=== PATIENT | male | born 1965 | race Caucasian/White ===

== ENCOUNTER 2019-11-09 10:57 | Outpatient (CLI) | payer MEDICARE, SELFPAY ==
--- NOTE | 2019-11-09 11:00 | US_ITS ---
WS: [id number] TESTICULAR ULTRASOUND HISTORY: TESTICULAR SWELLING COMPARISON: 04/15/2017 TECHNIQUE: Real-time and color Doppler imaging or utilized to perform a testicular ultrasound. Right testicle: 3.4 cm x 1.8 cm x 2.0 cm. Normal size and echogenicity. No mass or torsion. Normal color Doppler is present throughout. Systolic and diastolic velocities are both present. Small simple hydrocele. Right epididymis: Normal epididymis with no increased vascularity. Left testicle: 3.6 cm x 2.2 cm x 2.6 cm. Normal size and echogenicity. No mass or torsion. Normal color Doppler is present throughout. Systolic and diastolic velocities are both present. Moderate to large hydrocele surrounding the testicle. Marked thickening of the scrotal wall around th e LEFT testicle. Left epididymis: Normal epididymis with no increased vascularity. US/US scrotum [id number] IMPRESSION: 1. No testicular mass or torsion. 2. Small RIGHT and moderate to large LEFT hydrocele. Hydroceles were also pres ent on the prior study from 04/15/2017. The LEFT hydrocele is increased in size. 3. LEFT scrotal wall thickening.
== END 2019-11-09 10:58 | disposition home or self-care (01) ==
LOC: US 11:04
PROVIDERS: Family Provider Nurse Practitioner Family; PCP Nurse Practitioner Family; Visit Provider Nurse Practitioner Family
DX: N50.89 Other specified disorders of the male genital organs (principal); N43.2 Other hydrocele
CPT/HCPCS: 76870

== ENCOUNTER 2020-05-08 12:53 | Emergency (ER) | payer MEDICARE, SELFPAY ==
[2020-05-08 13:04] VITALS: BP 126/87; PULSE 49; RESP 14; TEMP 36.6; O2SAT 98; BMI 41.8
--- NOTE | 2020-05-08 13:25 | XRR_ITS ---
PROCEDURE INFORMATION: Exam: XR Chest, 1 View Exam date and time: 05/08/2020 1:53 PM Age: 55 years old Clinical indication: Other: Bradycardia; Patient HX: SOB, pain in lspine, clammy this morning TECHNIQUE: Imaging protocol: XR of the chest Views: 1 view. COMPARISON: CR Chest 1 [place] [id number] 09/05/2019 5:46 PM FINDINGS: Lungs: Unremarkable. No consolidation. Pleural space: Unremarkable. No pleural effusion. No pneumothorax. Heart/Mediastinum: Unremarkable. No cardiomegaly. Bones/joints: Unremarkable. XR/XR chest 1V portable [id number] IMPRESSION: No acute findings.
--- NOTE | 2020-05-08 13:25 | ECG_ITS ---
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 Measurements Intervals [place] Rate: 47 P: FL: -1 QRS: 102 QRSD: 150 T: 18 QT: 459 QTc: 407 Interpretive Statements ATRIAL FIBRILLATION WITH SLOW VENTRICULAR RESPONSE MARKED RIGHT AXIS DEVIATION [QRS AXIS > 100] RIGHT BUNDLE BRANCH BLOCK [120+ ms QRS DURATION, UPRIGHT V1, 40+ ms S IN I/aVL/V4/V5/V6] Compared to ECG 09/05/2019 19:32:22 Right-axis deviation now present Right bundle-branch block now present Myocardial infarct finding no longer present T-wave abnormality no longer present Possible ischemia no longer present Electronically Signed On 05-08-2020 21:23:35 CDT by Annetta Candelaria M.D. [id number]
--- NOTE | 2020-05-08 13:27 | ED_ITS ---
HPI - Arrhythmia/Palpitations General: Chief Complaint: Arrhythmia/Palpitations Stated Complaint: CLAMMY/SOB/SENT BY FOR HEART CHECK Time Seen by Provider: 05/08/20 13:13 Source: patient and family Mode of arrival: ambulatory Limitations: no limitations History of Present Illness: HPI narrative: The patient is a 55-year-old obese gentleman with a history of atrial fibrillation and pulmonary embolism who is on apixaban, diltiazem, metoprolol among many others. About 2 weeks ago his doctor increase the dose of his diltiazem to 240 mg extended release tablets. The patient states his heart rate is usually high but when he went to his primary care provider's office today they noticed that his heart rate was 45 and his blood pressure was on the lower side, 110/50. The patient also had some shortness of breath so he was advised to come to the emergency department for evaluation. He denies any chest pain but says he feels cold in his chest which is how he feels when his heart is not in rhythm. Onset (ago): hour(s) Duration: intermittent Severity: mild Context: occurred during rest Arrhythmia history: atrial fibrillation and on anti-coagulants Associated symptoms: Reports short of breath; Deny anxiety, cough, diaphoresis, muscle cramps, nausea, paresthesias, pre- syncope, sense of impending doom, syncope or vomiting Review of Systems General: Reports: 10 or more systems reviewed and unremarkable except in HPI and below Const: Denies: diaphoresis Eyes: Denies: change in vision or blurry vision ENMT: Denies: throat pain, enlarged tonsils, odynophagia, hoarseness, mouth pain or swelling of lips/tongue Card: Denies: syncope or pre-syncope Resp: Denies: dyspnea, productive cough or non-productive cough GI: Denies: nausea or vomiting : Denies: flank pain, dysuria, urinary frequency, urinary urgency or urinary hesitancy Musc: Denies: muscle cramps Skin/Breast: Denies: rash, pruritus or erythema Neuro: Denies: headache(s), numbness in extremities or weakness in extremities Psych: Denies: anxiety Endo: Denies: polyuria, polydipsia or tired all the time [facility] PFSH: Medical History (Reviewed 05/08/20 @ 13:34 by Renée Cotto MD, [facility] Atrial fibrillation Pulmonary embolism Physical Exam Const: COMMON NORMALS: no acute distress, patient oriented x3, no limitations, healthy appearing, alert and well nourished NUTRITIONAL APPEARANCE: obese HENMT: COMMON NORMALS: normocephalic, atraumatic and moist oral mucous membranes HEAD & SCALP: normocephalic and atraumatic Neck/C-Spine: COMMON NORMALS: no meningeal signs and no JVD Resp: COMMON NORMALS: normal respiratory effort, No retractions, No use of accessory muscles, clear to auscultation bilaterally and percussion normal AUSCULTATION: clear to auscultation bilaterally PERCUSSION: percussion normal Cardio: COMMON NORMALS: no JVD, S1 normal heart sound present, S2 normal heart sound present, No gallops present (Cardio), No clicks present (Cardio), No murmurs present (Cardio), No rub (Cardio) and Peripheral pulses 2+ throughout RATE: bradycardic RHYTHM: abnormal rhythm regularly irregular HEART SOUNDS: S1 normal heart sound present and S2 normal heart sound present PERIPHERAL PULSES: Peripheral pulses 2+ throughout GI: COMMON NORMALS: Normal to inspection, nondistended, normoactive bowel sounds present, Soft to palpation, non-tender, No hepatosplenomegaly present, no masses and no bruits PALPATION: Yes Soft to palpation and Yes No hep atosplenomegaly present Extremity: COMMON NORMALS: normal to inspection, full ROM, capillary refill normal, no calf tenderness and no pedal edema Neuro: COMMON NORMALS: patient oriented x3 SENSORIUM/ORIENTATION: Yes alert MENINGEAL SIGNS: Yes no meningeal signs Course Reevaluation(s): Reevaluation #1: Discussed his lab and imaging findings with him. Baseline troponin mildly elevated but 2-hour troponin with a flat delta. Heart rate has increased to the 60s currently on his blood pressure has also improved. I advised that he reduce the dose of his metoprolol by half to 25 mg twice daily. He is also advised to continue to check his blood pressure at least once a day at home and to follow-up with his primary care provider within 3 days for reevaluation. He voiced understanding and is in agreement with the plan. Time: 16:15 Vital Signs: Vital signs: Vital Signs Temperature 97.9 F 05/08/20 13:04 Pulse Rate 56 L 05/08/20 15:53 Respiratory Rate 17 05/08/20 15:53 Blood Pressure 138/94 05/08/20 15:53 Pulse Oximetry 96 05/08/20 15:53 MDM - Arrhythmia/Palpitations MDM Narrative: Medical decision making narrative: 55-year-old gentleman who presents to the emergency department from his primary care provider's office with complaints of bradycardia and hypotension. On arrival his heart rate was in the 40s but his blood pressure was decent in the 1 teens systolic. The patient has a history of atrial fibrillation and is on diltiazem and metoprolol. The dose of the diltiazem was increased about 2 weeks ago and I believe this may be responsible for his symptoms. Evaluation in the emergency department was unremarkable with mildly elevated baseline high-sensitivity troponin but with a flat 2-hour delta. The patient was asymptomatic other than mild shortness of breath. Other labs and imaging were unremarkable. He is therefore discharged home and he is advised to reduce the dose of metoprolol by 50% and to see if his blood pressure and pulse rate improved with that. Prior to discharge his heart rate w ent to into the 60s without intervention and his blood pressure also remained okay. Medical Records: Attestation: I reviewed the patient's medical records. Lab Data: Attestation: I reviewed the patient's lab results. Labs: Lab Results 05/08/20 05/08/20 05/08/20 Range/Units 13:39 13:39 13:39 WBC 5.9 (4.0-10.0) 10^3/ uL RBC 5.12 (4.1-5.3) 10^6/u L Hgb 14.6 (11.7-16.6) g/dL Hct 46.8 (42.0-52.0) % MCV 91.4 (80-94) fL MCH 28.5 (28.0-34.0) pg MCHC 31.2 (30.0-36.0) g/dL RDW 12.8 (12.1-15.1) % Plt Count 249 (130-400) 10^3/c mm MPV 10.5 H (7.4-10.4) fL Neut % (Auto) 58.0 % Lymph % (Auto) 32.6 % [place] % (Auto) 7.4 % Eos % (Auto) 1.5 % Baso % (Auto) 0.3 % Neut # (Auto) 3.39 (1.8-7.7) 10^3/u L Lymph # (Auto) 1.9 (0.8-4.8) 10^3/u L [place] # (Auto) 0.4 (0.2-0.9) 10^3/u L Eos # (Auto) 0.1 (0.0-0.8) 10^3/u L Baso # (Auto) 0.0 (0.0-0.1) 10^3/u L Nucleated RBC % (a uto) 0 % Nucleated RBCs # 0.0 /100WBC Sodium Cancelled Potassium Cancelled Chloride Cancelled Carbon Dioxide Cancelled Anion Gap Cancelled BUN Cancelled Creatinine Cancelled GFR Calculation Cancelled Glucose Cancelled Calculated Osmolal ity Cancelled Calcium Cancelled Total Bilirubin Cancelled AST Cancelled ALT Cancelled Alkaline Phosphata se Cancelled Troponin T Baselin e 19 H (0-15) ng/L Troponin T 120 Min glo (0-15) ng/L Delta Troponin T (0-10) ABS# NT-Pro-B Natriuret Pep Cancelled Total Protein Cancelled Albumin Cancelled Globulin Cancelled 05/08/20 05/08/20 Range/Units 15:16 15:16 WBC (4.0-10.0) 10^3/ uL RBC (4.1-5.3) 10^6/u L Hgb (11.7-16.6) g/dL Hct (42.0-52.0) % MCV (80-94) fL MCH (28.0-34.0) pg MCHC (30.0-36.0) g/dL RDW (12.1-15.1) % Plt Count (130-400) 10^3/c mm MPV (7.4-10.4) fL Neut % (Auto) % Lymph % (Auto) % [place] % (Auto) % Eos % (Auto) % Baso % (Auto) % Neut # (Auto) (1.8-7.7) 10^3/u L Lymph # (Auto) (0.8-4.8) 10^3/u L [place] # (Auto) (0.2-0.9) 10^3/u L Eos # (Auto) (0.0-0.8) 10^3/u L Baso # (Auto) (0.0-0.1) 10^3/u L Nucleated RBC % (a uto) % Nucleated RBCs # /100WBC Sodium 137 Potassium 4.7 Chloride 101 Carbon Dioxide 28 Anion Gap 12.7 BUN 12 Creatinine 0.8 GFR Calculation 99.6 Glucose 107 Calculated Osmolal ity 281 L Calcium Total Bilirubin 0.3 AST 15 ALT 17 Alkaline Phosphata se 55 Troponin T Baselin e (0-15) ng/L Troponin T 120 Min glo 17.84 H (0-15) ng/L Delta Troponin T -1.16 L (0-10) ABS# NT-Pro-B Natriuret Pep 768 H Total Protein 6.9 Albumin 4.0 Globulin 2.9 Imaging Data^: CXR: Radiologist's impression: [address] [address] XRay Report Signed Patient: Mitesh Laboy #: [id number] : 1965Acct#:[id number] Age/Sex: 55 / MADM Date: 05/08/20 Loc: ERRoom/Bed: Attending Dr: Ordering Provider/Ordering MD: Renée Cotto MD, [facility] Date of Service: 05/08/20 Procedure(s): XR chest 1V portable [id number] Accession Number(s): [id number] Report Number: [id number] PROCEDURE INFORMATION: Exam: XR Chest, 1 View Exam date and time: 05/08/2020 1:53 PM Age: 55 years old Clinical indication: Other: Bradycardia; Patient HX: SOB, pain in lspine, clammy this morning TECHNIQUE: Imaging protocol: XR of the chest Views: 1 view. COMPARISON: CR Chest 1 [place] [id number] 09/05/2019 5:46 PM FINDINGS: Lungs: Unremarkable. No consolidation. Pleural space: Unremarkable. No pleural effusion. No pneumothorax. Heart/Mediastinum: Unremarkable. No cardiomegaly. Bones/joints: Unremarkable. XR/XR chest 1V portable [id number] IMPRESSION: No acute findings. Dictated By:Shaun Bass MD Signed By:Shaun Bassigned Date/Time:05/08/20 1442 EKG Data^: EKG 1: Attestation: I personally reviewed and interpreted this EKG as follows: EKG interpretation date: 05/08/20 EKG interpretation time: 13:02 Prior EKG tracings: not available for review Interpretation: Atrial fibrillation with slow ventricular response. Heart rate 47 bpm. Right axis deviation. Right bundle branch block. No ST changes. Other EKG comments: Chest X-Ray 05/08/20 13:25 IMPRESSION: No acute findings. Discharge Plan Discharge Patient Disposition: Home Clinical Impression: Bradycardia, drug induced Condition: Stable Prescriptions: Continued aspirin [Adult Low Dose Aspirin] 81 mg tablet,delayed release (DR/EC) 81 mg PO DAILY RF: 0 cyclobenzaprine 10 mg tablet 10 mg PO TID RF: 0 Eliquis 5 mg tablet 5 mg PO BID RF: 0 fentanyl 100 mcg/hr patch 72 hour 1 patch TRANSDERMA Q72H RF: 0 gabapentin 800 mg tablet 800 mg PO TID RF: 0 ibuprofen 800 mg tablet 800 mg PO TID RF: 0 Invokana 300 mg tablet 300 mg PO DAILY RF: 0 lovastatin 20 mg tablet 20 mg PO DAILY RF: 0 metformin 1,000 mg tablet 1,000 mg PO DAILY RF: 0 nitroglycerin [Nitrostat] 0.4 mg tablet, sublingual 0.4 mg SUBLINGUAL Q5M PRN (Reason: chest pains) RF: 0 oxycodone 10 mg tablet 10 mg PO Q4H PRN (Reason: Pain) RF: 0 diltiazem HCl 240 mg capsule,extended release 24 hr 240 mg PO DAILY Qty: 30 RF: 3 Changed metoprolol tartrate 50 mg tablet 25 mg PO BID Qty: 180 RF: 3 Discharge Orders: Discharge Order (Routine); Ordered 05/08/20 Ordered By: Renée Cotto Referrals: Rachael Law FNP [Primary Care Provider] - 1-3 days Discharge Diet: Usual diet Discharge Activity: Resume usual activity Patient Instructions: Bradycardia (ED) Activity Restrictions/Additional Instructions: Return for any new or worsening symptoms. Follow-up with your primary care provider within 3 days. Reduce the dose of your metoprolol by half, to 25 mg twice a day. Check your heart rate at least once a day as well as your blood pressure and inform your primary care provider to see if changes need to be made. 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
[2020-05-08 13:50] VITALS: BP 128/73; PULSE 45; RESP 17; O2SAT 94; O2SAT 95
[2020-05-08 13:53] VITALS: BP 124/89; PULSE 50; RESP 18; O2SAT 98
[2020-05-08 13:53] LABS: Basophils % 0.3 %; Eosinophils # 0.1 10^3/uL (0.0-0.8); Eosinophils % 1.5 %; Hematocrit 46.8 % (42.0-52.0); Hemoglobin 14.6 g/dL (11.7-16.6); Lymphocytes # 1.9 10^3/uL (0.8-4.8); Lymphocytes % 32.6 %; Mean Corpuscular HGB Conc 31.2 g/dL (30.0-36.0); Mean Corpuscular Hemoglobin 28.5 pg (28.0-34.0); Mean Corpuscular Volume 91.4 fL (80-94); Mean Platelet Volume 10.5 fL (7.4-10.4); Monocytes # 0.4 10^3/uL (0.2-0.9); Monocytes % 7.4 %; Neutrophils # 3.39 10^3/uL (1.8-7.7); Nucleated Red Blood Cells % 0 %; Platelet Count 249 10^3/cmm (130-400); Red Blood Count 5.12 10^6/uL (4.1-5.3); Red Cell Distribution Width 12.8 % (12.1-15.1); White Blood Count 5.9 10^3/uL (4.0-10.0)
[2020-05-08 14:53] VITALS: BP 148/82; PULSE 62; RESP 18; O2SAT 93
[2020-05-08 15:37] LABS: Troponin(5th) Baseline 19 ng/L (0-15)
[2020-05-08 15:53] VITALS: BP 138/94; PULSE 56; RESP 17; O2SAT 96
[2020-05-08 16:01] LABS: Troponin 5 2HR 17.84 ng/L (0-15); Troponin 5 2HR Delta -1.16 ABS# (0-10)
[2020-05-08 16:10] LABS: Alanine Aminotransferase 17 U/L (0-41); Alkaline Phosphatase 55 IU/L (40-130); Anion Gap 12.7 (5-19); Aspartate Amino Transferase 15 U/L (0-40); Blood Urea Nitrogen 12 mg/dL (6-20); Carbon Dioxide 28 mmol/L (22-29); Chloride 101 mmol/L (98-107); Globulin 2.9 g/dL (1.3-4.6); Glomerular Filtration Rate 99.6 mL/min (90-130); Glucose 107 mg/dL (65-115); NT Pro B Type Natriuretic Pept 768 pg/mL (0-125); Osmolality Calculated 281 mOsm/kg (285-295); Potassium 4.7 mmol/L (3.5-5.1); Sodium 137 mmol/L (136-145); Total Bilirubin 0.3 mg/dL (0.15-1.2); Total Protein 6.9 g/dL (6.6-8.7)
[2020-05-08 16:23] VITALS: BP 114/50; PULSE 70; RESP 15; O2SAT 96
== END 2020-05-08 16:38 | disposition home or self-care (01) ==
PROVIDERS: Emergency Provider Family Medicine; PCP Nurse Practitioner Family
DX: R00.1 Bradycardia, unspecified (principal); Z79.82 Long term (current) use of aspirin; Z79.01 Long term (current) use of anticoagulants; I48.91 Unspecified atrial fibrillation
CPT/HCPCS: 12345; 36415; 71045; 80053; 83880; 84484; 85025; 93005; 99283; 99284

== ENCOUNTER 2020-08-28 12:33 | Outpatient (CLI) | payer MEDICARE, SELFPAY ==
--- NOTE | 2020-08-28 12:39 | XR_ITS ---
WS: [id number] Right ankle, 2 views, 08/28/2020 Clinical Data: CELLULITIS OF R FOOT/R FOOT ULCER Comparison: Right foot, 12/26/2018. Findings: There is osteoarthritic change and deformity of the right ankle with sclerosis of the talus and adjac ent tibia. There is sclerosis of the tarsal bones. There is soft tissue swelling over the lateral mal leolus. No acute fractures are seen. There is a large Achilles spur and a plantar spur. XR/XR ankle RT 2V [id number] Impression: 1. Sclerotic changes and deformity of the right ankle which are chronic. 2. Sclerotic changes of the tarsal bones and mid foot unchanged. 3. Soft tissue swelling over lateral aspect of right ankle. Which could indicat e cellulitis.
== END 2020-08-28 12:34 | disposition home or self-care (01) ==
PROVIDERS: PCP Nurse Practitioner Family; Visit Provider Nurse Practitioner Family
DX: L03.115 Cellulitis of right lower limb (principal); L97.519 Non-pressure chronic ulcer of other part of right foot with unspecified severity; M79.89 Other specified soft tissue disorders
CPT/HCPCS: 73600

== ENCOUNTER 2020-08-28 13:56 | Outpatient (CLI) | payer MEDICARE, SELFPAY | END 2020-08-28 13:57 | disposition home or self-care (01) | LOC: WOUND 13:57 | PROVIDERS: PCP Nurse Practitioner Family; Visit Provider Thoracic Surgery (Cardiothoracic Vascular Surgery) | DX: E11.622 Type 2 diabetes mellitus with other skin ulcer (principal); L97.312 Non-pressure chronic ulcer of right ankle with fat layer exposed; L03.115 Cellulitis of right lower limb; L97.519 Non-pressure chronic ulcer of other part of right foot with unspecified severity; M79.89 Other specified soft tissue disorders | CPT/HCPCS: 11042; 11045; 87070; 87075; 87077; 87186; 87205; G0463 ==

== ENCOUNTER 2020-08-28 16:36 | Inpatient (IN) | payer MEDICARE, SELFPAY ==
[2020-08-28 17:22] VITALS: BP 146/88; PULSE 97; RESP 16; TEMP 36.8; O2SAT 97
--- NOTE | 2020-08-28 18:06 | PC.NURSE ---
wound culture sent to lab for processing
[2020-08-28 18:08] LABS: Basophils % 0.4 %; Eosinophils # 0.1 10^3/uL (0.0-0.8); Eosinophils % 1.6 %; Hematocrit 41.5 % (42.0-52.0); Hemoglobin 13.4 g/dL (11.7-16.6); Lymphocytes # 1.6 10^3/uL (0.8-4.8); Lymphocytes % 22.1 %; Mean Corpuscular HGB Conc 32.3 g/dL (30.0-36.0); Mean Corpuscular Hemoglobin 28.7 pg (28.0-34.0); Mean Corpuscular Volume 88.9 fL (80-94); Monocytes # 0.8 10^3/uL (0.2-0.9); Monocytes % 11.1 %; Neutrophils % 64.2 %; Nucleated Red Blood Cells % 0 %; Platelet Count 280 10^3/cmm (130-400); Red Blood Count 4.67 10^6/uL (4.1-5.3); Red Cell Distribution Width 13.2 % (12.1-15.1)
[2020-08-28 18:13] LABS: Glucose Point of Care 130 mg/dL (70-110)
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
[2020-08-28 18:30] LABS: Alanine Aminotransferase 16 U/L (0-41); Alkaline Phosphatase 76 IU/L (40-130); Anion Gap 15.9 (5-19); Aspartate Amino Transferase 14 U/L (0-40); Blood Urea Nitrogen 17 mg/dL (6-20); Calcium 9.2 mg/dL (8.5-10.5); Carbon Dioxide 27 mmol/L (22-29); Chloride 98 mmol/L (98-107); Globulin 3.4 g/dL (1.3-4.6); Glucose 146 mg/dL (65-115); Osmolality Calculated 288 mOsm/kg (285-295); Potassium 3.9 mmol/L (3.5-5.1); Sodium 137 mmol/L (136-145); Total Bilirubin 0.4 mg/dL (0.15-1.2); Total Protein 7.4 g/dL (6.6-8.7)
[2020-08-28 19:36] LABS: SARS Covid-2 Antigen Negative (Negative)
[2020-08-28] MEDS: linezolid premix 600 MG/300 ML PREMIX 300 MG IV (20:22)
[2020-08-28 20:25] VITALS: BP 149/82; PULSE 110; RESP 20; TEMP 37; O2SAT 98
[2020-08-28 20:52] LABS: Glucose Point of Care 118 mg/dL (70-110)
[2020-08-28] MEDS: piperacillin-tazobactam 3.375 GM in sodium chloride 0.9% (plus) 50 ML IV (22:28)
[2020-08-28 23:58] VITALS: BP 123/69; PULSE 97; RESP 18; TEMP 37.3; O2SAT 95
[2020-08-29] VITALS (8 sets, daily range): BP systolic 110–122; BP diastolic 64–79; PULSE 75–129; RESP 16–20; TEMP 36.6–37.3; O2SAT 95–97; BMI 41.7
[2020-08-29 05:29] LABS: Basophils % 0.5 %; Eosinophils # 0.2 10^3/uL (0.0-0.8); Eosinophils % 2.4 %; Hematocrit 40.1 % (42.0-52.0); Hemoglobin 12.8 g/dL (11.7-16.6); Lymphocytes # 1.5 10^3/uL (0.8-4.8); Lymphocytes % 24.8 %; Mean Corpuscular HGB Conc 31.9 g/dL (30.0-36.0); Mean Corpuscular Hemoglobin 28.5 pg (28.0-34.0); Mean Corpuscular Volume 89.3 fL (80-94); Mean Platelet Volume 9.5 fL (7.4-10.4); Monocytes # 0.8 10^3/uL (0.2-0.9); Monocytes % 13.2 %; Neutrophils # 3.58 10^3/uL (1.8-7.7); Neutrophils % 58.4 %; Nucleated Red Blood Cells % 0 %; Platelet Count 246 10^3/cmm (130-400); Red Blood Count 4.49 10^6/uL (4.1-5.3); Red Cell Distribution Width 13.2 % (12.1-15.1); White Blood Count 6.1 10^3/uL (4.0-10.0)
[2020-08-29] MEDS: piperacillin-tazobactam 3.375 GM in sodium chloride 0.9% (plus) 50 ML IV ×3 (05:42→21:56)
--- NOTE | 2020-08-29 05:57 | PC.NURSE ---
Pt concerned about night time med at beginning of shift, med reconciled in NOV and Phys notified of update and asked to review and make night meds active. Explained to patient certain medications requested (Eliquis, Metoprolol ect) might be held temporarily due to possible procedure to ankle next day. Will address further with day shift nurse/phys.
[2020-08-29 06:14] LABS: Glucose Point of Care 115 mg/dL (70-110)
[2020-08-29 06:31] LABS: Blood Urea Nitrogen 15 mg/dL (6-20); Calcium 9.1 mg/dL (8.5-10.5); Carbon Dioxide 26 mmol/L (22-29); Chloride 102 mmol/L (98-107); Glomerular Filtration Rate 116.2 mL/min (90-130); Glucose 138 mg/dL (65-115); Osmolality Calculated 291 mOsm/kg (285-295); Sodium 139 mmol/L (136-145)
--- NOTE | 2020-08-29 08:53 | PM.PN ---
Subjective Subjective: Interval history: No events overnight. Denies any new symptoms. Is not bothered by pain in his leg. No chest pain or pressure. No trouble breathing. Vitals/I&O/Wt Last Vital Signs Temp 97.9 F 08/29/20 07:45 Pulse 93 08/29/20 07:45 Resp 18 08/29/20 07:45 BP 110/64 08/29/20 07:45 Pulse Ox 95 08/29/20 07:45 08/28/20 08/29/20 08/29/20 22:59 06:59 14:59 Intake Total 240 / 240 770 / 1010 Output Total 250 / 250 950 / 1200 350 / 350 Balance -10 / -10 -180 / -190 -350 / -350 Physical Exam Const: COMMON NORMALS: no acute distress, patient oriented x3 and alert GENERAL APPEARANCE: cooperative NUTRITIONAL APPEARANCE: obese ORIENTATION/CONSCIOUSNESS: Yes awake HENMT: COMMON NORMALS: oropharynx normal Neck/C-Spine: COMMON NORMALS: no JVD Resp: COMMON NORMALS: normal respiratory effort and clear to auscultation bilaterally AUSCULTATION: clear to auscultation bilaterally Cardio: COMMON NORMALS: no JVD, regular rhythm, S1 normal heart sound present, S2 normal heart sound present and No murmurs present (Cardio) RHYTHM: regular rhythm HEART SOUNDS: S1 normal heart sound present and S2 normal heart sound present GI: COMMON NORMALS: Normal to inspection, nondistended, normoactive bowel sounds present, Soft to palpation and non-tender PALPATION: Yes Soft to palpation Extremity: COMMON NORMALS: no joint enlargement GENERAL: Yes edema (Right lower extremity below the knee. 3+ pitting edema. Weeping. ) OTHER: No mass or lymphadenopathy in the right groin. Neuro: COMMON NORMALS: patient oriented x3 and moves all extremities SENSORIUM/ORIENTATION: Yes alert Skin: LESIONS: lesion noted (Right ankle anterior to the right ankle about 2 cm, maration) RASHES: rashes noted (Erythema, warmth slightly better) Data : 08/29/20 05:07 08/29/20 05:07 Micro: Microbiology 08/28/20 17:52 Blood Culture - Preliminary Blood SPECIMEN COLLECTED 08/28/20 17:45 Blood Culture - Preliminary Blood SPECIMEN COLLECTED A&P Assessment and plan (1) Wound infection: There is some slight improvement in the intensity of erythema over the dorsal right foot. There is some decrease in swelling. Due to fairly severe edema of lower extremity, weeping, this morning he will receive a dose of Lasix. MRSA infection of nonhealing wounds of the right ankle. Continue linezolid. Empirically Zosyn due to underlying diabetes. Wound cultures, blood cultures. Due to significant swelling of right lower extremity will obtain duplex ultrasound to exclude DVT, although this should be much less likely given his on anticoagulation chronically. Possibility is of post phlebitis findings, back in two thousand 19 with PE, which could have originated in the right lower extremity. No masses or lymph nodes palpable in the right groin. Discussed with him also in case of difficulties with healing MRI may be beneficial to exclude underlying osteomyelitis. Sclerotic changes seen on ankle x-ray which appeared to be chronic, although this may not detect early underlying osteomyelitis. Elevate lower extremity. Wound care. Reassessment tomorrow for possible additional debridement as discussed with wound care physician. Continue Eliquis. Status: Acute (2) Cellulitis: As above. Status: Acute (3) Diabetes with ulcer of ankle: As above. Status: Acute (4) MRSA (methicillin resistant staph aureus) culture positive: Status: Acute (5) DM type 2 (diabetes mellitus, type 2): Sliding scale insulin while on diabetic diet. Status: Acute (6) Chronic anticoagulation: Continue Eliquis. Status: Acute (7) Pulmonary embolism: PE back in 2019. Status: Acute Qualifiers: Pulmonary embolism type: unspecified Chronicity: chronic Acute cor pulmonale presence: without acute cor pulmonale Qualified Code(s): I27.82 - Chronic pulmonary embolism (8) Atrial fibrillation: Reports started after PE in 2019. Status: Acute Qualifiers: Atrial fibrillation type: longstanding persistent Qualified Code(s): I48.11 - Longstanding persistent atrial fibrillation Additional A&P Information Chronic back pain. Attestations Medical Necessity Statement*: Continue admission for treatment of nonhealing diabetic lower extremity wound with surrounding cellulitis after lack of improvement with outpatient therapy. Coding Level of Care Code Acute Airplane Fueler for [facility] Diagnoses Wound infection T14.8XXA; L08.9 Cellulitis L03.90 Diabetes with ulcer of ankle E11.622; L97.309 MRSA (methicillin resistant staph aureus) culture positive Z22.322 DM type 2 (diabetes mellitus, type 2) E11.9 Chronic anticoagulation Z79.01 Pulmonary embolism I27.82 Pulmonary embolism type: unspecified Chronicity: chronic Acute cor pulmonale presence: without acute cor pulmonale Atrial fibrillation I48.11 Atrial fibrillation type: longstanding persistent
[2020-08-29] MEDS: oxyCODONE 5 mg IR Tab/Cap 10 MG PO ×2 (09:28→17:53)
[2020-08-29] MEDS: apixaban 5 mg Tablet PO ×2 (09:29→17:54)
[2020-08-29] MEDS: metoprolol tartrate 25 mg Tablet PO ×2 (09:29→20:31)
[2020-08-29] MEDS: aspirin 81 mg EC Tablet PO (09:29)
[2020-08-29] MEDS: gabapentin 400 mg Capsule 800 MG PO ×3 (09:29→20:30)
[2020-08-29] MEDS: atorvastatin 40 mg Tablet 20 MG PO (09:29)
[2020-08-29] MEDS: dilTIAZem ER (24HR) 240 mg Capsule PO (09:29)
[2020-08-29] MEDS: linezolid premix 600 MG/300 ML PREMIX 300 MG IV ×2 (09:30→20:29)
--- NOTE | 2020-08-29 10:48 | PC.CHAP ---
Pastoral Care Encounter/Spiritual Assessment Type of Contact [] Declined boom stick worker visit [] Patient/Family/Request visit [] Outpatient visit [] Follow-up visit [] Physician referral [] Code/Alert [] Routine visit [] Staff referral [] Actively dying [] Patient sleeping [] Family support [] [] Out of room [] Palliative care [] [] Receiving care in room [] Pre-surgical visit [] Trauma [] Long length of stay [] ICU visit [x] Other: Isolation Relational/Emotional Strength [] Patient feels connected with others/family/visitors/staff [] Distress [] Loneliness/isolation [] Abandonment Spirituality of Patient [] Person of Cierra [] Attends Jain of their Cierra [] Believes in Prayer [] Reads Bible or Yazidi materials [] There are Spiritual issues to be addressed Marketing Traffic Coordinator Interventions [] Prayer [] Active listening [] Non-anxious presence [] Spiritual/emotional support [] Crisis/trauma care [] Spiritual counseling [] Bereavement support [] Provided bereavement packet [] Provided Bible/devotional materials [] Provided toy/stuffed animal, coloring book to patient or family member [] Provided Communion [] Anointing/Butler [] Salvation [] Completed spiritual assessment [] Other: Impact on Illness or Injury [] Angry [] Fearful [] Anxious [] Often cries [] Exhaustion [] Unable to work [] Unable to attend hindu [] Unable to walk/stand [] Unable to read [] Unable to drive [] Unable to eat/drink [] Unable to sleep [] Unable to be with family [] Patient intubated [] Other: Summary Isolation Time spent with patient 5 mins
--- NOTE | 2020-08-29 10:49 | PC.NURSE ---
THIS NURSE WAS IN WITH THIS PT GIVING HIS 09:00 MEDS. UPON REVIEWING MEDS FOR THIS PT, A ONE TIME DOSE OF IVP LASIX WAS ORDERED. THE PT REFUSED THE LASIX, I ASKED HIM ABOUT IT AGAIN AND HE WAS ADAMANT THAT HE DID NOT WANT IT. THE DOCTOR WAS THEN NOTIFIED ABOUT THE PT'S REFUSAL OF THE IV LASIX.
[2020-08-29 11:18] LABS: Glucose Point of Care 171 mg/dL (70-110)
[2020-08-29] MEDS: collagenase oint 30 gm 1 APPLIC TOPICAL (12:02)
[2020-08-29] MEDS: fentaNYL 100 mcg Patch 1 PATCH TRANSDERMA (12:25)
--- NOTE | 2020-08-29 16:28 | PM.CONSULT ---
Providers/Reason For Consult Consulting Physican/Specialty*: Dr. Eaton/cardiothoracic surgery Reason for Consult*: Diabetic foot ulcer with cellulitis Attending Physician: Hermes Colin Primary Care Provider: KAYLA Pan History of Present Illness History of Present Illness Mitesh Laboy is a 55 year old male saw in wound care services 2 days ago for a right lower extremity diabetic ulcer with intense cellulitis. There was early bullous formation and ulceration over the lateral malleolus. He has a history of prior orthopedic surgery with hardware placement and subsequent infection which required hardware removal. On his visit in wound care services yesterday, he underwent curette debridement and wound care services and I recommended direct admission for IV antibiotics as he had been on Cleocin as established by his primary care provider. Culture from that visit returned while he was in wound care services as MRSA, consistent with prior ulcer infection of that foot several years ago. Dr. Colin from the hospital service was gracious enough to admit Mr. Laboy and has initiated Zyvox and Zosyn. The patient remains afebrile with a normal white count. The erythema of his foot is not quite as intense today and there is slightly decreased edema. My examination at bedside included debridement of the ulceration of the he has lateral malleolus with Metzenbaum scissors as well as opening a couple of small bullae more posteriorly. Review of Systems Const: Denies: fever(s), chills, change in appetite, change in weight, fatigue or night sweats Eyes: Denies: change in vision or blurry vision Card: Denies: chest pain, palpitations or irregular heart rhythm Resp: Denies: dyspnea or productive cough GI: Denies: abdominal pain, nausea, vomiting, dysphagia, heartburn or change in bowel habits : Denies: difficulty urinating, dysuria, urinary frequency, urinary urgency or urinary hesitancy Musc: Denies: extremity pain or extremity swelling Skin/Breast: Reports: erythema (Right foot and lower portion of right leg and dorsum of right foot) Neuro: Denies: headache(s), numbness in extremities, weakness in extremities or sensory changes Psych: Denies: anxiety, depression or change in appetite Endo: Denies: polyuria, polydipsia or cold intolerance Kishan/Lymph: Denies: easy bruising, easy bleeding, petechiae or enlarged lymph nodes Meds/Allergies Home Medications and Allergies Home Medications Medication Instructions Recorded Confirmed Last Taken Type apixaban 5 mg tablet 5 mg PO BID 04/11/20 08/29/20 08/27/20 History aspirin 81 mg tablet,delayed 81 mg PO DAILY 04/11/20 08/28/20 08/28/20 History release 81 mg canagliflozin 300 mg tablet 300 mg PO DAILY 04/11/20 08/29/20 08/27/20 History ibuprofen 800 mg tablet 800 mg PO TID 04/11/20 08/29/20 08/27/20 History lovastatin 20 mg tablet 20 mg PO DAILY 04/11/20 08/29/20 08/27/20 History metformin 1,000 mg tablet 1,000 mg PO DAILY 04/11/20 08/29/20 08/27/20 History nitroglycerin 0.4 mg sublingual 0.4 mg SUBLINGUAL Q5M PRN 04/11/20 08/29/20 Unknown History tablet alprazolam [Xanax] 0.25 mg PO BID PRN 08/28/20 08/29/20 08/27/20 History cyclobenzaprine 10 mg PO TID 08/28/20 08/29/20 08/27/20 History diltiazem HCl 240 mg PO DAILY 08/28/20 08/29/20 08/27/20 History fentanyl 100 mcg TRANSDERMAL DIRECTED 08/28/20 08/28/20 08/26/20 History 100 mcg gabapentin 800 mg PO TID 08/28/20 08/29/20 08/27/20 History lovastatin 20 mg PO DAILY 08/28/20 08/28/20 Unknown History metoprolol tartrate 50 mg PO BID 08/28/20 08/29/20 08/27/20 History oxycodone 10 mg PO Q6H PRN 08/28/20 08/28/20 Unknown History trazodone 100 mg PO BEDTIME 08/28/20 08/29/20 08/27/20 History Allergies Allergy/AdvReac Type Severity Reaction Status Date / Time No Known Allergies Allergy Verified 05/08/20 13:50 Current Medications Current Medications Generic Name Dose Route Start Last Admin Trade Name Freq PRN Reason Stop Dose Admin Apixaban 5 mg 08/29/20 09:00 08/29/20 09:29 Apixaban 5 Mg Tablet PO 5 mg BID JANES Administration Aspirin 81 mg 08/29/20 09:00 08/29/20 09:29 Aspirin 81 Mg Ec Tablet PO 81 mg DAILY JANES Administration Atorvastatin Calcium 20 mg 08/29/20 09:00 08/29/20 09:29 Atorvastatin 40 Mg Tablet PO 20 mg DAILY JANES Administration Collagenase 1 applic 08/29/20 11:45 08/29/20 12:02 Collagenase Oint 30 Gm TOPICAL 1 applic DAILY JANES Administration Diltiazem HCl 240 mg 08/29/20 09:00 08/29/20 09:29 Diltiazem Er (24hr) 240 Mg Capsule PO 240 mg DAILY JANES Administration Fentanyl 1 patch 08/29/20 10:00 08/29/20 12:25 Fentanyl 100 Mcg Patch TRANSDERMA 1 patch Q72H JANES Administration Gabapentin 800 mg 08/29/20 09:00 08/29/20 16:13 Gabapentin 400 Mg Capsule PO 800 mg TID JANES Administration Linezolid 600 mg in 300 mls @ 300 mls/hr 08/28/20 20:00 08/29/20 09:30 Zyvox Premix IV 300 mls/hr Q12H JANES Administration Protocol Piperacillin Sod/Tazobactam 50 mls @ 12.5 mls/hr 08/28/20 21:00 08/29/20 10:09 Sod 3.375 gm/ Sodium Chloride IV Infused Q8H JANES Infusion Protocol Insulin Aspart 0 unit 08/28/20 18:00 08/29/20 12:02 Insulin Aspart 100 Unit/1 Ml SUBCUT 2 unit WM&BEDTIME JANES Administration Protocol Metoprolol Tartrate 25 mg 08/29/20 09:00 08/29/20 09:29 Metoprolol Tartrate 25 Mg Tablet PO 25 mg BID@0900,2100 JANES Administration Oxycodone HCl 10 mg 08/29/20 08:02 08/29/20 09:28 Oxycodone 5 Mg Ir Tab/Cap PO 10 mg Q6H PRN Administration PAIN PFSH Acute PFSH: Medical History Atrial fibrillation Chronic anticoagulation Chronic low back pain DM type 2 (diabetes mellitus, type 2) Pulmonary embolism Surgical History History of orthopedic surgery Bilateral lower extremity fractures 2004, hardware of right lower extremity and removal in 2016 Family History Father Leukemia Social History Smoking and tobacco status: former smoker Alcohol intake: never Substance/Drug Use: never Lives independently: Yes Vitals/I&O/Wt Last Vital Signs Temp 98.5 F 08/29/20 15:59 Pulse 75 08/29/20 15:59 Resp 18 08/29/20 15:59 BP 122/79 08/29/20 15:59 Pulse Ox 97 08/29/20 15:59 08/29/20 08/29/20 08/29/20 06:59 14:59 22:59 Intake Total 770 / 1310 410 / 410 Output Total 950 / 1200 350 / 350 Balance -180 / 110 60 / 60 Weight last 48 hrs Weight 343 lb Physical Exam Const: COMMON NORMALS: patient oriented x3 Neck/C-Spine: COMMON NORMALS: full ROM, no lymphadenopathy and supple Resp: COMMON NORMALS: normal respiratory effort, No retractions and clear to auscultation bilaterally EFFORT & INSPECTION: Yes able to speak in complete sentences and Yes symmetric chest movement AUSCULTATION: clear to auscultation bilaterally Cardio: COMMON NORMALS: regular rate, regular rhythm, S1 normal heart sound present and No murmurs present (Cardio) RATE: regular rate RHYTHM: regular rhythm HEART SOUNDS: S1 normal heart sound present Extremity: NARRATIVE EXTREMITY EXAM: There is marked erythema of the right foot, particular of the dorsum extending to the distal portion of the right leg and laterally. There is ulceration over the right lateral malleolus and bullous formation posteriorly from that area. I again performed further debridement with Metzenbaum scissors. I initially debrided during his clinic visit at wound care services with a curette. Neuro: COMMON NORMALS: patient oriented x3; negative for no sensory deficits noted (Hypoesthesia of the feet bilaterally secondary to diabetes) and negative for gait normal Data Micro: Micro: Microbiology 08/28/20 17:52 Blood Culture - Pr eliminary Blood SPECIMEN [facility] 08/28/20 17:45 Blood Culture - Pr eliminary Blood SPECIMEN [facility] A&P Assessment and plan (1) Diabetes with ulcer of ankle: Commend we discontinue Santyl and will initiate Hydrofera Blue on all wounds has an easily acquired available primary product here on the sadler. At this time, I do not think he needs further operative debridement though this may be necessary in the future or could be potentially performed in outpatient setting. His cellulitis is modestly improved though still fairly intense and I do feel continued elevation and IV antibiotic therapy would be beneficial as has been directed by Dr. Colin. I greatly appreciate Dr. Colin and his service for their direction in the care of Mr. Laboy Status: Acute Consult Attestations Medical Necessity Statement: Diabetic foot ulcer with cellulitis Time Spent in Patient Care: 16 - 35 minutes Coding Level of Care Code Acute American Sign Language Interpreter for [facility] Diagnoses Diabetes with ulcer of ankle E11.622; L97.309
[2020-08-29 17:18] LABS: Glucose Point of Care 98 mg/dL (70-110)
[2020-08-29] MEDS: ALPRAZolam 0.25 mg Tablet 0.125 MG PO (17:52)
--- NOTE | 2020-08-29 18:16 | USCV_ITS ---
Mitesh Laboy Age: 55 Gender: M : 1965 Exam Date: 08/29/2020 08:08 Ordering Phys: Hermes Colin MD Technologist: Azar Davila Exam Location: [facility] [place] Indication: RT LEG PAIN AND SWELLING HISTORY: Lower extremity swelling. PROCEDURES: Venous duplex imaging was performed in only the right lower extremity. The following venous structures were evaluated: common femoral vein, profunda vein, proximal portion of the greater saphenous vein, superficial femoral vein, and the popliteal vein. In addition, the posterior tibial and peroneal trunk were evaluated. On the right side, the common femoral, superficial femoral, profunda femoral, popliteal, posterior tibial, greater saphenous veins and the peroneal trunk were identified and interrogated in the standard fashion. These veins were found to be easily compressible with spontaneous blood flow. No evidence of insufficiency or thrombus noted. FINDINGS: Normal 2-D Doppler and augmentation and compressibility throughout the lower extremity venous structures. Additional imaging through the proximal calf veins also reveals no thrombus. Limited evaluation of the greater saphenous vein is patent with no thrombus.. CONCLUSIONS No evidence of right lower extremity DVT. Sid White MD (Electronically Signed) Final Date: 29 August 2020 12:39 S
[2020-08-29] MEDS: trazodone 100 mg Tablet PO (20:32)
[2020-08-29] MEDS: acetaminophen 325 mg Tablet 650 MG PO (20:32)
[2020-08-29 20:38] LABS: Glucose Point of Care 121 mg/dL (70-110)
[2020-08-30] VITALS (8 sets, daily range): BP systolic 101–120; BP diastolic 63–82; PULSE 54–101; RESP 16–20; TEMP 36.6–37.1; O2SAT 94–96
[2020-08-30] MEDS: acetaminophen 325 mg Tablet 650 MG PO ×2 (04:45→08:06)
[2020-08-30] MEDS: oxyCODONE 5 mg IR Tab/Cap 10 MG PO ×2 (04:46→17:41)
[2020-08-30] MEDS: piperacillin-tazobactam 3.375 GM in sodium chloride 0.9% (plus) 50 ML IV ×2 (05:33→17:39)
[2020-08-30 05:36] LABS: Basophils % 0.4 %; Eosinophils # 0.1 10^3/uL (0.0-0.8); Hematocrit 40.4 % (42.0-52.0); Lymphocytes # 1.6 10^3/uL (0.8-4.8); Lymphocytes % 22.7 %; Mean Corpuscular HGB Conc 32.2 g/dL (30.0-36.0); Mean Corpuscular Hemoglobin 28.7 pg (28.0-34.0); Mean Corpuscular Volume 89.2 fL (80-94); Mean Platelet Volume 9.5 fL (7.4-10.4); Monocytes # 0.8 10^3/uL (0.2-0.9); Monocytes % 11.2 %; Neutrophils # 4.44 10^3/uL (1.8-7.7); Neutrophils % 63.1 %; Nucleated Red Blood Cells % 0 %; Platelet Count 285 10^3/cmm (130-400); Red Blood Count 4.53 10^6/uL (4.1-5.3); Red Cell Distribution Width 13.3 % (12.1-15.1)
[2020-08-30 05:56] LABS: Blood Urea Nitrogen 14 mg/dL (6-20); Calcium 8.6 mg/dL (8.5-10.5); Carbon Dioxide 28 mmol/L (22-29); Chloride 101 mmol/L (98-107); Creatinine Clr Calc Pharmacy 188.2532; Glomerular Filtration Rate 116.2 mL/min (90-130); Glucose 121 mg/dL (65-115); Osmolality Calculated 288 mOsm/kg (285-295); Sodium 138 mmol/L (136-145)
[2020-08-30 07:24] LABS: Glucose Point of Care 114 mg/dL (70-110)
[2020-08-30] MEDS: apixaban 5 mg Tablet PO ×2 (08:05→17:39)
[2020-08-30] MEDS: aspirin 81 mg EC Tablet PO (08:05)
[2020-08-30] MEDS: dilTIAZem ER (24HR) 240 mg Capsule PO (08:06)
[2020-08-30] MEDS: atorvastatin 40 mg Tablet 20 MG PO (08:06)
[2020-08-30] MEDS: gabapentin 400 mg Capsule 800 MG PO ×3 (08:06→20:52)
[2020-08-30 10:51] LABS: Glucose Point of Care 207 mg/dL (70-110)
[2020-08-30] MEDS: linezolid premix 600 MG/300 ML PREMIX 300 MG IV ×2 (11:53→21:30)
[2020-08-30 17:19] LABS: Glucose Point of Care 93 mg/dL (70-110)
--- NOTE | 2020-08-30 19:03 | PC.NURSE ---
SHIFT SUMMARY PT HAS DONE WELL TODAY. EDEMA AND REDNESS HAS GONE DONE TREMENDOUSLY TODAY. PT HAS MINIMAL COMPLAINTS OF PAIN. WBC COUNT REMAINS WNL DOSE TEMPERATURE. THIS MORNING PTS BLOOD PRESSURE WAS 101/63, AN ORDER FOR METOPROLOL WAS IN, AFTER RECHECKING THE BLOOD PRESSURE WITH NO CHANGES THE DOCTOR WAS NOTIFIED AND AN ORDER TO HOLD THE METOPROLOL WAS GIVEN AND TO RECHECK B/P AT 11:00; PT WAS ASYMPTOMATIC THE WHOLE TIME. THE B/P WAS REASSESSED AT 11:00 AND IT HAD ONLY GONE UP TO 104/70, THE DOCTOR WAS NOTIFIED AGAIN AN ORDER TO NOT GIVE THE METOPROLOL WAS GIVEN, METOPROLOL WAS NOT GIVEN. PT HAS NOT HAD ANY COMPLAINTS OF DIZZINESS. THE LAST BLOOD PRESSURE THAT WAS TAKEN WAS 120/74. PT HAS BEEN UP TO THE SHOWER TODAY AND TOLERATED WELL. WILL CONTINUE TO MONITOR.
[2020-08-30] MEDS: metoprolol tartrate 25 mg Tablet PO (20:52)
[2020-08-30] MEDS: ALPRAZolam 0.25 mg Tablet 0.125 MG PO (20:53)
[2020-08-30] MEDS: trazodone 100 mg Tablet PO (20:53)
--- NOTE | 2020-08-30 20:58 | P.PN_ITS ---
Subjective Subjective: Interval history: He is not bothered by pain in his leg. Denies any chest pain or pressure. No trouble breathing. Vitals/I&O/Wt Last Vital Signs Temp 98.7 F 08/30/20 20:00 Pulse 101 H 08/30/20 20:00 Resp 20 H 08/30/20 20:00 BP 111/82 08/30/20 20:00 Pulse Ox 94 08/30/20 20:00 08/30/20 08/30/20 08/30/20 06:59 14:59 22:59 Intake Total 50 / 2310 290 / 290 240 / 530 Output Total 725 / 2225 Balance -675 / 85 290 / 290 240 / 530 Weight last 48 hrs Weight 155.582 kg Physical Exam Const: COMMON NORMALS: no acute distress, patient oriented x3 and alert GENERAL APPEARANCE: cooperative NUTRITIONAL APPEARANCE: obese ORIENTATION/CONSCIOUSNESS: Yes awake HENMT: COMMON NORMALS: oropharynx normal Neck/C-Spine: COMMON NORMALS: no JVD Resp: COMMON NORMALS: normal respiratory effort and clear to auscultation bilaterally AUSCULTATION: clear to auscultation bilaterally Cardio: COMMON NORMALS: no JVD, regular rhythm, S1 normal heart sound present, S2 normal heart sound present and No murmurs present (Cardio) RHYTHM: regular rhythm HEART SOUNDS: S1 normal heart sound present and S2 normal heart sound present GI: COMMON NORMALS: Normal to inspection, nondistended, normoactive bowel sounds present, Soft to palpation and non-tender PALPATION: Yes Soft to palpation Extremity: COMMON NORMALS: no joint enlargement GENERAL: Yes edema (Right foot. 3+ pitting edema. Improved elsewhere. ) OTHER: No mass or lymphadenopathy in the right groin. Neuro: COMMON NORMALS: patient oriented x3 and moves all extremities SENSORIUM/ORIENTATION: Yes alert Skin: LESIONS: lesion noted (Ulceration anterior to right lateral malleolus appears without purulent dis) RASHES: rashes noted (Erythema, warmth slightly better) OTHER: Weeping resolved. Data : 08/30/20 04:38 08/30/20 04:38 Micro: Microbiology 08/28/20 17:52 Blood Culture - Preliminary Blood NEGATIVE TO DATE 08/28/20 17:45 Blood Culture - Preliminary Blood NEGATIVE TO DATE A&P Assessment and plan (1) Wound infection: There is improvement in wounds of lower extremity. The erythema is definitely better today, some residual at the dorsal foot. There is still persistent swelling. Given degree of swelling, diabetes, recurrent infections in that leg/foot will continue IV antibiotics at this time. Reassess continued improvement. If edema significantly decreasing, cellulitis resolving, consideration may be given to transition to oral therapy. Discussed with him, however, if edema is persistent, or any signs of persistent purulence, due to recurrent infections and immune compromise he may benefit from IV infusions of antibiotics for several weeks. He is agreeable with this consideration. At this time continue linezolid. We are growing Staph aureus. Will discontinue Zosyn. He refused Lasix, but weeping appears better. He is elevating right lower extremity he says on a pillow. Status: Acute (2) Cellulitis: Improving. Continue antibiotics as above. No DVT on duplex. Status: Acute (3) Diabetes with ulcer of ankle: As above. Status: Acute (4) MRSA (methicillin resistant staph aureus) culture positive: Status: Acute (5) DM type 2 (diabetes mellitus, type 2): Sliding scale insulin while on diabetic diet. Status: Acute (6) Chronic anticoagulation: Continue Eliquis. Status: Acute (7) Pulmonary embolism: PE back in 2019. Status: Acute Qualifiers: Pulmonary embolism type: unspecified Chronicity: chronic Acute cor pulmonale presence: without acute cor pulmonale Qualified Code(s): I27.82 - Chronic pulmonary embolism (8) Atrial fibrillation: Reports started after PE in 2019. Status: Acute Qualifiers: Atrial fibrillation type: longstanding persistent Qualified Code(s): I48.11 - Longstanding persistent atrial fibrillation Additional A&P Information Chronic back pain. Requires continued treatment with IV antibiotics due to failure of outpatient therapy, persistent edema, immune compromise. Pending additional reassessments with regards to continuation of IV or oral therapy after discharge. Attestations Medical Necessity Statement*: Requires continued treatment with IV antibiotics due to failure of outpatient therapy, persistent edema, immune compromise. Pending additional reassessments with regards to continuation of IV or oral therapy after discharge. Coding Level of Care Code Acute Welder Production Line Combination for [facility] Diagnoses Wound infection T14.8XXA; L08.9 Cellulitis L03.90 Diabetes with ulcer of ankle E11.622; L97.309 MRSA (methicillin resistant staph aureus) culture positive Z22.322 DM type 2 (diabetes mellitus, type 2) E11.9 Chronic anticoagulation Z79.01 Pulmonary embolism I27.82 Pulmonary embolism type: unspecified Chronicity: chronic Acute cor pulmonale presence: without acute cor pulmonale Atrial fibrillation I48.11 Atrial fibrillation type: longstanding persistent
[2020-08-30 21:15] LABS: Glucose Point of Care 143 mg/dL (70-110)
[2020-08-30] MEDS: calcium carbonate 500 mg Chew Tablet PO (21:42)
[2020-08-31] VITALS (9 sets, daily range): BP systolic 94–145; BP diastolic 59–85; PULSE 84–97; RESP 17–24; TEMP 36.6–37.7; O2SAT 92–98
[2020-08-31] MEDS: oxyCODONE 5 mg IR Tab/Cap 10 MG PO ×3 (04:05→22:26)
[2020-08-31 05:04] LABS: Basophils % 0.4 %; Eosinophils # 0.1 10^3/uL (0.0-0.8); Eosinophils % 1.9 %; Hematocrit 40.6 % (42.0-52.0); Hemoglobin 12.9 g/dL (11.7-16.6); Lymphocytes # 1.7 10^3/uL (0.8-4.8); Mean Corpuscular HGB Conc 31.8 g/dL (30.0-36.0); Mean Corpuscular Hemoglobin 28.4 pg (28.0-34.0); Mean Corpuscular Volume 89.4 fL (80-94); Mean Platelet Volume 9.2 fL (7.4-10.4); Monocytes # 0.8 10^3/uL (0.2-0.9); Monocytes % 10.8 %; Neutrophils # 4.75 10^3/uL (1.8-7.7); Neutrophils % 63.2 %; Nucleated Red Blood Cells % 0 %; Platelet Count 305 10^3/cmm (130-400); Red Blood Count 4.54 10^6/uL (4.1-5.3); Red Cell Distribution Width 13.2 % (12.1-15.1); White Blood Count 7.5 10^3/uL (4.0-10.0)
[2020-08-31 05:33] LABS: Anion Gap 14.2 (5-19); Blood Urea Nitrogen 10 mg/dL (6-20); Calcium 8.9 mg/dL (8.5-10.5); Carbon Dioxide 29 mmol/L (22-29); Chloride 101 mmol/L (98-107); Glomerular Filtration Rate 99.6 mL/min (90-130); Glucose 164 mg/dL (65-115); Osmolality Calculated 293 mOsm/kg (285-295); Potassium 4.2 mmol/L (3.5-5.1); Sodium 140 mmol/L (136-145)
[2020-08-31 06:57] LABS: Glucose Point of Care 160 mg/dL (70-110)
--- NOTE | 2020-08-31 07:13 | PC.NURSE ---
fentanyl patch in place on upper right arm , checked with nurse Ayse Quinonez
[2020-08-31] MEDS: aspirin 81 mg EC Tablet PO (08:50)
[2020-08-31] MEDS: gabapentin 400 mg Capsule 800 MG PO ×3 (08:50→22:25)
[2020-08-31] MEDS: apixaban 5 mg Tablet PO ×2 (08:50→17:18)
[2020-08-31] MEDS: atorvastatin 40 mg Tablet 20 MG PO (08:50)
[2020-08-31] MEDS: dilTIAZem ER (24HR) 240 mg Capsule PO (08:50)
[2020-08-31] MEDS: metoprolol tartrate 25 mg Tablet PO ×2 (08:50→22:26)
--- NOTE | 2020-08-31 10:21 | PC.SOCIAL ---
IMM Update Pg. 2 of IMM updated. Copy provided to patient.
[2020-08-31] MEDS: linezolid premix 600 MG/300 ML PREMIX 300 MG IV ×2 (10:40→22:32)
[2020-08-31 11:01] LABS: Glucose Point of Care 178 mg/dL (70-110)
[2020-08-31 17:06] LABS: Glucose Point of Care 187 mg/dL (70-110)
--- NOTE | 2020-08-31 20:59 | P.PN_ITS ---
Subjective Subjective: Interval history: He denies any changes. Denies pain in his leg. No trouble breathing. Vitals/I&O/Wt Last Vital Signs Temp 97.8 F 08/31/20 20:00 Pulse 97 08/31/20 20:00 Resp 24 H 08/31/20 20:00 BP 145/85 08/31/20 20:00 Pulse Ox 98 08/31/20 20:00 08/31/20 08/31/20 08/31/20 06:59 14:59 22:59 Intake Total 960 / 2380 660 / 660 600 / 1260 Output Total 1300 / 1600 750 / 750 240 / 990 Balance -340 / 780 -90 / -90 360 / 270 Physical Exam Const: COMMON NORMALS: no acute distress, patient oriented x3 and alert GENERAL APPEARANCE: cooperative NUTRITIONAL APPEARANCE: obese ORIENTATION/CONSCIOUSNESS: Yes awake HENMT: COMMON NORMALS: oropharynx normal Neck/C-Spine: COMMON NORMALS: no JVD Resp: COMMON NORMALS: normal respiratory effort and clear to auscultation bilaterally AUSCULTATION: clear to auscultation bilaterally Cardio: COMMON NORMALS: no JVD, regular rhythm, S1 normal heart sound present, S2 normal heart sound present and No murmurs present (Cardio) RHYTHM: regular rhythm HEART SOUNDS: S1 normal heart sound present and S2 normal heart sound present GI: COMMON NORMALS: Normal to inspection, nondistended, normoactive bowel sounds present, Soft to palpation and non-tender PALPATION: Yes Soft to palpation Extremity: COMMON NORMALS: no joint enlargement GENERAL: Yes edema (improving compared to admission) Neuro: COMMON NORMALS: patient oriented x3 and moves all extremities SENSORIUM/ORIENTATION: Yes alert Skin: LESIONS: lesion noted (Ulceration anterior to right lateral malleolus appears without purulent dis) RASHES: rashes noted (Erythema, warmth slightly better) OTHER: Weeping resolved. Data : 08/31/20 04:49 08/31/20 04:49 A&P Assessment and plan (1) Wound infection: Cellulitis/erythema is with further improvement today. Swelling is improving compared to admission. Now isolated to foot mostly below the ankle. Skin is very fragile. As there is still good amount of swelling, continue IV antibiotics at this time. If continues to show further improvement, perhaps can transition to oral antibiotic on discharge. Discharge does appear to be decreasing. I do not see or feel bone exposure at this time, although he reports that in the past 1 had infection not foot his mother pulled out a splinter of bone that disassociated from his ankle. In case there are any difficulties healing, low threshold for additional evaluation with MRI to exclude osteomyelitis. Continue dressing changes. Zosyn has been stopped. Monitor. Continue linezolid. Elevate lower extremity. Status: Acute (2) Cellulitis: Improving. Continue as above. No DVT on duplex. Status: Acute (3) Diabetes with ulcer of ankle: As above. Status: Acute (4) MRSA (methicillin resistant staph aureus) culture positive: Status: Acute (5) DM type 2 (diabetes mellitus, type 2): Sliding scale insulin while on diabetic diet. Status: Acute (6) Chronic anticoagulation: Continue Eliquis. Status: Acute (7) Pulmonary embolism: PE back in 2019. Status: Acute Qualifiers: Pulmonary embolism type: unspecified Chronicity: chronic Acute cor pulmonale presence: without acute cor pulmonale Qualified Code(s): I27.82 - Ch ronic pulmonary embolism (8) Atrial fibrillation: Reports started after PE in 2019. Status: Acute Qualifiers: Atrial fibrillation type: longstanding persistent Qualified Code(s): I48.11 - Longstanding persistent atrial fibrillation Additional A&P Information Chronic back pain. Requires continued treatment with IV antibiotics due to failure of outpatient therapy, persistent edema, immune compromise. Pending additional reassessments with regards to continuation of IV or oral therapy after discharge. Attestations Medical Necessity Statement*: Continue admission for IV antibiotics, dressing changes and monitoring of progress of nonhealing wound of right lower extremity with lack of response to outpatient therapy and immune compromise in the setting of diabetes. Coding Level of Care Code Acute Master Glazier for [facility] Diagnoses Wound infection T14.8XXA; L08.9 Cellulitis L03.90 Diabetes with ulcer of ankle E11.622; L97.309 MRSA (methicillin resistant staph aureus) culture positive Z22.322 DM type 2 (diabetes mellitus, type 2) E11.9 Chronic anticoagulation Z79.01 Pulmonary embolism I27.82 Pulmonary embolism type: unspecified Chronicity: chronic Acute cor pulmonale presence: without acute cor pulmonale Atrial fibrillation I48.11 Atrial fibrillation type: longstanding persistent
[2020-08-31 21:14] LABS: Glucose Point of Care 142 mg/dL (70-110)
[2020-08-31] MEDS: trazodone 100 mg Tablet PO (22:26)
[2020-08-31] MEDS: ALPRAZolam 0.25 mg Tablet 0.125 MG PO (22:27)
[2020-09-01] VITALS (11 sets, daily range): BP systolic 101–137; BP diastolic 63–84; PULSE 81–108; RESP 16–20; TEMP 36.4–36.9; O2SAT 94–97
[2020-09-01 06:46] LABS: Anion Gap 11.7 (5-19); Blood Urea Nitrogen 9 mg/dL (6-20); Calcium 8.8 mg/dL (8.5-10.5); Carbon Dioxide 27 mmol/L (22-29); Chloride 104 mmol/L (98-107); Creatinine Clr Calc Pharmacy 188.2532; Glomerular Filtration Rate 116.2 mL/min (90-130); Glucose 206 mg/dL (65-115); Osmolality Calculated 293 mOsm/kg (285-295); Potassium 3.7 mmol/L (3.5-5.1); Sodium 139 mmol/L (136-145)
[2020-09-01 06:52] LABS: Glucose Point of Care 138 mg/dL (70-110)
[2020-09-01] MEDS: metoprolol tartrate 25 mg Tablet PO ×2 (08:18→21:35)
[2020-09-01] MEDS: aspirin 81 mg EC Tablet PO (08:18)
[2020-09-01] MEDS: dilTIAZem ER (24HR) 240 mg Capsule PO (08:18)
[2020-09-01] MEDS: apixaban 5 mg Tablet PO ×2 (08:18→17:54)
[2020-09-01] MEDS: gabapentin 400 mg Capsule 800 MG PO ×3 (08:18→21:32)
[2020-09-01] MEDS: atorvastatin 40 mg Tablet 20 MG PO (08:19)
[2020-09-01] MEDS: oxyCODONE 5 mg IR Tab/Cap 10 MG PO ×3 (08:22→21:33)
--- NOTE | 2020-09-01 09:13 | P.PN_ITS ---
Subjective Subjective: Interval history: His hips and lower back are aching, possibly from staying in bed. Some aching in the RLE below the knee. Vitals/I&O/Wt Last Vital Signs Temp 97.5 F L 09/01/20 07:02 Pulse 81 09/01/20 07:02 Resp 17 09/01/20 08:22 BP 102/68 09/01/20 07:02 Pulse Ox 94 09/01/20 08:22 08/31/20 09/01/20 09/01/20 22:59 06:59 14:59 Intake Total 800 / 1460 240 / 1700 Output Total 440 / 1190 625 / 1815 Balance 360 / 270 -385 / -115 Physical Exam Const: COMMON NORMALS: no acute distress, patient oriented x3 and alert GENERAL APPEARANCE: cooperative NUTRITIONAL APPEARANCE: obese ORIENTATION/CONSCIOUSNESS: Yes awake HENMT: COMMON NORMALS: oropharynx normal Neck/C-Spine: COMMON NORMALS: no JVD Resp: COMMON NORMALS: normal respiratory effort and clear to auscultation bilaterally AUSCULTATION: clear to auscultation bilaterally Cardio: COMMON NORMALS: no JVD, regular rhythm, S1 normal heart sound present, S2 normal heart sound present and No murmurs present (Cardio) RHYTHM: regular rhythm HEART SOUNDS: S1 normal heart sound present and S2 normal heart sound present GI: COMMON NORMALS: Normal to inspection, nondistended, normoactive bowel sounds present, Soft to palpation and non-tender PALPATION: Yes Soft to palpation Extremity: COMMON NORMALS: no joint enlargement GENERAL: Yes edema (improving compared to admission) OTHER: No mass or lymphadenopathy in the [facility] groin. Neuro: COMMON NORMALS: patient oriented x3 and moves all extremities SENSORIUM/ORIENTATION: Yes alert Skin: LESIONS: lesion noted (Ulceration anterior to right lateral malleolus appears without purulent dis) RASHES: rashes noted (Erythema, warmth slightly better) OTHER: Weeping resolved. Data : 08/31/20 04:49 09/01/20 05:23 A&P Assessment and plan (1) Wound infection: Progress appears stalled on improvement. Some persistent erythema of RLE from mid-[place] down compared to L. Difficult to tell if some component of chronic venous stasis dermatitis with hyperpigmentation, however, erythema stil present. No DVT on duplex. As progress stalled, will add Zosyn back on for now empirically due to immune compromise with DM. Hydrofera blue adhering to edges of ulcerations. No further weeping. Apply tripple anibiotic, telfa, gauze. Continue to elevate. Linezolid for MRSA Continue to monitor in the hospital due to stalled progress. Skin is thin and very fragile below the knee. Moisturizer BID. Glucose is 206, will increase insulin sliding scale to moderate. Discharge does appear to be decreasing. I do not see or feel bone exposure at this time, although he reports that in the past 1 had infection not foot his mother pulled out a splinter of bone that disassociated from his ankle. In case there are any difficulties healing, low threshold for additional evaluation with MRI to exclude osteomyelitis. Status: Acute (2) Cellulitis: Improving. Continue as above. No DVT on duplex. Status: Acute (3) Diabetes with ulcer of ankle: Glucose is staying mostly below 200 but does get into 180s. Today 206. Change to moderate sliding scale. Status: Acute (4) MRSA (methicillin resistant staph aureus) culture positive: Status: Acute (5) DM type 2 (diabetes mellitus, type 2): Sliding scale insulin while on diabetic diet. Status: Acute (6) Chronic anticoagulation: Continue Eliquis. Status: Acute (7) Pulmonary embolism: PE back in 2019. Status: Acute Qualifiers: Pulmonary embolism type: unspecified Chronicity: chronic Acute cor pulmonale presence: without acute cor pulmonale Qualified Code(s): I27.82 - Chronic pulmonary embolism (8) Atrial fibrillation: Reports started after PE in 2019. Status: Acute Qualifiers: Atrial fibrillation type: longstanding persistent Qualified Code(s): I48.11 - Longstanding persistent atrial fibrillation Additional A&P Information Chronic back pain. Requires continued IV antibiotics due to lack of improvement in wounds of right lower extremity, underlying diabetes, continued dressing changes and inpatient monitoring. Attestations Medical Necessity Statement*: Continue admission for assessment management of nonhealing diabetic wounds of right lower extremity, IV antibiotics, following lack of response to outpatient treatment. Coding Level of Care Code Acute Disk Operator for [facility] Diagnoses Wound infection T14.8XXA; L08.9 Cellulitis L03.90 Diabetes with ulcer of ankle E11.622; L97.309 MRSA (methicillin resistant staph aureus) culture positive Z22.322 DM type 2 (diabetes mellitus, type 2) E11.9 Chronic anticoagulation Z79.01 Pulmonary embolism I27.82 Pulmonary embolism type: unspecified Chronicity: chronic Acute cor pulmonale presence: without acute cor pulmonale Atrial fibrillation I48.11 Atrial fibrillation type: longstanding persistent
[2020-09-01] MEDS: linezolid premix 600 MG/300 ML PREMIX 300 MG IV ×2 (10:44→21:30)
[2020-09-01] MEDS: fentaNYL 100 mcg Patch 1 PATCH TRANSDERMA (10:49)
[2020-09-01 10:57] LABS: Glucose Point of Care 157 mg/dL (70-110)
[2020-09-01] MEDS: piperacillin-tazobactam 3.375 GM in sodium chloride 0.9% (plus) 50 ML IV ×2 (12:04→17:54)
[2020-09-01 16:11] LABS: Glucose Point of Care 184 mg/dL (70-110)
[2020-09-01] MEDS: neomycin-poly-bacitracin oint 28 gm 1 APPLIC TOPICAL (17:54)
[2020-09-01 20:41] LABS: Glucose Point of Care 112 mg/dL (70-110)
[2020-09-01] MEDS: ALPRAZolam 0.25 mg Tablet 0.125 MG PO (21:31)
[2020-09-01] MEDS: trazodone 100 mg Tablet PO (21:35)
[2020-09-02] VITALS (7 sets, daily range): BP systolic 93–119; BP diastolic 55–83; PULSE 74–85; RESP 17–20; TEMP 36.4–36.9; O2SAT 93–98
[2020-09-02] MEDS: ondansetron 2 mg/ML SDV 2 mL 4 MG IVP (00:02)
[2020-09-02] MEDS: piperacillin-tazobactam 3.375 GM in sodium chloride 0.9% (plus) 50 ML IV ×2 (01:18→11:14)
[2020-09-02] MEDS: acetaminophen 325 mg Tablet 650 MG PO ×2 (01:32→08:07)
[2020-09-02] MEDS: oxyCODONE 5 mg IR Tab/Cap 10 MG PO (04:25)
[2020-09-02 06:22] LABS: Anion Gap 11.1 (5-19); Blood Urea Nitrogen 12 mg/dL (6-20); Calcium 8.9 mg/dL (8.5-10.5); Carbon Dioxide 30 mmol/L (22-29); Chloride 103 mmol/L (98-107); Creatinine Clr Calc Pharmacy 188.2532; Glomerular Filtration Rate 116.2 mL/min (90-130); Glucose 174 mg/dL (65-115); Osmolality Calculated 294 mOsm/kg (285-295); Potassium 4.1 mmol/L (3.5-5.1); Sodium 140 mmol/L (136-145)
[2020-09-02 06:41] LABS: Glucose Point of Care 144 mg/dL (70-110)
[2020-09-02] MEDS: atorvastatin 40 mg Tablet 20 MG PO (08:06)
[2020-09-02] MEDS: dilTIAZem ER (24HR) 240 mg Capsule PO (08:07)
[2020-09-02] MEDS: gabapentin 400 mg Capsule 800 MG PO ×2 (08:07→15:45)
[2020-09-02] MEDS: aspirin 81 mg EC Tablet PO (08:07)
[2020-09-02] MEDS: apixaban 5 mg Tablet PO (08:07)
[2020-09-02] MEDS: metoprolol tartrate 25 mg Tablet PO (08:19)
--- NOTE | 2020-09-02 10:50 | CT_ITS ---
WS: [id number] CT RIGHT TIBIA-FIBULA WITH CONTRAST. HISTORY: infected wounds, cellulitis, swelling, pain, DM Technique: All CT scans at [facility] use at least one of these dose optimization techniq ues: automated exposure control; mA and/or kV adjustment per patient size (includes targeted exams wh ere dose is matched to clinical indication); or iterative reconstruction. DLP: 1046.38 mGy.cm COMPARISON: 06/02/2019 Advanced degenerative changes at the knee joint. There does appear to a prior ACL repair. There is a screw at the fibular head. No fracture within the tibia or fibula. Cortex is intact. There is diffuse moderate soft tissue edema greatest around the mid tibia. No focal collection or abscess. CT/CT lower leg RT w con [id number] IMPRESSION: 1. No evidence for osteomyelitis. 2. Diffuse soft tissue edema with no abscess. 3. Advanced degenerative changes at the knee joint.
[2020-09-02 11:08] LABS: Glucose Point of Care 160 mg/dL (70-110)
[2020-09-02] MEDS: neomycin-poly-bacitracin oint 28 gm 1 APPLIC TOPICAL (11:15)
--- NOTE | 2020-09-02 11:31 | PC.SOCIAL ---
IMM Update Pg. 2 of IMM updated and reviewed with patient and copy provided.
[2020-09-02] MEDS: linezolid premix 600 MG/300 ML PREMIX 300 MG IV (12:26)
[2020-09-02] MEDS: iohexol 300 mg/mL 100 mL Btl IV (12:44)
--- NOTE | 2020-09-02 15:22 | P.DS_ITS ---
Discharge Providers Date of Admission: 08/28/20 16:36 Date of Discharge: September 02, 2020 Attending Provider at Admission: Hermes Colin Attending Provider at Discharge: Hermes Colin Primary Care Provider: KAYLA Pan Diagnoses at Discharge Discharge Diagnosis (1) Wound infection: Status: Acute (2) Cellulitis: Status: Acute (3) Diabetes with ulcer of ankle: Status: Acute (4) MRSA (methicillin resistant staph aureus) culture positive: Status: Acute (5) DM type 2 (diabetes mellitus, type 2): Status: Acute (6) Chronic anticoagulation: Status: Acute (7) Pulmonary embolism: Status: Acute Qualifiers: Pulmonary embolism type: unspecified Chronicity: chronic Acute cor pulmonale presence: without acute cor pulmonale Qualified Code(s): I27.82 - Chronic pulmonary embolism (8) Atrial fibrillation: Status: Acute Qualifiers: Atrial fibrillation type: longstanding persistent Qualified Code(s): I48.11 - Longstanding persistent atrial fibrillation Reason for Visit Reason for Visit: DIABETIC ULCER, CELLULITIS, MRSA Hospital Course Hospital Course Pleasant 55-year-old gentleman with diabetes, history of recurrent infections of right lower extremity was sent over for admission from wound care clinic after debridement of ulcerations of the right ankle, with significant surrounding cellulitis, lower extremity edema, with wound infection with MRSA growing from the wound on culture collected at primary care office on Wednesday for which she was treated with clindamycin without significant response. He was admitted for additional treatment with IV antibiotics, possible debridement, wound care and additional assessment due to failure of outpatient treatment. Significant swelling of right lower extremity was assessed by venous duplex, without finding of DVT. He was treated with linezolid, Zosyn which he tolerated well. Cultures in the hospital growing Staph aureus. Zosyn was discontinued, however, after initial improvement in swelling, weeping, as well as erythema, progress had stalled, persistent swelling noted. Zosyn was restarted. He subsequently jose carlos wed some additional gradual improvement. Was assessed again by his wound care physician, and did not found to require debridement. Dressings were changed initially with wet-to-dry, however, with very fragile skin, easy to tear, dressings were changed to triple antibiotic ointment, Hydrofera Blue, covered by Telfa and gauze. Today he has shown further improvement, although still with persistent swelling. Given history of recurrent infections, as well as tenderness over right lower leg above the ankle he was assessed by CT scan with contrast which did not show any fluid collections or drainable abscess, no visible osteomyelitis. Since he is showing gradual improvement, continuation of additional care on outpatient side was discussed with wound care physician who will arrange for him to be seen in wound care clinic perhaps as early as tomorrow or day after. He is instructed to continue dressing changes. Cam boot is requested for him. Consideration was given to IV antibiotic infusions and discussed with him. This was a real possibility given initially lack of significant provement, however, today he does appear to show further progress, and so for now elects to continue oral antibiotics. Ciprofloxacin is given as additional coverage given diabetes, immune compromised, with a shorter course. Linezolid for 2 more weeks of therapy is prescribed. Please revisit with him regarding antibiotics, reassess progress of the wound healing, and please monitor weekly CBC while on linezolid. Invokana for now is discontinued due to rare but sometimes reported serious side effects of lower extremity limb loss. For now Januvia is added. Please revisit with him further and assist him in optimizing diabetes control. Please review notes and lab studies for full details. Do not hesitate to call with any questions. Physical Exam Const: COMMON NORMALS: no acute distress, patient oriented x3 and alert GENERAL APPEARANCE: cooperative NUTRITIONAL APPEARANCE: obese ORIENTATION/CONSCIOUSNESS: Yes awake HENMT: COMMON NORMALS: oropharynx normal Neck/C-Spine: COMMON NORMALS: no JVD Resp: COMMON NORMALS: normal respiratory effort and clear to auscultation bilaterally AUSCULTATION: clear to auscultation bilaterally Cardio: COMMON NORMALS: no JVD, regular rhythm, S1 normal heart sound present, S2 normal heart sound present and No murmurs present (Cardio) RHYTHM: regular rhythm HEART SOUNDS: S1 normal heart sound present and S2 normal heart sound present GI: COMMON NORMALS: Normal to inspection, nondistended, normoactive bowel sounds present, Soft to palpation and non-tender PALPATION: Yes Soft to palpation Extremity: COMMON NORMALS: no joint enlargement GENERAL: Yes edema (improving compared to admission) OTHER: No mass or lymphadenopathy in the right groin. Neuro: COMMON NORMALS: patient oriented x3 and moves all extremities SENSORIUM/ORIENTATION: Yes alert Skin: LESIONS: lesion noted (Ulcerations around right ankle continue to improve, no purulence) RASHES: rashes noted (Erythema, warmth much better) OTHER: Weeping resolved. Minimal erythema is still present. Swelling still present but to significantly lesser degree compared to admission. Component also of hyperpigmentation with hemosiderosis mid [place] and below. Discharge Data Data Completed and Pending: Completed Studies During Hospitalization Category Date Time Status CT lower leg RT w con [id number] Routine Cat Scan 09/02/20 10:50 [place] [id number] Routin e Ultrasound 08/29/20 18:16 Completed Pending at discharge Category Date Time Status Basic Metabolic P margarita AM LABS Lab 09/03/20 04:00 Ordered Blood Culture [facility] Lab 08/28/20 17:52 Results Complete Blood Co unt w/Auto AM LABS Lab 09/02/20 04:00 Ordered Labs from last 24 hours 09/02/20 09/02/20 09/02/20 11:02 06:21 05:31 Sodium 140 Potassium 4.1 Chloride 103 Carbon Dioxide 30 H Anion Gap 11.1 BUN 12 Creatinine 0.7 GFR Calculation 116.2 Glucose 174 H POC Glucose 160 144 Calculated Osmolal ity 294 Calcium 8.9 09/01/20 09/01/20 20:38 15:55 Sodium Potassium Chloride Carbon Dioxide Anion Gap BUN Creatinine GFR Calculation Glucose POC Glucose 112 184 Calculated Osmolal ity Calcium Vitals: Last Vital Signs Temp 98.5 F 09/02/20 11:09 Pulse 85 09/02/20 11:09 Resp 18 09/02/20 11:09 BP 104/70 09/02/20 11:09 Pulse Ox 94 09/02/20 11:09 Discharge Plan Discharge Patient Disposition: Home Condition: Stable Prescriptions: New Januvia 100 mg tablet 100 mg PO DAILY Qty: 30 RF: 0 linezolid 600 mg tablet 600 mg PO BID 14 Days Qty: 28 RF: 0 ciprofloxacin HCl 500 mg tablet 500 mg PO BID Qty: 14 RF: 0 Continued aspirin [Adult Low Dose Aspirin] 81 mg tablet,delayed release (DR/EC) 81 mg PO DAILY RF: 0 Eliquis 5 mg tablet 5 mg PO BID RF: 0 lovastatin 20 mg tablet 20 mg PO DAILY RF: 0 metformin 1,000 mg tablet 1,000 mg PO DAILY RF: 0 nitroglycerin [Nitrostat] 0.4 mg tablet, sublingual 0.4 mg SUBLINGUAL Q5M PRN (Reason: chest pains) RF: 0 alprazolam [Xanax] 0.25 mg tablet 0.25 mg PO BID PRN (Reason: Anxiety) RF: 0 trazodone 100 mg tablet 100 mg PO BEDTIME RF: 0 diltiazem HCl 240 mg capsule,extended release 24hr 240 mg PO DAILY RF: 0 cyclobenzaprine 10 mg tablet 10 mg PO TID RF: 0 lovastatin 20 mg tablet 20 mg PO DAILY RF: 0 fentanyl 100 mcg/hr patch 72 hour 100 mcg transdermal DIRECTED RF: 0 gabapentin 800 mg tablet 800 mg PO TID RF: 0 oxycodone 10 mg tablet 10 mg PO Q6H PRN (Reason: PAIN) RF: 0 metoprolol tartrate 50 mg tablet 25 mg PO BID Qty: 0 RF: 0 Held ibuprofen 800 mg tablet 800 mg PO TID RF: 0 Hold Instructions: Resume on 09/09/20. Discontinued Invokana 300 mg tablet 300 mg PO DAILY RF: 0 Discharge Orders: Discharge Order (Routine); Ordered 09/02/20 Ordered By: Hermes Colin Other Ambulatory Orders: [place] [id number] (Routine) Timeframe: 1 Week Facility: [facility] - Location: Radiology Ordered By: Hermes Colin DME: Miscellaneous (Order) Location: None Selected Ordered By: Hermes Colin DME: Miscellaneous (Order) Location: None Selected Ordered By: Hermes Colin Referrals: Ramesh Eaton MD [Physician] - 09/04/20 3:00 pm (Wound clinic) Law,KAYLA Cano [Primary Care Provider] - 09/10/20 9:00 am (RLE improving wounds and cellulitis, swelling. DM, stopped invokana) Discharge Diet: Diabetic Discharge Activity: Increase activity as tolerated Patient Instructions: Ciprofloxacin (By mouth), Linezolid (By mouth), Sitagliptin (By mouth), Methicillin Resistant Staphylococcus Aureus (GEN), Diabetic Foot Care (GEN), Diabetic Foot Ulcers (GEN) Activity Restrictions/Additional Instructions: Weightbearing with Cam boot. Continue dressing changes twice daily, triple antibiotic ointment to ulcers, Hydrofera Blue, cover with Telfa (if available) and wrap with gauze. Do not soak. Moisturize skin around wounds, on the foot, and up to the knee. Follow-up with wound care. In case of any worsening of symptoms, return of redness, any severe pain, any worsening drainage, high fevers, or other concerning symptoms seek medical attention without delay. Complete antibiotic course. As discussed linezolid is prescribed for MRSA infection, and ciprofloxacin for additional coverage in the setting of diabetes. Please note linezolid may sometimes suppress production of cells from your bone marrow. Please have your primary care doctor follow-up your blood counts on a weekly basis. Your diabetic medication Invokana for now is discontinued. Invokana in some in some rare cases increased risk of limb loss. For now you are started on Januvia, please discuss with your primary care doctor further in office. Discharge Attestations Time Spent in Discharge Care*: greater than 30 min Quality Metrics Clinical Quality Measures During this hospital stay, did patient experience: None Coding Level of Care Code Acute Jewel Sawyer for [facility] Fwd Diagnoses Wound infection T14.8XXA; L08.9 Cellulitis L03.90 Diabetes with ulcer of ankle E11.622; L97.309 MRSA (methicillin resistant staph aureus) culture positive Z22.322 DM type 2 (diabetes mellitus, type 2) E11.9 Chronic anticoagulation Z79.01 Pulmonary embolism I27.82 Pulmonary embolism type: unspecified Chronicity: chronic Acute cor pulmonale presence: without acute cor pulmonale Atrial fibrillation I48.11 Atrial fibrillation type: longstanding persistent
--- NOTE | 2020-09-02 15:39 | PC.NURSE ---
Removed IV catheter tip intact. Dressing applied 2x2 and coban. Discharge instructions given to patient all questions answered and patient states verbal understanding.
--- NOTE | 2020-09-02 16:08 | PC.NURSE ---
Patient discharged, in stable condition. Patient's home meds were left here. Placed call to patient he stated he has a follow up appointment on Wednesday so he will pick his meds up then. He stated he had a med senior media planner set up at home with all his meds in it.
== END 2020-09-02 16:12 | disposition home or self-care (01) | DRG 638 ==
PROVIDERS: Admitting Provider Internal Medicine; PCP Nurse Practitioner Family; Visit Provider Internal Medicine
DX: E11.621 Type 2 diabetes mellitus with foot ulcer (principal); I48.11 Longstanding persistent atrial fibrillation; I27.82 Chronic pulmonary embolism; L03.115 Cellulitis of right lower limb; M00.071 Staphylococcal arthritis, right ankle and foot; L97.519 Non-pressure chronic ulcer of other part of right foot with unspecified severity; Z79.01 Long term (current) use of anticoagulants; B95.62 Methicillin resistant Staphylococcus aureus infection as the cause of diseases classified elsewhere; Z79.82 Long term (current) use of aspirin; Z79.84 Long term (current) use of oral hypoglycemic drugs; G89.29 Other chronic pain; M54.9 Dorsalgia, unspecified; Z87.891 Personal history of nicotine dependence
CPT/HCPCS: 12345; 36415; 36416; 73600; 73701; 80048; 80053; 82962; 85025; 87040; 87426; 90471; 90686; 93971; 96372; 96375; 97760; J1815; J1940; J2020; J2405; J2543; L4361; Q9967

== ENCOUNTER 2020-09-04 10:26 | Outpatient (CLI) | payer MEDICARE, SELFPAY | END 2020-09-04 10:27 | disposition home or self-care (01) | LOC: WOUND 10:27 | PROVIDERS: PCP Nurse Practitioner Family; Visit Provider Thoracic Surgery (Cardiothoracic Vascular Surgery) | DX: E11.622 Type 2 diabetes mellitus with other skin ulcer (principal); L97.312 Non-pressure chronic ulcer of right ankle with fat layer exposed | CPT/HCPCS: 11042 ==

== ENCOUNTER 2020-09-11 10:22 | Outpatient (CLI) | payer MEDICARE, SELFPAY | END 2020-09-11 10:23 | disposition home or self-care (01) | LOC: WOUND 10:22 | PROVIDERS: PCP Nurse Practitioner Family; Visit Provider Thoracic Surgery (Cardiothoracic Vascular Surgery) | DX: E11.622 Type 2 diabetes mellitus with other skin ulcer (principal); L97.312 Non-pressure chronic ulcer of right ankle with fat layer exposed | CPT/HCPCS: 11042 ==

== ENCOUNTER 2020-09-18 09:32 | Outpatient (CLI) | payer MEDICARE, SELFPAY | END 2020-09-18 09:33 | disposition home or self-care (01) | LOC: WOUND 09:33 | PROVIDERS: PCP Nurse Practitioner Family; Visit Provider Nurse Practitioner Family | DX: E11.622 Type 2 diabetes mellitus with other skin ulcer (principal); L97.312 Non-pressure chronic ulcer of right ankle with fat layer exposed | CPT/HCPCS: 11042 ==

== ENCOUNTER 2020-09-24 08:55 | Outpatient (CLI) | payer MEDICARE, SELFPAY | END 2020-09-24 08:56 | disposition home or self-care (01) | LOC: WOUND 08:56 | PROVIDERS: PCP Nurse Practitioner Family; Visit Provider Nurse Practitioner Family | DX: E11.622 Type 2 diabetes mellitus with other skin ulcer (principal); L97.312 Non-pressure chronic ulcer of right ankle with fat layer exposed | CPT/HCPCS: 11042 ==

== ENCOUNTER 2020-10-01 08:50 | Outpatient (CLI) | payer MEDICARE, SELFPAY | END 2020-10-01 08:51 | disposition home or self-care (01) | LOC: WOUND 08:52 | PROVIDERS: PCP Nurse Practitioner Family; Visit Provider Thoracic Surgery (Cardiothoracic Vascular Surgery) | DX: E11.622 Type 2 diabetes mellitus with other skin ulcer (principal); L97.312 Non-pressure chronic ulcer of right ankle with fat layer exposed | CPT/HCPCS: 11043 ==

== ENCOUNTER 2020-10-09 08:50 | Outpatient (CLI) | payer MEDICARE, SELFPAY ==
[2020-10-09 08:55] VITALS: BP 101/74; BP 126/83; PULSE 71; PULSE 82; RESP 16; RESP 18; TEMP 36.5; TEMP 37.2; O2SAT 97; O2SAT 98
--- NOTE | 2020-10-09 09:08 | AMB.MCA ---
Patient Information Referred by: Chetan Symptom onset date: 10/04/20 COVID 19 common symptoms: positive chills, cough, non-productive cough, throat pain and nasal congestion COVID 19 other sytmptoms: positive pleuritic pain Severity: moderate Treatment prior to arrival: none [facility] COVID test results: SARS-CoV-2 Antigen (Rapid) Negative (Negative) 08/28/20 18:30 08/28/20 outside results available, scanned Criteria/Plan Inclusion/Exclusion Criteria weight >/= 40kg, + direct test </= 10 days ago and symptom onset </= 10 days ago has diabetes, age >/= 55 and has hypertension and age >/= 55 and has diabetes not requiring hospitalization, not requiring oxygen (if not chronically on oxygen) and no increase oxygen requirement (if chronically on oxygen) Patient education patient/caregiver received/reviewed fact sheet, Emergency Use Authorization/unapproved drug status discussed with patient/caregiver, alternatives to this treatment discussed with patient/caregiver, risks and benefits of medication reviewed with patient/caregiver, patient/caregiver given opportunity for questions, which were answered and patient/caregiver consents to receiving Monoclonal Antibody Treatment Plan for treatment Meets criteria for Monoclonal Antibody infusion Ordering Monoclonal Antibody infusion for today
[2020-10-09 10:18] VITALS: BP 101/67; PULSE 80; RESP 18; TEMP 36.6; O2SAT 95
[2020-10-09 10:33] VITALS: BP 114/77; PULSE 77; RESP 18; TEMP 37; O2SAT 98
--- NOTE | 2020-10-09 11:16 | PC.NURSE ---
Prn note Patient infusion completed at 1100. No side effects noted at this time. Will continue to montior post infusion.
[2020-10-09 11:43] VITALS: BP 101/74; PULSE 71; RESP 16; TEMP 36.5; O2SAT 98
--- NOTE | 2020-10-09 12:03 | PC.NURSE ---
Discharge note Patient IV removed with catheter intact. Pressure dressing applied. Patient tolerated well. No side effects noted. Patient left with tech to private vehicle.
--- NOTE | 2020-10-16 12:07 | DCPLANNER ---
Addendum entered by Maya Guzman 10/22/20 13:50: quality systems manager called to check on patient after getting the BAM infusion. Patient stated that he is doing really good. Patient stated that he has not been admitted to hospital. Original Note: quality systems manager had message that patient received the BAM infusion. quality systems manager called to check on patient after getting the BAM infusion. Patient stated that he is feeling fine. Patient stated that before the infusion, that he had a bad cough and was coughing stuff up. He stated that he did have a fever. After the infusion, he stated that he is feeling fine, no cough and no fever.
== END 2020-10-09 12:03 | disposition home or self-care (01) ==
PROVIDERS: PCP Nurse Practitioner Family; Referring Provider Nurse Practitioner Family; Visit Provider Nurse Practitioner
DX: U07.1 COVID-19 (principal)
CPT/HCPCS: J7050

== ENCOUNTER 2020-10-22 10:25 | Outpatient (CLI) | payer MEDICARE, SELFPAY | END 2020-10-22 10:26 | disposition home or self-care (01) | LOC: WOUND 10:26 | PROVIDERS: PCP Nurse Practitioner Family; Visit Provider Thoracic Surgery (Cardiothoracic Vascular Surgery) | DX: E11.622 Type 2 diabetes mellitus with other skin ulcer (principal); L97.312 Non-pressure chronic ulcer of right ankle with fat layer exposed | CPT/HCPCS: 11042 ==

== ENCOUNTER 2020-10-29 10:00 | Outpatient (CLI) | payer MEDICARE, SELFPAY | END 2020-10-29 10:01 | disposition home or self-care (01) | LOC: WOUND 10:01 | PROVIDERS: PCP Nurse Practitioner Family; Visit Provider Thoracic Surgery (Cardiothoracic Vascular Surgery) | DX: E11.622 Type 2 diabetes mellitus with other skin ulcer (principal); L97.312 Non-pressure chronic ulcer of right ankle with fat layer exposed | CPT/HCPCS: 11042 ==

== ENCOUNTER 2020-11-05 08:58 | Outpatient (CLI) | payer MEDICARE, SELFPAY | END 2020-11-05 08:59 | disposition home or self-care (01) | LOC: WOUND 09:01 | PROVIDERS: PCP Nurse Practitioner Family; Visit Provider Thoracic Surgery (Cardiothoracic Vascular Surgery) | DX: E11.622 Type 2 diabetes mellitus with other skin ulcer (principal); L97.312 Non-pressure chronic ulcer of right ankle with fat layer exposed | CPT/HCPCS: 11042 ==

== ENCOUNTER 2020-11-12 09:04 | Outpatient (CLI) | payer MEDICARE, SELFPAY | END 2020-11-12 09:05 | disposition home or self-care (01) | LOC: WOUND 09:06 | PROVIDERS: PCP Nurse Practitioner Family; Visit Provider Thoracic Surgery (Cardiothoracic Vascular Surgery) | DX: E11.622 Type 2 diabetes mellitus with other skin ulcer (principal); L97.312 Non-pressure chronic ulcer of right ankle with fat layer exposed | CPT/HCPCS: 11042 ==

== ENCOUNTER 2020-11-14 10:43 | Inpatient (IN) | payer MEDICARE, SELFPAY ==
[2020-11-14] VITALS (18 sets, daily range): BP systolic 99–139; BP diastolic 51–70; PULSE 69–120; RESP 16–30; TEMP 36.5–37.4; O2SAT 92–97; BMI 41.6
--- NOTE | 2020-11-14 11:28 | CT_ITS ---
WS: [id number] CT HEAD NONCONTRAST HISTORY: AMS. HAMILTON TECHNIQUE: Contiguous axial imaging performed through the brain in 2.5 mm imaging. Bone and soft tiss ue windows. Sagittal and coronal reformats reviewed. All CT scans at [facility] use at ast one of these dose optimization techniques: automated exposure control; mA and/or kV adjustment pe r patient size (includes targeted exams where dose is matched to clinical indication); or iterative r econstruction. DLP: 666.27 mGy.cm COMPARISON: None available. No acute intracranial hemorrhage, midline shift or mass effect. Mild atrophy and mild chronic microvascular ischemic disease. Ventricles: Normal size with no hydrocephalus. Paranasal sinuses: As visualized are clear. Mastoid air cells: Well pneumatized. Calvarium and scalp: Skull is intact with no soft tissue edema or swelling. CT/CT head wo con* [id number] IMPRESSION: No acute intracranial hemorrhage or edema. No sinusitis.
--- NOTE | 2020-11-14 11:29 | XR_ITS ---
WS: [id number] PORTABLE CHEST HISTORY: SOB COMPARISON: 05/08/2020 Moderate pulmonary congestion. New since the prior study. No pleural effusion or pneumothorax. Cardiac size: Moderately enlarged cardiac silhouette. Mediastinum/Aorta: Normal mediastinum. No osseous abnormality seen. XR/XR chest 1V portable [id number] IMPRESSION: Interval development of moderate pulmonary edema.
--- NOTE | 2020-11-14 11:35 | W.ED.GENADLT ---
HPI - General Adult General: Chief complaint: Altered Mental Status Stated complaint: fever, sob, COVID +10/08 Time Seen by Provider: 11/14/20 11:18 History of Present Illness: HPI narrative: This patient is a 55 year old male presenting with fever , headache, confusion. He tells me that he is here because his BP was high and he repetitively says various numbers. Even when asked about other issues - he says his BP. He came in with his sister in law and she tells me that he was positive for COVID 10/08 and got the BAM infusion. He did fine with that and was doing well until this morning when he woke up with chills. He had a temp of 100.8 at home and complained of a bad headache. He has a history of diabetes and anxiety and is morbidly obese. He is not able to tell me who the woman is that he came in with - referring to his sister in law - and cannot tell me who his doctor is. He is on a blood thinner. He is not having any focal neuro findings other than his confusion. MD complaint: High Blood pressure Onset (ago): unknown (today) Review of Systems General: Reports: ROS unobtainable due to medical condition and ROS unobtainable due to mental status [facility] ED PFSH: Medical History Atrial fibrillation Chronic anticoagulation Chronic low back pain DM type 2 (diabetes mellitus, type 2) Pulmonary embolism Surgical History History of orthopedic surgery Bilateral lower extremity fractures 2004, hardware of right lower extremity and removal in 2016 Family History Father Leukemia Social History Smoking and tobacco status: former smoker Alcohol intake: never Substance/Drug Use: former Lives independently: Yes Household members: other Details: mother Physical Exam Const: COMMON NORMALS: alert EXAM LIMITATIONS: altered mental status GENERAL APPEARANCE: anxious and other (uncomfortable - can't sit still) NUTRITIONAL APPEARANCE: obese ORIENTATION/CONSCIOUSNESS: Yes awake, Yes oriented to person and Yes confused; not oriented to place and not oriented to time HENMT: HEAD & SCALP: normal to inspection FACE & SINUS: normal facial exam Eye: GENERAL EYE: appearance normal, both eyes and all related structures Neck/C-Spine: COMMON NORMALS: supple, no meningeal signs and no JVD Chest: COMMONS NORMALS: normal inspection of the chest Resp: COMMON NORMALS: normal respiratory effort, No use of accessory muscles and clear to auscultation bilaterally AUSCULTATION: clear to auscultation bilaterally Cardio: COMMON NORMALS: no JVD, regular rate, regular rhythm and No murmurs present (Cardio) RATE: regular rate RHYTHM: regular rhythm GI: COMMON NORMALS: Normal to inspection, nondistended, normoactive bowel sounds present, Soft to palpation and non-tender INSPECTION: Yes normal to inspection AUSCULTATION: Yes normoactive bowel sounds PALPATION: Yes Soft to palpation Back/Pelvis: COMMON NORMALS: thoracic and lumbar spine normal to inspection Extremity: COMMON NORMALS: normal to inspection Neuro: COMMON NORMALS: moves all extremities, no focal motor deficits and no sensory deficits noted SENSORIUM/ORIENTATION: Yes alert, Yes oriented to person, No oriented to place, No oriented to time and Yes Orientation impaired MENINGEAL SIGNS: Yes no meningeal signs CRANIAL NERVES: Yes other (tremors, left upper extremity) COORDINATION/BALANCE: other (unable - difficulty following commands) SPEECH: speech normal and Other neuro speech findings (repetetive) GAIT: Yes Unable to assess gait (has an ortho boot on the right foot) SENSORY EXAM: No sensory level loss detected MOTOR EXAM: 5/5 motor strength present throughout and Tremors during motor activity present resting tremor left upper extremity Psych: COMMON NORMALS: mental status grossly normal, cooperative and normal affect Skin: COMMON NORMALS: no rashes or lesions noted and turgor normal GENERAL SKIN EXAM: no rashes or lesions noted and turgor normal Course ED course: Patient presents with altered mental status. He is not able to give me any meaningful history at all. His [id number] tells me that he was fine until this morning when he developed fevers, chills, headache and confusion. He did have Covid a month ago but had not been very symptomatic with that and had completely recovered. With his presentation of definitely concerned about meningitis. I started antibiotics to cover that possibility but did not do a lumbar puncture because he is on Eliquis and took a dose just this morning. He was also given Tylenol for his fever. He clinically appeared very uncomfortable and could not sit still in the bed so I gave him some pain medication as well. He kept getting up and wanting to leave and responded well to a small dose of Ativan. He is on Xanax and narcotic medications at home. His labs hemolyzed and it took quite some time to get results. His white count is elevated at 15.9 but the rest of his labs are fairly unremarkable. He will be admitted to the hospitalist for further management. An LP may potentially be done after his Eliquis has been held. He has already been treated with antibiotics at this point. His presentation is definitely concerning however the exact cause of his symptoms is still not clear. Vital Signs: Vital signs: Vital Signs Temperature 98.6 F 11/14/20 14:11 Pulse Rate 101 H 11/14/20 17:04 Respiratory Rate 16 11/14/20 17:04 Blood Pressure 116/59 11/14/20 17:04 Pulse Oximetry 95 11/14/20 17:04 MDM - General Adult MDM Narrative: Medical decision making narrative: Stroke, TIA, meningitis, hypoglycemia, metabolic encephalopathy, toxic encephalopathy, delirium, medication reaction, drug withdrawal or alcohol withdrawal. CT was done immediately and blood sugar was checked immediately. Neither of those offered an explanation for his altered mental status. Fever was treated. He was given IV fluids. Antibiotics were given empirically for presumed meningitis. LP could not be done due to the Eliquis. He does have a history of a MRSA infection on his foot related to a diabetic foot ulcer. After discussion with the hospitalist I did order a CT of his chest abdomen and pelvis to look for possible sources of infection there as well. That was unremarkable. Lab Data: Labs: Lab Results 11/14/20 11/14/20 11/14/20 Range/Units 10:48 11:46 12:00 WBC 15.9 H (4.0-10.0) 10^3/ uL RBC 4.81 (4.1-5.3) 10^6/u L Hgb 13.7 (11.7-16.6) g/dL Hct 43.1 (42.0-52.0) % MCV 89.6 (80-94) fL MCH 28.5 (28.0-34.0) pg MCHC 31.8 (30.0-36.0) g/dL RDW 14.3 (12.1-15.1) % Plt Count 223 (130-400) 10^3/c mm MPV 10.8 H (7.4-10.4) fL Neut % (Auto) 87.8 % Lymph % (Auto) 5.0 % Grimes % (Auto) 5.8 % Eos % (Auto) 0.2 % Baso % (Auto) 0.3 % Neut # (Auto) 13.96 H (1.8-7.7) 10^3/u L Lymph # (Auto) 0.8 (0.8-4.8) 10^3/u L Grimes # (Auto) 0.9 (0.2-0.9) 10^3/u L Eos # (Auto) 0.0 (0.0-0.8) 10^3/u L Baso # (Auto) 0.1 (0.0-0.1) 10^3/u L Nucleated RBC % (a uto) 0 % Nucleated RBCs # 0.0 /100WBC D-Dimer (0-0.59) ug/mIFE U Specimen Type Arterial Sample Site Left radial ABG pH 7.46 H (7.35-7.45) ABG pCO2 33.7 L (35-45) mmHg ABG pO2 66.7 L (80.0-100.0) mmH g ABG HCO3 24.2 (22-26) mmol/L ABG Base Excess 0.9 (-2.0-2.0) mmol/ L Santy Test Pos Hematocrit 42.9 (42-52) % O2 Delivery Device Aircraft Maintenance Instructor ID Anonymous Sodium (136-145) mmol/L Potassium (3.5-5.1) mmol/L Chloride (98-107) mmol/L Carbon Dioxide (22-29) mmol/L Anion Gap (5-19) BUN (6-20) mg/dL Creatinine (0.7-1.2) mg/dL GFR Calculation (90-130) mL/min Glucose (65-115) mg/dL Calculated Osmolal ity (285-295) mOsm/k g Lactic Acid (0.5-2.2) mmol/L Calcium (8.5-10.5) mg/dL Magnesium (1.7-2.3) mg/dL Total Bilirubin (0.15-1.2) mg/dL AST (0-40) U/L ALT (0-41) U/L Alkaline Phosphata se (40-130) IU/L Ammonia (16-60) umol/L Troponin T Baselin e (0-15) ng/L Troponin T 120 Min [place] (0-15) ng/L Delta Troponin T (0-10) ABS# NT-Pro-B Natriuret Pep (0-125) pg/mL Total Protein (6.6-8.7) g/dL Albumin (3.5-5.2) g/dL Globulin (1.3-4.6) g/dL Lipase (13-60) U/L Procalcitonin (0-0.5) ng/mL Urine Color Yellow (Yellow) Urine Appearance Clear (CLEAR) Urine pH 8 H (5-7) Ur Specific Gravit y 1.010 (1.005-1.030) Urine Protein Neg (Negative) Urine Glucose (UA) Norm (Normal) Urine Ketones 1+ H (Negative) Urine Blood Neg (Negative) Urine Nitrate Negative (Negative) Urine Bilirubin Neg (Negative) Prot Sulfosalicyli c Acd Negative (Negative) Urine Urobilinogen Norm (Negative) mg/dL Ur Leukocyte Roselyn ase Negative (Negative) 11/14/20 11/14/20 11/14/20 Range/Units 12:00 12:00 12:00 WBC (4.0-10.0) 10^3/ uL RBC (4.1-5.3) 10^6/u L Hgb (11.7-16.6) g/dL Hct (42.0-52.0) % MCV (80-94) fL MCH (28.0-34.0) pg MCHC (30.0-36.0) g/dL RDW (12.1-15.1) % Plt Count (130-400) 10^3/c mm MPV (7.4-10.4) fL Neut % (Auto) % Lymph % (Auto) % Grimes % (Auto) % Eos % (Auto) % Baso % (Auto) % Neut # (Auto) (1.8-7.7) 10^3/u L Lymph # (Auto) (0.8-4.8) 10^3/u L Grimes # (Auto) (0.2-0.9) 10^3/u L Eos # (Auto) (0.0-0.8) 10^3/u L Baso # (Auto) (0.0-0.1) 10^3/u L Nucleated RBC % (a uto) % Nucleated RBCs # /100WBC D-Dimer 0.51 (0-0.59) ug/mIFE U Specimen Type Sample Site ABG pH (7.35-7.45) ABG pCO2 (35-45) mmHg ABG pO2 (80.0-100.0) mmH g ABG HCO3 (22-26) mmol/L ABG Base Excess (-2.0-2.0) mmol/ L Santy Test Hematocrit (42-52) % O2 Delivery Device Aircraft Maintenance Instructor ID Sodium 137 (136-145) mmol/L Potassium 5.1 (3.5-5.1) mmol/L Chloride 98 (98-107) mmol/L Carbon Dioxide 25 (22-29) mmol/L Anion Gap 19.1 H (5-19) BUN 14 (6-20) mg/dL Creatinine 0.8 (0.7-1.2) mg/dL GFR Calculation 99.6 (90-130) mL/min Glucose 134 H (65-115) mg/dL Calculated Osmolal ity 286 (285-295) mOsm/k g Lactic Acid 2.0 (0.5-2.2) mmol/L Calcium 9.8 (8.5-10.5) mg/dL Magnesium 1.4 L (1.7-2.3) mg/dL Total Bilirubin 0.5 (0.15-1.2) mg/dL AST 25 (0-40) U/L ALT 21 (0-41) U/L Alkaline Phosphata se 56 (40-130) IU/L Ammonia (16-60) umol/L Troponin T Baselin e (0-15) ng/L Troponin T 120 Min [place] (0-15) ng/L Delta Troponin T (0-10) ABS# NT-Pro-B Natriuret Pep (0-125) pg/mL Total Protein 7.8 (6.6-8.7) g/dL Albumin 4.3 (3.5-5.2) g/dL Globulin 3.5 (1.3-4.6) g/dL Lipase 12 L (13-60) U/L Procalcitonin 0.52 H (0-0.5) ng/mL Urine Color (Yellow) Urine Appearance (CLEAR) Urine pH (5-7) Ur Specific Gravit y (1.005-1.030) Urine Protein (Negative) Urine Glucose (UA) (Normal) Urine Ketones (Negative) Urine Blood (Negative) Urine Nitrate (Negative) Urine Bilirubin (Negative) Prot Sulfosalicyli c Acd (Negative) Urine Urobilinogen (Negative) mg/dL Ur Leukocyte Roselyn ase (Negative) 11/14/20 11/14/20 11/14/20 Range/Units 12:00 12:00 12:00 WBC (4.0-10.0) 10^3/ uL RBC (4.1-5.3) 10^6/u L Hgb (11.7-16.6) g/dL Hct (42.0-52.0) % MCV (80-94) fL MCH (28.0-34.0) pg MCHC (30.0-36.0) g/dL RDW (12.1-15.1) % Plt Count (130-400) 10^3/c mm MPV (7.4-10.4) fL Neut % (Auto) % Lymph % (Auto) % Grimes % (Auto) % Eos % (Auto) % Baso % (Auto) % Neut # (Auto) (1.8-7.7) 10^3/u L Lymph # (Auto) (0.8-4.8) 10^3/u L Grimes # (Auto) (0.2-0.9) 10^3/u L Eos # (Auto) (0.0-0.8) 10^3/u L Baso # (Auto) (0.0-0.1) 10^3/u L Nucleated RBC % (a uto) % Nucleated RBCs # /100WBC D-Dimer (0-0.59) ug/mIFE U Specimen Type Sample Site ABG pH (7.35-7.45) ABG pCO2 (35-45) mmHg ABG pO2 (80.0-100.0) mmH g ABG HCO3 (22-26) mmol/L ABG Base Excess (-2.0-2.0) mmol/ L Santy Test Hematocrit (42-52) % O2 Delivery Device Aircraft Maintenance Instructor ID Sodium (136-145) mmol/L Potassium (3.5-5.1) mmol/L Chloride (98-107) mmol/L Carbon Dioxide (22-29) mmol/L Anion Gap (5-19) BUN (6-20) mg/dL Creatinine (0.7-1.2) mg/dL GFR Calculation (90-130) mL/min Glucose (65-115) mg/dL Calculated Osmolal ity (285-295) mOsm/k g Lactic Acid (0.5-2.2) mmol/L Calcium (8.5-10.5) mg/dL Magnesium (1.7-2.3) mg/dL Total Bilirubin (0.15-1.2) mg/dL AST (0-40) U/L ALT (0-41) U/L Alkaline Phosphata se (40-130) IU/L Ammonia 30 (16-60) umol/L Troponin T Baselin e 21 H (0-15) ng/L Troponin T 120 Min [place] (0-15) ng/L Delta Troponin T (0-10) ABS# NT-Pro-B Natriuret Pep 610 H (0-125) pg/mL Total Protein (6.6-8.7) g/dL Albumin (3.5-5.2) g/dL Globulin (1.3-4.6) g/dL Lipase (13-60) U/L Procalcitonin (0-0.5) ng/mL Urine Color (Yellow) Urine Appearance (CLEAR) Urine pH (5-7) Ur Specific Gravit y (1.005-1.030) Urine Protein (Negative) Urine Glucose (UA) (Normal) Urine Ketones (Negative) Urine Blood (Negative) Urine Nitrate (Negative) Urine Bilirubin (Negative) Prot Sulfosalicyli c Acd (Negative) Urine Urobilinogen (Negative) mg/dL Ur Leukocyte Roselyn ase (Negative) 11/14/20 Range/Units 14:24 WBC (4.0-10.0) 10^3/ uL RBC (4.1-5.3) 10^6/u L Hgb (11.7-16.6) g/dL Hct (42.0-52.0) % MCV (80-94) fL MCH (28.0-34.0) pg MCHC (30.0-36.0) g/dL RDW (12.1-15.1) % Plt Count (130-400) 10^3/c mm MPV (7.4-10.4) fL Neut % (Auto) % Lymph % (Auto) % Grimes % (Auto) % Eos % (Auto) % Baso % (Auto) % Neut # (Auto) (1.8-7.7) 10^3/u L Lymph # (Auto) (0.8-4.8) 10^3/u L Grimes # (Auto) (0.2-0.9) 10^3/u L Eos # (Auto) (0.0-0.8) 10^3/u L Baso # (Auto) (0.0-0.1) 10^3/u L Nucleated RBC % (a uto) % Nucleated RBCs # /100WBC D-Dimer (0-0.59) ug/mIFE U Specimen Type Sample Site ABG pH (7.35-7.45) ABG pCO2 (35-45) mmHg ABG pO2 (80.0-100.0) mmH g ABG HCO3 (22-26) mmol/L ABG Base Excess (-2.0-2.0) mmol/ L Santy Test Hematocrit (42-52) % O2 Delivery Device Aircraft Maintenance Instructor ID Sodium (136-145) mmol/L Potassium (3.5-5.1) mmol/L Chloride (98-107) mmol/L Carbon Dioxide (22-29) mmol/L Anion Gap (5-19) BUN (6-20) mg/dL Creatinine (0.7-1.2) mg/dL GFR Calculation (90-130) mL/min Glucose (65-115) mg/dL Calculated Osmolal ity (285-295) mOsm/k g Lactic Acid (0.5-2.2) mmol/L Calcium (8.5-10.5) mg/dL Magnesium (1.7-2.3) mg/dL Total Bilirubin (0.15-1.2) mg/dL AST (0-40) U/L ALT (0-41) U/L Alkaline Phosphata se (40-130) IU/L Ammonia (16-60) umol/L Troponin T Baselin e (0-15) ng/L Troponin T 120 Min [place] 18.66 H (0-15) ng/L Delta Troponin T -2.34 L (0-10) ABS# NT-Pro-B Natriuret Pep (0-125) pg/mL Total Protein (6.6-8.7) g/dL Albumin (3.5-5.2) g/dL Globulin (1.3-4.6) g/dL Lipase (13-60) U/L Procalcitonin (0-0.5) ng/mL Urine Color (Yellow) Urine Appearance (CLEAR) Urine pH (5-7) Ur Specific Gravit y (1.005-1.030) Urine Protein (Negative) Urine Glucose (UA) (Normal) Urine Ketones (Negative) Urine Blood (Negative) Urine Nitrate (Negative) Urine Bilirubin (Negative) Prot Sulfosalicyli c Acd (Negative) Urine Urobilinogen (Negative) mg/dL Ur Leukocyte Roselyn ase (Negative) Critical Care Time Critical Care Time: Critical Care Time: Yes Total Critical Care Time: 35 Attestation: Spent 35 minutes of critical care time on this patient exclusively. This involved getting history from family members, reviewing prior records, multiple reevaluations of his neuro status. Medical management and review of test results. Documentation. Consultation with hospitalist. Discharge Plan Discharge Patient Disposition: Admitted As Inpatient Admit Provider: Hermes Colin Coding Level of Care Code ED Reefer Engineer for Toñog Fwd Exam Comprehensive
[2020-11-14 11:59] LABS: ABG PH Result 7.46 (7.35-7.45)
[2020-11-14 12:00] LABS: ABG PCO2 33.7 mmHg (35-45); Arterial Blood Gas Hematocrit 42.9 % (42-52); Base Excess ABG 0.9 mmol/L (-2.0-2.0); Blood Gas Sample Site LEFT RADIAL; HCO3 ABG 24.2 mmol/L (22-26); PO2 ABG 66.7 mmHg (80.0-100.0)
[2020-11-14] MEDS: acetaminophen 500 mg Tablet 1000 MG PO (12:36)
[2020-11-14] MEDS: LORazepam 2 mg/mL INJ 1 mL 0.5 MG IVP ×2 (12:37→14:37)
[2020-11-14] MEDS: cefepime 2,000 MG in sodium chloride 0.9% (plus) 50 ML 100 MG IV (12:38)
[2020-11-14] MEDS: sodium chloride 0.9% 1,000 ML 999 ML IV (12:38)
[2020-11-14 12:40] LABS: Basophils # 0.1 10^3/uL (0.0-0.1); Basophils % 0.3 %; Eosinophils % 0.2 %; Hematocrit 43.1 % (42.0-52.0); Hemoglobin 13.7 g/dL (11.7-16.6); Lymphocytes # 0.8 10^3/uL (0.8-4.8); Mean Corpuscular HGB Conc 31.8 g/dL (30.0-36.0); Mean Corpuscular Hemoglobin 28.5 pg (28.0-34.0); Mean Corpuscular Volume 89.6 fL (80-94); Mean Platelet Volume 10.8 fL (7.4-10.4); Monocytes # 0.9 10^3/uL (0.2-0.9); Monocytes % 5.8 %; Neutrophils # 13.96 10^3/uL (1.8-7.7); Neutrophils % 87.8 %; Nucleated Red Blood Cells % 0 %; Platelet Count 223 10^3/cmm (130-400); Red Blood Count 4.81 10^6/uL (4.1-5.3); Red Cell Distribution Width 14.3 % (12.1-15.1); White Blood Count 15.9 10^3/uL (4.0-10.0)
[2020-11-14 12:51] LABS: D Dimer 0.51 ug/mIFEU (0-0.59)
--- NOTE | 2020-11-14 13:03 | PC.NURSE ---
AMS Patient still confused, continues to attempt to climb out of bed, confused, almost falling. Patient requiring one to one sitter for patients safety. garment manufacturing supervisor called for sitter, none available at this time. Nurse sitting with patient until sitter/other staff available
[2020-11-14 13:04] LABS: Ammonia 30 umol/L (16-60)
[2020-11-14 13:05] LABS: Troponin(5th) Baseline 21 ng/L (0-15)
--- NOTE | 2020-11-14 13:30 | ECG_ITS ---
[facility] Test Date: 2020-11-14 Pat Name: Mitesh Laboy Department: Room: Gender: Male Youth Development Specialist: : 1965 Requested By: Justine Sanderson Order Number: [id number] Reading MD: DON CAREY Measurements Intervals Two Dot Rate: 98 P: TX: QRS: 110 QRSD: 144 T: 6 QT: 360 QTc: 460 Interpretive Statements ATRIAL FIBRILLATION RIGHT AXIS DEVIATION [QRS AXIS > 100] RIGHT BUNDLE BRANCH BLOCK [120+ ms QRS DURATION, UPRIGHT V1, 40+ ms S IN I/aVL/V4/V5/V6] POSSIBLE ANTERIOR MYOCARDIAL INFARCTION , OF INDETERMINATE AGE [30 ms Q WAVE IN V3/V4, OR R < 0.2 mV IN V4] Compared to ECG 05/08/2020 13:02:47 Myocardial infarct finding now present Electronically Signed On 11-14-2020 18:19:20 CAUSTIC OPERATOR by DON CAREY [id number]
[2020-11-14] MEDS: ampicillin 2,000 MG in sodium chloride 0.9% (plus) 50 ML 100 MG IV (13:47)
[2020-11-14 13:54] LABS: Albumin Level 4.3 g/dL (3.5-5.2); Alkaline Phosphatase 56 IU/L (40-130); Blood Urea Nitrogen 14 mg/dL (6-20); Calcium 9.8 mg/dL (8.5-10.5); Carbon Dioxide 25 mmol/L (22-29); Chloride 98 mmol/L (98-107); Globulin 3.5 g/dL (1.3-4.6); Glomerular Filtration Rate 99.6 mL/min (90-130); Total Bilirubin 0.5 mg/dL (0.15-1.2); Total Protein 7.8 g/dL (6.6-8.7)
[2020-11-14 13:54] LABS: Add Urine Microscopic? NO
[2020-11-14 13:59] LABS: Bilirubin Urine Neg (Negative); Blood Urine Neg (Negative); Glucose Urine UA Norm (Normal); Ketones Urine 1+ (Negative); Leukocyte Esterase Urine Negative (Negative); Nitrate Urine Negative (Negative); Protein Urine Neg (Negative); Sulfosalicylic Acid Urine Negative (Negative); Urine Appearance Clear (CLEAR); Urine Color Yellow (Yellow); Urobilinogen Urine Norm (Negative); pH Urine 8 (5-7)
[2020-11-14 14:17] LABS: Blood Gas Allen Test Pos; Blood Gas Operator Identificat Anonymous; Blood Gas Sample Type Arterial
[2020-11-14] MEDS: morphine 4 mg/mL SDV 1 mL IVP (14:37)
[2020-11-14 14:54] LABS: Glucose 134 mg/dL (65-115); Magnesium 1.4 mg/dL (1.7-2.3); Osmolality Calculated 286 mOsm/kg (285-295); Sodium 137 mmol/L (136-145)
[2020-11-14 14:55] LABS: Alanine Aminotransferase 21 U/L (0-41); Aspartate Amino Transferase 25 U/L (0-40); Lipase 12 U/L (13-60); Procalcitonin 0.52 ng/mL (0-0.5)
[2020-11-14 14:56] LABS: Anion Gap 19.1 (5-19); Potassium 5.1 mmol/L (3.5-5.1)
[2020-11-14 15:14] LABS: Troponin 5 2HR 18.66 ng/L (0-15)
[2020-11-14 15:16] LABS: Troponin 5 2HR Delta -2.34 ABS# (0-10)
--- NOTE | 2020-11-14 15:18 | CT_ITS ---
WS: [id number] CT CHEST, ABDOMEN AND PELVIS WITH CONTRAST HISTORY: fever, AMS TECHNIQUE: Contiguous 5 mm axial imaging performed through the chest, abdomen and pelvis with IV cont rast, oral contrast has not been provided. Coronal and sagittal reformats chest. Coronal and sagittal reformats through the abdomen and pelvis. All CT scans at [facility] use at least one of these dose optimization techniques: automated exposure control; mA and/or kV adjustment per patient size (includes targeted exams where dose is matched to clinical indication); or iterative reconstruct ion. CONTRAST: Omnipaque 350; 95 mL IV. DLP: 4013.73 mGy.cm COMPARISON: 06/25/[address]: Lungs are clear. No pneumonia. No pericardial or pleural effusions. No mediastinal or hilar adenopathy. Normal heart. Abdomen CT: Diffuse hepatic steatosis. Mildly hydropic gallbladder with no adjacent inflammation or w all thickening. No bile duct dilatation. Normal spleen. Normal pancreas. Normal adrenal glands. Perin ephric stranding bilaterally. No renal obstruction. Low-attenuation mass in the stomach antrum is probably a lipoma. This has been present on prior studi es and not causing obstruction. Diffuse mild fecal retention. The appendix is normal. No significant diverticular disease. Pelvic CT: No free fluid or adenopathy. Artifact through the pelvis from hardware in the symphysis pu bis. Degenerative changes throughout the thoracic and lumbar spines. 6 mm anterolisthesis of L5. CT/CT chest abd pel w con* IMPRESSION: 1. No pneumonia. 2. Bilateral perinephric stranding. Progressed since the prior study. Correlat e for possible polynephritis. No renal obstruction or calcifications. 3. Mildly hydropic gallbladder with no adjacent inflammation. 4. Lipoma in the stomach antrum. 5. Mild constipation. 6. Normal appendix.
[2020-11-14] MEDS: magnesium sulfate premix 2 GM/50 ML PIGGYBACK IV (15:22)
[2020-11-14] MEDS: iohexol 300 mg/mL 100 mL Btl IV (15:44)
[2020-11-14 15:49] LABS: NT Pro B Type Natriuretic Pept 610 pg/mL (0-125)
--- NOTE | 2020-11-14 17:30 | ECG_ITS ---
[facility] Test Date: 2020-11-14 Pat Name: Mitesh Laboy Department: Room: Gender: Male National Park Ranger: : 1965 Requested By: Justine Sanderson Order Number: [id number] Reading MD: DON CAREY Measurements Intervals Temperance Rate: 100 P: NC: QRS: -50 QRSD: 161 T: 86 QT: 379 QTc: 490 Interpretive Statements ATRIAL FIBRILLATION WITH RAPID VENTRICULAR RESPONSE MARKED LEFT AXIS DEVIATION [QRS AXIS < -30] RIGHT BUNDLE BRANCH BLOCK [120+ ms QRS DURATION, UPRIGHT V1, 40+ ms S IN I/aVL/V4/V5/V6] POSSIBLE ANTERIOR MYOCARDIAL INFARCTION [30 ms Q WAVE IN V3/V4, OR R < 0.2 mV IN V4], OF INDETERMINATE AGE MODERATE T-WAVE ABNORMALITY, CONSIDER LATERAL ISCHEMIA [-0.1+ mV T WAVE IN I/aVL/V5/V6] Compared to ECG 11/14/2020 13:52:10 Left-axis deviation now present T-wave abnormality now present Possible ischemia now present Right-axis deviation no longer present Myocardial infarct finding still present Electronically Signed On 11-14-2020 18:18:51 AUDIO PRODUCTION INSTRUCTOR by DON CAREY [id number]
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
[2020-11-14 18:31] LABS: C Reactive Protein 18.6 mg/L (0.0-4.9)
[2020-11-14] MEDS: metoprolol tartrate 50 mg Tablet 12.5 MG PO (18:32)
[2020-11-14 19:16] LABS: Erythrocyte Sedimentation Rate 9 mm/hr (0-10)
[2020-11-14 19:27] LABS: Troponin 5 6HR 19.95 ng/L (0-15)
[2020-11-14 19:44] LABS: Troponin 5 6HR Delta -1.05 ng/L (0-12)
[2020-11-14] MEDS: trazodone 100 mg Tablet 50 MG PO (20:31)
[2020-11-14] MEDS: oxyCODONE 5 mg IR Tab/Cap 10 MG PO (20:33)
[2020-11-14 21:04] LABS: Partial Thromboplastin Time 35.9 SECONDS (23.9-36.7)
--- NOTE | 2020-11-14 22:26 | PC.NURSE ---
pt's glucose noted to be 166. accucheck not transferring to [facility].
[2020-11-15] VITALS (11 sets, daily range): BP systolic 108–146; BP diastolic 22–77; PULSE 78–120; RESP 17–20; TEMP 36.5–37.1; O2SAT 94–98
[2020-11-15] MEDS: heparin 5,000 unit/mL INJ 1 mL IV (00:36)
[2020-11-15] MEDS: heparin drip 25,000 UNIT/500 ML PREMIX 36 UNIT IV (00:39)
[2020-11-15] MEDS: cefepime 2,000 MG in sodium chloride 0.9% (plus) 50 ML 100 MG IV ×2 (00:43→12:07)
[2020-11-15] MEDS: acetaminophen 325 mg Tablet 650 MG PO ×2 (02:24→18:19)
[2020-11-15 06:58] LABS: Basophils % 0.2 %; Eosinophils % 0.3 %; Hematocrit 37.3 % (42.0-52.0); Hemoglobin 11.7 g/dL (11.7-16.6); Lymphocytes # 1.3 10^3/uL (0.8-4.8); Lymphocytes % 14.8 %; Mean Corpuscular HGB Conc 31.4 g/dL (30.0-36.0); Mean Corpuscular Hemoglobin 28.7 pg (28.0-34.0); Mean Corpuscular Volume 91.6 fL (80-94); Mean Platelet Volume 10.5 fL (7.4-10.4); Monocytes # 0.6 10^3/uL (0.2-0.9); Monocytes % 6.4 %; Neutrophils # 6.91 10^3/uL (1.8-7.7); Nucleated Red Blood Cells % 0 %; Platelet Count 141 10^3/cmm (130-400); Red Blood Count 4.07 10^6/uL (4.1-5.3); Red Cell Distribution Width 14.6 % (12.1-15.1); White Blood Count 8.9 10^3/uL (4.0-10.0)
[2020-11-15 07:20] LABS: Alanine Aminotransferase 15 U/L (0-41); Albumin Level 3.5 g/dL (3.5-5.2); Alkaline Phosphatase 60 IU/L (40-130); Anion Gap 13.6 (5-19); Aspartate Amino Transferase 16 U/L (0-40); Blood Urea Nitrogen 13 mg/dL (6-20); Calcium 8.3 mg/dL (8.5-10.5); Carbon Dioxide 24 mmol/L (22-29); Chloride 101 mmol/L (98-107); Globulin 2.7 g/dL (1.3-4.6); Glomerular Filtration Rate 138.9 mL/min (90-130); Glucose 160 mg/dL (65-115); Magnesium 1.8 mg/dL (1.7-2.3); Osmolality Calculated 284 mOsm/kg (285-295); Potassium 3.6 mmol/L (3.5-5.1); Sodium 135 mmol/L (136-145); Total Bilirubin 0.4 mg/dL (0.15-1.2); Total Protein 6.2 g/dL (6.6-8.7)
[2020-11-15 07:23] LABS: Partial Thromboplastin Time 86.9 SECONDS (23.9-36.7)
[2020-11-15] MEDS: dilTIAZem ER (24HR) 120 mg Capsule PO (08:36)
[2020-11-15] MEDS: atorvastatin 40 mg Tablet 20 MG PO (08:36)
[2020-11-15] MEDS: metoprolol tartrate 50 mg Tablet 12.5 MG PO ×2 (08:37→17:46)
--- NOTE | 2020-11-15 09:34 | PC.NURSE ---
Patient complaint of accelerated heart rate. vitals taken stable as documented, patient sitting up on side of bed, alert and oriented, denies pain, Dr. Colin notified, no new orders at this time. Telemetry reading afib 107
[2020-11-15 12:54] LABS: Vancomycin Trough 18.9 ug/mL (10-15)
[2020-11-15] MEDS: heparin drip 25,000 UNIT/500 ML PREMIX 31 UNIT IV (13:53)
--- NOTE | 2020-11-15 13:57 | PC.CHAP ---
Pastoral Care Encounter/Spiritual Assessment Type of Contact [] Declined plug cutter visit [] Patient/Family/Request visit [] Outpatient visit [] Follow-up visit [] Physician referral [] Code/Alert [] Routine visit [] Staff referral [] Actively dying [] Patient sleeping [] Family support [] [] Out of room [] Palliative care [] [] Receiving care in room [] Pre-surgical visit [] Trauma [] Long length of stay [] ICU visit [] Other: Relational/Emotional Strength [] Patient feels connected with others/family/visitors/staff [] Distress [] Loneliness/isolation [] Abandonment Spirituality of Patient [] Person of Cierra [] Attends Zoroastrian of their Cierra [] Believes in Prayer [] Reads Bible or Pentecostalism materials [] There are Spiritual issues to be addressed 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 Interventions [] Prayer [] Active listening [] Non-anxious presence [] Spiritual/emotional support [] Crisis/trauma care [] Spiritual counseling [] Bereavement support [] Provided bereavement packet [] Provided Bible/devotional materials [] Provided toy/stuffed animal, coloring book to patient or family member [] Provided Communion [] Anointing/[place] [] Salvation [] Completed spiritual assessment [] Other: Impact on Illness or Injury [] Angry [] Fearful [] Anxious [] Often cries [] Exhaustion [] Unable to work [] Unable to attend yarsanism [] Unable to walk/stand [] Unable to read [] Unable to drive [] Unable to eat/drink [] Unable to sleep [] Unable to be with family [] Patient intubated [] Other: Summary Possible covid-19. No visit made. Time spent with patient
[2020-11-15] MEDS: oxyCODONE 5 mg IR Tab/Cap 10 MG PO (15:56)
[2020-11-15 17:07] LABS: Partial Thromboplastin Time 56.1 SECONDS (23.9-36.7)
--- NOTE | 2020-11-15 17:56 | USCV_ITS ---
Narda Mitesh Age: 55 Gender: M : 1965 Exam Date: 11/15/2020 06:00 Ordering Phys: Hermes Colin MD Technologist: Jo Ann Allison [place] [facility] [place]: [place] HISTORY: Lower extremity swelling. PROCEDURES: Venous duplex imaging was performed in only the right lower extremity. The following venous structures were evaluated: common femoral vein, profunda vein, proximal portion of the greater saphenous vein, superficial femoral vein, and the popliteal vein. In addition, the posterior tibial and peroneal trunk were evaluated. Serial compression, augmentation maneuvers, and spectral Doppler flow evaluation were performed. FINDINGS: Normal 2-D Doppler and augmentation and compressibility throughout the lower extremity venous structures. Additional imaging through the proximal calf veins also reveals no thrombus. Limited evaluation of the greater saphenous vein is patent with no thrombus. CONCLUSIONS No DVT right lower extremity. Dr. Miriam Loco DO (Electronically Signed) Final Date: 15 November 2020 09:44 S
--- NOTE | 2020-11-15 18:03 | CTR_ITS ---
PROCEDURE INFORMATION: Exam: CT Right Lower Extremity Without Contrast; Lower Leg Exam date and time: 11/15/2020 6:23 PM Age: 55 years old Clinical indication: Difficulty in walking and swelling, leg or foot; Prior surgery; Surgery date: 6+ months; Surgery type: Multiple; Patient HX: Swelling, pain and redness R lower leg; Additional info: Sepsis, swelling, redness anteromed R thurston, chronic ankle TECHNIQUE: Imaging protocol: CT of the Right lower extremity without contrast was performed. Exam focused on the lower leg. Radiation optimization: All CT scans at this facility use at least one of these dose optimization techniques: automated exposure control; mA and/or kV adjustment per patient size (includes targeted exams where dose is matched to clinical indication); or iterative reconstruction. COMPARISON: CT lower leg RT w con [id number] 09/02/2020 11:54 AM RADIATION DOSE METRICS: Total DLP (mGy-cm): 1375.31 FINDINGS: Bones/joints: Small right knee joint effusion, incompletely assessed. Severe osteoarthritis changes of the right knee joint. Metallic staple in the lateral femoral condyle. Postsurgical tunnel in the proximal tibia may represent prior ACL repair. Partial surgical screw in the proximal fibula. No acute right lower extremity fractures. Scattered arthritis throughout the right hindfoot. Osteophytic spurring at the margins of the distal fibula and the distal tibia. Partial visualization of an intramedullary nail within the left tibia. Scattered osteophytic spurring between the tarsal bones in the midfoot. Mature periosteal reaction changes of the 5th metatarsal bone are nonspecific. Soft tissues: Circumferential subcutaneous soft tissue edema of the distal right lower extremity. Small Brandt cyst in the right popliteal fossa. CT/CT lower leg RT w con [id number] IMPRESSION: 1. No drainable soft tissue abscess in the leg. 2. Generalized distal lower extremity subcutaneous soft tissue edema. 3. No acute osseous abnormality of the imaged right lower extremity. 4. No definitive evidence of osteomyelitis in the right leg. Characterization of foot and ankle bones suboptimal. Recommend correlation with plain film radiography. 5. Features of advanced osteoarthritis in both the right knee joint, right foot and ankle. Radiation Dose CTDIVOL = (mGy): DLP = 1375.31 (mGy-cm)
[2020-11-15] MEDS: iohexol 300 mg/mL 100 mL Btl IV (19:01)
[2020-11-15] MEDS: fentaNYL 100 mcg Patch 1 PATCH TRANSDERMA (19:52)
--- NOTE | 2020-11-15 21:24 | PM.PN ---
Subjective Subjective: Interval history: Today he is feeling a little better, but bothered by swelling right lower extremity, medial portion, down to the ankle, posterior lateral foot. Vitals/I&O/Wt Last Vital Signs Temp 97.9 F 11/15/20 20:00 Pulse 104 H 11/15/20 20:00 Resp 19 H 11/15/20 20:00 BP 117/73 11/15/20 20:00 Pulse Ox 96 11/15/20 20:00 11/15/20 11/15/20 11/15/20 06:59 14:59 22:59 Intake Total 550 / 2200 1241.4 / 1241.4 850.567 / 2091.967 Output Total 350 / 550 550 / 550 1200 / 1750 Balance 200 / 1650 691.4 / 691.4 -349.433 / 341.967 Weight last 48 hrs Weight 163.429 kg Weight 158.531 kg Weight 155.129 kg Physical Exam Const: COMMON NORMALS: no acute distress, patient oriented x3 and alert GENERAL APPEARANCE: cooperative and comfortable NUTRITIONAL APPEARANCE: obese ORIENTATION/CONSCIOUSNESS: Yes awake HENMT: COMMON NORMALS: oropharynx normal Neck/C-Spine: COMMON NORMALS: no JVD Resp: COMMON NORMALS: normal respiratory effort and clear to auscultation bilaterally AUSCULTATION: clear to auscultation bilaterally Cardio: COMMON NORMALS: no JVD, regular rhythm, S1 normal heart sound present, S2 normal heart sound present and No murmurs present (Cardio) RHYTHM: regular rhythm HEART SOUNDS: S1 normal heart sound present and S2 normal heart sound present GI: COMMON NORMALS: Normal to inspection, nondistended, normoactive bowel sounds present, Soft to palpation and non-tender PALPATION: Yes Soft to palpation Extremity: COMMON NORMALS: no joint enlargement and no pedal edema NARRATIVE EXTREMITY EXAM: R hip without swelling, redness. Chronic pain. Pain w passive ROM. Neuro: COMMON NORMALS: patient oriented x3 and moves all extremities SENSORIUM/ORIENTATION: Yes alert Skin: RASHES: rashes noted (Somewhat progressed since yesterday indurated, erythematous irregular patch) Anterolateral mid right thurston extending down towards the right ankle, and today with somewhat worse swelling of the posterior lateral right foot with some erythema. He reports pain. Data : 11/15/20 06:40 11/15/20 06:40 Micro: Microbiology 11/15/20 08:10 Gram Stain - Final Ankle - Right 11/14/20 12:25 Blood Culture - Preliminary Blood NEGATIVE TO DATE 11/14/20 12:00 Blood Culture - Preliminary Blood NEGATIVE TO DATE 11/15/20 06:40 Blood Culture - Preliminary Blood SPECIMEN COLLECTED 11/15/20 06:50 Blood Culture - Preliminary Blood SPECIMEN COLLECTED A&P Assessment and plan (1) Sepsis: Improving sepsis, with improvement leukocytosis, tachypnea, some persistent A. fib with mild RVR. Blood cultures so far without growth. Erythema progressed swelling on the anteromedial thurston progressing towards the right ankle. Appears to have cellulitis. There is some more swelling on the anterolateral aspect of the right foot. We discussed with him risks and benefits of pursuing additional imaging studies. A lot of different studies discussed he is agreeable to for now start with imaging of the right lower leg with CT with contrast to exclude any drainable collections given swelling, chronic wound. The study appears to be just back this evening. Will additionally follow-up with x-ray images of the foot. After discharge would still consider additional imaging by MRI given chronicity of his wound, diabetes to exclude osteomyelitis. He is agreeable with the plan. For now continue IV antibiotics. Blood culture repeated due to history of MRSA, sepsis on presentation. Would like to exclude bacteremia. He does report occasional stasis-like changes in the right leg, especially when standing in the shower. Will assess by duplex of right lower extremity to exclude VTE. Although, this should be less likely given he has been compliant with his Eliquis. No DVT on lower extremity duplex. Pain in the right hip, although this appears to be chronic with chronic arthritis. No superficial findings to suggest infection. Low threshold for additional imaging. Old hardware in the left leg, but asymptomatic. Noted old hardware in pubic symphysis, although no symptoms there either. Check ESR, CRP. Status: Acute (2) Acute encephalopathy: Resolved. CT of the head unremarkable. Appears acute encephalopathy due to sepsis/infection. Improved with initial treatments in ER. Continue to biotics as above. Supportive care. Lumbar puncture was not performed as he has been on anticoagulation. Hold off on lumbar puncture for now given lack of meningeal signs, and mental status appears to very rapidly improved. Status: Acute (3) Pyelonephritis: As above. Nonobstructive. Status: Acute (4) Diabetes with ulcer of ankle: Overall right foot/ankle wound has been healing preadmission. There is only minimal erythema at this time, there is a small ulceration and appears to have small amount of purulent drainage. Collected for culture. Given the wound has not closed up would consider additional assessment by MRI once he is little bit more stable to exclude osteomyelitis. ESR 9, CRP elevated at 18.6. Status: Acute (5) Hypomagnesemia: IV mg. Recheck. Status: Acute Additional A&P Information A. fib: Replace magnesium History of PE: With history of PE for now we will transition to heparin drip anticoagulation in case needs to be rapidly discontinued. Recent COVID-19 infection. Had bad infusion 10/09 DM2: Systolic at home his control has been pretty good. He has been on Metformin, Januvia. Invokana was discontinued during last admission. Consistent carbohydrate diet. Low-dose sliding scale. Attestations Medical Necessity Statement*: Continue admission for assessment management of improving sepsis, with chronic right lower extremity wound, with immunocompromised with diabetes, with recent MRSA wound infection, with cellulitis, possible pyelonephritis. 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
--- NOTE | 2020-11-15 21:25 | XRR_ITS ---
PROCEDURE INFORMATION: Exam: XR Right Foot Exam date and time: 11/15/2020 9:39 PM Age: 55 years old Clinical indication: Swelling, leg or foot; Prior surgery; Surgery date: 6+ months; Additional info: Swelling, chronic soft tissue infection, dm TECHNIQUE: Imaging protocol: XR Right foot. Views: 3 or more views. COMPARISON: CR Foot 3 views, RIGHT* [id number] 12/26/2018 2:47 PM FINDINGS: Bones/joints: Bones are diffusely demineralized. No acute fractures. No joint space dislocation. Bulky hypertrophic osseous spurring between tarsal bones similar to prior. Large insertional enthesophytes on the posterior and plantar surfaces of the calcaneus unchanged from prior. Lucent zone on the lateral side of the proximal 5th metatarsal bone with surrounding sclerotic mineralization changes shows healing from prior imaging. Soft tissues: Soft tissues are swollen over the dorsum of the foot. No soft tissue gas. XR/XR foot RT min 3V* [id number] IMPRESSION: 1. Diffuse soft tissue swelling of the foot. 2. No acute fractures. 3. Lucent bone cavity in the 5th metatarsal bone is noted and nonspecific, less fragmented than prior.
[2020-11-15] MEDS: trazodone 100 mg Tablet 50 MG PO (22:16)
[2020-11-15] MEDS: gabapentin 400 mg Capsule 800 MG PO (22:16)
[2020-11-16] VITALS (11 sets, daily range): BP systolic 112–144; BP diastolic 70–83; PULSE 78–105; RESP 17–18; TEMP 36.6–37.7; O2SAT 96–99
[2020-11-16] MEDS: cefepime 2,000 MG in sodium chloride 0.9% (plus) 50 ML 100 MG IV ×2 (01:00→12:27)
--- NOTE | 2020-11-16 01:00 | PC.NURSE ---
Cefepime saline bad would not scan for this nurse.
[2020-11-16 01:20] LABS: Partial Thromboplastin Time 40.1 SECONDS (23.9-36.7)
[2020-11-16] MEDS: magnesium sulfate premix 2 GM/50 ML PIGGYBACK IV (01:57)
[2020-11-16] MEDS: heparin drip 25,000 UNIT/500 ML PREMIX 111.7 UNIT IV (05:24)
[2020-11-16 06:20] LABS: Basophils % 0.6 %; Eosinophils # 0.1 10^3/uL (0.0-0.8); Eosinophils % 2.6 %; Hemoglobin 11.5 g/dL (11.7-16.6); Lymphocytes # 1.4 10^3/uL (0.8-4.8); Lymphocytes % 26.1 %; Mean Corpuscular HGB Conc 31.1 g/dL (30.0-36.0); Mean Corpuscular Hemoglobin 28.4 pg (28.0-34.0); Mean Corpuscular Volume 91.4 fL (80-94); Mean Platelet Volume 10.9 fL (7.4-10.4); Monocytes # 0.7 10^3/uL (0.2-0.9); Monocytes % 13.2 %; Neutrophils # 3.12 10^3/uL (1.8-7.7); Neutrophils % 57.3 %; Nucleated Red Blood Cells % 0 %; Platelet Count 157 10^3/cmm (130-400); Red Blood Count 4.05 10^6/uL (4.1-5.3); Red Cell Distribution Width 14.7 % (12.1-15.1); White Blood Count 5.4 10^3/uL (4.0-10.0)
--- NOTE | 2020-11-16 07:01 | PC.NURSE ---
Report to Soraya MINA
[2020-11-16 07:11] LABS: Alanine Aminotransferase 13 U/L (0-41); Albumin Level 3.5 g/dL (3.5-5.2); Alkaline Phosphatase 53 IU/L (40-130); Anion Gap 10.7 (5-19); Aspartate Amino Transferase 14 U/L (0-40); Blood Urea Nitrogen 8 mg/dL (6-20); Calcium 8.3 mg/dL (8.5-10.5); Carbon Dioxide 27 mmol/L (22-29); Chloride 103 mmol/L (98-107); Globulin 2.9 g/dL (1.3-4.6); Glomerular Filtration Rate 138.9 mL/min (90-130); Glucose 143 mg/dL (65-115); Osmolality Calculated 285 mOsm/kg (285-295); Potassium 3.7 mmol/L (3.5-5.1); Sodium 137 mmol/L (136-145); Total Bilirubin 0.3 mg/dL (0.15-1.2); Total Protein 6.4 g/dL (6.6-8.7)
[2020-11-16] MEDS: gabapentin 400 mg Capsule 800 MG PO ×3 (10:05→21:22)
[2020-11-16] MEDS: dilTIAZem ER (24HR) 120 mg Capsule PO ×2 (10:05→12:53)
[2020-11-16] MEDS: atorvastatin 40 mg Tablet 20 MG PO (10:06)
[2020-11-16] MEDS: metoprolol tartrate 50 mg Tablet 12.5 MG PO (10:07)
[2020-11-16 10:16] LABS: Partial Thromboplastin Time 47.4 SECONDS (23.9-36.7)
--- NOTE | 2020-11-16 11:54 | PC.CHAP ---
Pastoral Care Encounter/Spiritual Assessment Type of Contact [] Declined corn lab technician visit [] Patient/Family/Request visit [] Outpatient visit [] Follow-up visit [] Physician referral [] Code/Alert [XX] Routine visit [] Staff referral [] Actively dying [] Patient sleeping [] Family support [] [] Out of room [] Palliative care [] [] Receiving care in room [] Pre-surgical visit [] Trauma [] Long length of stay [] ICU visit [XX] Other:Pt was dressed and on the telephone; Bible on his tray. Relational/Emotional Strength [] Patient feels connected with others/family/visitors/staff [] Distress [] Loneliness/isolation [] Abandonment Spirituality of Patient [] Person of Cierra [] Attends Catholic of their Cierra [] Believes in Prayer [] Reads Bible or Baptism materials [] There are Spiritual issues to be addressed Message And Delivery Service Pricer Interventions [] Prayer [] Active listening [] Non-anxious presence [] Spiritual/emotional support [] Crisis/trauma care [] Spiritual counseling [] Bereavement support [] Provided bereavement packet [] Provided Bible/devotional materials [] Provided toy/stuffed animal, coloring book to patient or family member [] Provided Communion [] Anointing/[place] [] Salvation [] Completed spiritual assessment [] Other: Impact on Illness or Injury [] Angry [] Fearful [] Anxious [] Often cries [] Exhaustion [] Unable to work [] Unable to attend faith [] Unable to walk/stand [] Unable to read [] Unable to drive [] Unable to eat/drink [] Unable to sleep [] Unable to be with family [] Patient intubated [] Other: Summary Time spent with patient
[2020-11-16] MEDS: heparin 5,000 unit/mL INJ 1 mL IV ×2 (12:51→20:21)
[2020-11-16] MEDS: metoprolol tartrate 25 mg Tablet 12.5 MG PO (12:53)
[2020-11-16] MEDS: oxyCODONE 5 mg IR Tab/Cap 10 MG PO ×2 (13:14→21:26)
[2020-11-16] MEDS: ALPRAZolam 0.25 mg Tablet PO (13:14)
[2020-11-16] MEDS: metoprolol tartrate 25 mg Tablet PO (18:24)
[2020-11-16] MEDS: heparin drip 25,000 UNIT/500 ML PREMIX 121 UNIT IV (19:26)
[2020-11-16 19:44] LABS: Partial Thromboplastin Time 53.6 SECONDS (23.9-36.7)
--- NOTE | 2020-11-16 20:13 | PM.PN ---
Subjective Subjective: Interval history: Today doing perhaps a little bit better, although persistent swelling, some increasing erythema size and anteromedial right leg. No open ulceration, drainage. He states that about a week previously bumped anterior mid thurston with opening of a tiny wound which has since scabbed over. Vitals/I&O/Wt Last Vital Signs Temp 100 F H 11/16/20 19:32 Pulse 78 11/16/20 19:32 Resp 18 11/16/20 19:32 BP 125/77 11/16/20 19:32 Pulse Ox 97 11/16/20 19:32 11/16/20 11/16/20 11/16/20 06:59 14:59 22:59 Intake Total 989.433 / 3081.400 1410 / 1410 759.633 / 2169.633 Output Total 1000 / 2750 300 / 300 400 / 700 Balance -10.567 / 909.796 4553 / 1110 359.633 / 1469.633 Weight last 48 hrs Weight 165.652 kg Weight 163.429 kg Weight 158.531 kg Physical Exam Const: COMMON NORMALS: no acute distress, patient oriented x3 and alert GENERAL APPEARANCE: cooperative and comfortable NUTRITIONAL APPEARANCE: obese ORIENTATION/CONSCIOUSNESS: Yes awake OTHER: Thirsty HENMT: COMMON NORMALS: oropharynx normal Neck/C-Spine: COMMON NORMALS: no JVD Resp: COMMON NORMALS: normal respiratory effort and clear to auscultation bilaterally AUSCULTATION: clear to auscultation bilaterally Cardio: COMMON NORMALS: no JVD, regular rhythm, S1 normal heart sound present, S2 normal heart sound present and No murmurs present (Cardio) RHYTHM: regular rhythm HEART SOUNDS: S1 normal heart sound present and S2 normal heart sound present GI: COMMON NORMALS: Normal to inspection, nondistended, normoactive bowel sounds present, Soft to palpation and non-tender PALPATION: Yes Soft to palpation Extremity: COMMON NORMALS: no joint enlargement and no pedal edema NARRATIVE EXTREMITY EXAM: R hip without swelling, redness. Chronic pain. Pain w passive ROM. Neuro: COMMON NORMALS: patient oriented x3 and moves all extremities SENSORIUM/ORIENTATION: Yes alert Skin: COMMON NORMALS: no rashes or lesions noted GENERAL SKIN EXAM: no rashes or lesions noted RASHES: rashes noted expansion of erythema on anterior medial right thurston, although less intensely red. Noted eschar at the anterior mid thurston at the site of previously mentioned small injury preceding the cellulitis. Data : 11/16/20 05:08 11/16/20 05:08 Micro: Microbiology 11/14/20 10:48 Urine Culture - Preliminary Urine,Voided 11/15/20 08:10 Gram Stain - Final Ankle - Right Wound Culture - Preliminary Gram Negative Rods Strep agalactiae - (group b) 11/15/20 06:40 Blood Culture - Preliminary Blood NEGATIVE TO DATE 11/15/20 06:50 Blood Culture - Preliminary Blood NEGATIVE TO DATE A&P Assessment and plan (1) Cellulitis: Expansion of area of cellulitis on anterior medial right lower thurston. No ulceration. No drainage. Appears to have a small entry point at anterior mid thurston which had healed up. Due to expansion of cellulitis, immunocompromise, continue IV antibiotics at this time. Follow-up culture from right ankle wound. Follow-up blood cultures. Discussed with him currently we do not have evidence of bacteremia. We discussed additional options. Rather than pursue additional imaging he agrees for now to continue treating cellulitis, follow-up cultures, make sure blood cultures are negative. In case there is concern for bacteremia, resume work-up further Status: Acute (2) Sepsis: Improving sepsis, with improvement leukocytosis, tachypnea, some persistent A. fib with mild RVR. Secondary to cellulitis. As above. Blood cultures so far without growth. After discharge would still consider additional imaging by MRI given chronicity of his wound, diabetes to exclude osteomyelitis. He is agreeable with the plan. For now continue IV antibiotics. Blood culture repeated due to history of MRSA, sepsis on presentation. Would like to exclude bacteremia. He does report occasional stasis-like changes in the right leg, especially when standing in the shower. Duplex negative for VTE. Pain in the right hip, although this appears to be chronic with chronic arthritis. No superficial findings to suggest infection. Low threshold for additional imaging. Old hardware in the left leg, but asymptomatic. Noted old hardware in pubic symphysis, although no symptoms there either. Status: Acute (3) Acute encephalopathy: Resolved. CT of the head unremarkable. Appears acute encephalopathy due to sepsis/infection. Improved with initial treatments in ER. Continue to biotics as above. Supportive care. Lumbar puncture was not performed as he has been on anticoagulation. Hold off on lumbar puncture for now given lack of meningeal signs, and mental status appears to very rapidly improved. Status: Acute (4) Pyelonephritis: As above. Nonobstructive. Status: Acute (5) Diabetes with ulcer of ankle: Overall right foot/ankle wound has been healing preadmission. There is only minimal erythema at this time, there is a small ulceration and appears to have small amount of purulent drainage. Collected for culture. Given the wound has not closed up would consider additional assessment by MRI once he is little bit more stable to exclude osteomyelitis. ESR 9, CRP elevated at 18.6. Status: Acute (6) Hypomagnesemia: Replaced. Status: Acute Additional A&P Information Onychomycosis R hallux: Consider treatment to reduce chance of recurrence of cellulitis. A. fib: Replace magnesium. Resume usual dose of Cardizem metoprolol. History of PE: Heparin bridge. Since mental status remains stable, without signs of meningitis, so far without need for surgical intervention, will transition back to [facility]. Recent COVID-19 infection. Had BAM infusion 10/09 DM2: Systolic at home his control has been pretty good. He has been on Metformin, Januvia. Invokana was discontinued during last admission. Consistent carbohydrate diet. Low-dose sliding scale. Attestations Medical Necessity Statement*: Continue admission for assessment management of progressive cellulitis, improving sepsis in setting of immunocompromise, history of recent MRSA infection, possible pyelonephritis, optimization of chronic anticoagulation. Coding Level of Care Code Acute Traffic Inspector for [facility] Diagnoses Cellulitis L03.90 Sepsis A41.9 Acute encephalopathy G93.40 Pyelonephritis N12 Diabetes with ulcer of ankle E11.622; L97.309 Hypomagnesemia E83.42
[2020-11-16] MEDS: apixaban 5 mg Tablet PO (21:19)
[2020-11-16] MEDS: trazodone 100 mg Tablet 50 MG PO (21:22)
[2020-11-17] VITALS (12 sets, daily range): BP systolic 110–151; BP diastolic 66–85; PULSE 65–94; RESP 14–18; TEMP 36.3–37.1; O2SAT 94–98
[2020-11-17] MEDS: cefepime 2,000 MG in sodium chloride 0.9% (plus) 50 ML 100 MG IV ×2 (02:17→12:18)
[2020-11-17 02:58] LABS: Partial Thromboplastin Time 30.3 SECONDS (23.9-36.7)
[2020-11-17 04:13] LABS: Basophils % 0.8 %; Eosinophils # 0.2 10^3/uL (0.0-0.8); Eosinophils % 4.7 %; Hematocrit 36.7 % (42.0-52.0); Hemoglobin 11.4 g/dL (11.7-16.6); Lymphocytes # 1.5 10^3/uL (0.8-4.8); Mean Corpuscular HGB Conc 31.1 g/dL (30.0-36.0); Mean Corpuscular Hemoglobin 28.1 pg (28.0-34.0); Mean Corpuscular Volume 90.6 fL (80-94); Mean Platelet Volume 10.4 fL (7.4-10.4); Monocytes # 0.6 10^3/uL (0.2-0.9); Monocytes % 11.8 %; Neutrophils # 2.54 10^3/uL (1.8-7.7); Neutrophils % 51.5 %; Nucleated Red Blood Cells % 0 %; Platelet Count 170 10^3/cmm (130-400); Red Blood Count 4.05 10^6/uL (4.1-5.3); Red Cell Distribution Width 14.6 % (12.1-15.1); White Blood Count 4.9 10^3/uL (4.0-10.0)
[2020-11-17 04:30] LABS: Alanine Aminotransferase 14 U/L (0-41); Albumin Level 3.4 g/dL (3.5-5.2); Alkaline Phosphatase 44 IU/L (40-130); Anion Gap 11.5 (5-19); Aspartate Amino Transferase 12 U/L (0-40); Blood Urea Nitrogen 6 mg/dL (6-20); Calcium 8.2 mg/dL (8.5-10.5); Carbon Dioxide 27 mmol/L (22-29); Chloride 103 mmol/L (98-107); Globulin 2.9 g/dL (1.3-4.6); Glomerular Filtration Rate 116.2 mL/min (90-130); Glucose 142 mg/dL (65-115); Magnesium 1.9 mg/dL (1.7-2.3); Osmolality Calculated 286 mOsm/kg (285-295); Potassium 3.5 mmol/L (3.5-5.1); Sodium 138 mmol/L (136-145); Total Bilirubin 0.2 mg/dL (0.15-1.2); Total Protein 6.3 g/dL (6.6-8.7)
[2020-11-17 04:56] LABS: Vancomycin Trough 22.9 ug/mL (10-15)
--- NOTE | 2020-11-17 05:16 | PC.PHAR ---
Vancomycin trough at dosage of 2000mg IVPB every 8 hours is 22.9. Vancomycin is held for next two doses and resumed at 2000mg IVPB every 12 hours with another trough to be obtained before the fourth dose at this rate.
[2020-11-17 06:40] LABS: Glucose Point of Care 130 mg/dL (70-110)
[2020-11-17] MEDS: acetaminophen 325 mg Tablet 650 MG PO (06:40)
[2020-11-17] MEDS: gabapentin 400 mg Capsule 800 MG PO ×3 (09:37→20:43)
[2020-11-17] MEDS: dilTIAZem ER (24HR) 120 mg Capsule 240 MG PO (09:38)
[2020-11-17] MEDS: metoprolol tartrate 25 mg Tablet PO ×2 (09:39→17:01)
[2020-11-17] MEDS: apixaban 5 mg Tablet PO ×2 (09:39→20:43)
[2020-11-17] MEDS: atorvastatin 40 mg Tablet 20 MG PO (09:40)
[2020-11-17] MEDS: vancomycin 1,500 MG/300 ML PIGGYBACK 200 MG IV ×2 (09:42→17:02)
--- NOTE | 2020-11-17 10:12 | DCPLANNER ---
Pg 2 of IM updated and reviewed with pt. No questions, copy provided.
[2020-11-17 11:03] LABS: Glucose Point of Care 226 mg/dL (70-110)
[2020-11-17] MEDS: oxyCODONE 5 mg IR Tab/Cap 10 MG PO (12:37)
[2020-11-17] MEDS: nystatin 100,000 unit/mL UDC 5 mL 400000 UNIT PO ×2 (16:51→20:45)
[2020-11-17] MEDS: magnesium sulfate premix 2 GM/50 ML PIGGYBACK IV (16:53)
[2020-11-17 17:01] LABS: Glucose Point of Care 131 mg/dL (70-110)
--- NOTE | 2020-11-17 19:33 | PM.PN ---
Subjective Subjective: Interval history: Erythema with only minimal additional expansion today, has been demarcated. Pain is about the same. No new ulcerations or drainage. Denies chest pain or pressure. No trouble breathing. Reports today has been having some soreness of his gums while chewing (is edentulous). Also reporting mild tenderness of his scalp. Vitals/I&O/Wt Last Vital Signs Temp 98.4 F 11/17/20 15:28 Pulse 65 11/17/20 15:28 Resp 18 11/17/20 15:28 BP 126/79 11/17/20 15:28 Pulse Ox 98 11/17/20 15:28 11/17/20 11/17/20 11/17/20 06:59 14:59 22:59 Intake Total 550 / 2759.533 830 / 830 590 / 1420 Output Total 1200 / 2550 1365 / 1365 500 / 1865 Balance -650 / 209.533 -535 / -535 90 / -445 Weight last 48 hrs Weight 161.842 kg Weight 165.652 kg Physical Exam Const: COMMON NORMALS: no acute distress, patient oriented x3 and alert GENERAL APPEARANCE: cooperative and comfortable NUTRITIONAL APPEARANCE: obese ORIENTATION/CONSCIOUSNESS: Yes awake OTHER: Thirsty HENMT: OTHER: Whitish exudates on occlusal surfaces of bilateral upper and lower gums. Neck/C-Spine: COMMON NORMALS: no JVD Resp: COMMON NORMALS: normal respiratory effort and clear to auscultation bilaterally AUSCULTATION: clear to auscultation bilaterally Cardio: COMMON NORMALS: no JVD, regular rhythm, S1 normal heart sound present, S2 normal heart sound present and No murmurs present (Cardio) RHYTHM: regular rhythm HEART SOUNDS: S1 normal heart sound present and S2 normal heart sound present GI: COMMON NORMALS: Normal to inspection, nondistended, normoactive bowel sounds present, Soft to palpation and non-tender PALPATION: Yes Soft to palpation Extremity: COMMON NORMALS: no joint enlargement and no pedal edema NARRATIVE EXTREMITY EXAM: R hip without swelling, redness. Chronic pain. Pain w passive ROM. Neuro: COMMON NORMALS: patient oriented x3 and moves all extremities SENSORIUM/ORIENTATION: Yes alert Skin: COMMON NORMALS: no rashes or lesions noted GENERAL SKIN EXAM: no rashes or lesions noted RASHES: rashes noted Data : 11/17/20 04:06 11/17/20 04:06 Micro: Microbiology 11/14/20 10:48 Urine Culture - Final Urine,Voided 11/15/20 08:10 Gram Stain - Final Ankle - Right Wound Culture - Preliminary Klebsiella oxytoca Strep agalactiae - (group b) A&P Assessment and plan (1) Cellulitis: Klebsiella,Today minimal additional expansion of erythema on anterior medial lower right thurston. This has been demarcated. No new ulceration or drainage. Erythema overall appears to be stabilizing, however, not yet to the point of safely transition to oral antibiotic. Continue antibiotics for now with vancomycin, cefepime. Follow-up cultures. Right ankle wound culture growing Klebsiella oxytoca, GBS. Follow-up blood cultures. So far no growth. Expansion of area of cellulitis on anterior medial right lower thurston. No ulceration. No drainage. Appears to have a small entry point at anterior mid thurston which had healed up. Discussed again with him. For now holding off on additional imaging, unless convincing evidence of bacteremia, continue treating cellulitis, follow-up cultures, make sure blood cultures are negative. In case there is concern for bacteremia, resume work-up further. Status: Acute (2) Sepsis: Resolved sepsis, with resolution of leukocytosis, tachypnea, tachycardia. Secondary to cellulitis. As above. Exclude bacteremia with recent MRSA infection. Blood cultures so far without growth. After discharge would still consider additional imaging by MRI given chronicity of his wound, diabetes to exclude osteomyelitis. He is agreeable with the plan. For now continue IV antibiotics. He does report occasional stasis-like changes in the right leg, especially when standing in the shower. Duplex negative for VTE. Pain in the right hip, although this appears to be chronic with chronic arthritis. No superficial findings to suggest infection. Low threshold for additional imaging. Old hardware in the left leg, but asymptomatic. Noted old hardware in pubic symphysis, although no symptoms there either. Status: Acute (3) Acute encephalopathy: Resolved. CT of the head unremarkable. Appears acute encephalopathy due to sepsis/infection. Improved with initial treatments in ER. Continue to biotics as above. Supportive care. Lumbar puncture was not performed as he has been on anticoagulation. Hold off on lumbar puncture for now given lack of meningeal signs, and mental status appears to very rapidly improved. Status: Acute (4) Pyelonephritis: Possible nonobstructive pyelonephritis noted on CT. No growth on urine culture. Unclear significance of findings. Sepsis resolved. Continue on cefepime for now. Status: Acute (5) Diabetes with ulcer of ankle: Overall right foot/ankle wound has been healing preadmission. There is only minimal erythema at this time, there is a small ulceration and appears to have small amount of purulent drainage. Collected for culture. Given the wound has not closed up would consider additional assessment by MRI once he is little bit more stable to exclude osteomyelitis. ESR 9, CRP elevated at 18.6. With nonhealing ulceration, now with new cellulitis of the same extremity, possible pyelonephritis, consider referral to infectious disease. Status: Acute (6) Hypomagnesemia: Replaced. Status: Acute Additional A&P Information Onychomycosis R hallux: Consider treatment to reduce chance of recurrence of cellulitis. Oropharyngeal candidiasis: Nystatin swish and swallow A. fib: Replaced magnesium. Resumed usual dose of Cardizem metoprolol. Heart rates well controlled. History of PE: Since mental status remains stable, without signs of meningitis, so far without need for surgical intervention, heparin bridging transitioned back to Eliquis. Recent COVID-19 infection. Had BAM infusion 10/09 DM2: Systolic at home his control has been pretty good. He has been on Metformin, Januvia. Invokana was discontinued during last admission. Consistent carbohydrate diet. Low-dose sliding scale. Attestations Medical Necessity Statement*: Continue admission for assessment management of expanding area of cellulitis on right lower extremity, with chronic nonhealing ulceration of right foot/ankle, recent MRSA infection, immunocompromise state with diabetes. Coding Level of Care Code Acute Call Worker Person for [facility] Fwd Diagnoses Cellulitis L03.90 Sepsis A41.9 Acute encephalopathy G93.40 Pyelonephritis N12 Diabetes with ulcer of ankle E11.622; L97.309 Hypomagnesemia E83.42
[2020-11-17] MEDS: trazodone 100 mg Tablet 50 MG PO (20:44)
[2020-11-17 20:52] LABS: Glucose Point of Care 179 mg/dL (70-110)
[2020-11-18] VITALS (10 sets, daily range): BP systolic 104–135; BP diastolic 62–82; PULSE 66–102; RESP 16–19; TEMP 36.3–37.5; O2SAT 95–99
[2020-11-18] MEDS: vancomycin 1,500 MG/300 ML PIGGYBACK 200 MG IV ×3 (01:13→17:10)
[2020-11-18] MEDS: oxyCODONE 5 mg IR Tab/Cap 10 MG PO ×3 (02:55→17:07)
[2020-11-18] MEDS: cefepime 2,000 MG in sodium chloride 0.9% (plus) 50 ML 100 MG IV ×2 (02:57→12:14)
[2020-11-18 06:27] LABS: Glucose Point of Care 155 mg/dL (70-110)
[2020-11-18 06:30] LABS: Basophils % 0.4 %; Eosinophils # 0.3 10^3/uL (0.0-0.8); Eosinophils % 5.6 %; Hematocrit 37.4 % (42.0-52.0); Hemoglobin 11.7 g/dL (11.7-16.6); Lymphocytes # 1.7 10^3/uL (0.8-4.8); Lymphocytes % 29.8 %; Mean Corpuscular HGB Conc 31.3 g/dL (30.0-36.0); Mean Corpuscular Hemoglobin 28.3 pg (28.0-34.0); Mean Corpuscular Volume 90.6 fL (80-94); Mean Platelet Volume 10.8 fL (7.4-10.4); Monocytes # 0.6 10^3/uL (0.2-0.9); Monocytes % 11.1 %; Neutrophils # 3.01 10^3/uL (1.8-7.7); Neutrophils % 52.7 %; Nucleated Red Blood Cells % 0 %; Platelet Count 210 10^3/cmm (130-400); Red Blood Count 4.13 10^6/uL (4.1-5.3); Red Cell Distribution Width 14.4 % (12.1-15.1); White Blood Count 5.7 10^3/uL (4.0-10.0)
[2020-11-18 06:59] LABS: Alanine Aminotransferase 22 U/L (0-41); Albumin Level 3.3 g/dL (3.5-5.2); Alkaline Phosphatase 43 IU/L (40-130); Anion Gap 13.7 (5-19); Aspartate Amino Transferase 21 U/L (0-40); Blood Urea Nitrogen 6 mg/dL (6-20); Calcium 8.1 mg/dL (8.5-10.5); Carbon Dioxide 25 mmol/L (22-29); Chloride 105 mmol/L (98-107); Globulin 3.2 g/dL (1.3-4.6); Glomerular Filtration Rate 138.9 mL/min (90-130); Glucose 120 mg/dL (65-115); Osmolality Calculated 289 mOsm/kg (285-295); Potassium 3.7 mmol/L (3.5-5.1); Sodium 140 mmol/L (136-145); Total Bilirubin 0.3 mg/dL (0.15-1.2); Total Protein 6.5 g/dL (6.6-8.7)
[2020-11-18] MEDS: metoprolol tartrate 25 mg Tablet PO ×2 (08:16→17:07)
[2020-11-18] MEDS: gabapentin 400 mg Capsule 800 MG PO ×3 (08:16→20:56)
[2020-11-18] MEDS: atorvastatin 40 mg Tablet 20 MG PO (08:16)
[2020-11-18] MEDS: dilTIAZem ER (24HR) 120 mg Capsule 240 MG PO (08:16)
[2020-11-18] MEDS: nystatin 100,000 unit/mL UDC 5 mL 400000 UNIT PO ×4 (08:17→20:57)
[2020-11-18] MEDS: apixaban 5 mg Tablet PO ×2 (08:19→20:57)
[2020-11-18 11:36] LABS: Glucose Point of Care 185 mg/dL (70-110)
[2020-11-18] MEDS: ALPRAZolam 0.25 mg Tablet PO ×2 (12:14→20:56)
--- NOTE | 2020-11-18 15:27 | PM.PN ---
Subjective Subjective: Interval history: Patient reports that he has had right ankle problems for quite some time. At one time he had hardware, but this has been removed. He has been treating an ulcer on the lateral fibula for a couple months now it has been improving. He has recently been on antibiotic. He states he presented because of fever confusion and elevated heart rate. He is concerned that he gets these infections every couple of years and feels like he has not been fully treated for the infection before He states he is up walking on that right ankle. And he is getting a new boot for that leg Medications: Reviewed: Yes Vitals/I&O/Wt Last Vital Signs Temp 97.3 F L 11/18/20 11:59 Pulse 92 11/18/20 11:59 Resp 18 11/18/20 11:59 BP 131/77 11/18/20 11:59 Pulse Ox 95 11/18/20 11:59 11/18/20 11/18/20 11/18/20 06:59 14:59 22:59 Intake Total 450 / 1950 590 / 590 Output Total 690 / 2555 925 / 925 Balance -240 / -605 -335 / -335 Weight last 48 hrs Weight 160.753 kg Weight 161.842 kg Physical Exam Const: COMMON NORMALS: no acute distress, patient oriented x3 and alert NUTRITIONAL APPEARANCE: obese morbidly obese ORIENTATION/CONSCIOUSNESS: Yes awake, Yes oriented to person, Yes oriented to place and Yes oriented to time Neck/C-Spine: COMMON NORMALS: no JVD Resp: COMMON NORMALS: normal respiratory effort AUSCULTATION: wheezes expiratory wheezes (In the bilateral lower lobes posteriorly that resolved after coughing.) Cardio: COMMON NORMALS: no JVD and regular rate RATE: regular rate RHYTHM: abnormal rhythm irregularly irregular GI: COMMON NORMALS: Normal to inspection, nondistended, normoactive bowel sounds present, Soft to palpation and non-tender PALPATION: Yes Soft to palpation Neuro: COMMON NORMALS: patient oriented x3 SENSORIUM/ORIENTATION: Yes alert, Yes oriented to person, Yes oriented to place and Yes oriented to time Skin: SKIN IMAGES (MALE): 1. Erythema at the worst point. 2. It spreads to the ankle medially GENERAL SKIN EXAM: erythema (As above in image. He has erythema up to mid thurston and then linearly down t) WOUNDS: Yes wounds noted (He has a 1 cm open wound at the lateral malleolus of the right lower extrem) without odor and open Data : 11/18/20 05:30 11/18/20 05:30 Micro: Microbiology 11/15/20 08:10 Gram Stain - Final Ankle - Right Wound Culture - Final Klebsiella oxytoca Strep agalactiae - (group b) A&P Assessment and plan (1) Atrial fibrillation: Patient has chronic atrial fibrillation on apixaban 5 mg twice daily and rate is controlled. Status: Chronic Qualifiers: Atrial fibrillation type: longstanding persistent Qualified Code(s): I48.11 - Longstanding persistent atrial fibrillation (2) Chronic anticoagulation: Patient has history of PE and also the a forementioned atrial fibrillation and takes chronic anticoagulation. Status: Inactive (3) Hypomagnesemia: Patient had a magnesium of 1.9. Patient received magnesium sulfate 2 g on 11/17/2020. No need to recheck at this time Status: Resolved (4) Cellulitis: Continue on IV cefepime. Since patient's been on a recent dose of Cipro I would use Bactrim at time of discharge hopefully in a day or 2. Status: Acute (5) Wound infection: As above under cellulitis. Continue outpatient treatment with wound clinic. Status: Acute (6) Diabetes with ulcer of ankle: Continue current medications Status: Acute Attestations Medical Necessity Statement*: Patient failed outpatient treatment of wound infection and cellulitis. Patient requires further IV therapy. Coding Level of Care Code Acute Wind Field Manager for [facility] Fwd Exam Detailed Diagnoses Atrial fibrillation I48.11 Atrial fibrillation type: longstanding persistent Chronic anticoagulation Z79.01 Hypomagnesemia E83.42 Cellulitis L03.90 Wound infection T14.8XXA; L08.9 Diabetes with ulcer of ankle E11.622; L97.309
[2020-11-18] MEDS: acetaminophen 325 mg Tablet 650 MG PO (15:32)
[2020-11-18 16:50] LABS: Glucose Point of Care 144 mg/dL (70-110)
[2020-11-18 16:56] LABS: Vancomycin Trough 15.6 ug/mL (10-15)
[2020-11-18] MEDS: fentaNYL 100 mcg Patch 1 PATCH TRANSDERMA (19:44)
[2020-11-18] MEDS: trazodone 100 mg Tablet 50 MG PO (20:56)
[2020-11-18] MEDS: cyclobenzaprine 10 mg Tablet PO (20:56)
--- NOTE | 2020-11-18 21:05 | PC.NURSE ---
Patient was concerned about missing wallet. After patient searching personal items with nurse assistance, patient found wallet in his suitcase with $212. Patient counted money with this nurse and agreed to locking wallet up in [employer] for safe keeping until discharge.
[2020-11-18 21:29] LABS: Glucose Point of Care 152 mg/dL (70-110)
[2020-11-19] VITALS (11 sets, daily range): BP systolic 110–144; BP diastolic 63–91; PULSE 74–104; RESP 16–20; TEMP 36.1–37.2; O2SAT 93–98
[2020-11-19] MEDS: cefepime 2,000 MG in sodium chloride 0.9% (plus) 50 ML 100 MG IV ×3 (01:09→23:55)
[2020-11-19] MEDS: vancomycin 1,500 MG/300 ML PIGGYBACK 200 MG IV ×3 (01:17→18:25)
[2020-11-19] MEDS: acetaminophen 325 mg Tablet 650 MG PO ×2 (03:38→12:54)
[2020-11-19 06:10] LABS: Basophils % 0.4 %; Eosinophils # 0.3 10^3/uL (0.0-0.8); Eosinophils % 6.1 %; Hematocrit 37.9 % (42.0-52.0); Hemoglobin 11.9 g/dL (11.7-16.6); Lymphocytes # 1.8 10^3/uL (0.8-4.8); Lymphocytes % 33.6 %; Mean Corpuscular HGB Conc 31.4 g/dL (30.0-36.0); Mean Corpuscular Hemoglobin 28.4 pg (28.0-34.0); Mean Corpuscular Volume 90.5 fL (80-94); Mean Platelet Volume 10.1 fL (7.4-10.4); Monocytes # 0.6 10^3/uL (0.2-0.9); Monocytes % 10.2 %; Neutrophils # 2.64 10^3/uL (1.8-7.7); Nucleated Red Blood Cells % 0 %; Platelet Count 212 10^3/cmm (130-400); Red Blood Count 4.19 10^6/uL (4.1-5.3); Red Cell Distribution Width 14.4 % (12.1-15.1); White Blood Count 5.4 10^3/uL (4.0-10.0)
[2020-11-19 06:33] LABS: Alanine Aminotransferase 37 U/L (0-41); Albumin Level 3.4 g/dL (3.5-5.2); Alkaline Phosphatase 46 IU/L (40-130); Anion Gap 12.6 (5-19); Aspartate Amino Transferase 29 U/L (0-40); Blood Urea Nitrogen 9 mg/dL (6-20); Calcium 8.3 mg/dL (8.5-10.5); Carbon Dioxide 26 mmol/L (22-29); Chloride 103 mmol/L (98-107); Globulin 2.7 g/dL (1.3-4.6); Glomerular Filtration Rate 116.2 mL/min (90-130); Glucose 133 mg/dL (65-115); Osmolality Calculated 287 mOsm/kg (285-295); Potassium 3.6 mmol/L (3.5-5.1); Sodium 138 mmol/L (136-145); Total Bilirubin 0.2 mg/dL (0.15-1.2); Total Protein 6.1 g/dL (6.6-8.7)
[2020-11-19 06:52] LABS: Glucose Point of Care 126 mg/dL (70-110)
--- NOTE | 2020-11-19 08:34 | DCPLANNER ---
Pg 2 of IM updated and reviewed with pt. No questions, copy provided.
[2020-11-19] MEDS: metoprolol tartrate 25 mg Tablet PO ×2 (08:56→18:25)
[2020-11-19] MEDS: gabapentin 400 mg Capsule 800 MG PO ×3 (08:56→21:38)
[2020-11-19] MEDS: apixaban 5 mg Tablet PO ×2 (08:56→21:37)
[2020-11-19] MEDS: atorvastatin 40 mg Tablet 20 MG PO (08:57)
[2020-11-19] MEDS: dilTIAZem ER (24HR) 120 mg Capsule 240 MG PO (08:57)
[2020-11-19] MEDS: nystatin 100,000 unit/mL UDC 5 mL 400000 UNIT PO ×3 (10:04→21:38)
[2020-11-19] MEDS: oxyCODONE 5 mg IR Tab/Cap 10 MG PO ×2 (10:09→21:40)
[2020-11-19 11:51] LABS: Glucose Point of Care 182 mg/dL (70-110)
[2020-11-19 16:40] LABS: Glucose Point of Care 104 mg/dL (70-110)
--- NOTE | 2020-11-19 19:55 | PM.PN ---
Subjective Subjective: Interval history: Patient is grumpy today. He states he is not doing well. He does not think his leg is much better. He denies any changes in pain. He states that his leg got very red when he was taking a shower of note he says he was sitting in the shower Medications: Reviewed: Yes Vitals/I&O/Wt Last Vital Signs Temp 97.3 F L 11/19/20 15:35 Pulse 97 11/19/20 15:35 Resp 20 H 11/19/20 15:35 BP 126/91 11/19/20 15:35 Pulse Ox 96 11/19/20 15:35 11/19/20 11/19/20 11/19/20 06:59 14:59 22:59 Intake Total 710 / 1720 500 / 500 Output Total 300 / 300 600 / 900 Balance 710 / -105 200 / 200 -600 / -400 Weight last 48 hrs Weight 160.798 kg Weight 160.753 kg Physical Exam Const: COMMON NORMALS: no acute distress, patient oriented x3 and alert NUTRITIONAL APPEARANCE: obese morbidly obese ORIENTATION/CONSCIOUSNESS: Yes awake, Yes oriented to person, Yes oriented to place and Yes oriented to time Neck/C-Spine: COMMON NORMALS: no JVD Resp: COMMON NORMALS: normal respiratory effort AUSCULTATION: wheezes expiratory wheezes (In the bilateral lower lobes posteriorly that resolved after coughing.) Cardio: COMMON NORMALS: no JVD and regular rate RATE: regular rate RHYTHM: abnormal rhythm irregularly irregular GI: COMMON NORMALS: Normal to inspection, nondistended, normoactive bowel sounds present, Soft to palpation and non-tender PALPATION: Yes Soft to palpation Neuro: COMMON NORMALS: patient oriented x3 SENSORIUM/ORIENTATION: Yes alert, Yes oriented to person, Yes oriented to place and Yes oriented to time Skin: NARRATIVE SKIN EXAM: Patient cellulitis is markedly improved. The erythematous area is now more pink in color than red. He remains swollen but this is also improved. The right lateral malleolus is covered and there is no report that this has changed from my exam yesterday we will not remove bandage. GENERAL SKIN EXAM: erythema (As above in image. He has erythema up to mid [place] and then linearly down t) WOUNDS: Yes wounds noted (He has a 1 cm open wound at the lateral malleolus of the right lower extrem) without odor and open Data : 11/19/20 05:24 11/19/20 05:24 Micro: Microbiology 11/14/20 12:25 Blood Culture - Final Blood NO GROWTH AFTER 5 DAYS 11/14/20 12:00 Blood Culture - Final Blood NO GROWTH AFTER 5 DAYS A&P Assessment and plan (1) Atrial fibrillation: Patient has chronic atrial fibrillation on apixaban 5 mg twice daily and rate is controlled. Status: Chronic Qualifiers: Atrial fibrillation type: longstanding persistent Qualified Code(s): I48.11 - Longstanding persistent atrial fibrillation (2) Chronic anticoagulation: Patient has history of PE and also the a forementioned atrial fibrillation and takes chronic anticoagulation. Status: Inactive (3) Hypomagnesemia: Patient had a magnesium of 1.9. Patient received magnesium sulfate 2 g on 11/17/2020. No need to recheck at this time Status: Resolved (4) Cellulitis: Continue on IV antibiotics. Yesterday patient complained of early discharge. And he requested to stay longer. I concurred that it appeared he needed further IV antibiotics. Today I see marked improvement and I recommend discharge for tomorrow. I attempted to explain to the patient that I felt his cellulitis was unrelated to his chronic wound. But he insists that they are related and so we left it at that. He has a new boot that he will be using and I suspect with continued wound care this will heal. he is doubtful but I tried to reassure him. He was unwilling to accept reassurance. Since patient's been on a recent course of Cipro I would use Bactrim at time of discharge hopefully in a day or 2. Status: Acute (5) Wound infection: As above under cellulitis. Continue outpatient treatment with wound clinic. Status: Acute (6) Diabetes with ulcer of ankle: Continue current medications Status: Acute Additional A&P Information Onychomycosis R hallux: Consider treatment to reduce chance of recurrence of cellulitis. Will defer to wound care or podiatry? Attestations Medical Necessity Statement*: IV antibiotics Coding Level of Care Code Acute Senior Network Systems Engineer for [facility] Fw Diagnoses Atrial fibrillation I48.11 Atrial fibrillation type: longstanding persistent Chronic anticoagulation Z79.01 Hypomagnesemia E83.42 Cellulitis L03.90 Wound infection T14.8XXA; L08.9 Diabetes with ulcer of ankle E11.622; L97.213
[2020-11-19 20:27] LABS: Glucose Point of Care 165 mg/dL (70-110)
[2020-11-19] MEDS: trazodone 100 mg Tablet 50 MG PO (21:39)
[2020-11-19] MEDS: cyclobenzaprine 10 mg Tablet PO (21:40)
[2020-11-20] VITALS (7 sets, daily range): BP systolic 105–136; BP diastolic 68–78; PULSE 83–96; RESP 12–20; TEMP 36.8–37.2; O2SAT 90–92
[2020-11-20] MEDS: vancomycin 1,500 MG/300 ML PIGGYBACK 200 MG IV (00:28)
[2020-11-20 05:41] LABS: Basophils # 0.1 10^3/uL (0.0-0.1); Basophils % 0.8 %; Eosinophils # 0.3 10^3/uL (0.0-0.8); Eosinophils % 4.1 %; Hematocrit 39.7 % (42.0-52.0); Hemoglobin 12.5 g/dL (11.7-16.6); Lymphocytes # 2.1 10^3/uL (0.8-4.8); Lymphocytes % 32.3 %; Mean Corpuscular HGB Conc 31.5 g/dL (30.0-36.0); Mean Corpuscular Hemoglobin 28.2 pg (28.0-34.0); Mean Corpuscular Volume 89.4 fL (80-94); Mean Platelet Volume 9.7 fL (7.4-10.4); Monocytes # 0.7 10^3/uL (0.2-0.9); Monocytes % 9.9 %; Neutrophils # 3.41 10^3/uL (1.8-7.7); Nucleated Red Blood Cells % 0 %; Platelet Count 248 10^3/cmm (130-400); Red Blood Count 4.44 10^6/uL (4.1-5.3); Red Cell Distribution Width 14.3 % (12.1-15.1); White Blood Count 6.6 10^3/uL (4.0-10.0)
[2020-11-20 06:04] LABS: Alanine Aminotransferase 39 U/L (0-41); Albumin Level 3.6 g/dL (3.5-5.2); Alkaline Phosphatase 51 IU/L (40-130); Aspartate Amino Transferase 26 U/L (0-40); Blood Urea Nitrogen 9 mg/dL (6-20); Calcium 8.8 mg/dL (8.5-10.5); Carbon Dioxide 24 mmol/L (22-29); Chloride 103 mmol/L (98-107); Globulin 3.2 g/dL (1.3-4.6); Glomerular Filtration Rate 138.9 mL/min (90-130); Glucose 145 mg/dL (65-115); Osmolality Calculated 285 mOsm/kg (285-295); Sodium 137 mmol/L (136-145); Total Bilirubin 0.4 mg/dL (0.15-1.2); Total Protein 6.8 g/dL (6.6-8.7)
[2020-11-20 06:46] LABS: Glucose Point of Care 164 mg/dL (70-110)
[2020-11-20] MEDS: oxyCODONE 5 mg IR Tab/Cap 10 MG PO (08:06)
[2020-11-20] MEDS: dilTIAZem ER (24HR) 120 mg Capsule 240 MG PO (08:06)
[2020-11-20] MEDS: gabapentin 400 mg Capsule 800 MG PO (08:06)
[2020-11-20] MEDS: metoprolol tartrate 25 mg Tablet PO (08:07)
[2020-11-20] MEDS: atorvastatin 40 mg Tablet 20 MG PO (08:07)
[2020-11-20] MEDS: apixaban 5 mg Tablet PO (08:12)
[2020-11-20 11:01] LABS: Glucose Point of Care 154 mg/dL (70-110)
--- NOTE | 2020-11-21 18:52 | PM.DCS ---
Discharge Providers Date of Admission: 11/14/20 15:20 Date of Discharge: November 21, 2020 Attending Provider at Admission: Hermes Colin Attending Provider at Discharge: Jamir Munoz DO Primary Care Provider: KAYLA Pan Diagnoses at Discharge Discharge Diagnosis (1) Atrial fibrillation: Qualifiers: Atrial fibrillation type: longstanding persistent Qualified Code(s): I48.11 - Longstanding persistent atrial fibrillation (2) Chronic anticoagulation: Status: Inactive (3) Hypomagnesemia: (4) Cellulitis: Status: Acute (5) Wound infection: Status: Acute (6) Diabetes with ulcer of ankle: Status: Acute Reason for Visit Reason for Visit: COIVD SYMPTOMS, FEVER, SOB Hospital Course Hospital Course Please see H&P for reason for admission. Patient was placed on IV antibiotics for cellulitis and wound care to the right lateral malleolus. Cellulitis markedly improved from me over 2 days. The patient was disgruntled with what he considers lack of healing of wound and repeated cellulitis. The patient is morbidly obese with diabetes and severe neuropathy. He has been having boot/shoe problems for an extensive period of time. I attempted to explain that he will be prone to cellulitis and further infections in the future. He would not hear of this remarking that he should be healed. I discussed with ID and arranged follow-up. He is also to continue follow-up with wound management. I discharged him home on Augmentin and Bactrim. He states he has new boots that fit appropriately. Physical Exam Narrative: EXAM NARRATIVE: In general, no acute distress. Mood is somewhat agitated frustrated. Heart regular normal S1-S2 no loud murmur lungs diminished throughout but clear. Abdomen obese with pannus. Normal bowel sounds nontender nondistended. Patient was already dressed in a boot and he did not want me to remove it to examine his right lower extremity cellulitis. Discharge Data Data Completed and Pending: Completed Studies During Hospitalization Category Date Time Status CT chest abd pel w con* Urgent Cat Scan 11/14/20 15:[address] head wo con* 7 0450 Urgent Cat Scan 11/14/20 11:[address] lower leg RT w con 14640 Routine Cat Scan 11/15/20 18:03 Completed XR chest 1V meagan ble [id number] Stat Exams 02/18/21 11:29 Completed XR foot RT min 3V * [id number] Routine Exams 11/15/20 21:25 [place] [id number] Routin e Ultrasound 11/15/20 17:56 Completed Vitals: Last Vital Signs Temp 98.3 F 11/20/20 14:06 Pulse 84 11/20/20 14:06 Resp 18 11/20/20 14:06 BP 114/71 11/20/20 14:06 Pulse Ox 92 11/20/20 14:06 Discharge Plan Discharge Patient Disposition: Home Condition: Stable Prescriptions: New Bactrim DS 800-160 mg tablet 1 tab PO BID 14 Days Qty: 28 RF: 0 Augmentin 500-125 mg tablet 1 tab PO BID Qty: 14 RF: 0 Continued aspirin [Adult Low Dose Aspirin] 81 mg tablet,delayed release (DR/EC) 81 mg PO DAILY RF: 0 Eliquis 5 mg tablet 5 mg PO BID RF: 0 ibuprofen 800 mg tablet 800 mg PO TID RF: 0 Hold Instructions: Resume on 09/09/20. metformin 1,000 mg tablet 1,000 mg PO DAILY RF: 0 nitroglycerin [Nitrostat] 0.4 mg tablet, sublingual 0.4 mg SUBLINGUAL Q5M PRN (Reason: chest pains) RF: 0 alprazolam [Xanax] 0.25 mg tablet 0.25 mg PO BID PRN (Reason: Anxiety) RF: 0 trazodone 100 mg tablet 100 mg PO BEDTIME RF: 0 diltiazem HCl 240 mg capsule,extended release 24hr 240 mg PO DAILY RF: 0 cyclobenzaprine 10 mg tablet 10 mg PO TID RF: 0 lovastatin 20 mg tablet 20 mg PO DAILY RF: 0 fentanyl 100 mcg/hr patch 72 hour 100 mcg transdermal DIRECTED RF: 0 gabapentin 800 mg tablet 800 mg PO TID RF: 0 oxycodone 10 mg tablet 10 mg PO Q6H PRN (Reason: PAIN) RF: 0 metoprolol tartrate 50 mg tablet 25 mg PO BID Qty: 0 RF: 0 Januvia 100 mg tablet 100 mg PO DAILY Qty: 30 RF: 0 Invokana 300 mg tablet 300 mg PO DAILY RF: 0 Discontinued lovastatin 20 mg tablet 20 mg PO DAILY RF: 0 ciprofloxacin HCl 500 mg tablet 500 mg PO BID Qty: 14 RF: 0 Discharge Orders: Discharge Order (Routine); Ordered 11/20/20 Ordered By: Jamir Munoz Referrals: Gela Ribeiro MD [Hospitalist] - 12/24/20 9:40 am (chronic lateral malleolus wound and recent cellulitis in obese DM) Discharge Diet: Usual diet Discharge Activity: Limit activity as instructed Patient Instructions: Atrial Fibrillation, Cellulitis, Sulfamethoxazole/Trimethoprim (By mouth), Amoxicillin/Clavulanate Potassium (By mouth), Pyelonephritis Activity Restrictions/Additional Instructions: Wear new boot when walking. Try to keep boot off and leg/foot exposed to air. follow up with wound care clinic. Referral made to infectious disease. Discharge Attestations Time Spent in Discharge Care*: less than 30 min Quality Metrics Clinical Quality Measures During this hospital stay, did patient experience: None Coding Level of Care Code Acute Kerrick Kleaner Operator for g Fwd Diagnoses Atrial fibrillation I48.11 Atrial fibrillation type: longstanding persistent Chronic anticoagulation Z79.01 Hypomagnesemia E83.42 Cellulitis L03.90 Wound infection T14.8XXA; L08.9 Diabetes with ulcer of ankle E11.622; L97.309
== END 2020-11-20 13:45 | disposition home or self-care (01) | DRG 602 ==
LOC: ER 11:21 → MEDSURG 16:11
PROVIDERS: Admitting Provider Internal Medicine; Emergency Provider Emergency Medicine; PCP Nurse Practitioner Family; Visit Provider Internal Medicine
DX: L03.115 Cellulitis of right lower limb (principal); G93.41 Metabolic encephalopathy; I48.11 Longstanding persistent atrial fibrillation; N12 Tubulo-interstitial nephritis, not specified as acute or chronic; L97.319 Non-pressure chronic ulcer of right ankle with unspecified severity; D84.9 Immunodeficiency, unspecified; Z68.41 Body mass index [BMI] 40.0-44.9, adult; B37.0 Candidal stomatitis; E11.42 Type 2 diabetes mellitus with diabetic polyneuropathy; Z86.14 Personal history of Methicillin resistant Staphylococcus aureus infection; G89.29 Other chronic pain; M54.5 Low back pain; Z86.16 Personal history of COVID-19; M16.11 Unilateral primary osteoarthritis, right hip; Z87.891 Personal history of nicotine dependence; E11.622 Type 2 diabetes mellitus with other skin ulcer; E83.42 Hypomagnesemia; B96.1 Klebsiella pneumoniae [K. pneumoniae] as the cause of diseases classified elsewhere; B35.1 Tinea unguium; Z79.891 Long term (current) use of opiate analgesic; Z79.84 Long term (current) use of oral hypoglycemic drugs; Z79.01 Long term (current) use of anticoagulants; Z79.82 Long term (current) use of aspirin; E66.01 Morbid (severe) obesity due to excess calories
CPT/HCPCS: 11042; 36415; 36416; 36600; 70450; 71045; 71260; 73630; 73701; 74177; 80053; 80202; 81003; 82140; 82803; 82962; 83605; 83690; 83735; 83880; 84145; 84484; 85025; 85378; 85651; 85730; 86140; 87040; 87070; 87075; 87077; 87086; 87186; 87205; 90471; 90686; 93005; 93971; 96365; 96366; 96367; 96372; 96375; 96376; 99291; J0290; J0692; J1644; J1815; J2060; J2270; J3370; J3475; J7030; J7040; Q9967

== ENCOUNTER 2020-11-26 09:35 | Outpatient (CLI) | payer MEDICARE, SELFPAY | END 2020-11-26 09:36 | disposition home or self-care (01) | LOC: WOUND 09:36 | PROVIDERS: PCP Nurse Practitioner Family; Visit Provider Thoracic Surgery (Cardiothoracic Vascular Surgery) | DX: E11.622 Type 2 diabetes mellitus with other skin ulcer (principal); L97.312 Non-pressure chronic ulcer of right ankle with fat layer exposed | CPT/HCPCS: 11042 ==

== ENCOUNTER 2020-12-03 09:33 | Outpatient (CLI) | payer MEDICARE, SELFPAY | END 2020-12-03 09:34 | disposition home or self-care (01) | LOC: WOUND 09:34 | PROVIDERS: PCP Nurse Practitioner Family; Visit Provider Thoracic Surgery (Cardiothoracic Vascular Surgery) | DX: E11.622 Type 2 diabetes mellitus with other skin ulcer (principal); L97.312 Non-pressure chronic ulcer of right ankle with fat layer exposed | CPT/HCPCS: 11042 ==

== ENCOUNTER 2020-12-10 09:24 | Outpatient (CLI) | payer MEDICARE, SELFPAY | END 2020-12-10 09:25 | disposition home or self-care (01) | LOC: WOUND 09:29 | PROVIDERS: PCP Nurse Practitioner Family; Visit Provider Thoracic Surgery (Cardiothoracic Vascular Surgery) | DX: E11.622 Type 2 diabetes mellitus with other skin ulcer (principal); L97.312 Non-pressure chronic ulcer of right ankle with fat layer exposed | CPT/HCPCS: 99212 ==

== ENCOUNTER 2020-12-12 13:17 | Outpatient (CLI) | payer MEDICARE, SELFPAY ==
--- NOTE | 2020-12-12 13:21 | CT_ITS ---
WS: [id number] CT ABDOMEN PELVIS TECHNIQUE: Noncontrast CT of the abdomen and pelvis with coronal and sagittal reformatted images. CLINICAL INFORMATION: ABD PAIN COMPARISON: CT November 14, 2020 DLP: 2285.[address] scans at [facility] use at least one of these dose optimization techniques: automat ed exposure control; mA and/or kV adjustment per patient size (includes targeted exams where dose is matched to clinical indication); or iterative reconstruction. FINDINGS: Diffuse fatty infiltration of the liver. Hydropic gallbladder similar in appearance to prev ious. Lung bases are well aerated. Normal GE junction. Normal noncontrast spleen. Fatty atrophy of th e pancreas. Adrenal glands are normal. Bilateral renal cortical atrophy. No hydronephrosis in either kidney. Right ureter is decompressed. No obstructing renal or ureteral calculi. Normal caliber abdominal aorta. No abdominal lymphadenopathy. Normal sigmoid colon. No evidence of sm all or large bowel obstruction. Normal appendix in the right lower quadrant. Tiny fat-containing umbi lical hernia. Prior postoperative changes pubic rami and pubic symphysis. Screw fixation left hip. Grade 1 anterolisthesis L5 on S1 is unchanged. Stable gastric antral lipoma previously described. No obstruction. CT/CT kidney stone [id number] IMPRESSION: 1. No obstructing renal or ureteral calculi. No hydronephrosis. 2. Hydropic gallbladder unchanged from previous. No bladder wall thickening or pericholecystic fluid. 3. Stable gastric antral lipoma. No obstruction. 4. Bilateral renal cortical atrophy. 5. No other significant changes from previous.
--- NOTE | 2020-12-12 13:22 | USCV_ITS ---
Mitesh Laboy Age: 55 Gender: M : 1965 Exam Date: 12/12/2020 13:35 Ordering Phys: Hermes Colin MD Technologist: Azar Davila Exam Location: [facility] [place] Indication: ULCER RT FOOT Risk Factors: Previous Vascular Surgery: RIGHT LEFT BP: 140.0 / 80.00 BP: 140.0/ 80.00 0 0 Waveform Velocity (cm/s) Velocity (cm/s) Waveform Triphasic 85.2 Iliac Prox Triphasic 103.7 Iliac Mid Triphasic 82.7 Iliac Distal Triphasic 86.4 QUALITY ASSURANCE TEST PROGRAM MANAGER Triphasic 88.9 SFA Prox Triphasic 67.9 SFA Mid Triphasic 102.5 SFA Dist Triphasic 55.2 POP Triphasic 53.7 WOODWINDS TEACHER Triphasic 54.0 DPA 1.0 GISELA FINDINGS Polyphasic arterial Doppler waveforms. Normal arterial Doppler flow velocities. Normal resting GISELA on the right side. CONCLUSIONS No significant arterial obstruction in the right lower extremity, based on the above findings Dr Joy Serrato MD FACC (Electronically Signed) Final Date: 12 December 2020 20:04 S
== END 2020-12-12 13:18 | disposition home or self-care (01) ==
PROVIDERS: PCP Nurse Practitioner Family; Visit Provider Internal Medicine
DX: R10.9 Unspecified abdominal pain (principal); L97.519 Non-pressure chronic ulcer of other part of right foot with unspecified severity; N26.1 Atrophy of kidney (terminal)
CPT/HCPCS: 74176; 93926

== ENCOUNTER 2020-12-17 09:20 | Outpatient (CLI) | payer MEDICARE, SELFPAY | END 2020-12-17 09:21 | disposition home or self-care (01) | LOC: WOUND 09:21 | PROVIDERS: PCP Nurse Practitioner Family; Visit Provider Thoracic Surgery (Cardiothoracic Vascular Surgery) | DX: E11.9 Type 2 diabetes mellitus without complications (principal); Z09 Encounter for follow-up examination after completed treatment for conditions other than malignant neoplasm; Z87.891 Personal history of nicotine dependence | CPT/HCPCS: 99212 ==

== ENCOUNTER 2020-12-27 02:27 | Emergency (ER) | payer MEDICARE, SELFPAY ==
[2020-12-27] VITALS (7 sets, daily range): BP systolic 109–131; BP diastolic 62–91; PULSE 76–110; RESP 16–24; TEMP 36.9; O2SAT 92–96; BMI 31.0
--- NOTE | 2020-12-27 02:32 | XR_ITS ---
WS: [id number] Portable AP upright chest, 12/27/2020 Clinical Data: cp Comparison: Orbital chest, 11/14/2020. Findings: No nodules, masses or effusions are seen. The heart is normal. The pulmonary vascularity is not increased. No pneumonia or pneumothorax is seen. XR/XR chest 1V portable [id number] Impression: Negative chest.
--- NOTE | 2020-12-27 02:33 | W.ED.CHESTPA ---
HPI - Chest Pain General: Chief Complaint: Chest Pain Stated Complaint: CP Time Seen by Provider: 12/27/20 02:32 Source: patient and EMS Mode of arrival: EMS Limitations: no limitations History of Present Illness: HPI narrative: 55-year-old male has a history of A. fib states he woke up this morning with palpitations and his heart rate was in the 130s 140s. He states he is feeling very anxious about was having some chest pain. Patient called EMS given nitro and is currently pain-free. Denies any shortness of breath currently. He states he has had these episodes in the past with his A. fib. Denies any worsening or improving factors at this time. Associated symptoms: Reports palpitations; Deny abdominal pain, dyspnea, fever(s), nausea or vomiting Review of Systems Const: Denies: fever(s), chills, body aches or change in appetite Eyes: Denies: blurry vision or eye discomfort ENMT: Denies: throat pain or dental pain Card: Reports: chest pain and palpitations Resp: Denies: dyspnea GI: Denies: abdominal pain, nausea, vomiting or diarrhea : Denies: dysuria Musc: Denies: neck pain or back pain Skin/Breast: Denies: rash Neuro: Denies: headache(s) Psych: Denies: depression Kishan/Lymph: Denies: easy bruising All/Imm: Denies: urticaria PFSH ED PFSH: Medical History (Updated 12/27/20 @ 05:09 by Chetan Diaz MD) Acute encephalopathy Atrial fibrillation Chronic anticoagulation Chronic low back pain DM type 2 (diabetes mellitus, type 2) Hypomagnesemia MRSA (methicillin resistant Staphylococcus aureus) infection Pulmonary embolism Wound infection Surgical History History of orthopedic surgery Bilateral lower extremity fractures 2004, hardware of right lower extremity and removal in 2016 Family History Father Leukemia Social History Smoking and tobacco status: former smoker Alcohol intake: never Lives independently: Yes Household members: other Details: mother Physical Exam Const: COMMON NORMALS: no acute distress, patient oriented x3 and healthy appearing HENMT: COMMON NORMALS: normocephalic and atraumatic HEAD & SCALP: normocephalic and atraumatic Eye: COMMON NORMALS: Equal, round and reactive pupils present and EOMs intact bilaterally PUPIL: Yes Equal, round and reactive pupils present Neck/C-Spine: COMMON NORMALS: full ROM and supple Chest: COMMONS NORMALS: normal inspection of the chest and normal palpation of entire chest wall Resp: COMMON NORMALS: normal respiratory effort, No retractions, No use of accessory muscles and clear to auscultation bilaterally AUSCULTATION: clear to auscultation bilaterally Cardio: COMMON NORMALS: regular rate and No murmurs present (Cardio) RATE: regular rate RHYTHM: abnormal rhythm irregularly irregular GI: COMMON NORMALS: Normal to inspection, nondistended, normoactive bowel sounds present, Soft to palpation, non-tender and no masses PALPATION: Yes Soft to palpation Extremity: COMMON NORMALS: normal to inspection and full ROM Neuro: COMMON NORMALS: patient oriented x3, moves all extremities and no focal motor deficits Psych: COMMON NORMALS: mental status grossly normal, Normal thought process present and cooperative THOUGHT PROCESS: Normal thought process present Skin: COMMON NORMALS: no rashes or lesions noted and no wounds GENERAL SKIN EXAM: no rashes or lesions noted Course Vital Signs: Vital signs: Vital Signs Temperature 98.5 F 12/27/20 02:27 Pulse Rate 76 12/27/20 05:25 Respiratory Rate 18 12/27/20 05:25 Blood Pressure 131/91 12/27/20 05:25 Pulse Oximetry 94 12/27/20 05:25 MDM - Chest Pain MDM Narrative: Medical decision making narrative: Patient presents here with chest pain likely from his A. fib with RVR. He has had no pain here in his chest. Patient's heart rate is improved and is controlled. Repeat troponin is normal. Is no signs of acute coronary syndrome. He has no signs of aortic dissection. Patient is stable for discharge and return if worsening. Lab Data: Labs: Lab Results 12/27/20 12/27/20 12/27/20 Range/Units 02:40 02:40 02:40 WBC 5.9 (4.0-10.0) 10^3/ uL RBC 4.62 (4.1-5.3) 10^6/u L Hgb 13.5 (11.7-16.6) g/dL Hct 42.5 (42.0-52.0) % MCV 92.0 (80-94) fL MCH 29.2 (28.0-34.0) pg MCHC 31.8 (30.0-36.0) g/dL RDW 13.5 (12.1-15.1) % Plt Count 225 (130-400) 10^3/c mm MPV 10.4 (7.4-10.4) fL Neut % (Auto) 51.2 % Lymph % (Auto) 37.8 % Schuyler % (Auto) 7.8 % Eos % (Auto) 2.5 % Baso % (Auto) 0.5 % Neut # (Auto) 3.02 (1.8-7.7) 10^3/u L Lymph # (Auto) 2.2 (0.8-4.8) 10^3/u L Schuyler # (Auto) 0.5 (0.2-0.9) 10^3/u L Eos # (Auto) 0.2 (0.0-0.8) 10^3/u L Baso # (Auto) 0.0 (0.0-0.1) 10^3/u L Nucleated RBC % (a uto) 0 % Nucleated RBCs # 0.0 /100WBC PT 13.50 (12.1-14.9) SECO NDS INR 1.00 (0.8-1.2) Sodium 141 (136-145) mmol/L Potassium 4.5 (3.5-5.1) mmol/L Chloride 101 (98-107) mmol/L Carbon Dioxide 29 (22-29) mmol/L Anion Gap 15.5 (5-19) BUN 13 (6-20) mg/dL Creatinine 0.9 (0.7-1.2) mg/dL GFR Calculation 87.0 L (90-130) mL/min Glucose 147 H (65-115) mg/dL Calculated Osmolal ity 295 (285-295) mOsm/k g Calcium 9.2 (8.5-10.5) mg/dL Total Bilirubin 0.2 (0.15-1.2) mg/dL AST 15 (0-40) U/L ALT 18 (0-41) U/L Alkaline Phosphata se 71 (40-130) IU/L Troponin T Baselin e (0-15) ng/L Troponin T 120 Min tazlina (0-15) ng/L Delta Troponin T (0-10) ABS# Total Protein 6.8 (6.6-8.7) g/dL Albumin 4.0 (3.5-5.2) g/dL Globulin 2.8 (1.3-4.6) g/dL 12/27/20 12/27/20 Range/Units 02:40 04:30 WBC (4.0-10.0) 10^3/ uL RBC (4.1-5.3) 10^6/u L Hgb (11.7-16.6) g/dL Hct (42.0-52.0) % MCV (80-94) fL MCH (28.0-34.0) pg MCHC (30.0-36.0) g/dL RDW (12.1-15.1) % Plt Count (130-400) 10^3/c mm MPV (7.4-10.4) fL Neut % (Auto) % Lymph % (Auto) % Schuyler % (Auto) % Eos % (Auto) % Baso % (Auto) % Neut # (Auto) (1.8-7.7) 10^3/u L Lymph # (Auto) (0.8-4.8) 10^3/u L Schuyler # (Auto) (0.2-0.9) 10^3/u L Eos # (Auto) (0.0-0.8) 10^3/u L Baso # (Auto) (0.0-0.1) 10^3/u L Nucleated RBC % (a uto) % Nucleated RBCs # /100WBC PT (12.1-14.9) SECO NDS INR (0.8-1.2) Sodium (136-145) mmol/L Potassium (3.5-5.1) mmol/L Chloride (98-107) mmol/L Carbon Dioxide (22-29) mmol/L Anion Gap (5-19) BUN (6-20) mg/dL Creatinine (0.7-1.2) mg/dL GFR Calculation (90-130) mL/min Glucose (65-115) mg/dL Calculated Osmolal ity (285-295) mOsm/k g Calcium (8.5-10.5) mg/dL Total Bilirubin (0.15-1.2) mg/dL AST (0-40) U/L ALT (0-41) U/L Alkaline Phosphata se (40-130) IU/L Troponin T Baselin e 18 H (0-15) ng/L Troponin T 120 Min tazlina 16.76 H (0-15) ng/L Delta Troponin T -1.24 L (0-10) ABS# Total Protein (6.6-8.7) g/dL Albumin (3.5-5.2) g/dL Globulin (1.3-4.6) g/dL Imaging Data^: CXR: Attestation: I personally reviewed and interpreted this imaging study as follows: My impression: no acute abnormalities EKG Data^: EKG 1: Attestation: I personally reviewed and interpreted this EKG as follows: EKG interpretation date: 12/27/20 EKG interpretation time: 02:36 Interpretation: A. fib heart rate [address] or T wave normalities QRS 152 QTC 436 EKG 2: Attestation: I personally reviewed and interpreted this EKG as follows: EKG interpretation date: 12/27/20 EKG interpretation time: 04:32 Interpretation: afib hr [address] or t wave abnormalities qrs 158 qtc 472 Discharge Plan Discharge Patient Disposition: Home Clinical Impression: Atrial fibrillation Qualifiers: Atrial fibrillation type: unspecified Qualified Code(s): I48.91 - Unspecified atrial fibrillation Condition: Stable Prescriptions: No Action aspirin [Adult Low Dose Aspirin] 81 mg tablet,delayed release (DR/EC) 81 mg PO DAILY RF: 0 Eliquis 5 mg tablet 5 mg PO BID RF: 0 ibuprofen 800 mg tablet 800 mg PO TID RF: 0 Hold Instructions: Resume on 09/09/20. metformin 1,000 mg tablet 1,000 mg PO DAILY RF: 0 nitroglycerin [Nitrostat] 0.4 mg tablet, sublingual 0.4 mg SUBLINGUAL Q5M PRN (Reason: chest pains) RF: 0 alprazolam [Xanax] 0.25 mg tablet 0.25 mg PO BID PRN (Reason: Anxiety) RF: 0 trazodone 100 mg tablet 100 mg PO BEDTIME RF: 0 diltiazem HCl 240 mg capsule,extended release 24hr 240 mg PO DAILY RF: 0 cyclobenzaprine 10 mg tablet 10 mg PO TID RF: 0 lovastatin 20 mg tablet 20 mg PO DAILY RF: 0 fentanyl 100 mcg/hr patch 72 hour 100 mcg transdermal DIRECTED RF: 0 gabapentin 800 mg tablet 800 mg PO TID RF: 0 oxycodone 10 mg tablet 10 mg PO Q6H PRN (Reason: PAIN) RF: 0 metoprolol tartrate 50 mg tablet 25 mg PO BID Qty: 0 RF: 0 Januvia 100 mg tablet 100 mg PO DAILY Qty: 30 RF: 0 Invokana 300 mg tablet 300 mg PO DAILY RF: 0 Augmentin 500-125 mg tablet 1 tab PO BID Qty: 14 RF: 0 Discharge Orders: Discharge ED (Routine); Ordered 12/27/20 Ordered By: Chetan Diaz Referrals: Rachael Law FNP [Primary Care Provider] - 1-3 days Discharge Diet: Advance as tolerated Discharge Activity: Resume usual activity Patient Instructions: Atrial Fibrillation (ED) Coding Level of Care Code ED Laboratory Asst for Toñog Fwd Exam Comprehensive
[2020-12-27 02:44] LABS: Basophils % 0.5 %; Eosinophils # 0.2 10^3/uL (0.0-0.8); Eosinophils % 2.5 %; Hematocrit 42.5 % (42.0-52.0); Hemoglobin 13.5 g/dL (11.7-16.6); Lymphocytes # 2.2 10^3/uL (0.8-4.8); Lymphocytes % 37.8 %; Mean Corpuscular HGB Conc 31.8 g/dL (30.0-36.0); Mean Corpuscular Hemoglobin 29.2 pg (28.0-34.0); Mean Platelet Volume 10.4 fL (7.4-10.4); Monocytes # 0.5 10^3/uL (0.2-0.9); Monocytes % 7.8 %; Neutrophils # 3.02 10^3/uL (1.8-7.7); Neutrophils % 51.2 %; Nucleated Red Blood Cells % 0 %; Platelet Count 225 10^3/cmm (130-400); Red Blood Count 4.62 10^6/uL (4.1-5.3); Red Cell Distribution Width 13.5 % (12.1-15.1); White Blood Count 5.9 10^3/uL (4.0-10.0)
[2020-12-27 03:00] LABS: Alkaline Phosphatase 71 IU/L (40-130); Blood Urea Nitrogen 13 mg/dL (6-20); Calcium 9.2 mg/dL (8.5-10.5); Carbon Dioxide 29 mmol/L (22-29); Chloride 101 mmol/L (98-107); Globulin 2.8 g/dL (1.3-4.6); Glucose 147 mg/dL (65-115); Osmolality Calculated 295 mOsm/kg (285-295); Sodium 141 mmol/L (136-145); Total Bilirubin 0.2 mg/dL (0.15-1.2); Total Protein 6.8 g/dL (6.6-8.7)
[2020-12-27 03:01] LABS: Anion Gap 15.5 (5-19); Potassium 4.5 mmol/L (3.5-5.1)
[2020-12-27 03:02] LABS: Alanine Aminotransferase 18 U/L (0-41); Aspartate Amino Transferase 15 U/L (0-40); Troponin(5th) Baseline 18 ng/L (0-15)
[2020-12-27] MEDS: diphenoxylate/atropine Tablet 1 TAB PO (03:20)
--- NOTE | 2020-12-27 04:32 | ECG_ITS ---
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 Measurements Intervals Ronda Rate: 78 P: OR: QRS: 79 QRSD: 158 T: 23 QT: 439 QTc: 502 Interpretive Statements ATRIAL FIBRILLATION RIGHT BUNDLE BRANCH BLOCK [120+ ms QRS DURATION, UPRIGHT V1, 40+ ms S IN I/aVL/V4/V5/V6] Compared to ECG 11/14/2020 18:16:56 Left-axis deviation no longer present Myocardial infarct finding no longer present T-wave abnormality no longer present Possible ischemia no longer present Electronically Signed On 12-27-2020 18:43:28 CDT by Rob Herman M.D. [id number] f
[2020-12-27 05:00] LABS: Troponin 5 2HR 16.76 ng/L (0-15)
[2020-12-27 05:04] LABS: Troponin 5 2HR Delta -1.24 ABS# (0-10)
== END 2020-12-27 05:27 | disposition home or self-care (01) ==
PROVIDERS: Emergency Provider Emergency Medicine; PCP Nurse Practitioner Family
DX: I48.91 Unspecified atrial fibrillation (principal); Z79.82 Long term (current) use of aspirin; Z79.01 Long term (current) use of anticoagulants; E11.9 Type 2 diabetes mellitus without complications; Z87.891 Personal history of nicotine dependence
CPT/HCPCS: 36415; 71045; 80053; 84484; 85025; 85610; 93005; 96374; 99284; J3490

== ENCOUNTER 2021-04-16 08:32 | Outpatient (CLI) | payer MEDICARE, SELFPAY | END 2021-04-16 08:33 | disposition home or self-care (01) | LOC: WOUND 08:34 | PROVIDERS: PCP Nurse Practitioner Family; Visit Provider Thoracic Surgery (Cardiothoracic Vascular Surgery) | DX: E11.622 Type 2 diabetes mellitus with other skin ulcer (principal); L97.319 Non-pressure chronic ulcer of right ankle with unspecified severity | CPT/HCPCS: G0463 ==

== ENCOUNTER 2021-04-28 07:12 | Outpatient (CLI) | payer MEDICARE, SELFPAY ==
[2021-04-28 07:26] VITALS: BMI 41.3
--- NOTE | 2021-04-28 07:38 | ECG_ITS ---
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 NOTE: Please note that this is the electrocardiogram portion of the Lexiscan/Sestamibi stress test. The perfusion scan will be documented separately. DATA: Baseline heart rate was 63 beats per minute. Baseline blood pressure was 112/72 millimeters of mercury. Target heart rate was 162. Maximum heart rate achieved was 119. which was 73 % of the predicted target heart rate. Maximum blood pressure was 112/85 millimeters of mercury. The reason for ending the test was completion of the protocol. The patient did not experience any symptoms. ELECTROCARDIOGRAM: BASELINE: Atrial fibrillation. Normal axis. Otherwise, no ST-T changes suggestive of ischemia noted. No arrhythmia noted. EXERCISE: After Lexiscan injection, no ST-T changes suggestive of ischemic noted. No arrhythmia noted. CONCLUSION: Please note due to baseline abnormality of the EKG specificity and sensitivity of the EKG portion of LexiScan MIBI stress test will be low 1. EKG not suggestive of ischemia 2. Lexiscan injection unremarkable. 3. Perfusion scan will be documented separately. Electronically Signed On 05-01-2021 21:18:14 CDT by DON CANDELARIA [id number]
--- NOTE | 2021-04-28 07:39 | NMCV_ITS ---
NM logan perf SPECT r/s* [id number] Mitesh Laboy Age: 56 Gender: M : 1965 Exam Date: 04/28/2021 08:27 Ordering Phys: Celeste Ferro MD Technologist: ALDEN Hernandez Exam Location: [facility] Indications: CHEST PAIN STRESS TEST Please see separate stress test report in [facility] for full findings IMAGE PROTOCOL Rest/Stress 1 Lexiscan Day Radiopharmaceutical Dose (mCi) Administration Site Administered by Rest: Tc-99m 10.7 IV ALDEN Coon Sestamibi Stress:Tc-99m 33.0 IV ALDEN Coon Sestamibi Rest: 28-Apr-2021 60 Discovery 630 Stress: 28-Apr-2021 30 Discovery 630 0.4mg Lexiscan. Supine position only as patient was unable to lay prone. SPECT RESULTS Technical Quality: Good Raw Data Analysis: Image Corrections: Summed Stress Score: 2 Summed Rest Score: 1 Summed Difference Score: 1 PERFUSION FINDINGS Small area of reduced tracer uptake noted in basal anterior wall which improved on stress images suggestive of artifact. Medium-sized fixed perfusion defect noted in basal to distal inferior wall suggestive of old myocardial infarction versus scarring. FUNCTIONAL RESULTS (calculated via Gated SPECT) Stress Image LV EF (%): 68 Stress EDV (mL):158 TID: 0.99 Stress ESV (mL):51 Rest Image LV EF (%): 68 FUNCTIONAL FINDINGS: There is normal left ventricular systolic function. IMPRESSIONS Medium-sized area of old myocardial infarction versus scarring noted in basal to mid inferior wall without leslie-infarct ischemia. This study is negative for ischemia. EKG will be documented separately Annetta Candelaria MD (Electronically Signed) Final Date: 28 April 2021 13:57 S
[2021-04-28] MEDS: regadenoson 0.4 Mg/5 ml Syringe IVP (09:15)
[2021-04-28 09:25] VITALS: BP 103/85; PULSE 65
== END 2021-04-28 07:13 | disposition home or self-care (01) ==
PROVIDERS: PCP Nurse Practitioner Family; Visit Provider Family Medicine
DX: R07.9 Chest pain, unspecified (principal); I25.2 Old myocardial infarction
CPT/HCPCS: 78452; 93017; A9500; J2785

== ENCOUNTER 2021-08-28 22:22 | Emergency (ER) | payer MEDICARE, SELFPAY ==
--- NOTE | 2021-08-28 22:27 | ECG_ITS ---
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 Measurements Intervals [place] Rate: 94 P: DC: QRS: 131 QRSD: 162 T: -4 QT: 390 QTc: 488 Interpretive Statements ATRIAL FIBRILLATION RIGHT AXIS DEVIATION [QRS AXIS > 100] RIGHT BUNDLE BRANCH BLOCK [120+ ms QRS DURATION, UPRIGHT V1, 40+ ms S IN I/aVL/V4/V5/V6] Compared to ECG 12/27/2020 04:32:33 Right-axis deviation now present Electronically Signed On 08-31-2021 13:23:23 PRIVACY ATTORNEY by Rob Herman M.D. [id number]
--- NOTE | 2021-08-28 22:27 | XRR_ITS ---
PROCEDURE INFORMATION: Exam: XR Chest Exam date and time: 08/28/2021 10:27 PM Age: 56 years old Clinical indication: Pain; Angina pectoris; Additional info: Cp TECHNIQUE: Imaging protocol: XR of the chest. Views: 1 view. COMPARISON: CR XR chest 1V portable [id number] 12/27/2020 2:42 AM FINDINGS: Lungs: Unremarkable. No consolidation. Pleural spaces: Unremarkable. No pleural effusion. No pneumothorax. Heart/Mediastinum: Unremarkable. No cardiomegaly. Bones/joints: Unremarkable. XR/XR chest 1V portable [id number] IMPRESSION: No acute findings. Radiation Dose CTDIVOL = (mGy): DLP = (mGy-cm)
--- NOTE | 2021-08-28 22:29 | W.ED.ARRPALP ---
HPI - Arrhythmia/Palpitations General: Chief Complaint: Chest Pain Stated Complaint: CHEST PRESSURE Time Seen by Provider: 08/28/21 22:24 Source: patient and EMS Mode of arrival: EMS Limitations: no limitations History of Present Illness: HPI narrative: 53-year-old male who has a history of A. fib and hypertension states that tonight of an hour ago started feel a racing in his heart and his blood pressure shot up he started feeling very anxious. He called EMS he states that since down his symptoms resolved spontaneously heart rate now is 99 blood pressure 132/82 patient has known A. fib he is on Cardizem he denies any chest pain denies any shortness of breath denies any worsening improving factors. He has no pain currently and had no pain earlier just felt the palpitations. Associated symptoms: Deny nausea or vomiting Review of Systems Const: Denies: fever(s), chills, body aches or change in appetite Eyes: Denies: blurry vision or eye discomfort ENMT: Denies: throat pain or dental pain Card: Reports: palpitations Resp: Denies: dyspnea GI: Denies: abdominal pain, nausea, vomiting or diarrhea : Denies: dysuria Musc: Denies: neck pain or back pain Skin/Breast: Denies: rash Neuro: Denies: headache(s) Psych: Denies: depression Kishan/Lymph: Denies: easy bruising All/Imm: Denies: urticaria PFSH ED PFSH: Medical History Acute encephalopathy Atrial fibrillation Chronic anticoagulation Chronic low back pain DM type 2 (diabetes mellitus, type 2) Hypomagnesemia MRSA (methicillin resistant Staphylococcus aureus) infection Pulmonary embolism Wound infection Surgical History History of orthopedic surgery Bilateral lower extremity fractures 2005, hardware of right lower extremity and removal in 2016 Family History Father Leukemia Social History Smoking and tobacco status: former smoker Alcohol intake: never Lives independently: Yes Household members: other Details: mother Physical Exam Const: COMMON NORMALS: no acute distress, patient oriented x3 and healthy appearing HENMT: COMMON NORMALS: normocephalic and atraumatic HEAD & SCALP: normocephalic and atraumatic Eye: COMMON NORMALS: Equal, round and reactive pupils present and EOMs intact bilaterally PUPIL: Yes Equal, round and reactive pupils present Neck/C-Spine: COMMON NORMALS: full ROM and supple Chest: COMMONS NORMALS: normal inspection of the chest and normal palpation of entire chest wall Resp: COMMON NORMALS: normal respiratory effort, No retractions, No use of accessory muscles and clear to auscultation bilaterally AUSCULTATION: clear to auscultation bilaterally Cardio: COMMON NORMALS: regular rate and No murmurs present (Cardio) RATE: regular rate RHYTHM: abnormal rhythm irregularly irregular GI: COMMON NORMALS: Normal to inspection, nondistended, normoactive bowel sounds present, Soft to palpation, non-tender and no masses PALPATION: Yes Soft to palpation Extremity: COMMON NORMALS: normal to inspection and full ROM Neuro: COMMON NORMALS: patient oriented x3, moves all extremities and no focal motor deficits Psych: COMMON NORMALS: mental status grossly normal, Normal thought process present and cooperative THOUGHT PROCESS: Normal thought process present Skin: COMMON NORMALS: no rashes or lesions noted and no wounds GENERAL SKIN EXAM: no rashes or lesions noted Course Vital Signs: Vital signs: Vital Signs Temperature 98.6 F 08/28/21 22:30 Pulse Rate 96 08/28/21 22:30 Respiratory Rate 18 08/28/21 22:30 Blood Pressure 132/82 08/28/21 22:30 Pulse Oximetry 100 08/28/21 22:30 MDM - Arrhythmia/Palpitations MDM Narrative: Medical decision making narrative: Patient presents with a history of A. fib where he is having palpitations at home here his heart rates been normal and he said no symptoms here initial repeat troponins are negative he has no signs of pulmonary embolism chest x-ray is clear as well he has had no symptoms here he stable for discharge he is to follow-up his PCP and return if worsening. Lab Data: Labs: Lab Results 08/28/21 08/28/21 08/28/21 23:19 23:19 23:19 WBC 6.9 10^3/uL 10^3/ uL (4.0-10.0) RBC 5.30 10^6/uL 10^6 /uL (4.1-5.3) Hgb 15.6 g/dL g/dL (11.7-16.6) Hct 48.3 % % (42.0-52.0) MCV 91.1 fl fl (80-94) MCH 29.4 pg pg (28.0-34.0) MCHC 32.3 g/dL g/dL (30.0-36.0) RDW 13.2 % % (12.1-15.1) Plt Count 201 10^3/cmm 10^3 /cmm (130-400) MPV 10.2 fL fL (7.4-10.4) Neut % (Auto) 63.5 % % Lymph % (Auto) 24.1 % % [place] % (Auto) 10.1 % % Eos % (Auto) 1.4 % % Baso % (Auto) 0.6 % % Neut # (Auto) 4.41 10^3/uL 10^3 /uL (1.8-7.7) Lymph # (Auto) 1.7 10^3/uL 10^3/ uL (0.8-4.8) [place] # (Auto) 0.7 10^3/uL 10^3/ uL (0.2-0.9) Eos # (Auto) 0.1 10^3/uL 10^3/ uL (0.0-0.8) Baso # (Auto) 0.0 10^3/uL 10^3/ uL (0.0-0.1) Nucleated RBC % (a uto) 0 % % Nucleated RBCs # 0.0 /100WBC /100W BC PT 14.80 SECONDS SEC ONDS (12.1-14.9) INR 1.12 (0.8-1.2) Sodium 135 mmol/L L mmol /L (136-145) Potassium 4.1 mmol/L mmol/L (3.5-5.1) Chloride 101 mmol/L mmol/L (98-107) Carbon Dioxide 20 mmol/L L mmol/ L (22-29) Anion Gap 18.1 (5-19) BUN 19 mg/dL mg/dL (6-20) Creatinine 0.9 mg/dL mg/dL (0.7-1.2) GFR Calculation 86.7 mL/min L mL/ min (90-130) Glucose 126 mg/dL H mg/dL (65-115) Calculated Osmolal ity 284 mOsm/kg L mOs m/kg (285-295) Calcium 8.5 mg/dL mg/dL (8.5-10.5) Total Bilirubin 0.3 mg/dL mg/dL (0.15-1.2) AST 17 U/L U/L (0-40) ALT 21 U/L U/L (0-41) Alkaline Phosphata se 66 IU/L IU/L (40-130) Troponin T Baselin e Troponin T 120 Min alutiiq Delta Troponin T Total Protein 6.4 g/dL L g/dL (6.6-8.7) Albumin 4.2 g/dL g/dL (3.5-5.2) Globulin 2.2 g/dL g/dL (1.3-4.6) 08/28/21 08/29/21 23:19 00:29 WBC RBC Hgb Hct MCV MCH MCHC RDW Plt Count MPV Neut % (Auto) Lymph % (Auto) [place] % (Auto) Eos % (Auto) Baso % (Auto) Neut # (Auto) Lymph # (Auto) [place] # (Auto) Eos # (Auto) Baso # (Auto) Nucleated RBC % (a uto) Nucleated RBCs # PT INR Sodium Potassium Chloride Carbon Dioxide Anion Gap BUN Creatinine GFR Calculation Glucose Calculated Osmolal ity Calcium Total Bilirubin AST ALT Alkaline Phosphata se Troponin T Baselin e 12 ng/L ng/L (0-15) Troponin T 120 Min alutiiq 11.25 ng/L ng/L (0-15) Delta Troponin T -0.75 ABS# L ABS# (0-10) Total Protein Albumin Globulin Imaging Data^: CXR: Attestation: I personally reviewed and interpreted this imaging study as follows: Radiologist's impression: No acute abnormality EKG Data^: EKG 1: Attestation: I personally reviewed and interpreted this EKG as follows: EKG interpretation date: 08/28/21 EKG interpretation time: 22:52 Interpretation: afib hr [address] or t wave abnormalities qrs 162 [id number] Other EKG comments: Chest X-Ray 08/28/21 22:27 IMPRESSION: No acute findings. Radiation Dose CTDIVOL = (mGy): DLP = (mGy-cm) Discharge Plan Discharge Patient Disposition: Home Clinical Impression: Atrial fibrillation Qualifiers: Atrial fibrillation type: unspecified Qualified Code(s): I48.91 - Unspecified atrial fibrillation Condition: Stable Prescriptions: No Action aspirin [Adult Low Dose Aspirin] 81 mg tablet,delayed release (DR/EC) 81 mg PO DAILY RF: 0 Eliquis 5 mg tablet 5 mg PO BID RF: 0 ibuprofen 800 mg tablet 800 mg PO TID RF: 0 Hold Instructions: Resume on 09/09/20. metformin 1,000 mg tablet 1,000 mg PO DAILY RF: 0 nitroglycerin [Nitrostat] 0.4 mg tablet, sublingual 0.4 mg SUBLINGUAL Q5M PRN (Reason: chest pains) RF: 0 metoprolol tartrate 25 mg tablet 25 mg PO BID Qty: 180 RF: 1 diltiazem HCl 240 mg capsule,extended release 24hr 240 mg PO DAILY Qty: 90 RF: 1 alprazolam [Xanax] 0.25 mg tablet 0.25 mg PO BID PRN (Reason: Anxiety) RF: 0 cyclobenzaprine 10 mg tablet 10 mg PO TID RF: 0 lovastatin 20 mg tablet 20 mg PO DAILY RF: 0 fentanyl 100 mcg/hr patch 72 hour 100 mcg transdermal DIRECTED RF: 0 gabapentin 800 mg tablet 800 mg PO TID RF: 0 oxycodone 10 mg tablet 10 mg PO Q6H PRN (Reason: PAIN) RF: 0 Invokana 300 mg tablet 300 mg PO DAILY RF: 0 Discharge Orders: Discharge ED (Routine); Ordered 08/29/21 Ordered By: Chetan Diaz Referrals: Law,JUAN ALBERTO CanoP [Primary Care Provider] - 1-3 days Discharge Diet: Advance as tolerated Discharge Activity: Resume usual activity Patient Instructions: A-fib (Atrial Fibrillation) (ED) Coding Level of Care Code ED Hat Presser for Biju Fwd Exam Comprehensive
[2021-08-28 22:30] VITALS: BP 132/82; PULSE 96; RESP 18; TEMP 37; O2SAT 100; BMI 43.0
[2021-08-28 23:33] LABS: Basophils % 0.6 %; Eosinophils # 0.1 10^3/uL (0.0-0.8); Eosinophils % 1.4 %; Hematocrit 48.3 % (42.0-52.0); Hemoglobin 15.6 g/dL (11.7-16.6); Lymphocytes # 1.7 10^3/uL (0.8-4.8); Lymphocytes % 24.1 %; Mean Corpuscular HGB Conc 32.3 g/dL (30.0-36.0); Mean Corpuscular Hemoglobin 29.4 pg (28.0-34.0); Mean Corpuscular Volume 91.1 fl (80-94); Mean Platelet Volume 10.2 fL (7.4-10.4); Monocytes # 0.7 10^3/uL (0.2-0.9); Monocytes % 10.1 %; Neutrophils # 4.41 10^3/uL (1.8-7.7); Neutrophils % 63.5 %; Nucleated Red Blood Cells % 0 %; Platelet Count 201 10^3/cmm (130-400); Red Cell Distribution Width 13.2 % (12.1-15.1); White Blood Count 6.9 10^3/uL (4.0-10.0)
[2021-08-28 23:46] LABS: INR 1.12 (0.8-1.2)
[2021-08-28 23:55] LABS: Troponin(5th) Baseline 12 ng/L (0-15)
[2021-08-28 23:59] LABS: Alanine Aminotransferase 21 U/L (0-41); Albumin Level 4.2 g/dL (3.5-5.2); Alkaline Phosphatase 66 IU/L (40-130); Anion Gap 18.1 (5-19); Aspartate Amino Transferase 17 U/L (0-40); Blood Urea Nitrogen 19 mg/dL (6-20); Calcium 8.5 mg/dL (8.5-10.5); Carbon Dioxide 20 mmol/L (22-29); Chloride 101 mmol/L (98-107); Globulin 2.2 g/dL (1.3-4.6); Glomerular Filtration Rate 86.7 mL/min (90-130); Glucose 126 mg/dL (65-115); Osmolality Calculated 284 mOsm/kg (285-295); Potassium 4.1 mmol/L (3.5-5.1); Sodium 135 mmol/L (136-145); Total Bilirubin 0.3 mg/dL (0.15-1.2); Total Protein 6.4 g/dL (6.6-8.7)
[2021-08-29 00:52] LABS: Troponin 5 2HR 11.25 ng/L (0-15)
[2021-08-29 00:56] LABS: Troponin 5 2HR Delta -0.75 ABS# (0-10)
--- NOTE | 2021-08-29 01:37 | PC.NURSE ---
vital signs printed from monitor and placed in chart
== END 2021-08-29 01:38 | disposition home or self-care (01) ==
PROVIDERS: Emergency Provider Emergency Medicine; PCP Nurse Practitioner Family
DX: I48.91 Unspecified atrial fibrillation (principal); Z79.82 Long term (current) use of aspirin; Z79.01 Long term (current) use of anticoagulants; E11.9 Type 2 diabetes mellitus without complications; Z86.711 Personal history of pulmonary embolism; Z87.891 Personal history of nicotine dependence
CPT/HCPCS: 36415; 71045; 80053; 84484; 85025; 85610; 93005; 99283

== ENCOUNTER 2021-10-29 11:47 | Outpatient (CLI) | payer MEDICARE, SELFPAY ==
--- NOTE | 2021-10-29 11:58 | XR_ITS ---
WS: [id number] XR lumbar spine min 4V [id number] REASON FOR EXAM: M48.062 - Spinal stenosis, lumbar region with neurogenic ... FINDINGS: No significant compression deformity or other focal lesion of the lumbar vertebrae. Mild to moderate narrowing of the disc spaces at L3-L4 and L4-L5 with moderate osteophyte formation. Severe narrowing of the L5-S1 disc space with large osteophyte formation. There is a 5 mm of anterolisthesis of L3 on L4. There is a 14 mm of anterolisthesis of L5 on S1. This appears to progressed compared to lumbar spine imaging of 05/04/2019. This listhesis does not appear to change significantly flexion and extension. No other abnormal vertebral body movement on flexion and extension. XR/XR lumbar spine min 4V [id number] IMPRESSION: Multilevel degenerative spondylosis with significant anterolisthesis of L5 on S 1 which has progressed since the previous examination.
--- NOTE | 2021-10-29 12:05 | MR_ITS ---
WS: [id number] MRI LUMBAR SPINE NONCONTRAST HISTORY: LOW BACK PAIN COMPARISON: 04/29/2019 TECHNIQUE: Sagittal and axial multisequence imaging is submitted. Mild increase in the lumbar lordosis. L5 anterolisthesis by 11 mm, similar to the prior examination. Unroofing of the L5-S1 disc space with moderate narrowing. Small endplate osteophytes throughout the lumbar spine. Hemangioma within T12. Disc spaces are mildly narrowed and desiccated throughout. Conus terminates normally at L1. L1-L2: Diffuse moderate annular disc bulging with marked ligamentum flavum hypertrophy and facet arth ritis. Encroachment into the ventral thecal sac. Moderate central stenosis. More significant encroach ment into the RIGHT lateral recess. There is significant contact on the RIGHT traversing L2 nerve trinity t. Lesser contact on the traversing LEFT L3 nerve root. Moderate foraminal stenosis. L2-L3: Moderate diffuse annular disc bulging with ligamentum flavum and facet arthritis. Mild encroac hment into the central canal and subarticular recesses. L3-L4: Marked annular disc bulging and osteophytic ridging and facet joint arthritis. Central and zi ateral paracentral disc protrusions. Slightly greater disc protrusion and osteophyte encroaching into the LEFT foramen and extraforaminal. Contact on the LEFT L3 and L4 nerve roots. Moderate central hortencia nosis. Moderate bilateral subarticular recess stenosis and foraminal stenosis. L4-L5: Moderate annular disc bulging and osteophytic ridging. There is a central disc protrusion. Dis c and osteophyte contact on the ventral thecal sac. There is contact by disc and osteophyte disease o n the traversing L5 nerve roots. Greater contact on the RIGHT. Moderate central and bilateral subarti cular recess stenosis and mild foraminal stenosis. L5-S1: Diffuse annular disc bulging with unroofing of the disc. Osteophytic ridging. No central steno sis. Moderate bilateral foraminal stenosis with disc and osteophyte encroaching upon the nerve roots bilaterally. Paravertebral soft tissues are negative. There is mild increased T2 signal within the nerve roots posterior to the T12 vertebral body. Increas ed signal is within the conus region and the nerve roots. This is a new signal abnormalities the prio r study. MR/MR lumbar spine wo con* [id number] IMPRESSION: 1. Grade 1 anterolisthesis of L5 by 11 mm. Similar to the prior examination fr om 04/29/2019. 2. Overall there has been a progression in the facet joint arthritis with cent ral and foraminal stenoses as compared to the study from 2019. 3. Moderate bilateral foraminal stenosis at L5-S1. 4. Moderate central with bilateral subarticular recess and mild foraminal sten osis at L4-5. Disc and osteophyte contact on the traversing L5 nerve roots, gre atest on the RIGHT. 5. Moderate central stenosis with moderate bilateral subarticular recess and f oraminal stenosis at L3-4. Disc osteophyte protrusion on the LEFT contacts the LEFT L3 and L4 nerve roots. 6. Moderate central stenosis at L1-2. Additional encroachment into the RIGHT l ateral recess where there is contact on the RIGHT traversing L2 nerve root. Mod erate bilateral foraminal stenosis at L1-2. 7. Mild central and subarticular recess stenosis at L2-3. 8. Increased T2 signal with thickening of the nerve roots involving the conus at the T12 level. New finding since the prior study. Consider inflammatory proc ess and myelopathy as possible etiologies. The increased signal may be secondar y to the stenosis at the L1-2 level. A follow-up MRI with and without contrast may be necessary to exclude an underlying mass.
== END 2021-10-29 11:48 | disposition home or self-care (01) ==
LOC: RADSHAW 11:54
PROVIDERS: PCP Nurse Practitioner Family; Visit Provider Orthopaedic Surgery
DX: M48.062 Spinal stenosis, lumbar region with neurogenic claudication (principal); M48.07 Spinal stenosis, lumbosacral region; M25.78 Osteophyte, vertebrae; M47.817 Spondylosis without myelopathy or radiculopathy, lumbosacral region
CPT/HCPCS: 72110; 72148

== ENCOUNTER → 2021-12-08 08:54 | Day surgery (SDC) | payer MEDICARE, SELFPAY | LOC: OPS 12-17 08:54 | PROVIDERS: PCP Nurse Practitioner Family; Visit Provider Orthopaedic Surgery | DX: Z01.818 Encounter for other preprocedural examination (principal) | CPT/HCPCS: 93005 ==

== ENCOUNTER → 2021-12-10 00:01 | Outpatient (BNVA) | payer MEDICARE, SELFPAY | PROVIDERS: PCP Nurse Practitioner Family; Visit Provider Orthopaedic Surgery | DX: Z01.812 Encounter for preprocedural laboratory examination (principal); Z20.822 Contact with and (suspected) exposure to COVID-19 | CPT/HCPCS: 87635 ==

== ENCOUNTER 2021-12-15 18:04 | Inpatient (IN) | payer MEDICARE, SELFPAY ==
[2021-12-08 13:18] VITALS: BMI 41.3
--- NOTE | 2021-12-08 13:22 | ECG_ITS ---
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 Measurements Intervals [place] Rate: 69 P: MS: QRS: 116 QRSD: 149 T: 29 QT: 440 QTc: 473 Interpretive Statements ATRIAL FIBRILLATION RIGHT AXIS DEVIATION [QRS AXIS > 100] RIGHT BUNDLE BRANCH BLOCK [120+ ms QRS DURATION, UPRIGHT V1, 40+ ms S IN I/aVL/V4/V5/V6] Compared to ECG 08/28/2021 22:52:46 No significant changes Electronically Signed On 12-08-2021 21:12:44 CDT by Rob Herman M.D. [id number]
--- NOTE | 2021-12-08 13:27 | P.ANESASSM_ITS ---
Pre-Anesthetic Assessment Height/Weight: Height 1.93 m Weight 154.221 kg Preop Diagnosis: back pain Operation Date: 12/15/21 10:55 Proposed Procedures p PSF L1-Pelvis PLIF L5/S1 decomp L1-S1 29262/96527 x 5/78765/64822/26912/m48.062(Not Applicable) - Isma Mujica DO s Lumbar Spine Decompression(Not Applicable) - Isma Mujica DO s Spinal Fusion PSF(Not Applicable) - Isma Mujica, Familial anesthetic complications: none Social No alcohol and No tobacco Exam alert, oriented x 3, clear to auscultation bilaterally and regular rate & rhythm Airway Mallampati: Class IV Dentition: other (no teeth) Comments: Comments: large tongue, jackson Pulmonary None reported CV/HEM Atrial Fibrillation None reported Hepatic None reported GI None reported Metabolic Diabetes Mellitus and Morbid Obesity [facility] [place] Lower Back Pain Neuropsych Neuropathy (drop foot) Anesthetic Plan ASA status: 3 Anesthesia: General Risk of > 500 ml blood loss (7ml/kg in children): Yes, adequate IV access and fluids planned Medications/Allergies Home Medications Medication Instructions Recorded Confirmed Last Taken Type apixaban 5 mg tablet (Eliquis) 5 mg PO BID 04/11/20 12/08/21 08/27/20 History aspirin 81 mg tablet,delayed 81 mg PO DAILY 04/11/20 12/08/21 08/28/20 History release (Adult Low Dose Aspirin) 81 mg ibuprofen 800 mg tablet 800 mg PO TID 04/11/20 12/08/21 08/27/20 History metformin 1,000 mg tablet 1,000 mg PO DAILY 04/11/20 12/08/21 08/27/20 History nitroglycerin 0.4 mg sublingual 0.4 mg SUBLINGUAL Q5M PRN 04/11/20 12/08/21 Unknown History tablet (Nitrostat) alprazolam 0.25 mg tablet (Xanax) 0.25 mg PO BID PRN 08/28/20 12/08/21 08/27/20 History cyclobenzaprine 10 mg tablet 10 mg PO TID 08/28/20 12/08/21 08/27/20 History fentanyl 100 mcg/hr transdermal 100 mcg TRANSDERMAL DIRECTED 08/28/20 12/08/21 08/26/20 History patch 100 mcg gabapentin 800 mg tablet 800 mg PO TID 08/28/20 12/08/21 08/27/20 History lovastatin 20 mg tablet 20 mg PO DAILY 08/28/20 12/08/21 Unknown History oxycodone 10 mg tablet 10 mg PO Q6H PRN 08/28/20 12/08/21 Unknown History canagliflozin 300 mg tablet 300 mg PO DAILY 11/14/20 12/08/21 Unknown History (Invokana) metoprolol tartrate 25 mg tablet 25 mg PO BID #180 tab 06/17/21 12/08/21 Unknown Rx diltiazem HCl 240 mg 240 mg PO DAILY #90 cap 11/03/21 12/08/21 Unknown Rx capsule,extended release 24 hr Allergies Allergy/AdvReac Type Severity Reaction Status Date / Time No Known Allergies Allergy Verified 11/11/21 12:49 [facility] Anesthesia Medical History Acute encephalopathy Atrial fibrillation Chronic anticoagulation Chronic low back pain DM type 2 (diabetes mellitus, type 2) Hypomagnesemia MRSA (methicillin resistant Staphylococcus aureus) infection Pulmonary embolism Wound infection Surgical History History of orthopedic surgery Bilateral lower extremity fractures 2004, hardware of right lower extremity and removal in 2016 Family History Father Leukemia Social History Smoking and tobacco status: former smoker Alcohol intake: never Lives independently: Yes Household members: other Details: mother Data Anesthesia Cardiac Studies: Sestamibi Stress Test (Cardiology) 04/28/21 Holter Monitor 11/19/21
[2021-12-15] VITALS (34 sets, daily range): BP systolic 75–142; BP diastolic 36–115; PULSE 74–126; RESP 14–50; TEMP 36.2–37.1; O2SAT 90–99
--- NOTE | 2021-12-15 | SCC_ITS ---
Procedure done: 1. T12- Pelvis fusion 2. T12-S1 instrumentation 3. lumbopelvic fixation 4. L1 laminectomy with partial facetectomies 5. L2 laminectomy with partial facetectomies 6. L3 laminectomy with partial facetectomies 7. L4 laminectomy with partial facetectomies 8. L5 laminectomy with partial facetectomies 9. Use of computer navigation/ sterotactic for spine 10. Bone marrow aspiration Right iliac crest through separate incision in fascia 11. Autograph 12 Allograph 12 seconds of fluoroscopic guidance, for a cumulative dose of 154.5 mGy, was provided to Dr. Mujica by the radiology department. C-arm images of the lumbar spine were saved for the patient's permanent record. [facility]
[2021-12-15] MEDS: sodium chloride 0.9% 1,000 ML 30 ML IV (10:03)
[2021-12-15 10:07] LABS: Glucose Point of Care 119 mg/dL (70-110)
--- NOTE | 2021-12-15 10:30 | PM.OP ---
Operative Report Date of procedure: December 15, 2021 Pre-op diagnosis: Preop Diagnosis DDD Lumbar spine w Stenosis and Neurogenic claudication Post-op diagnosis: same
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
--- NOTE | 2021-12-15 10:50 | P.ANESUD_ITS ---
Pre-Anesthetic Update Pre-Anesthetic Assessment: Date of Surgery/Procedure: 12/15/21 Preop Radha gnosis: DDD Lumbar spine w Stenosis and Neurogenic claudication Proposed Procedure: Operation Date: 12/15/21 10:55 Proposed Procedures p PSF L1-Pelvis PLIF L5/S1 decomp L1-S1 49486/49966 x5/22885/29156/11298/m48.062(Not Applicable) - Isma Mujica, DO s Lumbar Spine Decompression(Not Applicable) - Ismaaba Mujica, DO s Spinal Fusion PSF(Not Applicable) - Ismaaba Mujica, DO Any changes to Pre-Anesthetic Assessment?: No Last Intake: Intake Last Liquid Date 12/14/21 Last Liquid Time 20:00 Last Solid Date 12/14/21 Last Solid Time 20:00 Labs Last 48hrs: Blood Bank 12/15/21 10:00 Blood Type O Positive Rho(D) Type Positive Vitals: Temperature 97.1 F L 12/15/21 09:53 Temperature Source Temporal Artery S can 12/15/21 09:53 Pulse Rate 74 12/15/21 09:53 Pulse Rhythm 12/15/21 09:53 Pulse Strength 3+ Normal 12/15/21 09:53 Respiratory Rate 18 12/15/21 09:53 Blood Pressure 129/81 12/15/21 09:53 Blood Pressure Gwen n 97 12/15/21 09:53 Pulse Oximetry 95 12/15/21 09:53 Oxygen Delivery Me thod 12/15/21 09:53 Exam: Pre-Anes Outpt Exam: alert, oriented x 3, clear to auscultation bilaterally and regular rate & rhythm Cardiac Studies: Sestamibi Stress Test (Cardiology) 04/28/21 Holter Monitor 11/19/21
[2021-12-15] MEDS: HYDROmorphone 1 mg/mL INJ 1 mL 0.5 MG IVP ×5 (11:14→20:20)
[2021-12-15] MEDS: heparin, porcine 1,000 unit/mL INJ 10 mL 10000 UNIT XX (15:00)
[2021-12-15] MEDS: vancomycin 1,000 MG SDV 1000 MG XX (17:21)
--- NOTE | 2021-12-15 17:44 | XR_ITS ---
WS: [id number] Lumbar spine, C-arm fluoroscopy, 12/15/2021 Clinical Data: SPINAL STENOSIS, LUMBAR REGION Comparison: None. Findings: Dr. Mujica performed a posterior lumbar fusion. XR/XR lumbar spine 2-3V* [id number] Impression: Posterior lumbar fusion.
--- NOTE | 2021-12-15 18:07 | P.OP_ITS ---
Operative Report Date of procedure: December 15, 2021 Pre-op diagnosis: Preop Diagnosis DDD Lumbar spine w Stenosis and Neurogenic claudication Post-op diagnosis: same Procedure done: 1. T12- Pelvis fusion 2. T12-S1 instrumentation 3. lumbopelvic fixation 4. L1 laminectomy with partial facetectomies 5. L2 laminectomy with partial facetectomies 6. L3 laminectomy with partial facetectomies 7. L4 laminectomy with partial facetectomies 8. L5 laminectomy with partial facetectomies 9. Use of computer navigation/ sterotactic for spine 10. Bone marrow aspiration Right iliac crest through separate incision in fascia 11. Autograph 12 Allograph Surgeon: Isma Mujica Maid Housekeeper: Delta Araiza Maid Housekeeper: The surgical instrument mechanic, Delta Araiza, PAC was needed for his expertise under the microscope. He was important and necessary throughout the procedure to complete in a safe and timely manner. He assisted with patient positioning prepping and draping tissue retraction suctioning of the operative field protection of the dural sac and tissue closure Estimated blood loss (mL): 700 Procedure: 1. T12- Pelvis fusion 2. T12-S1 instrumentation 3. lumbopelvic fixation 4. L1 laminectomy with partial facetectomies 5. L2 laminectomy with partial facetectomies 6. L3 laminectomy with partial facetectomies 7. L4 laminectomy with partial facetectomies 8. L5 laminectomy with partial facetectomies 9. Use of computer navigation/ sterotactic for spine 10. Bone marrow aspiration Right iliac crest through separate incision in fascia 11. Autograph 12 Allograph Patient is brought to the operative suite after undergoing anesthesia was placed in the prone position. Neuro monitoring was used throughout the entire case. Patient did not get good sensory's in the lower extremities. Was having some issues with the upper extremity sensory's but had return at the end. Patient was positioned in the prone position all areas impingement were well-padded. Patient was prepped and draped in normal sterile fashion. Skin incision is made from L1 to the sacrum. Subperiosteal dissection was made from L1-S1 out to the transverse processes of L1 down to L5. And out to the sacral ala of S1. And down slightly lowered in order to facilitate placing the iliac screws. Attention was then brought to obtaining the bone marrow aspirate. The [facility] bone marrow aspiration kit was used. The sharp needle was inserted aspirated then blunt was inserted and placed down into the iliac wing. And then the tube was turned clockwise. And then the bone marrow was aspirated turning counterclockwise in order to get 1 mm increments of bone marrow aspirate. This bone marrow aspirate was then mixed with the ostial amp allograft bone. Next attention was brought to placing the Schanz pins into the right iliac crest in order to facilitate placing the fiducial. The C-arm was then brought in and spun around the patient. The information was loaded from the fiducial the C-arm into the computer. He was brought to placing the pedicle screws and the iliac screws. Attention was brought first to placing the S1 screws. This was done by using the computer navigated awl. Followed by placing the screws. These were 7.5 x 70 mm screws. Next attention was brought to L5 bilaterally then L4 bilaterally then L3 bilaterally. The technique for doing this was the same for each 1 the awl followed by the pedicle feeler followed by the computer navigated screw. Next attention was brought to placing the iliac screw. This was done by using the computer navigated all this was a sacral ala iliac type screw. The awl was placed through the sacrum across the ala across the SI joint into the ilium. Then the pedicle feeler was used and then a 90 8.5 millimeters screw was used this was done bilaterally. The C-arm was brought back in for a second spin the L2, L1, and T12 pedicle screws were placed bilaterally. Using the same technique of using the computer navigated awl pedicle feeler and the navigated screws. She was brought to performing the laminectomy. Attention was first brought to the L1 lamina. High-speed bur was used to perform the laminectomy bilaterally. This was done down to the bone more is thin and then the Kerrison rongeur was used to take down the remaining lamina. The ligamentum flavum was taken down from L1-L2. And then the attention was brought to the medial aspect of facet joints bilaterally. The L1-2 facet was was taken down medially with a high- speed bur and Kerrison rongeurs. In order to facilitate the L1 nerve was decompressed as when out the L1-2 foramen and the L2 as it went around the L2 pedicle bilaterally. Attention was then brought to the L2 lamina. High-speed bur was used to perform the laminectomy bilaterally. This was done down to the bone more is thin and then the Kerrison rongeur was used to take down the remaining lamina. The ligamentum flavum was taken down from L2-L3. And then the attention was brought to the medial aspect of facet joints bilaterally. The L2-3 facet was was taken down medially with a high-speed bur and Kerrison rongeurs. In order to facilitate the L2 nerve was decompressed as when out the L2-3 foramen and the L3 as it went around the L3 pedicle bilaterally. Attention was then brought to the L3 lamina. High-speed bur was used to perform the laminectomy bilaterally. This was done down to the bone more is thin and then the Kerrison rongeur was used to take down the remaining lamina. The ligamentum flavum was taken down from L3-L4. And then the attention was brought to the medial aspect of facet joints bilaterally. The L3-4 facet was was taken down medially with a high-speed bur and Kerrison rongeurs. In order to facilitate the L3 nerve was decompressed as when out the L3-4 foramen and the L4 as it went around the L4 pedicle bilaterally. Attention was then brought to the L4 lamina. High-speed bur was used to perform the laminectomy bilaterally. This was done down to the bone more is thin and then the Kerrison rongeur was used to take down the remaining lamina. The ligamentum flavum was taken down from L4-L5. And then the attention was brought to the medial aspect of facet joints bilaterally. The L4-5 facet was was taken down medially with a high-speed bur and Kerrison rongeurs. In order to facilitate the L4 nerve was decompressed as when out the L4-5 foramen and the L5 as it went around the L5 pedicle bilaterally. Attention was then brought to the L5 lamina. High-speed bur was used to perform the laminectomy bilaterally. This was done down to the bone more is thin and then the Kerrison rongeur was used to take down the remaining lamina. The ligamentum flavum was taken down from L5-S1. And then the attention was brought to the medial aspect of facet joints bilaterally. The L5/S1 facet was was taken down medially with a high-speed bur and Kerrison rongeurs. In order to facilitate the L5 nerve was decompressed as when out the L5/S1 foramen and the S1 as it went around the S1 pedicle bilaterally. Next attention was brought to placing the rods. The rods were measured and cut. And rods were placed into the tulips of the pedicle screws from T12 down to the pelvis. The end caps were placed bilaterally. And torqued and locked into position. AP and lateral x-ray ensured that the hardware was in appropriate positions. Next tension was brought to the to the transverse processes of T12, L1, L2, L3, L4, L5, and the S1 sacral ala. The high-speed bur was used to decorticate the transverse processes and the sacral ala. The autograft and allograft were packed into the gutters bilaterally. Once this was completed wounds were irrigated. Of note there was a small dural leak which was too small through a stitch into a DuraGen patch and DuraSeal used. During this time a Valsalva maneuver was used and there was no evidence of any dural leak. The vancomycin powder and Hemovac drain was placed. And the wound was closed in layered fashion with 0 Vicryl 2-0 Vicryl Monocryl suture and Steri-Strips. A Silverlon dressing was placed and patient was transferred to the PACU in stable condition.
[2021-12-15 18:38] LABS: Glucose Point of Care 142 mg/dL (70-110)
[2021-12-15] MEDS: fentaNYL 50 mcg/mL INJ 2mL 100 MCG IVP (19:05)
--- NOTE | 2021-12-15 19:12 | SUR.PHASEI ---
182 PT TO PACU SLEEPY BUT AWAKES TO VOICE, GOOD RESPIRATORY EFFORT, MASK IN PLACE PT TO PACU 5 ID BRACELET TO LT WRIST, PT ID WITH 2 IDENTIFIERS, IV TO RT WRIST #[id number] PATENT DRESSING TO BACK D/I ON ARRIVAL FROM OR, ABD BINDER IN PLACE HEMAVAC DRAIN COMPRESSED WITH GOOD SUCTION WITH RED DRAINAGE TO TUBING AND DRAIN. FOLEYPATENT OF YELLOW URINE TO TUBING AND BAG, STATLOCK TO RT THIGH. BILAT SCDS ON AND WORKING. MONITOR AFIB NO ECTOPY NOTED 1834 PT AWAKES STRAINING TO GET UP CONFUSED TO ALL BUT NAME, PT RESTLESS BUT JUANIS BALLY DENIES PAIN. 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
--- NOTE | 2021-12-15 19:43 | SUR.PHASEI ---
1938 ATTEMPTED TO GIVE REPORT PT AWAKENS AND STARTS SCREAMING STATES (MY BACK MY BACK!) PT HYPER VENTILATIING, PT ENCOURAGED TO SLOW RESPIRATIONS AND RELAX , SEE PAIN MED GIVEN, REPORT STOPPED WILL MEDICATE PT FOR PAIN BEFORE TRANSFER.
--- NOTE | 2021-12-15 19:49 | SUR.PHASEI ---
DR CHOW NOTIFIED THAT WE EMPTIED A TOTAL OF 300ML FROM DRAIN, NO ORDERS RECIEVED . DR CHOW OK WITH PT GOING TO FLOOR.
--- NOTE | 2021-12-15 20:01 | SUR.PHASEI ---
1957 PT AWAKES AGAIN CRYING OUT, PAIN IS (TERRIBLE) PT SCREAMING, ( GOD HELP ME!) PT ORIENTED X 3 , NO COMFORT MEASURES HELP, SEE PAIN MED REPEATED.
--- NOTE | 2021-12-15 20:27 | SUR.PHASEI ---
PT HAS HAD A TOTAL OF 2 MG OF DILAUDID, PT SLEEPING NOW, VSS PT WHEN AWAKE IS CONTINUALLY PULLING AT SIDE RAILS TWISTING HIS BODY, TRYING TO GET UP, NO BLEEDING NOTED TO ABDOMINAL BINDER, PT MOVES LT FOOT BUT STATE HE HAS (FOOT DROP IN RIGHT FOOT) PT VERY ALERT AND ORIENTED X 3 . REPORT CALLED NOW THAT PT IS CALMER AND SLEEPING, WILL MONITOR PT X 15 MINUTES AFTER PAIN MED.
--- NOTE | 2021-12-15 20:52 | SUR.PHASEI ---
PT TO ROOM 273 PER BED PT AWAKE ALERT TALKATIVE WITH STAFF, ASKING TO GET UP, WANTS WATER TO DRINK, SATS 97% ON3LNC. DRESSING TO BACK D/I HANDOFF AT BEDSIDE.
[2021-12-15] MEDS: gabapentin 400 mg Capsule 800 MG PO (21:28)
[2021-12-15] MEDS: ALPRAZolam 0.5 mg Tablet 0.25 MG PO (21:28)
[2021-12-15] MEDS: ketorolac 30 mg/mL INJ IVP (21:28)
[2021-12-15] MEDS: cyclobenzaprine 10 mg Tablet PO (21:28)
[2021-12-15] MEDS: lactated ringers 1,000 ML 90 ML IV (21:42)
[2021-12-15] MEDS: metoprolol tartrate 25 mg Tablet PO (21:43)
[2021-12-15] MEDS: docusate sodium 100 mg Capsule PO (21:43)
[2021-12-15] MEDS: oxyCODONE 5 mg IR Tab/Cap 10 MG PO (22:35)
[2021-12-15] MEDS: morphine 4 mg/mL SDV 1 mL 2 MG IVP (22:35)
[2021-12-16] VITALS (14 sets, daily range): BP systolic 90–157; BP diastolic 58–82; PULSE 77–102; RESP 14–20; TEMP 36.4–37.9; O2SAT 91–95
[2021-12-16] MEDS: morphine 4 mg/mL SDV 1 mL 2 MG IVP ×5 (02:30→22:08)
[2021-12-16] MEDS: enoxaparin 40 mg/0.4 mL Syringe SUBCUT (04:54)
[2021-12-16] MEDS: oxyCODONE 5 mg IR Tab/Cap 10 MG PO (04:54)
[2021-12-16 06:07] LABS: Hematocrit 33.3 % (42.0-52.0); Hemoglobin 10.8 g/dL (11.7-16.6)
--- NOTE | 2021-12-16 06:49 | PC.NURSE ---
Pt c/o slight numbness to right hand. States I have numbness sometimes, but this is worse Pulses WNL; extremity warm to touch.
--- NOTE | 2021-12-16 08:06 | P.PN_ITS ---
Subjective Subjective: POD1 Patient resting comfortably. Has some mild back pain describes his legs feeling much better than prior to surgery. He reports numbness and weakness in his right upper extremity with some residual in his left upper extremity as well. Denies any headaches, shortness of breath, chest pain. Vitals/I&O/Wt Last Vital Signs Temp 97.6 F 12/16/21 07:19 Pulse 89 12/16/21 07:19 Resp 20 H 12/16/21 07:39 BP 109/75 12/16/21 07:19 Pulse Ox 91 12/16/21 07:19 12/15/21 12/16/21 12/16/21 22:59 06:59 14:59 Intake Total 2560 / 2620 60 / 2680 Output Total 1500 / 1500 1250 / 2750 Balance 1060 / 1120 -1190 / -70 Weight last 48 hrs Weight 340 lb Physical Exam Narrative: Patient presents alert and oriented x3 with a good general appearance normal normal affect. Normal coordination normal stability. Mild tenderness around the incisional site with the incision appear to be clean and dry. No signs of erythema or drainage. No signs of infection. Patient denies any fevers or chills. 5/5 motor strength both lower extremities with negative straight leg raise bilaterally. Calves are supple no medial thigh tenderness. Pulses are 2+ at the dorsalis pedis and posterior tibial region. Good capillary refill throughout normal sensation light touch both lower extremities. Weakness with right upper extremity diffusely. Reports numbness tingling and numbness arms and forearms. Hands warm good cap refill radial pulses are palpable. Urinary Catheter Management: Noel: Cath Placed During This Visit: yes Reason for Continuing Indwelling Catheter: Required Immobilization for Trauma or Surgery or Anesthesia Urinary Catheter Date of Insertion: 12/15/21 Urinary Catheter Time of Insertion: 11:55 Data : 12/16/21 05:58 A&P Assessment and plan (1) S/P spinal fusion: We will discontinue Noel catheter. We will continue the Hemovac drain until tomorrow. Discussed at length that seems to be more positioning of both upper extremities even though intraoperatively repeatedly reposition the arms based on SSEP monitoring. Continue to work with physical therapy on mobilization. Encourage incentive spirometry for pulmonary toilet. Status: Acute (2) Paresthesia and pain of both upper extremities: Status: Acute Attestations Medical Necessity Statement*: dc tomorrow Coding Level of Care Code Acute Pedigree Researcher for Chg Fwd Diagnoses S/P spinal fusion Z98.1 Paresthesia and pain of both upper extremities R20.2; M79.601; M79.602
[2021-12-16] MEDS: docusate sodium 100 mg Capsule PO ×2 (08:12→17:48)
[2021-12-16] MEDS: fentaNYL 100 mcg Patch 1 PATCH TRANSDERMA (08:12)
[2021-12-16] MEDS: metformin 500 mg Tablet 1000 MG PO (08:12)
[2021-12-16] MEDS: metoprolol tartrate 25 mg Tablet PO ×2 (08:13→20:39)
[2021-12-16] MEDS: atorvastatin 40 mg Tablet 20 MG PO (08:13)
[2021-12-16] MEDS: gabapentin 400 mg Capsule 800 MG PO ×3 (08:13→20:39)
[2021-12-16] MEDS: dilTIAZem ER (24HR) 240 mg Capsule PO (08:13)
--- NOTE | 2021-12-16 09:05 | ANE.PACU2 ---
Inpatient post-anesthesia follow up: Airway intact: Yes Vital signs: Temperature 97.6 F Pulse Rate 89 Respiratory Rate 20 Blood Pressure 109/75 Pulse Oximetry 91 Oxygen Delivery Me thod Room Air Oxygen Flow Rate 3 Fraction of Inspir ed Oxygen Hydration adequate: Yes Nausea and vomiting: No Pain level: 3 Mental status: Baseline
[2021-12-16] MEDS: acetaminophen 325 mg Tablet 650 MG PO ×2 (09:27→13:21)
[2021-12-16 10:01] LABS: Glucose Point of Care 164 mg/dL (70-110)
[2021-12-16] MEDS: lactated ringers 1,000 ML 90 ML IV (10:30)
--- NOTE | 2021-12-16 10:36 | PC.NURSE ---
0930 Pt has been writhing in bed, screaming and yelling, sweating and carrying on despite pain med administration. Pt is able to sit self up on side of bed without assist. C/O HAMILTON and back pain. Spoke with MD and got pain med increased. Pt c/o inability to use R hand d/t numbness. states that numbness should subside. Pt educated. Noel cath removed per orders. Tolerated well. 1035 Pt hemovac tubing became dislodged from vacuum chamber. Tubing replaced and taped into place. Pt lying in bed with eyes closed. IVF infusing per orders. Will monitor.
[2021-12-16] MEDS: oxyCODONE 5 mg IR Tab/Cap 20 MG PO ×2 (11:23→22:13)
--- NOTE | 2021-12-16 11:30 | PC.NURSE ---
PT on side of bed, states that he can't use urinal to urinate. This nurse witnessed his attempt and pt moved the urinal in place for a brief second and then threw it on the bed and said he can't do it . This nurse encouraged him to attempt more meaningfully. Pt is very angry and hateful towards staff. Pain meds given per orders for c/o back and headache pain. Will monitor.
[2021-12-16 11:42] LABS: Glucose Point of Care 167 mg/dL (70-110)
[2021-12-16] MEDS: ketorolac 30 mg/mL INJ IVP ×2 (12:57→19:42)
--- NOTE | 2021-12-16 13:52 | PC.NURSE ---
1200 Pt able to ambulate with standby assist to bathroom in order to urinate. Tolerated fair. Pt ambulated back to bed and seated himself on side of bed.
[2021-12-16] MEDS: cyclobenzaprine 10 mg Tablet PO (15:09)
--- NOTE | 2021-12-16 18:32 | PC.NURSE ---
Pt resting on side of bed. C/O pain to head, back and hip. Multiple doses of pain meds given throughout day. Up to bathroom with standby assist and use of walker and cane. Will monitor.
[2021-12-16] MEDS: ALPRAZolam 0.5 mg Tablet 0.25 MG PO (20:40)
[2021-12-17] VITALS (11 sets, daily range): BP systolic 99–133; BP diastolic 54–86; PULSE 79–100; RESP 15–18; TEMP 36.5–37.3; O2SAT 91–96
[2021-12-17] MEDS: lactated ringers 1,000 ML 90 ML IV ×2 (00:12→18:03)
[2021-12-17] MEDS: acetaminophen 325 mg Tablet 650 MG PO ×3 (00:17→18:04)
[2021-12-17 00:19] LABS: Glucose Point of Care 167 mg/dL (70-110)
[2021-12-17] MEDS: enoxaparin 40 mg/0.4 mL Syringe SUBCUT (05:52)
[2021-12-17] MEDS: oxyCODONE 5 mg IR Tab/Cap 20 MG PO ×3 (06:02→20:21)
--- NOTE | 2021-12-17 06:52 | PM.PN ---
Subjective Subjective: POD 2 Patient resting more comfortably today. States he threw up last night after having a [employer] meal. Patient states he continues to have back and leg pain. He mobilized to the bathroom several times through the night. He has been up with physical therapy yesterday. Reports intermittent headaches when he is up in a sitting position. Patient reports arm weakness improving on the right side continues to have numbness in the index long finger on the right some residual on the left as well. Vitals/I&O/Wt Last Vital Signs Temp 98.7 F 12/17/21 04:00 Pulse 90 12/17/21 04:00 Resp 18 12/17/21 06:02 BP 127/54 12/17/21 04:00 Pulse Ox 95 12/17/21 04:00 12/16/21 12/16/21 12/17/21 14:59 22:59 06:59 Intake Total 1900 / 1900 1360 / 3260 Output Total 125 / 125 350 / 475 300 / 775 Balance 1775 / 1775 1010 / 2785 -300 / 2485 Weight last 48 hrs Weight 340 lb Physical Exam Narrative: Patient presents alert and oriented x3 with a good general appearance normal mood and affect. Normal coordination normal stability. Mild tenderness around the incisional site with the incision appear to be clean and dry. No signs of erythema or drainage. No signs of infection. Patient denies any fevers or chills. 5/5 motor strength both lower extremities with negative straight leg raise bilaterally. Calves are supple no medial thigh tenderness. Pulses are 2+ at the dorsalis pedis and posterior tibial region. Good capillary refill throughout normal sensation light touch both lower extremities. Hemovac drain with excessive output. I took it to gravity. Urinary Catheter Management: Noel: Cath Placed During This Visit: yes, but has since been removed by the nurse Reason for Continuing Indwelling Catheter: Decision to DC Catheter Urinary Catheter Date of Insertion: 12/15/21 Urinary Catheter Time of Insertion: 11:55 Date Urinary Catheter Removed: 12/16/21 Time Urinary Catheter Discontinued: 09:30 Data : 12/16/21 05:58 A&P Assessment and plan (1) S/P spinal fusion: Hemovac drain was taken to gravity to try and slow the output. Encourage the patient to continue with physical therapy mobilizing. Patient does not feel that he can go home at this point due to uncontrolled pain in his back and legs. Laxative of choice to help with bowel movement. After physical therapy if the output from his Hemovac drain has slowed we will discontinue. Discussed hopeful discharge home tomorrow. 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
[2021-12-17] MEDS: dilTIAZem ER (24HR) 240 mg Capsule PO (10:04)
[2021-12-17] MEDS: docusate sodium 100 mg Capsule PO ×2 (10:04→18:03)
[2021-12-17] MEDS: gabapentin 400 mg Capsule 800 MG PO ×3 (10:05→20:22)
[2021-12-17] MEDS: atorvastatin 40 mg Tablet 20 MG PO (10:05)
[2021-12-17] MEDS: metformin 500 mg Tablet 1000 MG PO (10:05)
[2021-12-17] MEDS: morphine 4 mg/mL SDV 1 mL 2 MG IVP ×2 (11:35→18:18)
[2021-12-17] MEDS: ketorolac 30 mg/mL INJ IVP (13:01)
--- NOTE | 2021-12-17 18:07 | PC.NURSE ---
IV INFILTRATED WHILE ADMINISTERING DOSE OF IV MORPHINE, PT RATING PAIN AT 9/10. IV DISCONTINUED, NEW LINE ATTEMPTED BY THIS NURSE X2, UNSUCCESSFUL, CROAL-PT CARE NURSE NOTIFIED. DR. CHOW CALLED TO RECEIVE ORDER FOR ANOTHER DOSE OF MORPHINE TO BE ADMINISTERED. TELEPHONE ORDERS RECEIVED TO GIVE ANOTHER DOSE OF PRN MORPHINE PER ORDER IN CHART.
[2021-12-17] MEDS: metoprolol tartrate 25 mg Tablet PO (20:22)
[2021-12-17] MEDS: ondansetron 2 mg/ML SDV 2 mL 4 MG IVP (23:08)
[2021-12-18] VITALS (7 sets, daily range): BP systolic 110–148; BP diastolic 65–73; PULSE 68–80; RESP 16–18; TEMP 36.9–37.2; O2SAT 93–98
[2021-12-18] MEDS: cyclobenzaprine 10 mg Tablet PO ×2 (00:36→08:28)
[2021-12-18] MEDS: oxyCODONE 5 mg IR Tab/Cap 10 MG PO ×3 (00:36→08:27)
[2021-12-18] MEDS: enoxaparin 40 mg/0.4 mL Syringe SUBCUT (06:08)
[2021-12-18] MEDS: acetaminophen 325 mg Tablet 650 MG PO (06:12)
--- NOTE | 2021-12-18 08:03 | PM.PN ---
Subjective Subjective: POD 3 Patient resting comfortably. Reports continued back pain numbness in his legs. States he has been up walking with a walker and physical therapy. He has been ambulating to the bathroom. Reports right arm strength improving with some residual numbness in both upper extremities. Denies any shortness of breath, headaches, chest pain. Vitals/I&O/Wt Last Vital Signs Temp 98.5 F 12/18/21 07:36 Pulse 80 12/18/21 07:36 Resp 17 12/18/21 07:36 BP 110/70 12/18/21 07:36 Pulse Ox 98 12/18/21 07:36 12/17/21 12/18/21 12/18/21 22:59 06:59 14:59 Intake Total 1150 / 2510 1000 / 3510 Output Total 50 / 50 975 / 1025 Balance 1100 / 2460 25 / 2485 Physical Exam Narrative: Patient presents alert and oriented x3 with a good general appearance normal mood and affect. Normal coordination normal stability. Mild tenderness around the incisional site with the incision appear to be healing nicely. Hemovac drain present. No signs of erythema or drainage. No signs of infection. Patient denies any fevers or chills. 5/5 motor strength both lower extremities with negative straight leg raise bilaterally. Calves are supple no medial thigh tenderness. Pulses are 2+ at the dorsalis pedis and posterior tibial region. Good capillary refill throughout normal sensation light touch both lower extremities. Urinary Catheter Management: Noel: Cath Placed During This Visit: yes, but has since been removed by the nurse Reason for Continuing Indwelling Catheter: Decision to DC Catheter Urinary Catheter Date of Insertion: 12/15/21 Urinary Catheter Time of Insertion: 11:55 Date Urinary Catheter Removed: 12/16/21 Time Urinary Catheter Discontinued: 09:30 Data : 12/16/21 05:58 A&P Assessment and plan (1) S/P spinal fusion: Discontinue Hemovac drain. Continue mobilization with physical therapy. We will discharge home today. Encouraged incentive spirometry at home for pulmonary toilet. We will see him back on Wednesday in the office for wound check. Encouraged him to continue walking program no bending lifting or twisting activities. Continue abdominal binder for compression on the incisional area. Status: Acute (2) Paresthesia and pain of both upper extremities: Status: Acute Attestations Medical Necessity Statement*: home today Coding Level of Care Code Acute Button Buttonhole Marker for g Fwd Diagnoses S/P spinal fusion Z98.1 Paresthesia and pain of both upper extremities R20.2; M79.601; M79.602
[2021-12-18] MEDS: dilTIAZem ER (24HR) 240 mg Capsule PO (08:28)
[2021-12-18] MEDS: metformin 500 mg Tablet 1000 MG PO (08:28)
[2021-12-18] MEDS: metoprolol tartrate 25 mg Tablet PO (08:28)
[2021-12-18] MEDS: docusate sodium 100 mg Capsule PO (08:28)
[2021-12-18] MEDS: atorvastatin 40 mg Tablet 20 MG PO (08:29)
--- NOTE | 2021-12-18 08:47 | PC.SOCIAL ---
IMM Update pg 2 of IMM updated and reviewed w/ patient. Copy provided and Copy placed in chart.
--- NOTE | 2021-12-18 12:52 | PC.NURSE ---
PT PULLED OUT HEMAVAC WHILE GETTING UP. HEMAVAC TUBING WAS FROM DEVICE. CALLED DR. CHOW AND JAIDA MARX CAME AND EXAMINED PTS WOUND AND DEVICE AND CONFIRMED NO MISSING PIECES OR PIECES LEFT BEHIND.
--- NOTE | 2021-12-19 17:24 | PM.DCS ---
Discharge Providers Date of Admission: 12/15/21 18:04 Date of Discharge: December 19, 2021 Attending Provider at Admission: Isma Mujica DO Attending Provider at Discharge: Isma Mujica DO Primary Care Provider: KAYLA Pan Diagnoses at Discharge Discharge Diagnosis (1) S/P spinal fusion: Status: Acute (2) Paresthesia and pain of both upper extremities: Status: Resolved Reason for Visit Reason for Visit: spinal stenosis, lumbar region Hospital Course Hospital Course uneventful Physical Exam Urinary Catheter Management: Noel: Cath Placed During This Visit: yes, but has since been removed by the nurse Reason for Continuing Indwelling Catheter: Decision to DC Catheter Urinary Catheter Date of Insertion: 12/15/21 Urinary Catheter Time of Insertion: 11:55 Date Urinary Catheter Removed: 12/16/21 Time Urinary Catheter Discontinued: 09:30 Discharge Data Studies Completed and Pending Completed Studies During Hospitalization Category Date Time Status XR lumbar spine 2-3V* [id number] Routine Exams 12/15/21 17:44 Completed Radiology Impressions Lumbar Spine X-Ray 12/15/21 17:44 Impression: Posterior lumbar fusion. Laboratory Results Hgb 10.8 g/dL (11.7-16.6) L 12/16/21 05:58 Hct 33.3 % (42.0-52.0) L 12/16/21 05:58 POC Glucose 167 mg/dL (70-110) H 12/17/21 00:13 Blood Type O Positive 12/15/21 10:00 Rho(D) Type Positive 12/15/21 10:00 Antibody Screen Negative 12/15/21 10:00 Vitals Last Vital Signs Temp 98.6 F 12/18/21 14:01 Pulse 68 12/18/21 14:01 Resp 16 12/18/21 14:01 BP 148/73 12/18/21 14:01 Pulse Ox 98 12/18/21 14:01 Discharge Plan Discharge Patient Disposition: Home Condition: Stable Prescriptions: New hydrocodone-acetaminophen 5-325 mg tablet 1 tab PO Q4H Qty: 40 0RF Continued aspirin [Adult Low Dose Aspirin] 81 mg tablet,delayed release (DR/EC) 81 mg PO DAILY 0RF Eliquis 5 mg tablet 5 mg PO BID 0RF ibuprofen 800 mg tablet 800 mg PO TID 0RF Hold Instructions: Resume on 09/09/20. metformin 1,000 mg tablet 1,000 mg PO DAILY 0RF nitroglycerin [Nitrostat] 0.4 mg tablet, sublingual 0.4 mg SUBLINGUAL Q5M PRN (Reason: chest pains) 0RF Rx Instructions: do not exceed 3 doses per episode metoprolol tartrate 25 mg tablet 25 mg PO BID Qty: 180 1RF diltiazem HCl 240 mg capsule,extended release 24hr 240 mg PO DAILY Qty: 90 1RF alprazolam [Xanax] 0.25 mg tablet 0.25 mg PO BID PRN (Reason: Anxiety) 0RF cyclobenzaprine 10 mg tablet 10 mg PO TID 0RF lovastatin 20 mg tablet 20 mg PO DAILY 0RF fentanyl 100 mcg/hr patch 72 hour 100 mcg transdermal DIRECTED 0RF Rx Instructions: Every 72HRS gabapentin 800 mg tablet 800 mg PO TID 0RF oxycodone 10 mg tablet 10 mg PO Q6H PRN (Reason: PAIN) 0RF Invokana 300 mg tablet 300 mg PO DAILY 0RF No Action (DME) Bone Growth Stimulator [id number] See Rx Instructions .Route .MEDSUPPLY Qty: 1 0RF Rx Instructions: As directed Discharge Orders: Discharge Order (Routine); Ordered 12/18/21 Ordered By: Delta Araiza Referrals: Isma Mujica DO [Physician] - 12/22/21 1:00 pm Discharge Diet: Advance as tolerated Discharge Activity: Resume usual activity Patient Instructions: Hydrocodone/Acetaminophen (By mouth), Anterior Posterior Spinal Fusion (DC), Lumbar Spinal Stenosis (DC), Paresthesia (GEN), Lumbar Spinal Fusion (DC), Opioid Safety Activity Restrictions/Additional Instructions: Thank you for choosing [facility] for your care! The following is a list of instructions, from your provider, to follow upon your discharge to ensure you have the optimal recovery from your recent injury or surgery. Follow-up care is a rogers part of your treatment and safety. Be sure to make and go to all appointments and call your doctor if you are having problems. If you do not already have a follow-up appointment made, call Dr. Mujica's] office in the next 1-3 days to make follow up appointment for Wednesday12/23/21 at [phone]. It is also a good idea to know your test results and keep a list of the medicines you take. Medications will be prescribed for you at your provider's discretion. These medications are to be used as instructed; if they are taken more often that prescribed they will not be refilled early and in most cases will not be refilled at all. > When a refill is needed, you should contact [employer] 2-3 business days before your prescription runs out. Medications will NOT be refilled by manager flight operations providers after hours! > Many pain medications contain Tylenol (Acetaminophen). Do not consume more than 4,000 mg of Tylenol per day in total with any combination of medications. > Pain medications can cause constipation. Please use an over the counter stool softener as directed, while taking pain medications. Consult your local pharmacist with questions or recommendations on stool softeners. If constipation persists, contact our office or your primary care provider. > While under our care, you are not to receive pain medications or other controlled substances from any other provider unless our office is notified and approves. Any attempts to do so will result in refusal to prescribe any further pain medications and possible dismissal from our practice. ? Walking is essential for the healing process after surgery. We would like you to slowly advance your walking. This should be done on relatively flat clear ground (inside or out) or can be done on a treadmill. Remember this goal does not have to happen all at once, slowly increase your distance and duration. This can be broken into more more than one walk per day as tolerated. Patients who walk as directed after surgery rarely require Physical Therapy. In the unlikely event this issue arises your provider will direct hospital staff to make the appropriate arrangements. ? No lifting over 5 pounds {a gallon of milk) or bending/twisting until further notice. Each of these activities places an unnecessary amount of stress onto the body and can impede the delicate healing process. > Instead of bending at the waist, keep your back straight and bend at the knees. > Instead of twisting your torso, keep your back straight and turn your entire body with your feet. ? You may sleep in any position which makes you comfortable. Many patients find comfort sleeping in a reclining chair. It is not abnormal to have difficulty sleeping for the first several weeks following your surgery. We recommend trying Benadry! or Tylenol PM as directed to help with your sleeping difficulties. Both medications are over the counter and available without prescription. ? NO SMOKING!!! Smoking dramatically increases the probability of developing postoperative wound infections. ? Common complaints after lumbar and/or thoracic spine surgery include, but are not limited to: numbness and/or tingling in the legs, pain around the incision and surrounding tissues, muscle spasms, or stiffness of the middle to low back. Contact our office if these symptoms persist or if an acute change occurs. ? No driving for the first 3-5days, and not while taking narcotics until seen at your follow-up appointment and cleared. There are no restrictions for riding on short trips, however if you take a longer trip, arrangements should be made to make regular stops to get out of the vehicle and stretch . ? Swelling is an unfortunate event that will take place with any surgery and is the primary source of your postoperative discomfort. While walking and regular approved activities helps control inflammation, there are additional steps you can take to minimize swelling. > Place ice over the surgical site and surrounding tissue for twenty minutes, followed by applying a low/medium heat (heating pad) for an additional twenty minutes every 1-2 hours as needed for painrelief. > You may use of over the counter anti-inflammatory medications (Ibuprofen, Motrin, Aleve, Advil, etc) as directed on the package label. These types of medicines will significantly reduce the amount of discomfort you experience after surgery from swelling. It should be noted that if you have and allergy to any of these medications, or a history of ulcers or kidney disease you should consult you primary care provider prior to starting these medications. Discharge Attestations Time Spent in Discharge Care*: less than 30 min Quality Metrics Clinical Quality Measures [ No reported AMI, CVA or VTE this stay] Coding Level of Care Code Acute g FW DC note Diagnoses S/P spinal fusion Z98.1 Paresthesia and pain of both upper extremities R20.2; M79.601; M79.602
== END 2021-12-18 13:35 | disposition home or self-care (01) | DRG 460 ==
LOC: MEDSURG 18:06
PROVIDERS: Admitting Provider Orthopaedic Surgery; PCP Nurse Practitioner Family; Visit Provider Orthopaedic Surgery
PROC: 0SG0071 Fusion of Lumbar Vertebral Joint with Autologous Tissue Substitute, Posterior Approach, Posterior Column, Open Approach (ICD-10-PCS; CPT 22612; principal; 2021-12-15 10:45)
PROC: 0SG0071 Fusion of Lumbar Vertebral Joint with Autologous Tissue Substitute, Posterior Approach, Posterior Column, Open Approach (ICD-10-PCS; CPT 63005; 2021-12-15 10:45)
PROC: 0SG0071 Fusion of Lumbar Vertebral Joint with Autologous Tissue Substitute, Posterior Approach, Posterior Column, Open Approach (ICD-10-PCS; 2021-12-15 10:45)
DX: M48.062 Spinal stenosis, lumbar region with neurogenic claudication (principal); G89.29 Other chronic pain; I48.91 Unspecified atrial fibrillation; E11.9 Type 2 diabetes mellitus without complications; Z86.14 Personal history of Methicillin resistant Staphylococcus aureus infection; Z86.711 Personal history of pulmonary embolism; Z87.891 Personal history of nicotine dependence; R20.0 Anesthesia of skin; M79.602 Pain in left arm; M79.601 Pain in right arm; Z79.01 Long term (current) use of anticoagulants; Z79.82 Long term (current) use of aspirin; Z79.84 Long term (current) use of oral hypoglycemic drugs
CPT/HCPCS: 36415; 36416; 51702; 72100; 76000; 82962; 85014; 85018; 86850; 86900; 96372; 97116; 97161; 97530; C1713; J0330; J0690; J1100; J1170; J1644; J1650; J1885; J2270; J2405; J2704; J3010; J3370; J3490; J7030; P9041

== ENCOUNTER → 2022-01-20 13:20 | Outpatient (BNVA) | payer MEDICARE, SELFPAY | PROVIDERS: PCP Nurse Practitioner Family; Visit Provider Orthopaedic Surgery | DX: Z47.89 Encounter for other orthopedic aftercare (principal); Z98.890 Other specified postprocedural states; Z98.1 Arthrodesis status | CPT/HCPCS: 72100; 99024 ==

== ENCOUNTER 2022-02-16 20:23 | Emergency (ER) | payer MEDICARE, SELFPAY ==
[2022-02-16 20:25] VITALS: BMI 39.9
--- NOTE | 2022-02-16 20:27 | W.ED.CHESTPA ---
HPI - Chest Pain General: Chief Complaint: Chest Pain Stated Complaint: CP Time Seen by Provider: 02/16/22 20:26 History of Present Illness: Mr. Laboy is a 56-year-old gentleman with significant past medical history of known atrial fibrillation on anticoagulation who presents to the emergency department due to chest pain. He reports symptoms onset at rest while he was sitting out in his yard smoking cigar. He had sudden onset of left anterior chest pain which feels like a hot coolness in his chest without significant radiation. Mild associated shortness of breath. He denies frequent episodes of chest pain in the past. He reports compliance with his medication regimen. Intensity symptoms is moderate. He does also have musculoskeletal pain when he moves his arm on the left which causes pain in the left pectoral region. Course has persisted. No other specific changes in health, exacerbating, or alleviating factors identified. Onset (ago): minute(s) Timing of current episode: constant Prior episodes: Yes Onset: during rest Pain location: left chest Severity: moderate Quality: other Exacerbating factors: exertion Associated symptoms: Reports dyspnea Review of Systems General: Reports: 10 or more systems reviewed and unremarkable except in HPI and below Resp: Reports: dyspnea [facility] ED PFSH: Medical History Acute encephalopathy Atrial fibrillation Chronic anticoagulation Chronic low back pain DM type 2 (diabetes mellitus, type 2) Hypomagnesemia MRSA (methicillin resistant Staphylococcus aureus) infection Pulmonary embolism Wound infection Surgical History History of orthopedic surgery Bilateral lower extremity fractures 2004, hardware of right lower extremity and removal in 2016 Family History Father Leukemia Social History Smoking and tobacco status: former smoker Alcohol intake: never Lives independently: Yes Household members: other Details: mother Physical Exam Const: COMMON NORMALS: alert GENERAL APPEARANCE: cooperative and well developed HENMT: COMMON NORMALS: normocephalic and atraumatic HEAD & SCALP: normocephalic and atraumatic Eye: COMMON NORMALS: conjunctivae normal CONJUNCTIVA: Yes conjunctivae normal SCLERA: sclerae normal Neck/C-Spine: COMMON NORMALS: supple GENERAL: Yes trachea midline Resp: COMMON NORMALS: clear to auscultation bilaterally EFFORT & INSPECTION: Yes able to speak in complete sentences AUSCULTATION: clear to auscultation bilaterally Cardio: RATE: tachycardic RHYTHM: abnormal rhythm irregularly irregular GI: COMMON NORMALS: Soft to palpation PALPATION: Yes Soft to palpation and No Tenderness to palpation present (GI) PERCUSSION: normal to percussion Extremity: GENERAL: Yes normal exam except as noted and No edema Neuro: COMMON NORMALS: moves all extremities SENSORIUM/ORIENTATION: Yes alert and No Orientation impaired Psych: COMMON NORMALS: mental status grossly normal and Normal thought process present THOUGHT PROCESS: Normal thought process present Course ED course: - Patient was seen and evaluated by me at bedside - Patient placed on cardiac monitors, IV access obtained - Initial evaluation notable for exam as above. A. fib with RVR. - Labs and xrays personally interpreted by me. EKG notable for A. fib with RVR block similar to prior. - Rate control, fluids, analgesia given - Labs notable for no leukocytosis, normal hemoglobin. Metabolic panel without acute electrolyte derangement to explain symptoms. Delta troponin is negative. BNP only trace elevation without clinical evidence of significant volume overload. - Imaging notable for no lobar consolidation or pneumothorax. - Upon serial reexamination after treatment the patient was significantly improved. Additional oral rate control ordered. - Based on patient history, evaluation, and testing as interpreted the most likely cause of the patient's condition is A. fib with RVR resulting in symptoms. This was improved with treatment. Patient has had cardiac evaluation within the past year. Given sustained improvement in heart rate is satisfactory for continued outpatient management with cardiology follow-up. - The results of ED evaluation were discussed with the patient including prescriptions and/or symptomatic cares (if applicable) including appropriate and responsible use, followup plan, and return precautions. The patient verbalized understanding and felt safe for discharge. - Patient discharged in satisfactory condition. Note: Click bubbles or prepopulated guthrie in note writing are used for assistance with data collection and billing and are inherently more limited than narrative and other text portions of this note. Please use narrative for additional clinical history and defer to narrative/free test for any case of contradictory information. If information appears in only free text or click bubble it should be considered present or absent as reported. Please contact note public relations writer for clarifications of clinical information or contradictory information. MDM is a brief summary, contradictory or erroneous seeming information should be clarified and full note should be reviewed. Vital Signs: Vital signs: Vital Signs Temperature 98.6 F 02/17/22 01:07 Pulse Rate 84 02/17/22 01:07 Respiratory Rate 17 02/17/22 01:07 Blood Pressure 110/61 02/17/22 01:07 Pulse Oximetry 96 02/17/22 01:07 MDM - Chest Pain Medical Decision Making 56-year-old male with known history of A. fib on anticoagulation presenting due to chest discomfort associated with A. fib. Patient had significant improvement with push dose of diltiazem and an oral dose of metoprolol for sustained rate control and symptoms resolved. Patient had cardiac evaluation within 1 year. Patient is comfortable with continued outpatient management and follow-up. Medical Records I reviewed the patient's medical records. Lab Data I reviewed the patient's lab results. : 02/16/22 20:30 02/16/22 20:30 Radiology Impressions Chest X-Ray 02/16/22 20:32 IMPRESSION: No acute findings. Laboratory Results WBC 8.1 10^3/uL (4.0-10.0) 02/16/22 20:30 RBC 5.34 10^6/uL (4.1-5.3) H 02/16/22 20:30 Hgb 14.5 g/dL (11.7-16.6) 02/16/22 20:30 Hct 47.7 % (42.0-52.0) 02/16/22 20:30 MCV 89.3 fl (80-94) 02/16/22 20:30 MCH 27.2 pg (28.0-34.0) L 02/16/22 20:30 MCHC 30.4 g/dL (30.0-36.0) 02/16/22 20:30 RDW 13.4 % (12.1-15.1) 02/16/22 20:30 Plt Count 289 10^3/cmm (130-400) 02/16/22 20:30 MPV 10.2 fL (7.4-10.4) 02/16/22 20:30 Neut % (Auto) 55.0 % 02/16/22 20:30 Lymph % (Auto) 34.9 % 02/16/22 20:30 [place] % (Auto) 8.8 % 02/16/22 20:30 Eos % (Auto) 0.9 % 02/16/22 20:30 Baso % (Auto) 0.2 % 02/16/22 20:30 Neut # (Auto) 4.47 10^3/uL (1.8-7.7) 02/16/22 20:30 Lymph # (Auto) 2.8 10^3/uL (0.8-4.8) 02/16/22 20:30 [place] # (Auto) 0.7 10^3/uL (0.2-0.9) 02/16/22 20:30 Eos # (Auto) 0.1 10^3/uL (0.0-0.8) 02/16/22 20: Baso # (Auto) 0.0 10^3/uL (0.0-0.1) 02/16/22 20:30 Nucleated RBC % (auto) 0 % 02/16/22 20: Nucleated RBCs # 0.0 /100WBC 02/16/22 20:30 Sodium 137 mmol/L (136-145) 02/16/22 20:30 Potassium 4.5 mmol/L (3.5-5.1) 02/16/22 20:30 Chloride 97 mmol/L (98-107) L 02/16/22 20: Carbon Dioxide 26 mmol/L (22-29) 02/16/22 20:30 Anion Gap 18.5 (5-19) 02/16/22 20:30 BUN 16 mg/dL (6-20) 02/16/22 20: Creatinine 1.0 mg/dL (0.7-1.2) 02/16/22 20:30 GFR Calculation 76.7 mL/min (90-130) L 02/16/22 20: Glucose 156 mg/dL (65-115) H 02/16/22 20: Calculated Osmolality 288 mOsm/kg (285-295) 02/16/22 20: Calcium 9.9 mg/dL (8.5-10.5) 02/16/22 20: Magnesium 1.8 mg/dL (1.7-2.3) 02/16/22 20:30 Total Bilirubin 0.3 mg/dL (0.15-1.2) 02/16/22 20:30 AST 13 U/L (0-40) 02/16/22 20:30 ALT 12 U/L (0-41) 02/16/22 20:30 Alkaline Phosphatase 94 IU/L (40-130) 02/16/22 20:30 Troponin T Baseline 16 ng/L (0-15) H 02/16/22 20:30 Troponin T 120 Minute 14.67 ng/L (0-15) 02/16/22 23:05 Delta Troponin T -1.33 ABS# (0-10) L 02/16/22 23:05 NT-Pro-B Natriuret Pep 391 pg/mL (0-125) H 02/16/22 20:30 Total Protein 7.9 g/dL (6.6-8.7) 02/16/22 20:30 Albumin 4.5 g/dL (3.5-5.2) 02/16/22 20:30 Globulin 3.4 g/dL (1.3-4.6) 02/16/22 20:30 TSH 0.93 uIU/mL (0.27-4.20) 02/16/22 20:30 Discharge Plan Discharge Patient Disposition: Home Clinical Impression: Chest pain, Atrial fibrillation with RVR Condition: Stable Prescriptions: No Action aspirin [Adult Low Dose Aspirin] 81 mg tablet,delayed release (DR/EC) 81 mg PO DAILY 0RF Eliquis 5 mg tablet 5 mg PO BID 0RF ibuprofen 800 mg tablet 800 mg PO TID 0RF Hold Instructions: Resume on 09/09/20. metformin 1,000 mg tablet 1,000 mg PO DAILY 0RF nitroglycerin [Nitrostat] 0.4 mg tablet, sublingual 0.4 mg SUBLINGUAL Q5M PRN (Reason: chest pains) 0RF Rx Instructions: do not exceed 3 doses per episode diltiazem HCl 240 mg capsule,extended release 24hr 240 mg PO DAILY Qty: 90 1RF (DME) Bone Growth Stimulator E0748 See Rx Instructions .Route .MEDSUPPLY Qty: 1 0RF Rx Instructions: As directed metoprolol tartrate 25 mg tablet 25 mg PO DIRECTED Qty: 90 1RF Rx Instructions: Take 2 tabs (50mg) in AM 1 tab (25mg) in PM hydrocodone-acetaminophen 5-325 mg tablet 1 tab PO Q4H Qty: 40 0RF alprazolam [Xanax] 0.25 mg tablet 0.25 mg PO BID PRN (Reason: Anxiety) 0RF cyclobenzaprine 10 mg tablet 10 mg PO TID 0RF lovastatin 20 mg tablet 20 mg PO DAILY 0RF fentanyl 100 mcg/hr patch 72 hour 100 mcg transdermal DIRECTED 0RF Rx Instructions: Every 72HRS gabapentin 800 mg tablet 800 mg PO TID 0RF oxycodone 10 mg tablet 10 mg PO Q6H PRN (Reason: PAIN) 0RF Invokana 300 mg tablet 300 mg PO DAILY 0RF Linzess 145 mcg capsule 145 mcg PO DAILY PRN (Reason: Diarrhea) 0RF Discharge Orders: Discharge ED (Routine); Ordered 02/16/22 Ordered By: Clay Saldana Referrals: Rachael Law FNP [Primary Care Provider] - Discharge Diet: Usual diet Discharge Activity: Increase activity as tolerated Activity Restrictions/Additional Instructions: Thank you for visiting the emergency department. You were seen and evaluated for chest discomfort. The exact cause of your symptoms is unclear however most likely related to increased heart rate which improved with medications. Please follow-up with cardiology. Please continue your current medication regimen however please call cardiology in the morning to see if they want you to make adjustments. Please return to the emergency department for recurrent symptoms or anything else that you are concerned about a feel needs emergency department evaluation. Coding Level of Care Code ED Deputy General Counsel for Biju Fwsohan Exam Comprehensive
[2022-02-16 20:28] VITALS: BP 158/87; PULSE 107; RESP 19; TEMP 36.7; O2SAT 96
--- NOTE | 2022-02-16 20:32 | XRR_ITS ---
PROCEDURE INFORMATION: Exam: XR Chest Exam date and time: 02/16/2022 9:15 PM Age: 56 years old Clinical indication: Chest wall pain; Additional info: Chest pain TECHNIQUE: Imaging protocol: XR of the chest. Views: 1 view. COMPARISON: CR XR chest 1V portable [id number] 08/28/2021 10:32 PM FINDINGS: Lungs: Unremarkable. No consolidation. Pleural spaces: Unremarkable. No pleural effusion. No pneumothorax. Heart/Mediastinum: Unremarkable. No cardiomegaly. Bones/joints: Unremarkable. XR/XR chest 1V portable [id number] IMPRESSION: No acute findings.
--- NOTE | 2022-02-16 20:32 | ECG_ITS ---
[facility] Test Date: 2022-02-16 Pat Name: Mitesh Laboy Department: Room: Gender: Male Consultant Nurse: : 1965 Requested By: Clay Saldana Order Number: [id number] Jayjay MD: Joy Serrato M.D. Measurements Intervals [place] Rate: 127 P: [place]: QRS: 133 QRSD: 148 T: -30 QT: 340 QTc: 494 Interpretive Statements ATRIAL FIBRILLATION WITH RAPID VENTRICULAR RESPONSE RIGHT BUNDLE BRANCH BLOCK [120+ ms QRS DURATION, UPRIGHT V1, 40+ ms S IN I/aVL/V4/V5/V6] LEFT POSTERIOR FASCICULAR BLOCK [QRS AXIS > 109, INFERIOR Q] POSSIBLE ANTERIOR MYOCARDIAL INFARCTION , OF INDETERMINATE AGE [30 ms Q WAVE IN V3/V4, OR R < 0.2 mV IN V4]. MODERATE T-WAVE ABNORMALITY, CONSIDER INFERIOR ISCHEMIA [-0.1+ mV T-WAVE IN II/aVF] Compared to ECG 12/08/2021 13:39:07 Left posterior fascicular block now present Myocardial infarct finding now present T-wave abnormality now present Possible ischemia now present Right-axis deviation no longer present Electronically Signed On 02-17-2022 18:45:32 CDT by Joy Serrato M.D. [id number] f
[2022-02-16 20:43] LABS: Basophils % 0.2 %; Eosinophils # 0.1 10^3/uL (0.0-0.8); Eosinophils % 0.9 %; Hematocrit 47.7 % (42.0-52.0); Hemoglobin 14.5 g/dL (11.7-16.6); Lymphocytes # 2.8 10^3/uL (0.8-4.8); Lymphocytes % 34.9 %; Mean Corpuscular HGB Conc 30.4 g/dL (30.0-36.0); Mean Corpuscular Hemoglobin 27.2 pg (28.0-34.0); Mean Corpuscular Volume 89.3 fl (80-94); Mean Platelet Volume 10.2 fL (7.4-10.4); Monocytes # 0.7 10^3/uL (0.2-0.9); Monocytes % 8.8 %; Neutrophils # 4.47 10^3/uL (1.8-7.7); Nucleated Red Blood Cells % 0 %; Platelet Count 289 10^3/cmm (130-400); Red Blood Count 5.34 10^6/uL (4.1-5.3); Red Cell Distribution Width 13.4 % (12.1-15.1); White Blood Count 8.1 10^3/uL (4.0-10.0)
[2022-02-16 21:02] VITALS: BP 124/99; PULSE 118; RESP 18; O2SAT 97
[2022-02-16] MEDS: dilTIAZem 5 mg/mL SDV 5 mL 20 MG IVP (21:03)
[2022-02-16 21:12] LABS: Troponin(5th) Baseline 16 ng/L (0-15)
[2022-02-16 21:23] LABS: Alanine Aminotransferase 12 U/L (0-41); Albumin Level 4.5 g/dL (3.5-5.2); Alkaline Phosphatase 94 IU/L (40-130); Anion Gap 18.5 (5-19); Aspartate Amino Transferase 13 U/L (0-40); Blood Urea Nitrogen 16 mg/dL (6-20); Calcium 9.9 mg/dL (8.5-10.5); Carbon Dioxide 26 mmol/L (22-29); Chloride 97 mmol/L (98-107); Globulin 3.4 g/dL (1.3-4.6); Glomerular Filtration Rate 76.7 mL/min (90-130); Glucose 156 mg/dL (65-115); Magnesium 1.8 mg/dL (1.7-2.3); NT Pro B Type Natriuretic Pept 391 pg/mL (0-125); Osmolality Calculated 288 mOsm/kg (285-295); Potassium 4.5 mmol/L (3.5-5.1); Sodium 137 mmol/L (136-145); Thyroid Stimulating Hormone 0.93 uIU/mL (0.27-4.20); Total Bilirubin 0.3 mg/dL (0.15-1.2); Total Protein 7.9 g/dL (6.6-8.7)
[2022-02-16 21:39] VITALS: BP 128/81; PULSE 84; RESP 18; O2SAT 96
[2022-02-16] MEDS: ketorolac 30 mg/mL INJ 15 MG IVP (23:07)
[2022-02-16] MEDS: sodium chloride 0.9% 500 ML 999 ML IV (23:07)
[2022-02-16] MEDS: acetaminophen 500 mg Tablet 1000 MG PO (23:07)
[2022-02-16 23:28] LABS: Troponin 5 2HR 14.67 ng/L (0-15)
[2022-02-16 23:33] LABS: Troponin 5 2HR Delta -1.33 ABS# (0-10)
[2022-02-17] MEDS: metoprolol tartrate 25 mg Tablet 12.5 MG PO (00:19)
[2022-02-17 00:20] VITALS: BP 123/80; PULSE 75; RESP 18; O2SAT 97
[2022-02-17 01:07] VITALS: BP 110/61; PULSE 84; RESP 17; TEMP 37; O2SAT 96
== END 2022-02-17 01:09 | disposition home or self-care (01) ==
PROVIDERS: Emergency Provider Emergency Medicine; PCP Nurse Practitioner Family
DX: I48.20 Chronic atrial fibrillation, unspecified (principal); R07.9 Chest pain, unspecified; E11.9 Type 2 diabetes mellitus without complications; E83.42 Hypomagnesemia; Z79.82 Long term (current) use of aspirin; Z79.01 Long term (current) use of anticoagulants
CPT/HCPCS: 71045; 80053; 83735; 83880; 84443; 84484; 85025; 93005; 96374; 96375; 99285; J1885; J3490; J7040

== ENCOUNTER → 2022-03-03 14:10 | Outpatient (BNVA) | payer MEDICARE, SELFPAY | PROVIDERS: PCP Nurse Practitioner Family; Visit Provider Orthopaedic Surgery | DX: Z98.1 Arthrodesis status (principal); Z47.89 Encounter for other orthopedic aftercare | CPT/HCPCS: 72100; 99024 ==

== ENCOUNTER → 2022-03-04 11:01 | Outpatient (BNVA) | payer MEDICARE, SELFPAY | PROVIDERS: PCP Nurse Practitioner Family; Visit Provider Internal Medicine Cardiovascular Disease | DX: I48.11 Longstanding persistent atrial fibrillation (principal); I27.82 Chronic pulmonary embolism; E11.9 Type 2 diabetes mellitus without complications; Z98.1 Arthrodesis status; Z87.891 Personal history of nicotine dependence; Z79.84 Long term (current) use of oral hypoglycemic drugs | CPT/HCPCS: 99214 ==

== ENCOUNTER 2022-04-07 22:59 | Emergency (ER) | payer MEDICARE, SELFPAY ==
[2022-04-07 23:01] VITALS: BMI 38.9
[2022-04-07 23:05] VITALS: BP 110/85; PULSE 101; RESP 16; O2SAT 95
--- NOTE | 2022-04-07 23:05 | ECG_ITS ---
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 Measurements Intervals [place] Rate: 97 P: [place]: QRS: 121 QRSD: 157 T: -11 QT: 378 QTc: 482 Interpretive Statements ATRIAL FIBRILLATION INDETERMINATE AXIS RIGHT BUNDLE BRANCH BLOCK [120+ ms QRS DURATION, UPRIGHT V1, 40+ ms S IN I/aVL/V4/V5/V6] LEFT POSTERIOR FASCICULAR BLOCK [QRS AXIS > 109, INFERIOR Q] POSSIBLE ANTERIOR MYOCARDIAL INFARCTION , OF INDETERMINATE AGE [30 ms Q WAVE IN V3/V4, OR R < 0.2 mV IN V4] Compared to ECG 02/16/2022 20:31:14 Indeterminate axis now present T-wave abnormality no longer present Possible ischemia no longer present Myocardial infarct finding still present Electronically Signed On 04-08-2022 23:39:30 CDT by Joy Serrato M.D. [id number] medina
--- NOTE | 2022-04-07 23:05 | XRR_ITS ---
PROCEDURE INFORMATION: Exam: XR Chest Exam date and time: 04/07/2022 11:13 PM Age: 56 years old Clinical indication: Pain; Angina pectoris; Additional info: Cp TECHNIQUE: Imaging protocol: Radiologic exam of the chest. Views: 1 view. COMPARISON: 1. CR XR chest 1V portable [id number] 2022-02-16 21:15 2. CR XR chest 1V portable [id number] 2021-08-28 22:32 3. CR XR chest 1V portable [id number] 2020-12-27 02:[address] chest abd pel w con* 2020-11-14 15:53 FINDINGS: Lungs: Unremarkable. No consolidation. Pleural spaces: Unremarkable. No pleural effusion. No pneumothorax. Heart/Mediastinum: Unremarkable. No cardiomegaly. Bones/joints: Lumbar spinal fusion. XR/XR chest 1V portable [id number] IMPRESSION: No acute findings.
--- NOTE | 2022-04-07 23:11 | W.ED.ARRPALP ---
HPI - Arrhythmia/Palpitations General: Chief Complaint: Arrhythmia/Palpitations Stated Complaint: CP, AFIB W/ RVR Time Seen by Provider: 04/07/22 22:59 Source: patient Mode of arrival: ambulatory Limitations: no limitations History of Present Illness: 56-year-old male who has a history of atrial fibs states today has been having some palpitations with increased heart rate has been causing to have some chest pains. States his pains of been mild has been a tingling across his chest that he rates a 1-2 out of 10. Denies any fevers denies any cough denies any worsening improving factors. Denies any vomiting or diaphoresis. Associated symptoms: Deny nausea or vomiting Review of Systems Const: Denies: fever(s), chills, body aches or change in appetite Eyes: Denies: blurry vision or eye discomfort ENMT: Denies: throat pain or dental pain Card: Reports: chest pain and palpitations Resp: Denies: dyspnea GI: Denies: abdominal pain, nausea, vomiting or diarrhea : Denies: dysuria Musc: Denies: neck pain or back pain Skin/Breast: Denies: rash Neuro: Denies: headache(s) Psych: Denies: depression Kishan/Lymph: Denies: easy bruising All/Imm: Denies: urticaria PFSH ED PFSH: Medical History Acute encephalopathy Atrial fibrillation Chronic anticoagulation Chronic low back pain DM type 2 (diabetes mellitus, type 2) Hypomagnesemia MRSA (methicillin resistant Staphylococcus aureus) infection Pulmonary embolism Wound infection Surgical History History of orthopedic surgery Bilateral lower extremity fractures 2004, hardware of right lower extremity and removal in 2016 Family History Father Leukemia Social History Smoking and tobacco status: former smoker Alcohol intake: never Lives independently: Yes Household members: other Details: mother Physical Exam Const: COMMON NORMALS: no acute distress, patient oriented x3 and healthy appearing HENMT: COMMON NORMALS: normocephalic and atraumatic HEAD & SCALP: normocephalic and atraumatic Eye: COMMON NORMALS: Equal, round and reactive pupils present and EOMs intact bilaterally PUPIL: Yes Equal, round and reactive pupils present Neck/C-Spine: COMMON NORMALS: full ROM and supple Chest: COMMONS NORMALS: normal inspection of the chest and normal palpation of entire chest wall Resp: COMMON NORMALS: normal respiratory effort, No retractions, No use of accessory muscles and clear to auscultation bilaterally AUSCULTATION: clear to auscultation bilaterally Cardio: COMMON NORMALS: regular rate and No murmurs present (Cardio) RATE: regular rate RHYTHM: abnormal rhythm irregularly irregular GI: COMMON NORMALS: Normal to inspection, nondistended, normoactive bowel sounds present, Soft to palpation, non-tender and no masses PALPATION: Yes Soft to palpation Extremity: COMMON NORMALS: normal to inspection and full ROM Neuro: COMMON NORMALS: patient oriented x3, moves all extremities and no focal motor deficits Psych: COMMON NORMALS: mental status grossly normal, Normal thought process present and cooperative THOUGHT PROCESS: Normal thought process present Skin: COMMON NORMALS: no rashes or lesions noted and no wounds GENERAL SKIN EXAM: no rashes or lesions noted Course Vital Signs: Vital signs: Vital Signs Pulse Rate 97 04/08/22 00:29 Respiratory Rate 22 H 04/08/22 00:29 Blood Pressure 104/66 04/08/22 00:29 Pulse Oximetry 96 04/08/22 00:29 MDM - Arrhythmia/Palpitations Medical Decision Making Patient presents here with atrial fibs with palpitations and some vague chest pain his troponins here are normal he feels improved after Cardizem and his heart rate improved as well. He has no signs of acute coronary syndrome no signs of pulm embolism he is stable for discharge he is to follow-up with PCP and return if worsening. Lab Data : 04/07/22 23:20 04/07/22 23:20 Radiology Impressions Chest X-Ray 04/07/22 23:05 IMPRESSION: No acute findings. Laboratory Results WBC 6.2 10^3/uL (4.0-10.0) 04/07/22 23:20 RBC 5.71 10^6/uL (4.1-5.3) H 04/07/22 23:20 Hgb 15.0 g/dL (11.7-16.6) 04/07/22 23:20 Hct 47.1 % (42.0-52.0) 04/07/22 23:20 MCV 82.5 fl (80-94) 04/07/22 23:20 MCH 26.3 pg (28.0-34.0) L 04/07/22 23:20 MCHC 31.8 g/dL (30.0-36.0) 04/07/22 23:20 RDW 14.5 % (12.1-15.1) 04/07/22 23:20 Plt Count 253 10^3/cmm (130-400) 04/07/22 23:20 MPV 10.4 fL (7.4-10.4) 04/07/22 23:20 Neut % (Auto) 48.4 % 04/07/22 23:20 Lymph % (Auto) 39.7 % 04/07/22 23:20 [place] % (Auto) 9.2 % 04/07/22 23:20 Eos % (Auto) 1.6 % 04/07/22 23:20 Baso % (Auto) 0.8 % 04/07/22 23:20 Neut # (Auto) 2.99 10^3/uL (1.8-7.7) 04/07/22 23:20 Lymph # (Auto) 2.5 10^3/uL (0.8-4.8) 04/07/22 23:20 [place] # (Auto) 0.6 10^3/uL (0.2-0.9) 04/07/22 23:20 Eos # (Auto) 0.1 10^3/uL (0.0-0.8) 04/07/22 23:20 Baso # (Auto) 0.1 10^3/uL (0.0-0.1) 04/07/22 23:20 Nucleated RBC % (auto) 0 % 04/07/22 23: Nucleated RBCs # 0.0 /100WBC 04/07/22 23:20 PT 15.20 SECONDS (12.1-14.9) H 04/07/22 23:20 INR 1.17 (0.8-1.2) 04/07/22 23:20 Sodium 140 mmol/L (136-145) 04/07/22 23:20 Potassium 4.7 mmol/L (3.5-5.1) 04/07/22 23:20 Chloride 101 mmol/L (98-107) 04/07/22 23:20 Carbon Dioxide 26 mmol/L (22-29) 04/07/22 23:20 Anion Gap 17.7 (5-19) 04/07/22 23:20 BUN 16 mg/dL (6-20) 04/07/22 23:20 Creatinine 0.9 mg/dL (0.7-1.2) 04/07/22 23:20 GFR Calculation 86.7 mL/min (90-130) L 04/07/22 23:20 Glucose 128 mg/dL (65-115) H 04/07/22 23:20 Calculated Osmolality 293 mOsm/kg (285-295) 04/07/22 23:20 Calcium 9.3 mg/dL (8.5-10.5) 04/07/22 23:20 Total Bilirubin 0.2 mg/dL (0.15-1.2) 04/07/22 23:20 AST 17 U/L (0-40) 04/07/22 23:20 ALT 17 U/L (0-41) 04/07/22 23:20 Alkaline Phosphatase 110 IU/L (40-130) 04/07/22 23:20 Troponin T Baseline 12 ng/L (0-15) 04/07/22 23:20 Troponin T 120 Minute 13.01 ng/L (0-15) 04/08/22 00:57 NT-Pro-B Natriuret Pep 374 pg/mL (0-125) H 04/07/22 23:20 Total Protein 7.2 g/dL (6.6-8.7) 04/07/22 23:20 Albumin 4.4 g/dL (3.5-5.2) 04/07/22 23:20 Globulin 2.8 g/dL (1.3-4.6) 04/07/22 23:20 EKG Data EKG 1: I personally reviewed and interpreted this EKG as follows: EKG interpretation date: 04/07/22 EKG interpretation time: 23:09 Interpretation: afib hr [address] ort wave abnormalities rbb qrs 157 qtc 433 Other EKG comments: Chest X-Ray 04/07/22 23:05 IMPRESSION: No acute findings. Discharge Plan Discharge Patient Disposition: Home Clinical Impression: Atrial fibrillation, Chest pain Condition: Stable Prescriptions: No Action aspirin [Adult Low Dose Aspirin] 81 mg tablet,delayed release (DR/EC) 81 mg PO DAILY 0RF Eliquis 5 mg tablet 5 mg PO BID 0RF metformin 1,000 mg tablet 1,000 mg PO DAILY 0RF nitroglycerin [Nitrostat] 0.4 mg tablet, sublingual 0.4 mg SUBLINGUAL Q5M PRN (Reason: chest pains) 0RF Rx Instructions: do not exceed 3 doses per episode ibuprofen 800 mg tablet 800 mg PO TID PRN0RF Hold Instructions: Resume on 09/09/20. hydrocodone-acetaminophen 5-325 mg tablet 1 tab PO Q4H PRN (Reason: pain) 0RF diltiazem HCl 240 mg capsule,extended release 24hr 240 mg PO DAILY Qty: 90 1RF (DME) Bone Growth Stimulator E0748 See Rx Instructions .Route .MEDSUPPLY Qty: 1 0RF Rx Instructions: As directed metoprolol tartrate 25 mg tablet 25 mg PO DIRECTED Qty: 90 1RF Rx Instructions: Take 2 tabs (50mg) in AM 1 tab (25mg) in PM alprazolam [Xanax] 0.25 mg tablet 0.25 mg PO BID PRN (Reason: Anxiety) 0RF lovastatin 20 mg tablet 20 mg PO DAILY 0RF fentanyl 100 mcg/hr patch 72 hour 100 mcg transdermal DIRECTED 0RF Rx Instructions: Every 72HRS oxycodone 10 mg tablet 10 mg PO Q6H PRN (Reason: PAIN) 0RF cyclobenzaprine 10 mg tablet 10 mg PO TID PRN0RF gabapentin 800 mg tablet 800 mg PO TID PRN0RF Invokana 300 mg tablet 300 mg PO DAILY 0RF Linzess 145 mcg capsule 145 mcg PO DAILY PRN (Reason: Diarrhea) 0RF Discharge Orders: Discharge ED (Routine); Ordered 04/08/22 Ordered By: Chetan Diaz Referrals: Rachael Law FNP [Primary Care Provider] - Discharge Diet: Advance as tolerated Discharge Activity: Resume usual activity Patient Instructions: Chest Pain (ED) Coding Level of Care Code ED Head Men'S Golf Coach for Chg Fwd Exam Comprehensive
[2022-04-07] MEDS: dilTIAZem 5 mg/mL SDV 5 mL IVP (23:27)
[2022-04-07 23:29] LABS: Basophils # 0.1 10^3/uL (0.0-0.1); Basophils % 0.8 %; Eosinophils # 0.1 10^3/uL (0.0-0.8); Eosinophils % 1.6 %; Hematocrit 47.1 % (42.0-52.0); Lymphocytes # 2.5 10^3/uL (0.8-4.8); Lymphocytes % 39.7 %; Mean Corpuscular HGB Conc 31.8 g/dL (30.0-36.0); Mean Corpuscular Hemoglobin 26.3 pg (28.0-34.0); Mean Corpuscular Volume 82.5 fl (80-94); Mean Platelet Volume 10.4 fL (7.4-10.4); Monocytes # 0.6 10^3/uL (0.2-0.9); Monocytes % 9.2 %; Neutrophils # 2.99 10^3/uL (1.8-7.7); Neutrophils % 48.4 %; Nucleated Red Blood Cells % 0 %; Platelet Count 253 10^3/cmm (130-400); Red Blood Count 5.71 10^6/uL (4.1-5.3); Red Cell Distribution Width 14.5 % (12.1-15.1); White Blood Count 6.2 10^3/uL (4.0-10.0)
[2022-04-07 23:40] VITALS: BP 110/85; PULSE 90; RESP 16; O2SAT 96
[2022-04-07 23:43] LABS: INR 1.17 (0.8-1.2)
[2022-04-07 23:49] LABS: Troponin(5th) Baseline 12 ng/L (0-15)
[2022-04-07 23:56] LABS: Alanine Aminotransferase 17 U/L (0-41); Albumin Level 4.4 g/dL (3.5-5.2); Alkaline Phosphatase 110 IU/L (40-130); Blood Urea Nitrogen 16 mg/dL (6-20); Calcium 9.3 mg/dL (8.5-10.5); Carbon Dioxide 26 mmol/L (22-29); Chloride 101 mmol/L (98-107); Globulin 2.8 g/dL (1.3-4.6); Glomerular Filtration Rate 86.7 mL/min (90-130); Glucose 128 mg/dL (65-115); NT Pro B Type Natriuretic Pept 374 pg/mL (0-125); Osmolality Calculated 293 mOsm/kg (285-295); Sodium 140 mmol/L (136-145); Total Bilirubin 0.2 mg/dL (0.15-1.2); Total Protein 7.2 g/dL (6.6-8.7)
[2022-04-08 00:06] LABS: Anion Gap 17.7 (5-19); Aspartate Amino Transferase 17 U/L (0-40); Potassium 4.7 mmol/L (3.5-5.1)
[2022-04-08 00:20] VITALS: BP 104/66; PULSE 80; RESP 20; O2SAT 95
[2022-04-08 00:29] VITALS: BP 104/66; PULSE 97; RESP 22; O2SAT 96
--- NOTE | 2022-04-08 01:05 | ECG_ITS ---
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 Measurements Intervals [place] Rate: 78 P: [place]: QRS: 63 QRSD: 161 T: 40 QT: 417 QTc: 477 Interpretive Statements ATRIAL FIBRILLATION RIGHT BUNDLE BRANCH BLOCK [120+ ms QRS DURATION, UPRIGHT V1, 40+ ms S IN I/aVL/V4/V5/V6] Compared to ECG 04/07/2022 23:09:01 Indeterminate axis no longer present Left posterior fascicular block no longer present Myocardial infarct finding no longer present Electronically Signed On 04-08-2022 23:45:49 CDT by Joy Serrato M.D. [id number]
[2022-04-08 01:20] LABS: Troponin 5 2HR 13.01 ng/L (0-15)
--- NOTE | 2022-04-08 01:31 | PC.NURSE ---
EKG done at 0130 and shown to ER doctor
[2022-04-08 01:51] VITALS: BP 106/64; PULSE 90; RESP 20; O2SAT 95
[2022-04-08 02:34] LABS: Troponin 5 2HR Delta 1.01 ABS# (0-10)
== END 2022-04-08 01:51 | disposition home or self-care (01) ==
PROVIDERS: Emergency Provider Emergency Medicine; PCP Nurse Practitioner Family
DX: I48.91 Unspecified atrial fibrillation (principal); R07.9 Chest pain, unspecified; Z79.82 Long term (current) use of aspirin; Z79.01 Long term (current) use of anticoagulants; Z79.84 Long term (current) use of oral hypoglycemic drugs; E11.9 Type 2 diabetes mellitus without complications; Z87.891 Personal history of nicotine dependence
CPT/HCPCS: 71045; 80053; 83880; 84484; 85025; 85610; 93005; 96374; 99285; J3490

== ENCOUNTER → 2022-04-14 10:01 | Outpatient (BNVA) | payer MEDICARE, SELFPAY | PROVIDERS: PCP Nurse Practitioner Family; Visit Provider Nurse Practitioner Family | DX: I48.91 Unspecified atrial fibrillation (principal) | CPT/HCPCS: 99213 ==

== ENCOUNTER 2022-04-22 14:13 | Emergency (ER) | payer MEDICARE, SELFPAY ==
--- NOTE | 2022-04-22 14:20 | W.ED.CHESTPA ---
HPI - Chest Pain General: Chief Complaint: Chest Pain Stated Complaint: CHEST PAIN Time Seen by Provider: 04/22/22 14:19 Source: patient Mode of arrival: EMS History of Present Illness: 57-year-old male presents emergency room complaining of chest discomfort and elevated blood pressure. Patient states his normal blood pressures around 100 systolic he feels markedly elevated at 140/100 earlier today. He also had some episodes of bradycardia with his heart rate he reports going down into the 30s and 40s at times. He has a known history of atrial fibrillation and is on metoprolol and diltiazem. They did recently increase his metoprolol from 25-50 twice daily. He is on 240 of diltiazem he is also on apixaban 5 mg twice daily he is not currently having any chest pain or palpitations at this time. On arrival here his heart rate is 87-88 and his blood pressure 141/64 sats 97%. He was concerned about the change in conditions that he had monitored and called ambulance. MD complaint: chest pain Onset (ago): hour(s) Timing of current episode: episodic Prior episodes: Yes Onset: during rest Pain location: left chest Pain radiation: none Severity: mild Quality: tightness, aching and heaviness Relieving factors: nothing Exacerbating factors: nothing Associated symptoms: Deny abdominal pain, diaphoresis, dyspnea, fever(s), leg edema, nausea, palpitations, sense of impending doom or vomiting Treatment prior to arrival: none Review of Systems Const: Denies: fever(s), chills, fatigue, malaise or diaphoresis ENMT: Denies: throat pain, ear or mastoid pain, nasal discharge or nasal congestion Card: Reports: chest pain (Resolved by the time patient arrived here); Denies: palpitations Resp: Denies: dyspnea, productive cough or non-productive cough GI: Denies: abdominal pain, nausea or vomiting : Denies: flank pain, difficulty urinating, dysuria, urinary frequency or urinary urgency Skin/Breast: Denies: rash or pruritus PFSH ED PFSH: Medical History Acute encephalopathy Atrial fibrillation Chronic anticoagulation Chronic low back pain DM type 2 (diabetes mellitus, type 2) Hypomagnesemia MRSA (methicillin resistant Staphylococcus aureus) infection Pulmonary embolism Wound infection Surgical History History of orthopedic surgery Bilateral lower extremity fractures 2005, hardware of right lower extremity and removal in 2016 Family History Father Leukemia Social History Smoking and tobacco status: former smoker Alcohol intake: never Lives independently: Yes Household members: other Details: mother Physical Exam Const: COMMON NORMALS: no acute distress GENERAL APPEARANCE: cooperative and comfortable ORIENTATION/CONSCIOUSNESS: Yes awake, Yes oriented to person, Yes oriented to place and Yes oriented to time HENMT: COMMON NORMALS: normocephalic, atraumatic and hearing grossly normal bilaterally HEAD & SCALP: normocephalic and atraumatic Lymph: LYMPHATIC: no lymphadenopathy noted and no lymphedema noted Resp: COMMON NORMALS: normal respiratory effort, No retractions, No use of accessory muscles and clear to auscultation bilaterally AUSCULTATION: clear to auscultation bilaterally Cardio: COMMON NORMALS: regular rate, regular rhythm and No murmurs present (Cardio) RATE: regular rate RHYTHM: regular rhythm GI: COMMON NORMALS: Soft to palpation and No hepatosplenomegaly present AUSCULTATION: Yes normoactive bowel sounds PALPATION: Yes Soft to palpation, No Tenderness to palpation present (GI), No Guarding due to palpation present (GI) and Yes No hepatosplenomegaly present Extremity: COMMON NORMALS: normal to inspection, capillary refill normal, no clubbing, cyanosis or edema, no calf tenderness and no pedal edema Neuro: SENSORIUM/ORIENTATION: Yes oriented to person, Yes oriented to place and Yes oriented to time Skin: COMMON NORMALS: no rashes or lesions noted GENERAL SKIN EXAM: no rashes or lesions noted Course Vital Signs: Vital signs: Vital Signs Pulse Rate 88 04/22/22 18:36 Blood Pressure 131/84 04/22/22 18:36 Pulse Oximetry 95 04/22/22 18:36 Oxygen Delivery Me thod 04/22/22 18:00 MDM - Chest Pain Medical Decision Making Labs EKG reviewed along with imaging. Patient has had no further symptoms. EKG did not show any acute changes. Patient is feeling well and like to go home. He is already on anticoagulation and rate control and bump his rate control up a little to 37-1/2 twice a day of metoprolol his blood pressure does appear to have room for this. Additionally I will ask him to follow-up with cardiology early next week return to the emergency room if he has further episodes of discomfort. Medical Records I reviewed the patient's medical records. Lab Data I reviewed the patient's lab results. : 04/22/22 14:35 04/22/22 14:35 Radiology Impressions Chest X-Ray 04/22/22 14:21 IMPRESSION: Unremarkable chest radiograph. Laboratory Results WBC 5.0 10^3/uL (4.0-10.0) 04/22/22 14:35 RBC 5.76 10^6/uL (4.1-5.3) H 04/22/22 14:35 Hgb 15.1 g/dL (11.7-16.6) 04/22/22 14:35 Hct 49.8 % (42.0-52.0) 04/22/22 14:35 MCV 86.5 fl (80-94) 04/22/22 14:35 MCH 26.2 pg (28.0-34.0) L 04/22/22 14:35 MCHC 30.3 g/dL (30.0-36.0) 04/22/22 14:35 RDW 15.3 % (12.1-15.1) H 04/22/22 14:35 Plt Count 231 10^3/cmm (130-400) 04/22/22 14:35 MPV 10.3 fL (7.4-10.4) 04/22/22 14:35 Neut % (Auto) 50.1 % 04/22/22 14:35 Lymph % (Auto) 38.3 % 04/22/22 14:35 Crenshaw % (Auto) 9.0 % 04/22/22 14:35 Eos % (Auto) 1.8 % 04/22/22 14:35 Baso % (Auto) 0.4 % 04/22/22 14:35 Neut # (Auto) 2.50 10^3/uL (1.8-7.7) 04/22/22 14:35 Lymph # (Auto) 1.9 10^3/uL (0.8-4.8) 04/22/22 14:35 Crenshaw # (Auto) 0.5 10^3/uL (0.2-0.9) 04/22/22 14:35 Eos # (Auto) 0.1 10^3/uL (0.0-0.8) 04/22/22 14:35 Baso # (Auto) 0.0 10^3/uL (0.0-0.1) 04/22/22 14:35 Nucleated RBC % (auto) 0 % 04/22/22 14:35 Nucleated RBCs # 0.0 /100WBC 04/22/22 14:35 Sodium 137 mmol/L (136-145) 04/22/22 14:35 Potassium 5.3 mmol/L (3.5-5.1) H 04/22/22 14:35 Chloride 103 mmol/L (98-107) 04/22/22 14:35 Carbon Dioxide 24 mmol/L (22-29) 04/22/22 14:35 Anion Gap 15.3 (5-19) 04/22/22 14:35 BUN 14 mg/dL (6-20) 04/22/22 14:35 Creatinine 0.8 mg/dL (0.7-1.2) 04/22/22 14:35 GFR Calculation 98.9 mL/min (90-130) 04/22/22 14:35 Glucose 103 mg/dL (65-115) 04/22/22 14:35 Calculated Osmolality 285 mOsm/kg (285-295) 04/22/22 14:35 Calcium 9.1 mg/dL (8.5-10.5) 04/22/22 14:35 Total Bilirubin 0.2 mg/dL (0.15-1.2) 04/22/22 14:35 AST 15 U/L (0-40) 04/22/22 14:35 ALT 16 U/L (0-41) 04/22/22 14:35 Alkaline Phosphatase 84 IU/L (40-130) 04/22/22 14:35 Troponin T Baseline 12 ng/L (0-15) 04/22/22 14:35 Troponin T 120 Minute 12.72 ng/L (0-15) 04/22/22 16:26 Delta Troponin T 0.72 ABS# (0-10) 04/22/22 16:26 Total Protein 6.8 g/dL (6.6-8.7) 04/22/22 14:35 Albumin 3.9 g/dL (3.5-5.2) 04/22/22 14:35 Globulin 2.9 g/dL (1.3-4.6) 04/22/22 14:35 Discharge Plan Discharge Patient Disposition: Home Clinical Impression: Atrial fibrillation, Transient hypertension, Atypical chest pain Condition: Stable Prescriptions: Changed metoprolol tartrate 25 mg tablet 37.5 mg PO BID PRN (Reason: rapid heart rate) Qty: 180 3RF No Action aspirin [Adult Low Dose Aspirin] 81 mg tablet,delayed release (DR/EC) 81 mg PO DAILY Eliquis 5 mg tablet 5 mg PO BID nitroglycerin [Nitrostat] 0.4 mg tablet, sublingual 0.4 mg SUBLINGUAL Q5M PRN (Reason: chest pains) Rx Instructions: do not exceed 3 doses per episode ibuprofen 800 mg tablet 800 mg PO TID PRN (Reason: Pain) Hold Instructions: Resume on 09/09/20. diltiazem HCl 240 mg capsule,extended release 24hr 240 mg PO DAILY Qty: 90 1RF (DME) Bone Growth Stimulator E0748 See Rx Instructions .Route .MEDSUPPLY Qty: 1 0RF Rx Instructions: As directed alprazolam [Xanax] 0.25 mg tablet 0.25 mg PO BID PRN (Reason: Anxiety) lovastatin 20 mg tablet 20 mg PO DAILY oxycodone 10 mg tablet 10 mg PO Q6H PRN (Reason: PAIN) cyclobenzaprine 10 mg tablet 10 mg PO TID PRN (Reason: Muscle Pain) gabapentin 800 mg tablet 800 mg PO TID PRN (Reason: Pain) Invokana 300 mg tablet 300 mg PO DAILY cephalexin 500 mg Capsule 500 mg PO TID fentanyl 75 mcg/hr patch 72 hour 1 patch transdermal Q72H Linzess 145 mcg capsule 145 mcg PO DAILY PRN (Reason: Diarrhea) Discharge Orders: Discharge ED (Routine); Ordered 04/22/22 Ordered By: Alan Castillo Referrals: Law,JUAN ALBERTO CanoP [Primary Care Provider] - Patient Instructions: Opioid Safety Coding Level of Care Code ED 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
--- NOTE | 2022-04-22 14:21 | XR_ITS ---
WS: [id number] Exam: XR chest 1V portable [id number] Date/Time of Exam: 04/22/2022 2:23 PM Reason For Exam: chest pain Comparison 04/07/2022. Findings: The lungs are clear and fully expanded. Costophrenic angles are sharp. No infiltrates. Bronchovascula r relief appears normal. Cardiac silhouette is unremarkable. Bony elements are intact. XR/XR chest 1V portable [id number] IMPRESSION: Unremarkable chest radiograph.
--- NOTE | 2022-04-22 14:43 | ECG_ITS ---
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 Measurements Intervals [place] Rate: 51 P: IN: QRS: 117 QRSD: 155 T: 15 QT: 437 QTc: 404 Interpretive Statements ATRIAL FIBRILLATION WITH SLOW VENTRICULAR RESPONSE RIGHT AXIS DEVIATION [QRS AXIS > 100] RIGHT BUNDLE BRANCH BLOCK [120+ ms QRS DURATION, UPRIGHT V1, 40+ ms S IN I/aVL/V4/V5/V6] Compared to ECG 04/08/2022 01:28:16 Right-axis deviation now present Electronically Signed On 04-22-2022 16:30:48 CDT by Nic Pickard M.D. [id number]
--- NOTE | 2022-04-22 14:45 | PC.NURSE ---
PT PLACED ON CONTINUOUS NIBP, SPO2, AND CM
[2022-04-22 14:49] LABS: Basophils % 0.4 %; Eosinophils # 0.1 10^3/uL (0.0-0.8); Eosinophils % 1.8 %; Hematocrit 49.8 % (42.0-52.0); Hemoglobin 15.1 g/dL (11.7-16.6); Lymphocytes # 1.9 10^3/uL (0.8-4.8); Lymphocytes % 38.3 %; Mean Corpuscular HGB Conc 30.3 g/dL (30.0-36.0); Mean Corpuscular Hemoglobin 26.2 pg (28.0-34.0); Mean Corpuscular Volume 86.5 fl (80-94); Mean Platelet Volume 10.3 fL (7.4-10.4); Monocytes # 0.5 10^3/uL (0.2-0.9); Neutrophils % 50.1 %; Nucleated Red Blood Cells % 0 %; Platelet Count 231 10^3/cmm (130-400); Red Blood Count 5.76 10^6/uL (4.1-5.3); Red Cell Distribution Width 15.3 % (12.1-15.1)
[2022-04-22 15:16] LABS: Troponin(5th) Baseline 12 ng/L (0-15)
[2022-04-22 15:17] LABS: Alanine Aminotransferase 16 U/L (0-41); Albumin Level 3.9 g/dL (3.5-5.2); Alkaline Phosphatase 84 IU/L (40-130); Anion Gap 15.3 (5-19); Aspartate Amino Transferase 15 U/L (0-40); Blood Urea Nitrogen 14 mg/dL (6-20); Calcium 9.1 mg/dL (8.5-10.5); Carbon Dioxide 24 mmol/L (22-29); Chloride 103 mmol/L (98-107); Globulin 2.9 g/dL (1.3-4.6); Glomerular Filtration Rate 98.9 mL/min (90-130); Glucose 103 mg/dL (65-115); Osmolality Calculated 285 mOsm/kg (285-295); Potassium 5.3 mmol/L (3.5-5.1); Sodium 137 mmol/L (136-145); Total Bilirubin 0.2 mg/dL (0.15-1.2); Total Protein 6.8 g/dL (6.6-8.7)
[2022-04-22 16:20] VITALS: BP 115/82; O2SAT 98
[2022-04-22] MEDS: sodium polystyrene sulfonate 15 gm/60 mL Btl 30 GM PO (16:23)
--- NOTE | 2022-04-22 17:01 | ECG_ITS ---
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 Measurements Intervals [place] Rate: 66 P: NM: QRS: 114 QRSD: 153 T: -4 QT: 430 QTc: 454 Interpretive Statements ATRIAL FIBRILLATION RIGHT AXIS DEVIATION [QRS AXIS > 100] RIGHT BUNDLE BRANCH BLOCK [120+ ms QRS DURATION, UPRIGHT V1, 40+ ms S IN I/aVL/V4/V5/V6] ANTEROSEPTAL MYOCARDIAL INFARCTION , OF INDETERMINATE AGE [40+ ms Q WAVE IN V1-V4] Compared to ECG 04/22/2022 14:43:54 Myocardial infarct finding now present Electronically Signed On 04-23-2022 21:32:37 CDT by Joy Serrato M.D. [id number]
[2022-04-22 17:14] LABS: Troponin 5 2HR 12.72 ng/L (0-15)
[2022-04-22 17:38] LABS: Troponin 5 2HR Delta 0.72 ABS# (0-10)
[2022-04-22 18:00] VITALS: BP 135/92; O2SAT 96
[2022-04-22 18:36] VITALS: BP 131/84; PULSE 88; O2SAT 95
== END 2022-04-22 18:38 | disposition home or self-care (01) ==
PROVIDERS: Emergency Provider Family Medicine; PCP Nurse Practitioner Family
DX: R07.89 Other chest pain (principal); I48.91 Unspecified atrial fibrillation; R03.0 Elevated blood-pressure reading, without diagnosis of hypertension; Z79.01 Long term (current) use of anticoagulants; Z79.82 Long term (current) use of aspirin; E11.9 Type 2 diabetes mellitus without complications; Z87.891 Personal history of nicotine dependence
CPT/HCPCS: 36415; 71045; 80053; 84484; 85025; 93005; 99285

== ENCOUNTER → 2022-05-14 10:34 | Outpatient (BNVA) | payer MEDICARE, SELFPAY | PROVIDERS: PCP Nurse Practitioner Family; Visit Provider Internal Medicine Cardiovascular Disease | DX: I48.91 Unspecified atrial fibrillation (principal) | CPT/HCPCS: 99214 ==

== ENCOUNTER → 2022-05-26 10:46 | Outpatient (BNVA) | payer MEDICARE, SELFPAY | PROVIDERS: PCP Nurse Practitioner Family; Referring Provider Dermatology; Visit Provider Podiatrist Foot & Ankle Surgery | DX: E11.8 Type 2 diabetes mellitus with unspecified complications (principal); E11.42 Type 2 diabetes mellitus with diabetic polyneuropathy; M21.371 Foot drop, right foot; L60.3 Nail dystrophy; M20.41 Other hammer toe(s) (acquired), right foot; M20.42 Other hammer toe(s) (acquired), left foot | CPT/HCPCS: 11721; 99204 ==

== ENCOUNTER 2022-06-25 07:43 | Outpatient (CLI) | payer MEDICARE, SELFPAY ==
--- NOTE | 2022-06-25 08:00 | USCV_ITS ---
Mitesh Laboy Age: 57 Gender: M : 1965 Exam Date: 06/25/2022 08:09 Ordering Phys: Jana Cooper MD ([email or web address]) Technologist: Maria Luisa Kebede Exam Location: [facility] [place] Indication: Atrial fibrillation BP: 110 / 70 HR: 63 Rhythm: Atrial fibrillation Technical Quality: Fair MEASUREMENTS (Male / Female) Normal Values 2D ECHO LV Diastolic Diameter PLAX 4.6 cm 4.2 - 5.9 / 3.9 - 5.3 cm IVS Diastolic Thickness 1.1 cm 0.6 - 1.0 / 0.6 - 0.9 cm LVPW Diastolic Thickness 1.2 cm 0.6 - 1.0 / 0.6 - 0.9 cm LVOT Diameter 2.1 cm LV Ejection Fraction MOD 2C 78.2 % LV Ejection Fraction 2C AL 79.7 % LA Diameter 4.0 cm LA Width 3.0 cm LA Height 5.9 cm RA Width 4.1 cm RA Height 5.4 cm Aorta at Sinotubular Diameter 3.3 cm IVC Diameter 2.1 cm M-MODE MV E Point Septal Separation 1.5 cm DOPPLER AV Peak Velocity 125.0 cm/s LVOT Peak Velocity 92.0 cm/s AV Area Cont Eq vti 2.7 cm squared AV Area Cont Eq pk 2.7 cm squared MV Peak Velocity 137.0 cm/s MV Area PHT 3.2 cm squared Mitral E to A Ratio 6.7 MV E' Velocity 64.5 cm/s Mitral E to MV E' Ratio 12.2 Mitral E to LV E' Lateral Ratio 13.0 Mitral E to LV E' Septal Ratio 11.6 RV Acceleration Time 0.1 s RV Ejection Time 0.3 s RV AcT/ET 0.4 FINDINGS Left Ventricle Normal left ventricular cavity size and systolic function. Left ventricular ejection fraction is estimated at 60 %. No diagnostic regional wall motion abnormalities. Right Ventricle Normal right ventricular size and systolic function. Right Atrium Normal right atrial size. Left Atrium Normal left atrial size. Mitral Valve Structurally normal mitral valve. No mitral valve stenosis. No mitral valve regurgitation. Aortic Valve Aortic valve not well visualized. No aortic valve stenosis. No aortic valve regurgitation. Tricuspid Valve Tricuspid valve not well visualized. Pulmonic Valve Pulmonic valve not well visualized. Pericardium No pericardial effusion. Aorta Normal size aortic root and proximal ascending aorta. IVC Normal-sized inferior vena cava. CONCLUSIONS 1. This is a technically difficult study in spite of using Optison. 2. Normal left ventricular cavity size and systolic function. Left ventricular ejection fraction is estimated at 60 %. No diagnostic regional wall motion abnormalities. 3. When compared to study dated 05/16/2019, there may not have been any significant change. Jana Cooper MD (Electronically Signed) Final Date: 02 July 2022 13:15 S
[2022-06-25] MEDS: perflutren protein-a microsphr 0.22 mg/mL SDV 3 mL IV (10:12)
== END 2022-06-25 07:44 ==
LOC: RAD 07:43
PROVIDERS: PCP Nurse Practitioner Family; Visit Provider Internal Medicine Cardiovascular Disease
DX: M48.062 Spinal stenosis, lumbar region with neurogenic claudication (principal)
CPT/HCPCS: 72050; 72100; 99214; C8929

== ENCOUNTER → 2022-07-15 07:49 | Outpatient (BNVA) | payer MEDICARE, SELFPAY | PROVIDERS: PCP Nurse Practitioner Family; Referring Provider Orthopaedic Surgery; Visit Provider Specialist | DX: G62.89 Other specified polyneuropathies (principal); G89.29 Other chronic pain; Z98.1 Arthrodesis status; Z86.39 Personal history of other endocrine, nutritional and metabolic disease | CPT/HCPCS: 95909; 95911 ==

== ENCOUNTER → 2022-08-04 08:30 | Outpatient (BNVA) | payer MEDICARE, SELFPAY | PROVIDERS: PCP Nurse Practitioner Family; Visit Provider Orthopaedic Surgery | DX: M25.551 Pain in right hip (principal) | CPT/HCPCS: 99213 ==

== ENCOUNTER → 2022-08-10 08:27 | Outpatient (BNVA) | payer MEDICARE, SELFPAY | PROVIDERS: PCP Nurse Practitioner Family; Visit Provider Student in an Organized Health Care Education/Training Program | DX: M16.11 Unilateral primary osteoarthritis, right hip | CPT/HCPCS: 73502; 99204 ==

== ENCOUNTER 2022-09-04 10:02 | Outpatient (CLI) | payer MEDICARE, SELFPAY ==
--- NOTE | 2022-09-04 10:00 | CT_ITS ---
WS: [id number] EXAMINATION: CT hip RT wo con* [id number] REASON FOR EXAM: Hip surgery COMPARISON: CT abdomen and pelvis 11/14/2020 IV CONTRAST ADMINISTERED: None TOTAL EXAM DLP: 850.[address] scans at [facility] use at least one of these dose optimization techniques: automated e xposure control; mA and/or kV adjustment per patient size (includes targeted exams where dose is matc hed to clinical indication); or iterative reconstruction. FINDINGS: There are severe degenerative changes and osteoarthritis involving the right hip with obliteration of the posterior hip joint very narrow anterior joint space with significant subchondral sclerotic moise ge and hypertrophic marginal osteophytes involving the acetabulum and femoral head. As are noted thro ugh the left femoral head and neck. The symphysis pubis is stabilized orthopedic plates and screws. Right thigh and femur demonstrate normal soft tissue and muscular planes no evidence specific osseous abnormality of the proximal and mid femur. At the level of the knee joint there is a surgical staple embedded in the lateral femoral condyle. Be low the knee joint partially visualized is some form of a harness metal ring in place. Small ossicles at the tibial tubercle are noted. Severe medial compartment narrowing and partially visualized dege nerative changes are seen in the knee joint though limited to the planes of imaging available. With p atellar spurring and patellofemoral compartment narrowing. CT/CT hip RT ROMAN IMPRESSION: Marked degenerative joint disease as noted..
== END 2022-09-04 10:03 | disposition home or self-care (01) ==
PROVIDERS: PCP Nurse Practitioner Family; Visit Provider Student in an Organized Health Care Education/Training Program
DX: M16.11 Unilateral primary osteoarthritis, right hip (principal)
CPT/HCPCS: 73700

== ENCOUNTER 2022-09-09 07:32 | Outpatient (CLI) | payer MEDICARE, SELFPAY | END 2022-09-09 07:33 | disposition home or self-care (01) | LOC: RT 10-05 07:33 | PROVIDERS: PCP Nurse Practitioner Family; Visit Provider Student in an Organized Health Care Education/Training Program | DX: Z13.6 Encounter for screening for cardiovascular disorders (principal); I48.91 Unspecified atrial fibrillation; I45.10 Unspecified right bundle-branch block | CPT/HCPCS: 93005 ==

== ENCOUNTER 2022-09-16 16:51 | Observation (INO) | payer MEDICARE, SELFPAY ==
--- NOTE | 2022-09-09 10:18 | ECG_ITS ---
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 Measurements Intervals [place] Rate: 69 P: 0 PA: 0 QRS: 158 QRSD: 149 T: 6 QT: 424 QTc: 454 Interpretive Statements ATRIAL FIBRILLATION INDETERMINATE AXIS RIGHT BUNDLE BRANCH BLOCK [120+ ms QRS DURATION, UPRIGHT V1, 40+ ms S IN I/aVL/V4/V5/V6] POSSIBLE ANTERIOR MYOCARDIAL INFARCTION , OF INDETERMINATE AGE [30 ms Q WAVE IN V3/V4, OR R < 0.2 mV IN V4] Compared to ECG 04/22/2022 17:01:41 Indeterminate axis now present Right-axis deviation no longer present Myocardial infarct finding still present Electronically Signed On 09-09-2022 18:25:51 ROD DRAWER by Joy Serrato M.D. [id number]
[2022-09-09 10:52] VITALS: BMI 41.6
--- NOTE | 2022-09-09 11:09 | P.ANESASSM_ITS ---
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 Operation Date: 09/16/22 07:00 Proposed Procedures p right total hip arthroplasty: 92222 M16.11(Right) - Luis Daniel Villanueva DO Familial anesthetic complications: None Social No alcohol and No tobacco Exam alert, oriented x 3, clear to auscultation bilaterally and regular rate & rhythm Airway Mallampati: Class III Dentition: other (no teeth) Pulmonary Sleep Apnea (but has since lost 75 lbs) CV/HEM Atrial Fibrillation PE Metabolic Diabetes Mellitus and Morbid Obesity Anesthetic Plan ASA status: 3 Anesthesia: Regional (specify below) Risk of > 500 ml blood loss (7ml/kg in children): Yes, adequate IV access and fluids planned Medications/Allergies Home Medications Medication Instructions Recorded Confirmed Last Taken Type apixaban 5 mg tablet (Eliquis) 5 mg PO BID 04/11/20 09/09/22 09/09/22 History aspirin 81 mg tablet,delayed 81 mg PO DAILY 04/11/20 09/09/22 09/09/22 History release (Adult Low Dose Aspirin) nitroglycerin 0.4 mg sublingual 0.4 mg sublingual Q5M PRN chest 04/11/20 09/09/22 Unknown History tablet (Nitrostat) pains alprazolam 0.25 mg tablet (Xanax) 0.25 mg PO BID PRN Anxiety 08/28/20 09/09/22 12/08/21 History lovastatin 20 mg tablet 20 mg PO DAILY 08/28/20 09/09/22 09/09/22 History oxycodone 10 mg tablet 10 mg PO Q6H PRN PAIN 08/28/20 09/09/22 09/09/22 History canagliflozin 300 mg tablet 300 mg PO DAILY 11/14/20 09/09/22 09/09/22 History (Invokana) Bone Growth Stimulator E0748 #1 ea 12/19/21 08/10/22 Unknown Rx cyclobenzaprine 10 mg tablet 10 mg PO TID PRN Muscle Pain 03/04/22 09/09/22 09/09/22 History gabapentin 800 mg tablet 800 mg PO TID PRN Pain 03/04/22 09/09/22 09/09/22 History ibuprofen 800 mg tablet 800 mg PO TID PRN Pain 03/04/22 09/09/22 09/09/22 History fentanyl 75 mcg/hr transdermal 1 patch transdermal Q72H 04/22/22 09/09/22 09/09/22 History patch AFO to the right & Diabetic shoes #1 ea 05/26/22 08/10/22 Unknown Rx with 3 pairs of inserts diltiazem HCl 240 mg capsule,24 240 mg PO DAILY #90 caps 06/29/22 09/09/22 09/09/22 Rx hr,extended release metformin 1,000 mg tablet 1,000 mg PO DAILY 07/15/22 09/09/22 09/09/22 History metoprolol tartrate 25 mg tablet 37.5 mg PO BID 09/09/22 09/09/22 09/09/22 History naloxegol 25 mg tablet (Movantik) 25 mg PO QAM 09/09/22 09/09/22 09/09/22 History Allergies Allergy/AdvReac Type Severity Reaction Status Date / Time No Known Allergies Allergy Verified 08/10/22 08:24 [facility] Anesthesia Medical History (Updated 08/14/22 @ 23:26 by Luis Daniel Villanueva DO) Acute encephalopathy Atrial fibrillation Chronic anticoagulation Chronic low back pain Degenerative joint disease of right hip DM type 2 (diabetes mellitus, type 2) Hypomagnesemia MRSA (methicillin resistant Staphylococcus aureus) infection Obesity Pulmonary embolism Wound infection Surgical History History of orthopedic surgery Bilateral lower extremity fractures 2004, hardware of right lower extremity and removal in 2015 Family History Father Leukemia Social History Smoking and tobacco status: former smoker Alcohol intake: never Lives independently: Yes Household members: other Details: mother Data Anesthesia 09/09/22 10:30 Cardiac Studies: Echocardiogram 06/25/22 Sestamibi Stress Test (Cardiology) 04/28 Holter Monitor 11/19/21
[2022-09-09 11:17] LABS: Calcium 9.3 mg/dL (8.5-10.5); Carbon Dioxide 28 mmol/L (22-29); Chloride 102 mmol/L (98-107); Glomerular Filtration Rate 86.4 mL/min (90-130); Glucose 111 mg/dL (65-115); Sodium 141 mmol/L (136-145)
[2022-09-09 11:23] LABS: Anion Gap 15.4 (5-19); Potassium 4.4 mmol/L (3.5-5.1)
[2022-09-09 11:32] LABS: Estmated Average Glucose 126
[2022-09-09 12:05] LABS: Osmolality Calculated 292 mOsm/kg (285-295)
[2022-09-09 12:07] LABS: Blood Urea Nitrogen 12 mg/dL (6-20)
[2022-09-16] VITALS (36 sets, daily range): BP systolic 110–172; BP diastolic 69–98; PULSE 66–118; RESP 14–25; TEMP 36.1–37.3; O2SAT 91–100
[2022-09-16] MEDS: sodium chloride 0.9% 1,000 ML 30 ML IV (11:41)
[2022-09-16] MEDS: ketorolac 30 mg/mL INJ IVP (11:41)
[2022-09-16] MEDS: gabapentin 300 mg Capsule PO (11:42)
[2022-09-16] MEDS: acetaminophen 1,000 MG/100 ML PIGGYBACK 400 MG IV ×2 (11:44→16:23)
[2022-09-16 11:46] LABS: Glucose Point of Care 124 mg/dL (70-110)
--- NOTE | 2022-09-16 11:59 | P.HP_ITS ---
Providers/Chief Complaint Admitting Physician: Luis Daniel Villanueva DO Primary Care Provider: KAYLA Pan Chief Complaint: unilateral primary osteoarthritis, right hip History of Present Illness Mitesh Laboy is a 57 year old male has severe degenerative joint disease of the right hip. He is failed conservative treatment. He also has previous lumbar spinal fusion. At this point time through shared decision making he would like to proceed with a right total hip arthroplasty. Given patient's body habitus this will need to be done through a posterior approach. We detailed out the risk benefits complication alternatives surgical nonsurgical treatment options. This point time he is debilitated to a cane and a walker given his right hip pain. We talked about his wrist as he is a diabetic and obese. However at this point time his A1c is controlled at 6.0 which was examined preoperatively. He does understand with his weight he still is at an increased risk but understanding these risks of complications including infection but understand these risks he agrees to proceed with surgical intervention. All questions been answered at this time. He has been off of his Eliquis since Wednesday in preparation for surgery. Plan will be for him to be admitted postoperatively. Patient denies any fevers chills chest pain shortness of breath nausea or vomiting today. Review of Systems General: Reports: 10 or more systems reviewed and unremarkable except in HPI and below Medications/Allergies Home Medications Medication Instructions Recorded Confirmed Last Taken Type apixaban 5 mg tablet (Eliquis) 5 mg PO BID 04/11/20 09/09/22 09/13/22 History aspirin 81 mg tablet,delayed 81 mg PO DAILY 04/11/20 09/16/22 09/13/22 History release (Adult Low Dose Aspirin) nitroglycerin 0.4 mg sublingual 0.4 mg sublingual Q5M PRN chest 04/11/20 09/16/22 Unknown History tablet (Nitrostat) pains alprazolam 0.25 mg tablet (Xanax) 0.25 mg PO BID PRN Anxiety 08/28/20 09/16/22 08/17/22 History lovastatin 20 mg tablet 20 mg PO DAILY 08/28/20 09/16/22 08/17/22 History oxycodone 10 mg tablet 10 mg PO Q6H PRN PAIN 08/28/20 09/16/22 09/16/22 History canagliflozin 300 mg tablet 300 mg PO DAILY 11/14/20 09/16/22 09/15/22 History (Invokana) Bone Growth Stimulator E0748 #1 ea 12/19/21 08/10/22 Unknown Rx cyclobenzaprine 10 mg tablet 10 mg PO TID PRN Muscle Pain 03/04/22 09/16/22 09/15/22 History gabapentin 800 mg tablet 800 mg PO TID PRN Pain 03/04/22 09/16/22 09/15/22 History ibuprofen 800 mg tablet 800 mg PO TID PRN Pain 03/04/22 09/16/22 09/15/22 History fentanyl 75 mcg/hr transdermal 1 patch transdermal Q72H 04/22/22 09/16/22 09/15/22 History patch AFO to the right & Diabetic shoes #1 ea 05/26/22 08/10/22 Unknown Rx with 3 pairs of inserts diltiazem HCl 240 mg capsule,24 240 mg PO DAILY #90 caps 06/29/22 09/09/22 09/09/22 Rx hr,extended release metformin 1,000 mg tablet 1,000 mg PO DAILY 07/15/22 09/16/22 09/15/22 History metoprolol tartrate 25 mg tablet 37.5 mg PO BID 09/09/22 09/16/22 09/16/22 History naloxegol 25 mg tablet (Movantik) 25 mg PO QAM 09/09/22 09/16/22 09/15/22 History Allergies Allergy/AdvReac Type Severity Reaction Status Date / Time No Known Allergies Allergy Verified 08/10/22 08:24 PFSH Acute PFSH: Medical History (Updated 09/16/22 @ 12:03 by Luis Daniel Villanueva DO) Acute encephalopathy Atrial fibrillation Chronic anticoagulation Chronic low back pain Degenerative joint disease of right hip Diabetes DM type 2 (diabetes mellitus, type 2) Hypomagnesemia MRSA (methicillin resistant Staphylococcus aureus) infection Obesity Pulmonary embolism Wound infection Surgical History History of orthopedic surgery Bilateral lower extremity fractures 2004, hardware of right lower extremity and removal in 2016 Family History Father Leukemia Social History Smoking and tobacco status: former smoker Alcohol intake: never Lives independently: Yes Household members: other Details: mother Vitals/I&O/Wt Last Vital Signs Temp 97 F L 09/16/22 11:25 Pulse 83 09/16/22 11:25 Resp 18 09/16/22 11:25 BP 134/98 09/16/22 11:25 Pulse Ox 96 09/16/22 11:25 O2 Del Method 09/16/22 11:25 Physical Exam Narrative: Constitutional?alert oriented mild discomfort secondary to right hip pain Examination of the right hip pain with hip flexion and internal rotation with severe limited range of motion. Pain directly in the groin. Patient does have a right foot drop at baseline. He is unable to dorsiflex his ankle. He can plantarflex his ankle and toes. He has no sensation at the SPN and DPN nerve distribution distal pulses are palpable. Data 09/09/22 10:30 Xray Ortho: My impression: X-rays from office reviewed and demonstrate previous lumbar fusion with severe degenerative joint disease of the right hip. A&P Assessment and plan (1) Degenerative joint disease of right hip: (2) DM type 2 (diabetes mellitus, type 2): Plan Patient here today for right total hip arthroplasty after failed conservative treatment and severe degenerative joint disease of the right hip limiting his range of motion and ambulating. He utilizes a walker and a cane at baseline. He has a foot drop to the right. Through shared decision-making he agrees to proceed with surgical intervention of a right total hip arthroplasty. He understands the risk benefits complication alternatives surgical nonsurgical treatment options. His risks with surgery include make a better make it worse, blood clot, heart attack, stroke, on the table, infection, wound dehiscence, dislocation. Understand these risks he agrees to proceed with surgical intervention. He has been off his Eliquis since Wednesday, his A1c was 6.0. All questions been answered at this time and agrees to proceed with surgical intervention. Attestations Medical Necessity Statement*: Patient has severe right degenerative joint disease of the hip. Requiring surgical intervention of right total hip arthroplasty will be admitted postoperatively. Coding Level of Care Code Acute Editorial Assistant for denzel Velez Diagnoses Degenerative joint disease of right hip M16.11 DM type 2 (diabetes mellitus, type 2) E11.9 Time Spent (min) 35
[2022-09-16] MEDS: ceFAZolin 3,000 MG in sodium chloride 0.9% (100 ml) 100 ML 200 MG IV ×2 (12:10→22:39)
--- NOTE | 2022-09-16 13:45 | ANES.PAUD2 ---
Pre-Anesthetic Update Pre-Anesthetic Assessment: Date of Surgery/Procedure: 09/16/22 Preop Diagnosis: Right hip degenerative joint disease Proposed Procedure: Operation Date: 09/16/22 12:25 Proposed Procedures p right total hip arthroplasty: 70945 M16.11(Right) - Luis Daniel Villanueva, DO Any changes to Pre-Anesthetic Assessment?: No Last Intake: Intake Last Liquid Date 09/15/22 Last Liquid Time 22:00 Last Solid Date 09/15/22 Last Solid Time 22:00 Vitals: Temperature 97 F L 09/16/22 11:25 Temperature Source Temporal Artery S can 09/16/22 11:25 Pulse Rate 83 09/16/22 11:25 Respiratory Rate 18 09/16/22 11:25 Blood Pressure 134/98 09/16/22 11:25 Blood Pressure Gwen n 110 09/16/22 11:25 Pulse Oximetry 96 09/16/22 11:25 Oxygen Delivery Me thod 09/16/22 11:25 Exam: Pre-Anes Outpt Exam: alert, oriented x 3, clear to auscultation bilaterally and regular rate & rhythm Cardiac Studies: Echocardiogram 06/25/22 Sestamibi Stress Test (Cardiology) 04/28/21 Holter Monitor 11/19/21
--- NOTE | 2022-09-16 13:50 | XR_ITS ---
WS: [id number] Exam: XR hip RT 1V wo/w pel [id number] Date/Time of Exam: 09/16/2022 1:53 PM Reason For Exam: OR PICS Intraoperative images of the right hip demonstrate a prosthetic acetabular cup in place. The head and neck of the femur have been removed. There is avulsion of the greater trochanter. Postoperative moise ges in the adjacent soft tissues. Hardware identified across the pubic symphysis. Screws project acro ss the right SI joint.
[2022-09-16] MEDS: vancomycin 1,000 MG SDV 1000 MG XX (13:52)
--- NOTE | 2022-09-16 14:02 | PC.NURSE ---
1305 Patient's mother updated of surgical status.
--- NOTE | 2022-09-16 14:04 | PC.NURSE ---
1404 Patient's mother updated on surgical status.
[2022-09-16] MEDS: fentaNYL 50 mcg/mL INJ 2mL IVP ×2 (15:15→15:42)
--- NOTE | 2022-09-16 15:22 | XR_ITS ---
WS: [id number] Exam: XR hip RT 2-3V wo/w pel* [id number] Date/Time of Exam: 09/16/2022 3:22 PM Reason For Exam: postop POLLO A right total hip replacement is noted in satisfactory position. Postoperative changes in the adjacen t soft tissues. Surgical skin clips noted laterally. 2 nails are seen in the left proximal femur. Deejay te and screw fixation across the pubic symphysis. Fusion hardware in the lower lumbar spine and upper sacrum. XR/XR hip RT 2-3V wo/w pel* [id number] IMPRESSION: 1. Right total hip replacement appearing to be in satisfactory position.
--- NOTE | 2022-09-16 15:40 | P.OP_ITS ---
Brief Operative Note Date of procedure: 09/18/22 Pre-op diagnosis: Severe degenerative joint disease right hip Post-op diagnosis: same Procedure Done: Right total hip arthroplasty Surgeon: Luis Daniel Villanueva Estimated blood loss (mL): 400 Complications: None Post-op Plan: Patient taken to PACU in stable condition. Patient will be admitted to the floor postoperatively. Internal medicine on board for medical management and assistance. Posterior hip precautions. Weightbearing as tolerated right lower extremity. Postoperative x-rays taken show stable right total hip arthroplasty in good position and alignment. PT/OT, patient admitted for pain control, DVT prophylaxis, postoperative antibiotics and TXA. She will follow-up with me in the office in 2 weeks. Harper dressing on in place will remain in place for 1 week postop. Patient understands and agrees with current plan. All questions answered. Condition: stable Disposition: floor Coding Level of Care Code Acute Service Operations Manager for Biju Velez
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
[2022-09-16] MEDS: HYDROmorphone 1 mg/mL INJ 1 mL 0.5 MG IVP ×3 (16:01→21:04)
--- NOTE | 2022-09-16 16:27 | ANE.PACU2 ---
Inpatient post-anesthesia follow up: Airway intact: Yes Vital signs: Temperature 98 F Pulse Rate 90 Respiratory Rate 18 Blood Pressure 153/89 Pulse Oximetry 96 Oxygen Delivery Me thod Room Air Oxygen Flow Rate Fraction of Inspir ed Oxygen Hydration adequate: Yes Nausea and vomiting: No Pain level: 5 Mental status: Baseline Additional Comments: Difficult pain control
--- NOTE | 2022-09-16 17:10 | P.CONIM_ITS ---
Providers/Reason For Consult Consulting Physician/Specialty*: Dr. Villanueva/orthopedic Reason for Consult*: Medical management Attending Physician: Luis Daniel Villanueva DO Primary Care Provider: KAYLA Pan History of Present Illness History of Present Illness Mitesh Laboy is a 57 year old male with past medical history of diabetes, atrial fibrillation, obesity, was admitted under orthopedic service for elective right total hip arthroplasty for severe degenerative joint disease of right hip Not responding to conservative treatment, medicine was consulted for management of comorbid medical conditions. Patient was complaining of right upper extremity pain.Denied any other complaints Review of Systems General: Reports: 10 or more systems reviewed and unremarkable except in HPI and below Const: Denies: fever(s), chills, body aches, change in appetite or diaphoresis Card: Denies: palpitations, edema, swelling of feet/ankles, dyspnea on exer tion, orthopnea or leg pain with exertion Resp: Denies: dyspnea, productive cough, wheezing or pain on inspiration GI: Denies: abdominal pain, nausea, vomiting, diarrhea or constipation : Denies: flank pain or difficulty urinating Musc: Reports: extremity pain; Denies: back pain or extremity swelling Neuro: Denies: headache(s), difficulty walking or confusion Medications/Allergies Home Medications Medication Instructions Recorded Confirmed Last Taken Type apixaban 5 mg tablet (Eliquis) 5 mg PO BID 04/11/20 09/17/22 04/22/22 History aspirin 81 mg tablet,delayed 81 mg PO QAM 04/11/20 09/17/22 04/22/22 History release (Adult Low Dose Aspirin) nitroglycerin 0.4 mg sublingual 0.4 mg sublingual Q5M PRN chest 04/11/20 09/17/22 Unknown History tablet (Nitrostat) pains alprazolam 0.25 mg tablet (Xanax) 0.25 mg PO BID PRN Anxiety 08/28/20 09/17/22 12/08/21 History lovastatin 20 mg tablet 20 mg PO DAILY 08/28/20 09/17/22 2 Months Ago History ~07/18/22 pt states stop takin oxycodone 10 mg tablet 10 mg PO Q6H PRN PAIN 08/28/20 09/17/22 04/22/22 History canagliflozin 300 mg tablet 300 mg PO QAM 11/14/20 09/17/22 04/22/22 History (Invokana) Bone Growth Stimulator E0748 #1 ea 12/19/21 09/17/22 Unknown Rx cyclobenzaprine 10 mg tablet 10 mg PO TID PRN Muscle Pain 03/04/22 09/17/22 04/22/22 History gabapentin 800 mg tablet 800 mg PO TID PRN Pain 03/04/22 09/17/22 04/22/22 History ibuprofen 800 mg tablet 800 mg PO TID PRN Pain 03/04/22 09/17/22 Unknown History fentanyl 75 mcg/hr transdermal 1 patch transdermal Q72H 04/22/22 09/16/22 09/15/22 History patch AFO to the right & Diabetic shoes #1 ea 05/26/22 09/17/22 Unknown Rx with 3 pairs of inserts diltiazem HCl 240 mg capsule,24 240 mg PO DAILY #90 caps 06/29/22 09/17/22 Unknown Rx hr,extended release metformin 1,000 mg tablet 1,000 mg PO QAM 07/15/22 09/17/22 Unknown History metoprolol tartrate 25 mg tablet 37.5 mg PO BID 09/09/22 09/17/22 Unknown History naloxegol 25 mg tablet (Movantik) 25 mg PO QAM 09/09/22 09/17/22 Unknown History Allergies Allergy/AdvReac Type Severity Reaction Status Date / Time No Known Allergies Allergy Verified 09/17/22 06:07 Current Medications Generic Name Dose Route Start Last Admin Trade Name Freq PRN Reason Stop Dose Admin Hydromorphone HCl 0.5 mg 09/16/22 12:39 09/16/22 16:36 Hydromorphone 1 Mg/Ml Inj 1 Ml IVP 09/17/22 12:39 0.5 mg Q10M PRN Administration Pain level 6-10 PACU Phase I Sodium Chloride 1,000 mls @ 30 mls/hr 09/16/22 11:15 09/16/22 11:41 Sodium Chloride 0.9% IV 09/17/22 11:14 30 mls/hr .Q24H JANES Administration PFSH Acute PFSH: Medical History (Updated 09/16/22 @ 12:03 by Luis Daniel Villanueva DO) Acute encephalopathy Atrial fibrillation Chronic anticoagulation Chronic low back pain Degenerative joint disease of right hip Diabetes DM type 2 (diabetes mellitus, type 2) Hypomagnesemia MRSA (methicillin resistant Staphylococcus aureus) infection Obesity Pulmonary embolism Wound infection Surgical History History of orthopedic surgery Bilateral lower extremity fractures 2004, hardware of right lower extremity and removal in 2016 Family History Father Leukemia Social History Smoking and tobacco status: former smoker Alcohol intake: never Lives independently: Yes Household members: other Details: mother Vitals/I&O/Wt Last Vital Signs Temp 98 F 09/16/22 15:13 Pulse 102 H 09/16/22 16:30 Resp 14 09/16/22 16:36 BP 138/78 09/16/22 16:30 Pulse Ox 95 09/16/22 16:30 O2 Del Method 09/16/22 16:25 O2 Flow Rate 2 09/16/22 16:20 09/16/22 09/16/22 09/16/22 06:59 14:59 22:59 Intake Total 200 / 200 900 / 1100 Output Total 400 / 400 Balance 200 / 200 500 / 700 Physical Exam Const: COMMON NORMALS: patient oriented x3 Resp: COMMON NORMALS: clear to auscultation bilaterally EFFORT & I NSPECTION: Yes symmetric chest movement AUSCULTATION: clear to auscultation bilaterally Cardio: COMMON NORMALS: No gallops present (Cardio), No murmurs present (Cardio), No rub (Cardio) and Peripheral pulses 2+ throughout PERIPHERAL PULSES: Peripheral pulses 2+ throughout OTHER: Irregularly irregular rhythm, S1-S2 variable intensity GI: COMMON NORMALS: Normal to inspection, nondistended, normoactive bowel sounds present, Soft to palpation, non-tender, No hepatosplenomegaly present and no masses AUSCULTATION: Yes normoactive bowel sounds PALPATION: Yes Soft to palpation and Yes No hepatosplenomegaly present RECTAL EXAM: Yes deferred Extremity: COMMON NORMALS: no clubbing, cyanosis or edema and no pedal edema Neuro: COMMON NORMALS: patient oriented x3 Data 09/09/22 10:30 A&P Assessment and plan (1) DM type 2 (diabetes mellitus, type 2): (2) Atrial fibrillation: (3) Obesity: Plan 57 year old male with past medical history of diabetes, atrial fibrillation, obesity, was admitted under orthopedic service for elective right total hip arthroplasty for severe degenerative joint disease of right hip Not responding to conservative treatment, medicine was consulted for management of comorbid medical conditions. Patient was complaining of right upper extremity pain.Denied any other complaints. Assessment: History of atrial fibrillation: Currently rate well controlled History of diabetes History of morbid obesity S/p right hip total arthroplasty Plan: Continue Cardizem 240 mg p.o. daily Continue metoprolol tartrate 37.5 mg p.o. twice daily Continue Eliquis for anticoagulation On low-dose sliding scale insulin, monitor fingerstick glucose, on carb consistent diet Continue aspirin and statin Consult Attestations Medical Necessity Statement: Per primary team. 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
[2022-09-16] MEDS: lactated ringers 1,000 ML 100 ML IV (18:43)
[2022-09-16] MEDS: apixaban 5 mg Tablet PO (18:43)
[2022-09-16] MEDS: metoprolol tartrate 25 mg Tablet 37.5 MG PO (20:49)
[2022-09-16] MEDS: sennosides-docusate Tablet 2 TAB PO (20:49)
[2022-09-16] MEDS: calcium carb-vit d 600mg/400unit 1 Tablet 1 EACH PO (20:49)
[2022-09-16] MEDS: mupirocin oint 22 gm 1 APPLIC NASAL (20:50)
[2022-09-16] MEDS: iron polysaccharide complex 150 mg Capsule PO (20:50)
[2022-09-16] MEDS: chlorhexidine gluconate 0.12% Btl 473 mL 30 ML MUCOUS MEM (20:52)
[2022-09-16] MEDS: gabapentin 400 mg Capsule 800 MG PO (20:58)
[2022-09-16] MEDS: cyclobenzaprine 10 mg Tablet PO (20:58)
[2022-09-16] MEDS: oxyCODONE 5 mg IR Tab/Cap PO (20:58)
[2022-09-16] MEDS: ALPRAZolam 0.5 mg Tablet 0.25 MG PO (22:40)
[2022-09-17] VITALS (17 sets, daily range): BP systolic 114–136; BP diastolic 71–89; PULSE 68–107; RESP 14–23; TEMP 36.7–37.3; O2SAT 94–98
[2022-09-17] MEDS: oxyCODONE 5 mg IR Tab/Cap PO ×5 (01:07→20:22)
[2022-09-17] MEDS: ketorolac 30 mg/mL INJ 15 MG IVP ×3 (01:22→21:07)
[2022-09-17 02:04] LABS: Basophils % 0.1 %; Hematocrit 40.7 % (42.0-52.0); Hemoglobin 12.9 g/dL (11.7-16.6); Lymphocytes # 0.9 10^3/uL (0.8-4.8); Lymphocytes % 9.3 %; Mean Corpuscular HGB Conc 31.7 g/dL (30.0-36.0); Mean Corpuscular Hemoglobin 29.1 pg (28.0-34.0); Mean Corpuscular Volume 91.7 fl (80-94); Mean Platelet Volume 10.1 fL (7.4-10.4); Monocytes # 0.7 10^3/uL (0.2-0.9); Monocytes % 7.1 %; Neutrophils # 8.41 10^3/uL (1.8-7.7); Neutrophils % 83.2 %; Nucleated Red Blood Cells % 0 %; Platelet Count 221 10^3/cmm (130-400); Red Blood Count 4.44 10^6/uL (4.1-5.3); Red Cell Distribution Width 13.6 % (12.1-15.1); White Blood Count 10.1 10^3/uL (4.0-10.0)
[2022-09-17 02:25] LABS: Anion Gap 14.7 (5-19); Blood Urea Nitrogen 17 mg/dL (6-20); Carbon Dioxide 28 mmol/L (22-29); Chloride 103 mmol/L (98-107); Glomerular Filtration Rate 86.4 mL/min (90-130); Glucose 151 mg/dL (65-115); Osmolality Calculated 296 mOsm/kg (285-295); Potassium 4.7 mmol/L (3.5-5.1); Sodium 141 mmol/L (136-145)
[2022-09-17] MEDS: HYDROmorphone 1 mg/mL INJ 1 mL 0.5 MG IVP ×4 (04:36→16:51)
[2022-09-17] MEDS: lactated ringers 1,000 ML 100 ML IV ×2 (05:04→16:51)
[2022-09-17] MEDS: ceFAZolin 3,000 MG in sodium chloride 0.9% (100 ml) 100 ML 200 MG IV (05:52)
--- NOTE | 2022-09-17 06:13 | PC.PHAR ---
pt states he takes care of his own medications-rx filled 09/11/22 for metformin 1000mg bid pt states just takes 1000mg qam-pt states he stop taking lovastatin about two months ago-notes are made in the pharmacy comments
[2022-09-17 06:38] LABS: Glucose Point of Care 214 mg/dL (70-110)
[2022-09-17] MEDS: calcium carb-vit d 600mg/400unit 1 Tablet 1 EACH PO ×2 (08:03→17:18)
[2022-09-17] MEDS: metoprolol tartrate 25 mg Tablet 37.5 MG PO ×2 (08:04→17:19)
[2022-09-17] MEDS: atorvastatin 40 mg Tablet 20 MG PO (08:04)
[2022-09-17] MEDS: acetaminophen 500 mg Tablet 1000 MG PO ×2 (08:04→17:19)
[2022-09-17] MEDS: sennosides-docusate Tablet 2 TAB PO ×2 (08:05→17:20)
[2022-09-17] MEDS: cyclobenzaprine 10 mg Tablet PO ×3 (08:05→21:00)
[2022-09-17] MEDS: aspirin 81 mg EC Tablet PO (08:05)
[2022-09-17] MEDS: apixaban 5 mg Tablet PO ×2 (08:05→17:19)
[2022-09-17] MEDS: multivitamin therapeutic Tablet 1 TAB PO (08:05)
[2022-09-17] MEDS: dilTIAZem ER (24HR) 240 mg Capsule PO (08:05)
[2022-09-17] MEDS: iron polysaccharide complex 150 mg Capsule PO ×2 (08:05→17:19)
[2022-09-17] MEDS: ALPRAZolam 0.5 mg Tablet 0.25 MG PO ×3 (08:20→21:00)
[2022-09-17] MEDS: insulin lispro 100 unit/1 mL SUBCUT ×2 (08:51→12:30)
[2022-09-17] MEDS: chlorhexidine gluconate 0.12% Btl 473 mL 30 ML MUCOUS MEM ×4 (08:52→20:21)
--- NOTE | 2022-09-17 10:15 | PM.PN ---
Subjective Subjective: Patient seen and evaluated in the morning he is sitting upright on the bedside commode. Continues to complain of pain at the right buttock over the incision. Lorenzo dressing on in place clean dry and intact no saturation at this time. Patient's got up and worked with therapy. Pain is controlled with medications. Patient states after working with therapy feels he would benefit from another day as he was slower to ambulate. Internal medicine on board and appreciate medical management. Hemoglobin stable this morning. Vitals/I&O/Wt Last Vital Signs Temp 99.2 F 09/18/22 04:00 Pulse 68 09/18/22 08:25 Resp 16 09/18/22 08:25 BP 118/74 09/18/22 04:00 Pulse Ox 97 09/18/22 08:25 O2 Del Method 09/18/22 08:25 O2 Flow Rate 2 09/18/22 07:38 09/17/22 09/18/22 09/18/22 22:59 06:59 14:59 Intake Total 720 / 1910 1800 / 3710 Output Total 525 / 925 1450 / 2375 Balance 195 / 985 350 / 1335 Physical Exam Narrative: Examination of the right hip demonstrates lorenzo dressing on in place with no saturation good seal. Right foot drop noted which is patient's baseline with no sensation over the SPN and DPN nerve distribution. Distal pulses are palpable. He can plantarflex his ankle and flex his toes. Improvement in hip flexion contracture Data 09/18/22 01:27 09/18/22 01:27 Xray Ortho: My impression: X-rays of the right hip reviewed in person interpreted by myself showing previous lumbar fusion with interval right total hip arthroplasty with stable alignment and fixation with no periprosthetic fracture or dislocation. A&P Assessment and plan (1) S/P total right hip arthroplasty: Plan A.m. 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
[2022-09-17] MEDS: mupirocin oint 22 gm 1 APPLIC NASAL ×2 (10:24→17:18)
[2022-09-17 11:12] LABS: Glucose Point of Care 172 mg/dL (70-110)
[2022-09-17] MEDS: ceFAZolin 3,000 MG in sodium chloride 0.9% (100 ml) 100 ML 100 MG IV (14:33)
--- NOTE | 2022-09-17 14:44 | P.PN_ITS ---
Subjective Subjective: patient was seen and examined this morning, was complaining of rt extremity pain, h/r is well controlled. Denied any other complain. Medications: Medication Review Details: Generic Name Dose Route Start Last Admin Trade Name Dipti PRN Reason Stop Dose Admin Acetaminophen 1,000 mg 09/17/22 00:30 09/17/22 08:04 Acetaminophen 50 0 Mg Tablet PO 1,000 mg Q8H JANES Administration Alprazolam 0.25 mg 09/16/22 22:04 09/17/22 08:20 Alprazolam 0.5 M g Tablet PO 0.25 mg TID PRN Administration ANXIETY Apixaban 5 mg 09/16/22 19:00 09/17/22 08:05 Apixaban 5 Mg Ta blet PO 5 mg BID JANES Administration Aspirin 81 mg 09/17/22 09:00 09/17/22 08:05 Aspirin 81 Mg Ec Tablet PO 81 mg DAILY JANES Administration Atorvastatin Calci um 20 mg 09/17/22 09:00 09/17/22 08:04 Atorvastatin 40 Mg Tablet PO 20 mg DAILY JANES Administration Calcium Carbonate 1 each 09/16/22 19:00 09/17/22 08:03 Calcium Carb-Vit D 600mg/400unit 1 Tablet PO 1 each BID JANES Administration Chlorhexidine Gluc rj 30 ml 09/16/22 21:00 09/17/22 12:59 Chlorhexidine Gl uconate 0.12% Btl 473 Ml MUCOUS MEM 30 ml QID JANES Administration Cyclobenzaprine HC l 10 mg 09/16/22 17:17 09/17/22 08:05 Cyclobenzaprine 10 Mg Tablet PO 10 mg TID PRN Administration Muscle Pain Diltiazem HCl 240 mg 09/17/22 09:00 09/17/22 08:05 Diltiazem Er (24 hr) 240 Mg Capsule PO 240 mg DAILY JANES Administration Gabapentin 800 mg 09/16/22 17:17 09/16/22 20:58 Gabapentin 400 M g Capsule PO 800 mg TID PRN Administration Pain Hydromorphone HCl 0.5 mg 09/16/22 17:17 09/17/22 12:29 Hydromorphone 1 Mg/Ml Inj 1 Ml IVP 0.5 mg Q4H PRN Administration BREAKTHROUGH PAIN Lactated Ringer's 1,000 mls @ 100 m ls/hr 09/16/22 17:17 09/17/22 05:04 Lactated Ringers IV 100 mls/hr .Q10H JANES Administration Insulin Human Lisp ro 0 unit 09/16/22 18:00 09/17/22 12:30 Insulin Lispro 1 00 Unit/1 Ml SUBCUT 2 unit TIDWM JANES Administration Protocol Ketorolac Trometha mine 15 mg 09/16/22 17:17 09/17/22 08:06 Ketorolac 30 Mg/ Ml Inj IVP 15 mg Q6H PRN Administration MODERATE TO SEVER E PAIN Metoprolol Tartrat e 37.5 mg 09/16/22 19:00 09/17/22 08:04 Metoprolol Tartr ate 25 Mg Tablet PO 37.5 mg BID JANES Administration Multivitamins Ther apeutic 1 tab 09/17/22 09:00 09/17/22 08:05 Multivitamin The rapeutic Tablet PO 1 tab DAILY JANES Administration Mupirocin 1 applic 09/16/22 18:00 09/17/22 10:24 Mupirocin Oint 2 2 Gm NASAL 09/21/22 17:59 1 applic BID JANES Administration Oxycodone HCl 5 - 10 mg 09/16/22 17:17 09/17/22 14:31 Oxycodone 5 Mg I r Tab/Cap PO 10 mg Q4H PRN Administration MODERATE PAIN Polysaccharide Iro n Complex 150 mg 09/16/22 20:00 09/17/22 08:05 Iron Polysacchar sky Complex 150 Mg Capsule PO 150 mg BIDWM JANES Administration Senna/Docusate Sod ium 2 tab 09/16/22 19:00 09/17/22 08:05 Sennosides-Docus ate Tablet PO 2 tab BID JANES Administration Vitals/I&O/Wt Last Vital Signs Temp 98.1 F 09/17/22 11:51 Pulse 76 09/17/22 11:51 Resp 16 09/17/22 14:31 BP 133/89 09/17/22 11:51 Pulse Ox 96 09/17/22 11:51 O2 Del Method 09/17/22 11:51 O2 Flow Rate 2 09/16/22 16:20 09/16/22 09/17/22 09/17/22 22:59 06:59 14:59 Intake Total 2280 / 2480 2380 / 4860 240 / 240 Output Total 850 / 850 1100 / 1950 400 / 400 Balance 1430 / 1630 1280 / 2910 -160 / -160 Physical Exam Const: COMMON NORMALS: patient oriented x3 Resp: COMMON NORMALS: clear to auscultation bilaterally EFFORT & INSPECTION: Yes symmetric chest movement AUSCULTATION: clear to auscultation bilaterally Cardio: COMMON NORMALS: No gallops present (Cardio), No murmurs present (Cardio), No rub (Cardio) and Peripheral pulses 2+ throughout PERIPHERAL PULSES: Peripheral pulses 2+ throughout OTHER: Irregularly irregular rhythm, S1-S2 variable intensity GI: COMMON NORMALS: Normal to inspection, nondistended, normoactive bowel sounds present, Soft to palpation, non-tender, No hepatosplenomegaly present and no masses AUSCULTATION: Yes normoactive bowel sounds PALPATION: Yes Soft to palpation and Yes No hepatosplenomegaly present RECTAL EXAM: Yes deferred Extremity: COMMON NORMALS: no clubbing, cyanosis or edema and no pedal edema Neuro: COMMON NORMALS: patient oriented x3 Data 09/17/22 01:30 09/17/22 01:30 A&P Assessment and plan (1) DM type 2 (diabetes mellitus, type 2): (2) Atrial fibrillation: (3) Obesity: Plan 57 year old male with past medical history of diabetes, atrial fibrillation, obesity, was admitted under orthopedic service for elective right total hip arthroplasty for severe degenerative joint disease of right hip Not responding to conservative treatment, medicine was consulted for management of comorbid medical conditions. Patient was complaining of right upper extremity pain.Denied any other complaints. Assessment: History of atrial fibrillation: Currently rate well controlled History of diabetes History of morbid obesity S/p right hip total arthroplasty Plan: Continue Cardizem 240 mg p.o. daily Continue metoprolol tartrate 37.5 mg p.o. 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
[2022-09-17] MEDS: TRAMadol 50 mg Tablet PO (15:51)
[2022-09-17 17:13] LABS: Glucose Point of Care 135 mg/dL (70-110)
[2022-09-17] MEDS: gabapentin 400 mg Capsule 800 MG PO (20:22)
[2022-09-17 20:50] LABS: Glucose Point of Care 187 mg/dL (70-110)
[2022-09-18] VITALS: BP 111/76; PULSE 104; RESP 19; TEMP 37; O2SAT 96
[2022-09-18 01:06] VITALS: RESP 20; O2SAT 96
[2022-09-18] MEDS: oxyCODONE 5 mg IR Tab/Cap PO (01:06)
[2022-09-18 01:12] VITALS: RESP 18
[2022-09-18] MEDS: HYDROmorphone 1 mg/mL INJ 1 mL 0.5 MG IVP ×2 (01:12→09:48)
[2022-09-18 02:06] LABS: Basophils % 0.3 %; Eosinophils % 0.5 %; Hematocrit 36.1 % (42.0-52.0); Hemoglobin 11.3 g/dL (11.7-16.6); Lymphocytes # 1.8 10^3/uL (0.8-4.8); Lymphocytes % 29.2 %; Mean Corpuscular HGB Conc 31.3 g/dL (30.0-36.0); Mean Corpuscular Hemoglobin 28.7 pg (28.0-34.0); Mean Corpuscular Volume 91.6 fl (80-94); Mean Platelet Volume 10.2 fL (7.4-10.4); Monocytes # 0.8 10^3/uL (0.2-0.9); Monocytes % 13.1 %; Neutrophils # 3.49 10^3/uL (1.8-7.7); Neutrophils % 56.6 %; Nucleated Red Blood Cells % 0 %; Platelet Count 168 10^3/cmm (130-400); Red Blood Count 3.94 10^6/uL (4.1-5.3); Red Cell Distribution Width 13.4 % (12.1-15.1); White Blood Count 6.2 10^3/uL (4.0-10.0)
[2022-09-18] MEDS: lactated ringers 1,000 ML 100 ML IV (02:34)
[2022-09-18 02:35] LABS: Anion Gap 12.3 (5-19); Blood Urea Nitrogen 20 mg/dL (6-20); Calcium 8.9 mg/dL (8.5-10.5); Carbon Dioxide 29 mmol/L (22-29); Chloride 102 mmol/L (98-107); Glomerular Filtration Rate 98.9 mL/min (90-130); Glucose 125 mg/dL (65-115); Osmolality Calculated 292 mOsm/kg (285-295); Potassium 4.3 mmol/L (3.5-5.1); Sodium 139 mmol/L (136-145)
[2022-09-18 04:00] VITALS: BP 118/74; PULSE 88; RESP 19; TEMP 37.3; O2SAT 94
[2022-09-18] MEDS: ketorolac 30 mg/mL INJ 15 MG IVP (04:24)
[2022-09-18] MEDS: ALPRAZolam 0.5 mg Tablet 0.25 MG PO (05:56)
[2022-09-18] MEDS: cyclobenzaprine 10 mg Tablet PO (05:57)
[2022-09-18 06:15] LABS: Glucose Point of Care 111 mg/dL (70-110)
[2022-09-18 08:00] VITALS: BP 129/77; PULSE 96; RESP 15; TEMP 36.8; O2SAT 95
[2022-09-18 08:25] VITALS: PULSE 68; RESP 16; O2SAT 97
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
--- NOTE | 2022-09-18 09:47 | PM.PN ---
Subjective Subjective: patient was seen and examined this morning, was complaining of rt extremity pain. Medications: Medication Review Details: Generic Name Dose Route Start Last Admin Trade Name Freq PRN Reason Stop Dose Admin Acetaminophen 1,000 mg 09/17/22 00:30 09/18/22 09:49 Acetaminophen 50 0 Mg Tablet PO 1,000 mg Q8H JANES Administration Alprazolam 0.25 mg 09/16/22 22:04 09/18/22 05:56 Alprazolam 0.5 M g Tablet PO 0.25 mg TID PRN Administration ANXIETY Apixaban 5 mg 09/16/22 19:00 09/18/22 09:49 Apixaban 5 Mg Ta blet PO 5 mg BID JANES Administration Aspirin 81 mg 09/17/22 09:00 09/18/22 09:49 Aspirin 81 Mg Ec Tablet PO 81 mg DAILY JANES Administration Atorvastatin Calci um 20 mg 09/17/22 09:00 09/18/22 09:50 Atorvastatin 40 Mg Tablet PO 20 mg DAILY JANES Administration Calcium Carbonate 1 each 09/16/22 19:00 09/18/22 09:49 Calcium Carb-Vit D 600mg/400unit 1 Tablet PO 1 each BID JANES Administration Chlorhexidine Gluc rj 30 ml 09/16/22 21:00 09/18/22 10:15 Chlorhexidine Gl uconate 0.12% Btl 473 Ml MUCOUS MEM Not Given QID [facility] Cyclobenzaprine HC l 10 mg 09/16/22 17:17 09/18/22 05:57 Cyclobenzaprine 10 Mg Tablet PO 10 mg TID PRN Administration Muscle Pain Diltiazem HCl 240 mg 09/17/22 09:00 09/18/22 09:51 Diltiazem Er (24 hr) 240 Mg Capsule PO 240 mg DAILY JANES Administration Gabapentin 800 mg 09/16/22 17:17 09/17/22 20:22 Gabapentin 400 M g Capsule PO 800 mg TID PRN Administration Pain Hydromorphone HCl 0.5 mg 09/16/22 17:17 09/18/22 09:48 Hydromorphone 1 Mg/Ml Inj 1 Ml IVP 0.5 mg Q4H PRN Administration BREAKTHROUGH PAIN Lactated Ringer's 1,000 mls @ 100 m ls/hr 09/16/22 17:17 09/18/22 12:07 Lactated Ringers IV Infused .Q10H JANES Infusion Insulin Human Lisp ro 0 unit 09/16/22 18:00 09/18/22 09:54 Insulin Lispro 1 00 Unit/1 Ml SUBCUT Not Given TIDWM [facility] Protocol Ketorolac Trometha mine 15 mg 09/16/22 17:17 09/18/22 04:24 Ketorolac 30 Mg/ Ml Inj IVP 15 mg Q6H PRN Administration MODERATE TO SEVER E PAIN Metoprolol Tartrat e 37.5 mg 09/16/22 19:00 09/18/22 09:52 Metoprolol Tartr ate 25 Mg Tablet PO 37.5 mg BID [facility] Administration Multivitamins Ther apeutic 1 tab 09/17/22 09:00 09/18/22 09:50 Multivitamin The rapeutic Tablet PO 1 tab DAILY [facility] Administration Mupirocin 1 applic 09/16/22 18:00 09/18/22 10:15 Mupirocin Oint 2 2 Gm NASAL 09/21/22 17:59 Not Given BID [facility] Oxycodone HCl 5 - 10 mg 09/16/22 17:17 09/18/22 01:06 Oxycodone 5 Mg I r Tab/Cap PO 10 mg Q4H PRN Administration MODERATE PAIN Polysaccharide Iro n Complex 150 mg 09/16/22 20:00 09/18/22 09:49 Iron Polysacchar sky Complex 150 Mg Capsule PO 150 mg BIDWM [facility] Administration Senna/Docusate Sod ium 2 tab 09/16/22 19:00 09/18/22 09:49 Sennosides-Docus ate Tablet PO 2 tab BID [facility] Administration Tramadol HCl 50 mg 09/16/22 17:17 09/17/22 15:51 Tramadol 50 Mg T ablet PO 50 mg Q4H PRN Administration MILD TO MODERATE PAIN Vitals/I&O/Wt Last Vital Signs Temp 98.2 F 09/18/22 08:00 Pulse 68 09/18/22 08:25 Resp 16 09/18/22 08:25 BP 129/77 09/18/22 08:00 Pulse Ox 97 09/18/22 08:25 O2 Del Method 09/18/22 08:25 O2 Flow Rate 2 09/18/22 07:38 09/17/22 09/18/22 09/18/22 22:59 06:59 14:59 Intake Total 720 / 1910 1800 / 3710 Output Total 525 / 925 1450 / 2375 Balance 195 / 985 350 / 1335 Physical Exam Const: COMMON NORMALS: patient oriented x3 and alert Resp: COMMON NORMALS: clear to auscultation bilaterally EFFORT & INSPECTION: Yes symmetric chest movement AUSCULTATION: clear to auscultation bilaterally Cardio: COMMON NORMALS: No gallops present (Cardio), No murmurs present (Cardio), No rub (Cardio) and Peripheral pulses 2+ throughout PERIPHERAL PULSES: Peripheral pulses 2+ throughout GI: COMMON NORMALS: Normal to inspection, nondistended, normoactive bowel sounds present, Soft to palpation, non-tender, No hepatosplenomegaly present and no masses AUSCULTATION: Yes normoactive bowel sounds PALPATION: Yes Soft to palpation and Yes No hepatosplenomegaly present RECTAL EXAM: Yes deferred Extremity: COMMON NORMALS: no clubbing, cyanosis or edema and no pedal edema RIGHT LOWER EXTREMITY: Yes foot & digits Neuro: COMMON NORMALS: patient oriented x3 SENSORIUM/ORIENTATION: Yes alert Data 09/18/22 01:27 09/18/22 01:27 A&P Assessment and plan (1) DM type 2 (diabetes mellitus, type 2): (2) Atrial fibrillation: (3) Obesity: Plan 57 year old male with past medical history of diabetes, atrial fibrillation, obesity, was admitted under orthopedic service for elective right total hip arthroplasty for severe degenerative joint disease of right hip Not responding to conservative treatment, medicine was consulted for management of comorbid medical conditions. Patient was complaining of right upper extremity pain.Denied any other complaints. Assessment: History of atrial fibrillation: Currently rate well controlled History of diabetes History of morbid obesity S/p right hip total arthroplasty Plan: Continue Cardizem 240 mg p.o. daily Continue metoprolol tartrate 37.5 mg p.o. twice daily Continue Eliquis for anticoagulation On low-dose sliding scale insulin, monitor fingerstick glucose, on carb consistent diet Continue aspirin and statin Attestations Medical Necessity Statement*: Patient is due for discharge today. 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
[2022-09-18] MEDS: sennosides-docusate Tablet 2 TAB PO (09:49)
[2022-09-18] MEDS: calcium carb-vit d 600mg/400unit 1 Tablet 1 EACH PO (09:49)
[2022-09-18] MEDS: apixaban 5 mg Tablet PO (09:49)
[2022-09-18] MEDS: iron polysaccharide complex 150 mg Capsule PO (09:49)
[2022-09-18] MEDS: acetaminophen 500 mg Tablet 1000 MG PO (09:49)
[2022-09-18] MEDS: aspirin 81 mg EC Tablet PO (09:49)
[2022-09-18] MEDS: atorvastatin 40 mg Tablet 20 MG PO (09:50)
[2022-09-18] MEDS: multivitamin therapeutic Tablet 1 TAB PO (09:50)
[2022-09-18] MEDS: dilTIAZem ER (24HR) 240 mg Capsule PO (09:51)
[2022-09-18] MEDS: metoprolol tartrate 25 mg Tablet 37.5 MG PO (09:52)
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
--- NOTE | 2022-09-18 14:37 | PC.OT ---
OT tx - Patient discharged on this day before time of tx.
== END 2022-09-18 11:10 | disposition home or self-care (01) ==
LOC: MEDSURG 16:51
PROVIDERS: Anesthesiology; Internal Medicine; Admitting Provider Student in an Organized Health Care Education/Training Program; PCP Nurse Practitioner Family; Visit Provider Student in an Organized Health Care Education/Training Program
PROC: (CPT 27130; principal; 2022-09-16 12:05)
DX: M16.11 Unilateral primary osteoarthritis, right hip (principal); E66.01 Morbid (severe) obesity due to excess calories; Z68.41 Body mass index [BMI] 40.0-44.9, adult; Z98.1 Arthrodesis status; I48.91 Unspecified atrial fibrillation; Z79.84 Long term (current) use of oral hypoglycemic drugs; Z86.14 Personal history of Methicillin resistant Staphylococcus aureus infection; Z86.711 Personal history of pulmonary embolism; Z79.01 Long term (current) use of anticoagulants; Z87.891 Personal history of nicotine dependence
CPT/HCPCS: 27130; 36415; 36416; 71045; 73501; 73502; 80048; 82962; 83036; 85025; 86850; 86900; 96372; 97110; 97116; 97161; 97166; 97530; C1713; C1776; G0378; J0131; J0690; J1170; J1815; J1885; J2250; J2704; J2710; J3010; J3370; J3490; J7030; J7120; P9045

== ENCOUNTER 2022-09-21 21:15 | Emergency (ER) | payer MEDICARE, SELFPAY ==
--- NOTE | 2022-09-21 21:16 | XRR_ITS ---
PROCEDURE INFORMATION: Exam: XR Chest Exam date and time: 09/21/2022 9:46 PM Age: 57 years old Clinical indication: Tachypnea; Additional info: Cp TECHNIQUE: Imaging protocol: Radiologic exam of the chest. Views: 1 view. COMPARISON: CR XR chest 1V portable [id number] 04/22/2022 2:53 PM FINDINGS: Lungs: Lungs are clear bilaterally. Pleural spaces: No pleural effusion. No pneumothorax. Heart/Mediastinum: Stable mild enlargement of the cardiac silhouette. Mediastinal contours are unremarkable. Bones/joints: Unremarkable for age. XR/XR chest 1V portable [id number] IMPRESSION: 1. No acute cardiopulmonary process. 2. Incidental/nonacute findings are listed in the report.
[2022-09-21 21:17] VITALS: BMI 40.1
[2022-09-21 21:20] VITALS: BP 125/103; PULSE 123; RESP 16; O2SAT 93
--- NOTE | 2022-09-21 21:20 | USR_ITS ---
PROCEDURE INFORMATION: Exam: US Duplex Lower Extremity Veins, Bilateral Exam date and time: 09/21/2022 11:01 PM Age: 57 years old Clinical indication: Edema, localized; Lower extremity, bilateral; Additional info: Swelling TECHNIQUE: Imaging protocol: Real-time Duplex ultrasound of the bilateral extremities with 2-D villegas scale, color Doppler flow and spectral waveform analysis with image documentation. Complete exam focused on the bilateral lower extremity veins. COMPARISON: CT lower leg RT w con [id number] 11/15/2020 7:10 PM FINDINGS: Right deep veins: Unremarkable. The common femoral, femoral, proximal profunda femoral and popliteal veins are patent without thrombus. Normal Doppler waveforms. Normal compressibility and/or augmentation response. Right superficial veins: Saphenofemoral junction is patent without thrombus. Left deep veins: Unremarkable. The common femoral, femoral, proximal profunda femoral and popliteal veins are patent without thrombus. Normal Doppler waveforms. Normal compressibility and/or augmentation response. Left superficial veins: Saphenofemoral junction is patent without thrombus. Soft tissues: Unremarkable. US/CV venous duplex [facility] [id number] IMPRESSION: No evidence of deep vein thrombosis.
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
[2022-09-21 21:30] LABS: Basophils % 0.3 %; Eosinophils # 0.1 10^3/uL (0.0-0.8); Eosinophils % 2.1 %; Hematocrit 40.1 % (42.0-52.0); Hemoglobin 12.6 g/dL (11.7-16.6); Lymphocytes # 2.2 10^3/uL (0.8-4.8); Mean Corpuscular HGB Conc 31.4 g/dL (30.0-36.0); Mean Corpuscular Hemoglobin 28.2 pg (28.0-34.0); Mean Corpuscular Volume 89.7 fl (80-94); Mean Platelet Volume 9.4 fL (7.4-10.4); Monocytes # 0.8 10^3/uL (0.2-0.9); Monocytes % 11.9 %; Neutrophils # 3.25 10^3/uL (1.8-7.7); Neutrophils % 51.4 %; Nucleated Red Blood Cells % 0 %; Platelet Count 286 10^3/cmm (130-400); Red Blood Count 4.47 10^6/uL (4.1-5.3); White Blood Count 6.3 10^3/uL (4.0-10.0)
[2022-09-21 21:43] LABS: INR 1.08 (0.8-1.2)
[2022-09-21 21:51] LABS: Alanine Aminotransferase 22 U/L (0-41); Alkaline Phosphatase 63 U/L (40-130); Anion Gap 16.2 (5-19); Aspartate Amino Transferase 34 U/L (0-40); Blood Urea Nitrogen 13 mg/dL (6-20); Calcium 9.2 mg/dL (8.5-10.5); Carbon Dioxide 29 mmol/L (22-29); Chloride 95 mmol/L (98-107); Globulin 2.7 g/dL (1.3-4.6); Glomerular Filtration Rate 76.5 mL/min (90-130); Glucose 139 mg/dL (65-115); Osmolality Calculated 284 mOsm/kg (285-295); Potassium 4.2 mmol/L (3.5-5.1); Sodium 136 mmol/L (136-145); Total Bilirubin 0.6 mg/dL (0.15-1.2); Total Protein 6.7 g/dL (6.6-8.7)
[2022-09-21 21:52] LABS: Troponin(5th) Baseline 20 ng/L (0-15)
[2022-09-21] MEDS: labetalol 5 mg/mL SDV 20mL 10 MG IVP (21:52)
--- NOTE | 2022-09-21 21:54 | ECG_ITS ---
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 Measurements Intervals [place] Rate: 72 P: 4 GA: 183 QRS: 13 QRSD: 80 T: -35 QT: 384 QTc: 422 Interpretive Statements SINUS RHYTHM WITH FREQUENT VENTRICULAR PREMATURE COMPLEXES POSSIBLE RIGHT VENTRICULAR CONDUCTION DELAY [RSR (QR) IN V1/V2] SEPTAL MYOCARDIAL INFARCTION , OF INDETERMINATE AGE [40+ ms Q WAVE IN V1/V2] Compared to ECG 09/09/2022 10:49:22 Ventricular premature complex(es) now present Atrial fibrillation no longer present Indeterminate axis no longer present Right bundle-branch block no longer present Myocardial infarct finding still present Electronically Signed On 09-22-2022 14:12:18 ADJUSTER by Rob Herman M.D. [id number]
[2022-09-21 22:30] VITALS: BP 156/87; PULSE 108; RESP 21; O2SAT 94
[2022-09-21 22:48] VITALS: BP 156/87; PULSE 110; RESP 15; O2SAT 95
[2022-09-21] MEDS: dilTIAZem 5 mg/mL SDV 5 mL 10 MG IVP (22:59)
[2022-09-21 23:00] VITALS: PULSE 110; RESP 14; O2SAT 96
--- NOTE | 2022-09-21 23:14 | ECG_ITS ---
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 Measurements Intervals [place] Rate: 103 P: 0 AL: 0 QRS: 58 QRSD: 159 T: -15 QT: 388 QTc: 509 Interpretive Statements ATRIAL FIBRILLATION WITH RAPID VENTRICULAR RESPONSE INDETERMINATE AXIS RIGHT BUNDLE BRANCH BLOCK [120+ ms QRS DURATION, UPRIGHT V1, 40+ ms S IN I/aVL/V4/V5/V6] Compared to ECG 09/09/2022 10:49:22 Myocardial infarct finding no longer present Electronically Signed On 09-22-2022 14:13:43 LETTER STAMPING MACHINE OPERATOR by Rob Herman M.D. [email or web address]
[2022-09-21 23:30] VITALS: BP 131/83; PULSE 108; RESP 16; O2SAT 97
[2022-09-22 00:08] LABS: Troponin 5 2HR 19.11 ng/L (0-15)
[2022-09-22 00:10] LABS: Troponin 5 2HR Delta -0.89 ABS# (0-10)
== END 2022-09-22 00:30 | disposition home or self-care (01) ==
PROVIDERS: Emergency Provider Emergency Medicine; PCP Nurse Practitioner Family
DX: M79.89 Other specified soft tissue disorders (principal); I48.91 Unspecified atrial fibrillation; Z79.01 Long term (current) use of anticoagulants; Z79.84 Long term (current) use of oral hypoglycemic drugs; Z79.82 Long term (current) use of aspirin; Z87.891 Personal history of nicotine dependence; E11.9 Type 2 diabetes mellitus without complications; Z96.641 Presence of right artificial hip joint
CPT/HCPCS: 71045; 80053; 84484; 85025; 85610; 93005; 93970; 96374; 96375; 99285; J3490

== ENCOUNTER → 2022-10-02 09:48 | Outpatient (BNVA) | payer MEDICARE, SELFPAY | PROVIDERS: PCP Nurse Practitioner Family; Visit Provider Internal Medicine Cardiovascular Disease | DX: E66.9 Obesity, unspecified (principal); Z68.41 Body mass index [BMI] 40.0-44.9, adult; I48.91 Unspecified atrial fibrillation; E11.9 Type 2 diabetes mellitus without complications; Z79.84 Long term (current) use of oral hypoglycemic drugs; I27.82 Chronic pulmonary embolism; Z79.01 Long term (current) use of anticoagulants; Z87.891 Personal history of nicotine dependence | CPT/HCPCS: 99213 ==

== ENCOUNTER → 2022-10-05 10:06 | Outpatient (BNVA) | payer MEDICARE, SELFPAY | PROVIDERS: PCP Nurse Practitioner Family; Visit Provider Student in an Organized Health Care Education/Training Program | DX: Z96.641 Presence of right artificial hip joint (principal) | CPT/HCPCS: 73502; 99024 ==

== ENCOUNTER 2022-11-04 20:30 | Emergency (ER) | payer MEDICARE, SELFPAY ==
[2022-11-04] VITALS (11 sets, daily range): BP systolic 102–123; BP diastolic 54–85; PULSE 72–107; RESP 12–18; TEMP 36.7; O2SAT 93–97; BMI 38.9
--- NOTE | 2022-11-04 20:32 | XRR_ITS ---
PROCEDURE INFORMATION: Exam: XR Chest Exam date and time: 11/04/2022 8:46 PM Age: 57 years old Clinical indication: Other: Numbness; Additional info: Cp, PT states his chest feels numb TECHNIQUE: Imaging protocol: Radiologic exam of the chest. Views: 1 view. COMPARISON: CR (CHEST, ) 09/21/2022 9:46 PM FINDINGS: Lungs: Unremarkable. No consolidation. Pleural spaces: Unremarkable. No pleural effusion. No pneumothorax. Heart/Mediastinum: Unremarkable. No cardiomegaly. Bones/joints: Unremarkable. XR/XR chest 1V portable [id number] IMPRESSION: No acute findings.
--- NOTE | 2022-11-04 20:37 | W.ED.CHESTPA ---
HPI - Chest Pain General: Chief Complaint: Chest Pain Stated Complaint: CP Time Seen by Provider: 11/04/22 20:31 Source: patient and EMS Mode of arrival: EMS Limitations: no limitations History of Present Illness: 57-year-old male with a history of A-fib along with hypertension states that roughly an hour ago he started to feel like his heart was fluttering started abdomen pain his blood pressure shot up he states it is a pressure type pain in the center of his chest he rates a 5 out of 10 he denies any worsening improving factors denies any shortness of breath denies any radiation of his pain he denies any cough or fever. Associated symptoms: Deny abdominal pain, dyspnea, fever(s), nausea or vomiting Review of Systems Const: Denies: fever(s), chills, body aches or change in appetite Eyes: Denies: blurry vision or eye discomfort ENMT: Denies: throat pain or dental pain Card: Reports: chest pain Resp: Denies: dyspnea GI: Denies: abdominal pain, nausea, vomiting or diarrhea : Denies: dysuria Musc: Denies: neck pain or back pain Skin/Breast: Denies: rash Neuro: Denies: headache(s) Psych: Denies: depression Kishan/Lymph: Denies: easy bruising All/Imm: Denies: urticaria PFSH ED PFSH: Medical History (Updated 11/04/22 @ 23:10 by Chetan Diaz MD) Acute encephalopathy Atrial fibrillation Chronic anticoagulation Chronic low back pain Degenerative joint disease of right hip Diabetes DM type 2 (diabetes mellitus, type 2) Hypomagnesemia MRSA (methicillin resistant Staphylococcus aureus) infection Obesity Pulmonary embolism Wound infection Surgical History History of orthopedic surgery Bilateral lower extremity fractures 2005, hardware of right lower extremity and removal in 2016 S/P total right hip arthroplasty Family History Father Leukemia Social History Smoking and tobacco status: former smoker Alcohol intake: never Lives independently: Yes Household members: other Details: mother Physical Exam Const: COMMON NORMALS: no acute distress, patient oriented x3 and healthy appearing HENMT: COMMON NORMALS: normocephalic and atraumatic HEAD & SCALP: normocephalic and atraumatic Eye: COMMON NORMALS: Equal, round and reactive pupils present and EOMs intact bilaterally PUPIL: Yes Equal, round and reactive pupils present Neck/C-Spine: COMMON NORMALS: full ROM and supple Chest: COMMONS NORMALS: normal inspection of the chest and normal palpation of entire chest wall Resp: COMMON NORMALS: normal respiratory effort, No retractions, No use of accessory muscles and clear to auscultation bilaterally AUSCULTATION: clear to auscultation bilaterally Cardio: COMMON NORMALS: regular rate and No murmurs present (Cardio) RATE: regular rate RHYTHM: abnormal rhythm irregularly irregular GI: COMMON NORMALS: Normal to inspection, nondistended, normoactive bowel sounds present, Soft to palpation, non-tender and no masses PALPATION: Yes Soft to palpation Extremity: COMMON NORMALS: normal to inspection and full ROM Neuro: COMMON NORMALS: patient oriented x3, moves all extremities and no focal motor deficits Psych: COMMON NORMALS: mental status grossly normal, Normal thought process present and cooperative THOUGHT PROCESS: Normal thought process present Skin: COMMON NORMALS: no rashes or lesions noted and no wounds GENERAL SKIN EXAM: no rashes or lesions noted Course Vital Signs: Vital signs: Vital Signs Temperature 98.1 F 11/04/22 20:32 Pulse Rate 81 11/04/22 22:45 Respiratory Rate 15 11/04/22 22:45 Blood Pressure 105/54 11/04/22 22:45 Pulse Oximetry 96 11/04/22 22:45 Oxygen Delivery Me thod 11/04/22 22:30 MDM - Chest Pain Medical Decision Making Patient presents for chest pains atypical in nature has been pain-free here initial repeat troponins normal he is well-appearing here he is stable for discharge 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 Lab Data 11/04/22 20:35 11/04/22 20:35 Radiology Impressions Chest X-Ray 11/04/22 20:32 IMPRESSION: No acute findings. Laboratory Results WBC 7.0 10^3/uL (4.0-10.0) 11/04/22 20:35 RBC 4.75 10^6/uL (4.1-5.3) 11/04/22 20:35 Hgb 13.3 g/dL (11.7-16.6) 11/04/22 20:35 Hct 43.6 % (42.0-52.0) 11/04/22 20: MCV 91.8 fl (80-94) 11/04/22 20: MCH 28.0 pg (28.0-34.0) 11/04/22 20: MCHC 30.5 g/dL (30.0-36.0) 11/04/22 20: RDW 14.0 % (12.1-15.1) 11/04/22 20:35 Plt Count 344 10^3/cmm (130-400) 11/04/22 20: MPV 10.3 fL (7.4-10.4) 11/04/22 20: Neut % (Auto) 52.2 % 11/04/22 20: Lymph % (Auto) 35.4 % 11/04/22 20:35 Metcalfe % (Auto) 9.5 % 11/04/22 20: Eos % (Auto) 2.0 % 11/04/22 20:35 Baso % (Auto) 0.6 % 11/04/22 20:35 Neut # (Auto) 3.64 10^3/uL (1.8-7.7) 11/04/22 20:35 Lymph # (Auto) 2.5 10^3/uL (0.8-4.8) 11/04/22 20:35 Metcalfe # (Auto) 0.7 10^3/uL (0.2-0.9) 11/04/22 20: Eos # (Auto) 0.1 10^3/uL (0.0-0.8) 11/04/22 20:35 Baso # (Auto) 0.0 10^3/uL (0.0-0.1) 11/04/22 20: Nucleated RBC % (auto) 0 % 11/04/22: Nucleated RBCs # 0.0 /100WBC 11/04/22 20: Sodium 138 mmol/L (136-145) 11/04/22 21:00 Potassium 4.3 mmol/L (3.5-5.1) 11/04/22 21:00 Chloride 100 mmol/L (98-107) 11/04/22 21:00 Carbon Dioxide 29 mmol/L (22-29) 11/04/22 21:00 Anion Gap 13.3 (5-19) 11/04/22 21:00 BUN 13 mg/dL (6-20) 11/04/22 21:00 Creatinine 0.7 mg/dL (0.7-1.2) 11/04/22 21:00 GFR Calculation 115.4 mL/min (90-130) 11/04/22 21:00 Glucose 135 mg/dL (65-115) H 11/04/22 21:00 Calculated Osmolality 288 mOsm/kg (285-295) 11/04/22 21:00 Calcium 8.8 mg/dL (8.5-10.5) 11/04/22 21:00 Total Bilirubin 0.2 mg/dL (0.15-1.2) 11/04/22 21:00 AST 15 U/L (0-40) 11/04/22 21:00 ALT 19 U/L (0-41) 11/04/22 21:00 Alkaline Phosphatase 83 U/L (40-130) 11/04/22 21:00 Troponin T Baseline 14 ng/L (0-15) 11/04/22 20:35 Troponin T 120 Minute 14.43 ng/L (0-15) 11/04/22 22:40 Total Protein 7.0 g/dL (6.6-8.7) 11/04/22 21:00 Albumin 4.2 g/dL (3.5-5.2) 11/04/22 21:00 Globulin 2.8 g/dL (1.3-4.6) 11/04/22 21:00 EKG Data EKG 1: I personally reviewed and interpreted this EKG as follows: EKG interpretation date: 11/04/22 EKG interpretation time: 20:44 Interpretation: afib hr [address] or t wave abnormalities qrs 150 qtc 443 Discharge Plan Discharge Patient Disposition: Home Clinical Impression: Chest pain Condition: Stable Prescriptions: No Action aspirin [Adult Low Dose Aspirin] 81 mg tablet,delayed release (DR/EC) 81 mg PO QAM Eliquis 5 mg tablet 5 mg PO BID nitroglycerin [Nitrostat] 0.4 mg tablet, sublingual 0.4 mg SUBLINGUAL Q5M PRN (Reason: chest pains) Rx Instructions: do not exceed 3 doses per episode ibuprofen 800 mg tablet 800 mg PO TID PRN (Reason: Pain) Hold Instructions: Resume on 09/09/20. (DME) AFO to the right & Diabetic shoes with 3 pairs of inserts See Rx Instructions .Route .MEDSUPPLY Qty: 1 0RF Rx Instructions: As directed by SARA&O metformin 1,000 mg tablet 1,000 mg PO QAM sotalol 80 mg tablet 80 mg PO BID Qty: 60 3RF diltiazem HCl 240 mg capsule,extended release 24 hr 240 mg PO DAILY Qty: 90 1RF alprazolam [Xanax] 0.25 mg tablet 0.25 mg PO BID PRN (Reason: Anxiety) cyclobenzaprine 10 mg tablet 10 mg PO TID PRN (Reason: Muscle Pain) gabapentin 800 mg tablet 800 mg PO TID PRN (Reason: Pain) Invokana 300 mg tablet 300 mg PO QAM fentanyl 75 mcg/hr patch 72 hour 1 patch transdermal Q72H Movantik 25 mg Tablet 25 mg PO QAM Rx Instructions: must be taken on empty stomach; no food 1 hr after or 2-3 hrs before dose metoprolol tartrate 25 mg tablet 37.5 mg PO BID oxycodone 10 mg tablet 10 mg PO Q6H PRN (Reason: PAIN) 7 Days Qty: 28 0RF Discharge Orders: Discharge ED (Routine); Ordered 11/04/22 Ordered By: Chetan Diaz Referrals: Law,Rachael, PIPE FITTER MAINTENANCE [Primary Care Provider] - 1-3 days Discharge Diet: Advance as tolerated Discharge Activity: Resume usual activity Patient Instructions: Chest Pain (ED) Coding Level of Care Code ED Instructor Physical Education for Biju Velez
--- NOTE | 2022-11-04 20:44 | ECG_ITS ---
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 Measurements Intervals [place] Rate: 87 P: 0 ID: 0 QRS: 84 QRSD: 150 T: -10 QT: 398 QTc: 480 Interpretive Statements ATRIAL FIBRILLATION INDETERMINATE AXIS RIGHT BUNDLE BRANCH BLOCK [120+ ms QRS DURATION, UPRIGHT V1, 40+ ms S IN I/aVL/V4/V5/V6] Compared to ECG 09/21/2022 23:14:03 No significant changes Electronically Signed On 11-05-2022 0:12:54 HAM MARKER by Joy Serrato M.D. [email or web address] [id number]
[2022-11-04 20:48] LABS: Basophils % 0.6 %; Eosinophils # 0.1 10^3/uL (0.0-0.8); Hematocrit 43.6 % (42.0-52.0); Hemoglobin 13.3 g/dL (11.7-16.6); Lymphocytes # 2.5 10^3/uL (0.8-4.8); Lymphocytes % 35.4 %; Mean Corpuscular HGB Conc 30.5 g/dL (30.0-36.0); Mean Corpuscular Volume 91.8 fl (80-94); Mean Platelet Volume 10.3 fL (7.4-10.4); Monocytes # 0.7 10^3/uL (0.2-0.9); Monocytes % 9.5 %; Neutrophils # 3.64 10^3/uL (1.8-7.7); Neutrophils % 52.2 %; Nucleated Red Blood Cells % 0 %; Platelet Count 344 10^3/cmm (130-400); Red Blood Count 4.75 10^6/uL (4.1-5.3)
[2022-11-04] MEDS: ondansetron 2 mg/ML SDV 2 mL 4 MG IVP (21:01)
[2022-11-04] MEDS: morphine 4 mg/mL SDV 1 mL IVP (21:01)
[2022-11-04 21:13] LABS: Troponin(5th) Baseline 14 ng/L (0-15)
[2022-11-04 21:31] LABS: Albumin Level 4.2 g/dL (3.5-5.2); Alkaline Phosphatase 83 U/L (40-130); Anion Gap 13.3 (5-19); Aspartate Amino Transferase 15 U/L (0-40); Blood Urea Nitrogen 13 mg/dL (6-20); Calcium 8.8 mg/dL (8.5-10.5); Carbon Dioxide 29 mmol/L (22-29); Chloride 100 mmol/L (98-107); Globulin 2.8 g/dL (1.3-4.6); Glomerular Filtration Rate 115.4 mL/min (90-130); Glucose 135 mg/dL (65-115); Osmolality Calculated 288 mOsm/kg (285-295); Potassium 4.3 mmol/L (3.5-5.1); Sodium 138 mmol/L (136-145); Total Bilirubin 0.2 mg/dL (0.15-1.2)
[2022-11-04 21:42] LABS: Alanine Aminotransferase 19 U/L (0-41)
[2022-11-04 23:08] LABS: Troponin 5 2HR 14.43 ng/L (0-15)
[2022-11-04 23:51] LABS: Troponin 5 2HR Delta 0.43 ABS# (0-10)
== END 2022-11-04 23:29 | disposition home or self-care (01) ==
PROVIDERS: Emergency Provider Emergency Medicine; PCP Nurse Practitioner Family
DX: R07.9 Chest pain, unspecified (principal); E11.9 Type 2 diabetes mellitus without complications; I48.91 Unspecified atrial fibrillation; Z79.82 Long term (current) use of aspirin; Z79.01 Long term (current) use of anticoagulants
CPT/HCPCS: 36415; 71045; 80053; 84484; 85025; 93005; 96374; 96375; 99285; J2270; J2405

== ENCOUNTER → 2022-11-10 09:20 | Outpatient (BNVA) | payer MEDICARE, SELFPAY | PROVIDERS: PCP Nurse Practitioner Family; Visit Provider Physician Assistant | DX: M48.062 Spinal stenosis, lumbar region with neurogenic claudication (principal); Z98.1 Arthrodesis status | CPT/HCPCS: 72110; 99213 ==

== ENCOUNTER → 2022-11-12 12:59 | Outpatient (BNVA) | payer MEDICARE, SELFPAY | PROVIDERS: PCP Nurse Practitioner Family; Visit Provider Internal Medicine Cardiovascular Disease | DX: I27.82 Chronic pulmonary embolism (principal); I26.99 Other pulmonary embolism without acute cor pulmonale; I48.91 Unspecified atrial fibrillation; E66.9 Obesity, unspecified; Z79.01 Long term (current) use of anticoagulants; Z68.41 Body mass index [BMI] 40.0-44.9, adult; E11.9 Type 2 diabetes mellitus without complications; Z79.84 Long term (current) use of oral hypoglycemic drugs; Z87.891 Personal history of nicotine dependence | CPT/HCPCS: 99214 ==

== ENCOUNTER 2022-11-16 13:21 | Outpatient (CLI) | payer MEDICARE, SELFPAY ==
--- NOTE | 2022-11-16 | CT_ITS ---
WS: [id number] CT ABDOMEN PELVIS TECHNIQUE: Contrast-enhanced CT of the abdomen and pelvis with coronal and sagittal reformatted image s. CLINICAL INFORMATION: EPIGASTRIC PAIN COMPARISON: CT 12/12/20 DLP: 1317.[address] scans at [facility] use at least one of these dose optimization techniques: automated e xposure control; mA and/or kV adjustment per patient size (includes targeted exams where dose is matc hed to clinical indication); or iterative reconstruction. FINDINGS: Diffuse fatty infiltration of the liver. Normal portal vein and splenic vein. Normal gallbladder. Sta ble gastric antral lipoma. Normal GE junction. Fatty atrophy of the pancreas. Normal spleen. Lung bas es are well aerated.. Adrenal glands are normal. Normal renal parenchymal enhancement. Bilateral juanjose l cortical atrophy. No hydronephrosis in either kidney. Normal caliber abdominal aorta. Celiac and SMA appear patent. Normal sigmoid colon. No evidence of hi gh-grade small or large bowel obstruction. Tiny fat-containing umbilical hernia. Postoperative change s thoracolumbar spine and sacroiliac joints. RIGHT POLLO. Screw fixation LEFT hip. Prior plate and scre w fixation involving the pelvis. Grade 1 anterolisthesis L5 on S1. CT/CT abdomen pelvis w con* [id number] IMPRESSION: 1. Diffuse fatty infiltration liver. 2. No hydronephrosis in either kidney. Mild bilateral renal cortical atrophy. 3. Stable gastric antrum lipoma. 4. Tiny fat-containing umbilical hernia. 5. Extensive postoperative changes pedicle screw fixation thoracolumbar spine and sacroiliac joints. RIGHT POLLO. Screw fixation LEFT hip. Plate and screw fixa tion involving the pelvis. 6. No other remarkable findings.
[2022-11-16] MEDS: iohexol 350 mg/mL 500 mL Btl (per mL) PO (14:19)
[2022-11-16] MEDS: iohexol 350 mg/mL 500 mL Btl (per mL) IV (14:19)
== END 2022-11-16 13:22 | disposition home or self-care (01) ==
PROVIDERS: PCP Nurse Practitioner Family; Visit Provider Nurse Practitioner Family
DX: R10.13 Epigastric pain (principal); K76.0 Fatty (change of) liver, not elsewhere classified; N26.1 Atrophy of kidney (terminal); D17.79 Benign lipomatous neoplasm of other sites; K42.9 Umbilical hernia without obstruction or gangrene; Z98.890 Other specified postprocedural states
CPT/HCPCS: 74177; Q9967

== ENCOUNTER 2022-11-30 06:14 | Outpatient (CLI) | payer MEDICARE, SELFPAY ==
[2022-11-26 12:32] VITALS: BMI 40.1
[2022-11-30 06:33] VITALS: BP 111/80; PULSE 84; RESP 18; TEMP 36.5; O2SAT 97
--- NOTE | 2022-11-30 06:36 | ECG_ITS ---
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 Measurements Intervals [place] Rate: 88 P: 0 MO: 0 QRS: 89 QRSD: 150 T: -12 QT: 389 QTc: 472 Interpretive Statements ATRIAL FIBRILLATION RIGHT BUNDLE BRANCH BLOCK [120+ ms QRS DURATION, UPRIGHT V1, 40+ ms S IN I/aVL/V4/V5/V6] Compared to ECG 11/04/2022 20:44:36 Indeterminate axis no longer present Electronically Signed On 11-30-2022 11:20:21 WASTE MANAGEMENT ENGINEER by Rob Herman M.D. [email or web address] [facility] [id number]
[2022-11-30 06:56] LABS: Glucose Point of Care 117 mg/dL (70-110)
[2022-11-30] MEDS: sodium chloride 0.9% 1,000 ML 100 ML IV (06:57)
--- NOTE | 2022-11-30 07:50 | ANES.PREANE2 ---
Pre-Anesthetic Assessment Height/Weight: Height 1.93 m Weight 149.685 kg Temp Pulse Resp BP Pulse Ox O2 Del Method 97.7 F 84 18 111/80 97 11/30/22 06:33 11/30/22 06:33 11/30/22 06:33 11/30/22 06:33 11/30/22 06:33 11/30/22 06:33 Preop Diagnosis: Right hip degenerative joint disease Operation Date: 11/30/22 08:00 Proposed Procedures p Cardioversion (CPRU) 28156,279.01,I26.99,I48.91(Not Applicable) - Nic Pickard MD Familial anesthetic complications: <del>none</del> Was Beta John taken within 24 hours: Yes Was Clonidine taken within 24 hours: N/A Last intake: Intake Last Liquid Date 11/29/22 Last Liquid Time 20:00 Last Solid Date 11/29/22 Last Solid Time 20:00 Last Intake: 21:30 Social No alcohol and No tobacco Exam alert, oriented x 3 and clear to auscultation bilaterally Irreg HB Airway Submandibular: within normal limits Cervical ROM: within normal limits Mallampati: Class II Dentition: false Pulmonary Exertional Dyspnea, Sleep Apnea and Shortness of Breath CV/HEM Atrial Fibrillation, Deep Vein Thrombosis and Hypertension HX PE 2 years ago None reported Hepatic None reported GI None reported Metabolic Diabetes Mellitus and Morbid Obesity Musc/skel Lower Back Pain and Osteoarthritis/DJD Neuropsych None reported Anesthetic Plan ASA status: 3 Anesthesia: MAC Risk of > 500 ml blood loss (7ml/kg in children): No Medications/Allergies Home Medications Medication Instructions Recorded Confirmed Last Taken Type apixaban 5 mg tablet (Eliquis) 5 mg PO BID 04/11/20 11/30/22 11/30/22 History aspirin 81 mg tablet,delayed 81 mg PO QAM 04/11/20 11/30/22 11/30/22 History release (Adult Low Dose Aspirin) nitroglycerin 0.4 mg sublingual 0.4 mg sublingual Q5M PRN chest 04/11/20 11/30/22 Unknown History tablet (Nitrostat) pains cyclobenzaprine 10 mg tablet 10 mg PO TID PRN Muscle Pain 03/04/22 11/30/22 04/22/22 History gabapentin 800 mg tablet 800 mg PO TID PRN Pain 03/04/22 11/30/22 11/30/22 History ibuprofen 800 mg tablet 800 mg PO TID PRN Pain 03/04/22 11/30/22 11/29/22 History fentanyl 75 mcg/hr transdermal 1 patch transdermal Q72H 04/22/22 11/30/22 11/29/22 History patch AFO to the right & Diabetic shoes #1 ea 05/26/22 11/10/22 Unknown Rx with 3 pairs of inserts metformin 1,000 mg tablet 1,000 mg PO QAM 07/15/22 11/30/22 11/29/22 History naloxegol 25 mg tablet (Movantik) 25 mg PO QAM 09/09/22 11/30/22 11/30/22 History oxycodone 10 mg tablet 10 mg PO Q6H PRN PAIN 7 days #28 09/18/22 11/30/22 11/30/22 Rx tabs sotalol 80 mg tablet 80 mg PO BID #60 tabs 10/02/22 11/30/22 11/30/22 Rx Allergies Allergy/AdvReac Type Severity Reaction Status Date / Time No Known Allergies Allergy Verified 11/12/22 09:03 Current Medications Generic Name Dose Route Start Last Admin Trade Name Freq PRN Reason Stop Dose Admin Sodium Chloride 1,000 mls @ 100 mls/hr 11/30/22 06:30 11/30/22 06:57 Sodium Chloride 0.9% IV 12/01/22 06:29 100 mls/hr .Q10H JANES Administration PFSH Anesthesia Medical History Acute encephalopathy Atrial fibrillation Chronic anticoagulation Chronic low back pain Degenerative joint disease of right hip Diabetes DM type 2 (diabetes mellitus, type 2) Hypomagnesemia MRSA (methicillin resistant Staphylococcus aureus) infection Obesity Pulmonary embolism Wound infection Surgical History History of orthopedic surgery Bilateral lower extremity fractures 2005, hardware of right lower extremity and removal in 2016 S/P total right hip arthroplasty Family History Father Leukemia Social History Smoking and tobacco status: former smoker Alcohol intake: never Lives independently: Yes Household members: other Details: mother Data Anesthesia Cardiac Studies: Echocardiogram 06/25/22 Sestamibi Stress Test (Cardiology) 04/28/21 Holter Monitor 11/19/21
--- NOTE | 2022-11-30 08:19 | W.PM.OPSUD ---
Surgery/Procedure H&P Update DATE OF PROCEDURE: November 30, 2022 DATE H&P PERFORMED: 11/12/22 CHANGES TO PREVIOUS DOCUMENTATION: None PREOP DIAGNOSIS: Right hip degenerative joint disease PRIMARY INDICATION FOR PROCEDURE: symptomatic A fib PLANNED PROCEDURE: Operation Date: 11/30/22 08:00 Proposed Procedures p Cardioversion (CPRU) 00733,279.01,I26.99,I48.91(Not Applicable) - Nic Pickard MD
--- NOTE | 2022-11-30 08:34 | PM.DCS ---
Discharge Providers Date of Admission: 11/30/22 Date of Discharge: November 30, 2022 Attending Provider at Admission: Neeraj Attending Provider at Discharge: Nic Pickard MD Primary Care Provider: KAYAL Pan Diagnoses at Discharge Discharge Diagnosis (1) Pulmonary embolism: Status: Acute Qualifiers: Acute cor pulmonale presence: without acute cor pulmonale Chronicity: chronic Pulmonary embolism type: unspecified Qualified Code(s): I27.82 - Chronic pulmonary embolism (2) Obesity: Status: Acute (3) Atrial fibrillation: Status: Acute (4) DM type 2 (diabetes mellitus, type 2): Status: Acute (5) Chronic anticoagulation: Status: Acute Reason for Visit Reason for Visit: I48.91 Brief History: Chronic symptomatic AF on anti-coagulation and sotalol Hospital Course Hospital Course Cardioversion attempted. 120J X 1. 200J X 5. Unsuccessful. Plan same meds for now and refer to EP for possible ablation at his request. He doesn't like meds. Kaur Discharge Data Studies Completed and Pending Laboratory Results POC Glucose 117 mg/dL (70-110) H 11/30/22 06:51 Procedures Performed DCC, unsuccessful Vitals Last Vital Signs Temp 97.7 F 11/30/22 06:33 Pulse 84 11/30/22 06:33 Resp 18 11/30/22 06:33 BP 111/80 11/30/22 06:33 Pulse Ox 97 11/30/22 06:33 O2 Del Method 11/30/22 06:33 Discharge Plan Discharge Patient Disposition: Home Prescriptions: No Action aspirin [Adult Low Dose Aspirin] 81 mg tablet,delayed release (DR/EC) 81 mg PO QAM Eliquis 5 mg tablet 5 mg PO BID nitroglycerin [Nitrostat] 0.4 mg tablet, sublingual 0.4 mg SUBLINGUAL Q5M PRN (Reason: chest pains) Rx Instructions: do not exceed 3 doses per episode ibuprofen 800 mg tablet 800 mg PO TID PRN (Reason: Pain) Hold Instructions: Resume on 09/09/20. (DME) AFO to the right & Diabetic shoes with 3 pairs of inserts See Rx Instructions .Route .MEDSUPPLY Qty: 1 0RF Rx Instructions: As directed by SARA&O metformin 1,000 mg tablet 1,000 mg PO QAM sotalol 80 mg tablet 80 mg PO BID Qty: 60 3RF cyclobenzaprine 10 mg tablet 10 mg PO TID PRN (Reason: Muscle Pain) gabapentin 800 mg tablet 800 mg PO TID PRN (Reason: Pain) fentanyl 75 mcg/hr patch 72 hour 1 patch transdermal Q72H Movantik 25 mg Tablet 25 mg PO QAM Rx Instructions: must be taken on empty stomach; no food 1 hr after or 2-3 hrs before dose oxycodone 10 mg tablet 10 mg PO Q6H PRN (Reason: PAIN) 7 Days Qty: 28 0RF Discharge Orders: Discharge Order (Routine); Ordered 11/30/22 Ordered By: Nic Pickard Diet: Usual diet and Diabetic Activity: Resume usual activity Activity Restrictions/Additional Instructions: No driving today Discharge Attestations Time Spent in Discharge Care*: less than 30 min Quality Metrics Clinical Quality Measures [ No reported AMI, CVA or VTE this stay] Coding Level of Care Code Acute Code for [facility] Fwd Diagnoses Pulmonary embolism I27.82 Acute cor pulmonale presence: without acute cor pulmonale Chronicity: chronic Pulmonary embolism type: unspecified Obesity E66.9 Atrial fibrillation I48.91 DM type 2 (diabetes mellitus, type 2) E11.9 Chronic anticoagulation Z79.01
[2022-11-30 08:37] VITALS: BP 109/77; PULSE 89; RESP 16; TEMP 36.1; O2SAT 96
[2022-11-30 08:45] VITALS: BP 97/76; PULSE 90; RESP 16; O2SAT 96
--- NOTE | 2022-11-30 08:46 | PC.NURSE ---
Pt remains in AFib after cardioversion attempt x 6. 150 J @ 0823, 200 J @ 0823, 200 J @ 0824, 200 J @ 0824, 200 J @ 0825, 200 J @ 0826. Pt to recovery in stable condition, no EKG in recovery per Dr Pickard.
--- NOTE | 2022-11-30 13:01 | ANE.PACU2 ---
Inpatient post-anesthesia follow up: Airway intact: Yes Vital signs: Temperature 97 F Pulse Rate 90 Respiratory Rate 16 Blood Pressure 97/76 Pulse Oximetry 96 Oxygen Delivery Me thod Room Air Oxygen Flow Rate 3 Fraction of Inspir ed Oxygen Hydration adequate: Yes Nausea and vomiting: No Pain level: 1 Mental status: Baseline
== END 2022-11-30 09:08 | disposition home or self-care (01) ==
PROVIDERS: PCP Nurse Practitioner Family; Visit Provider Internal Medicine Cardiovascular Disease
PROC: 5A2204Z Restoration of Cardiac Rhythm, Single (ICD-10-PCS; principal; 2022-11-30 08:00)
DX: I27.82 Chronic pulmonary embolism (principal); E66.01 Morbid (severe) obesity due to excess calories; Z68.41 Body mass index [BMI] 40.0-44.9, adult; I48.91 Unspecified atrial fibrillation; E11.9 Type 2 diabetes mellitus without complications; Z79.01 Long term (current) use of anticoagulants; Z79.82 Long term (current) use of aspirin; Z79.84 Long term (current) use of oral hypoglycemic drugs; G47.30 Sleep apnea, unspecified
CPT/HCPCS: 36416; 82962; 92960; 93005; J2704; J7030

== ENCOUNTER → 2022-12-18 10:20 | Outpatient (BNVA) | payer MEDICARE, SELFPAY | PROVIDERS: PCP Nurse Practitioner Family; Visit Provider Student in an Organized Health Care Education/Training Program | DX: Z96.641 Presence of right artificial hip joint (principal) | CPT/HCPCS: 73502; 99213 ==

== ENCOUNTER 2022-12-24 21:27 | Emergency (ER) | payer MEDICARE, SELFPAY ==
[2022-12-24 21:29] VITALS: BP 130/81; PULSE 75; RESP 17; TEMP 36.7; O2SAT 99; BMI 40.1
--- NOTE | 2022-12-24 21:34 | ED_ITS ---
Documented by User: Clay Saldana MD 01/06/23 02:38 HPI - Chest Pain General: Chief Complaint: Chest Pain Stated Complaint: CP Time Seen by Provider: 12/24/22 21:33 History of Present Illness: Mr. Laboy is a 57-year-old gentleman with history of atrial fibrillation, chronic anticoagulation secondary to pulmonary embolism, diabetes, obesity presenting to the emergency department for chest discomfort. He reports being at his baseline health and had onset of rest of left anterior chest discomfort without significant radiation. He does endorse intermittent forearm tingling on the left though this may be more secondary to neuropathy/back issues. Intensity of symptoms moderate to severe. Did note elevated blood pressure associated with this however denies other associated typical cardiac features. Course is somewhat improved with EMS administered analgesia. No other specific changes in health, exacerbating, or alleviating factors identified. Prehospital aspirin, fentanyl, nitro. Onset (ago): hour(s) Prior episodes: Yes Onset: during rest Pain location: left chest Severity: moderate Quality: other Relieving factors: nitroglycerin Exacerbating factors: nothing Associated symptoms: Reports other Review of Systems General: Reports: 10 or more systems reviewed and unremarkable except in HPI and below PFSH ED PFSH: Medical History Acute encephalopathy Atrial fibrillation Chronic anticoagulation Chronic low back pain Degenerative joint disease of right hip Diabetes DM type 2 (diabetes mellitus, type 2) Hypomagnesemia MRSA (methicillin resistant Staphylococcus aureus) infection Obesity Pulmonary embolism Wound infection Surgical History History of orthopedic surgery Bilateral lower extremity fractures 2004, hardware of right lower extremity and removal in 2016 S/P total right hip arthroplasty Family History Father Leukemia Social History Smoking and tobacco status: former smoker Alcohol intake: never Lives independently: Yes Household members: other Details: mother Physical Exam Const: COMMON NORMALS: alert GENERAL APPEARANCE: cooperative and well developed HENMT: COMMON NORMALS: normocephalic and atraumatic HEAD & SCALP: normocephalic and atraumatic THROAT: posterior oropharynx normal Eye: COMMON NORMALS: conjunctivae normal CONJUNCTIVA: Yes conjunctivae normal SCLERA: sclerae normal Neck/C-Spine: COMMON NORMALS: supple GENERAL: Yes trachea midline Resp: COMMON NORMALS: clear to auscultation bilaterally EFFORT & INSPECTION: Yes able to speak in complete sentences AUSCULTATION: clear to auscultation bilaterally Cardio: COMMON NORMALS: regular rate and regular rhythm RATE: regular rate RHYTHM: regular rhythm GI: COMMON NORMALS: Soft to palpation PALPATION: Yes Soft to palpation and No Tenderness to palpation present (GI) Extremity: GENERAL: Yes normal exam except as noted and No edema Neuro: COMMON NORMALS: moves all extremities SENSORIUM/ORIENTATION: Yes alert and No Orientation impaired Psych: COMMON NORMALS: mental status grossly normal and Normal thought process present THOUGHT PROCESS: Normal thought process present Course Vital Signs: Vital signs: Vital Signs Temperature 98.1 F 12/24/22 21:29 Pulse Rate 72 12/25/22 00:00 Respiratory Rate 15 12/25/22 00:00 Blood Pressure 129/82 12/25/22 00:00 Pulse Oximetry 96 12/25/22 00:00 Oxygen Delivery Me thod 12/25/22 00:00 MDM - Chest Pain Medical Decision Making 57-year-old gentleman with history of fibrillation on anticoagulation, diabetes presenting to the emergency department due to chest pain. Patient reports that this feels different from prior episodes of chest pain. He is nontoxic in appearance, exam otherwise as above. Patient received aspirin prior to arrival. EKG notable for atrial fibrillation with controlled ventricular response, there is a right bundle branch block and right axis deviation. No STEMI. Labs notable for mild leukopenia and anemia compared to prior. Unremarkable metabolic panel. Initial troponin is within the normal range. BNP is mildly elevated. 2-hour delta troponin and COVID swab pending. Patient care handed off to Dr. Diaz pending completion of ED evaluation for disposition. Medical Records I reviewed the patient's medical records. Lab Data I reviewed the patient's lab results. 12/24/22 21:47 12/24/22 21:47 Radiology Impressions Chest X-Ray 12/24/22 21:50 IMPRESSION: Subtle haziness in the left lung base likely represents atelectasis. Left basilar pneumonitis cannot be entirely excluded. Laboratory Results WBC 3.5 10^3/uL (4.0-10.0) L 12/24/22 21:47 RBC 4.08 10^6/uL (4.1-5.3) L 12/24/22 21:47 Hgb 11.4 g/dL (11.7-16.6) L 12/24/22 21:47 Hct 36.4 % (42.0-52.0) L 12/24/22 21:47 MCV 89.2 fl (80-94) 12/24/22 21:47 MCH 27.9 pg (28.0-34.0) L 12/24/22 21:47 MCHC 31.3 g/dL (30.0-36.0) 12/24/22 21:47 RDW 14.2 % (12.1-15.1) 12/24/22 21:47 Plt Count 260 10^3/cmm (130-400) 12/24/22 21:47 MPV 9.5 fL (7.4-10.4) 12/24/22 21:47 Neut % (Auto) 36.6 % 12/24/22 21:47 Lymph % (Auto) 48.4 % 12/24/22 21:47 [place] % (Auto) 10.6 % 12/24/22 21:47 Eos % (Auto) 2.9 % 12/24/22 21:47 Baso % (Auto) 0.9 % 12/24/22 21:47 Neut # (Auto) 1.28 10^3/uL (1.8-7.7) L 12/24/22 21:47 Lymph # (Auto) 1.7 10^3/uL (0.8-4.8) 12/24/22 21:47 [place] # (Auto) 0.4 10^3/uL (0.2-0.9) 12/24/22 21:47 Eos # (Auto) 0.1 10^3/uL (0.0-0.8) 12/24/22 21:47 Baso # (Auto) 0.0 10^3/uL (0.0-0.1) 12/24/22 21:47 Nucleated RBC % (auto) 0 % 12/24/22 21:47 Nucleated RBCs # 0.0 /100WBC 12/24/22 21:47 Sodium 138 mmol/L (136-145) 12/24/22 21:47 Potassium 4.2 mmol/L (3.5-5.1) 12/24/22 21:47 Chloride 101 mmol/L (98-107) 12/24/22 21:47 Carbon Dioxide 27 mmol/L (22-29) 12/24/22 21:47 Anion Gap 14.2 (5-19) 12/24/22 21:47 BUN 14 mg/dL (6-20) 12/24/22 21:47 Creatinine 0.7 mg/dL (0.7-1.2) 12/24/22 21:47 GFR Calculation 115.4 mL/min (90-130) 12/24/22 21:47 Glucose 97 mg/dL (65-115) 12/24/22 21:47 Calculated Osmolality 286 mOsm/kg (285-295) 12/24/22 21:47 Calcium 8.6 mg/dL (8.5-10.5) 12/24/22 21:47 Total Bilirubin 0.2 mg/dL (0.15-1.2) 12/24/22 21:47 AST 20 U/L (0-40) 12/24/22 21:47 ALT 31 U/L (0-41) 12/24/22 21:47 Alkaline Phosphatase 62 U/L (40-130) 12/24/22 21:47 Troponin T Baseline 14 ng/L (0-15) 12/24/22 21:47 Troponin T 120 Minute 14.72 ng/L (0-15) 12/24/22 23:21 Delta Troponin T 0.72 ABS# (0-10) 12/24/22 23:21 NT-Pro-B Natriuret Pep 1147 pg/mL (0-125) H 12/24/22 21:47 Total Protein 6.7 g/dL (6.6-8.7) 12/24/22 21:47 Albumin 3.5 g/dL (3.5-5.2) 12/24/22 21:47 Globulin 3.2 g/dL (1.3-4.6) 12/24/22 21:47 Lipase 18 U/L (13-60) 12/24/22 21:47 Discharge Plan Discharge Patient Disposition: Home Clinical Impression: Chest pain, Leukopenia, Normocytic anemia, Elevated brain natriuretic peptide (BNP) level Condition: Stable Prescriptions: No Action aspirin [Adult Low Dose Aspirin] 81 mg tablet,delayed release (DR/EC) 81 mg PO QAM Eliquis 5 mg tablet 5 mg PO BID nitroglycerin [Nitrostat] 0.4 mg tablet, sublingual 0.4 mg SUBLINGUAL Q5M PRN (Reason: chest pains) Rx Instructions: do not exceed 3 doses per episode ibuprofen 800 mg tablet 800 mg PO TID PRN (Reason: Pain) Hold Instructions: Resume on 09/09/20. (DME) AFO to the right & Diabetic shoes with 3 pairs of inserts See Rx Instructions .Route .MEDSUPPLY Qty: 1 0RF Rx Instructions: As directed by SARA&O metformin 1,000 mg tablet 1,000 mg PO QAM sotalol 80 mg tablet 80 mg PO BID Qty: 180 3RF cyclobenzaprine 10 mg tablet 10 mg PO TID PRN (Reason: Muscle Pain) gabapentin 800 mg tablet 800 mg PO TID PRN (Reason: Pain) fentanyl 75 mcg/hr patch 72 hour 1 patch transdermal Q72H Movantik 25 mg Tablet 25 mg PO QAM Rx Instructions: must be taken on empty stomach; no food 1 hr after or 2-3 hrs before dose oxycodone 10 mg tablet 10 mg PO Q6H PRN (Reason: PAIN) 7 Days Qty: 28 0RF Discharge Orders: Discharge ED (Routine); Ordered 12/24/22 Ordered By: Chetan Diaz Referrals: Rachael Law FNP [Primary Care Provider] - Discharge Diet: Usual diet Discharge Activity: Resume usual activity Patient Instructions: Chest Pain (ED), Opioid Safety, Pain Management Activity Restrictions/Additional Instructions: Thank you for visiting the emergency department. You were seen and divided for chest pain. The exact cause of your symptoms is unclear. As discussed you are moderate risk for major adverse cardiac events and choosing to have further evaluation in the outpatient setting. I will message case management for follow-up. I will order further outpatient testing. Please also follow-up with your primary care provider. Continue your medication s as prescribed. Return to the emergency department for worsening or recurrent symptoms or anything else that you are concerned about and feel needs emergency department evaluation. 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[employer] Documented by User: Chetan Diaz MD 12/25/22 00:34 HPI - Chest Pain General: Chief Complaint: Chest Pain Stated Complaint: CP Time Seen by Provider: 12/24/22 21:33 PFSH ED PFSH: Medical History Acute encephalopathy Atrial fibrillation Chronic anticoagulation Chronic low back pain Degenerative joint disease of right hip Diabetes DM type 2 (diabetes mellitus, type 2) Hypomagnesemia MRSA (methicillin resistant Staphylococcus aureus) infection Obesity Pulmonary embolism Wound infection Surgical History History of orthopedic surgery Bilateral lower extremity fractures 2004, hardware of right lower extremity and removal in 2015 S/P total right hip arthroplasty Family History Father Leukemia Social History Smoking and tobacco status: former smoker Alcohol intake: never Lives independently: Yes Household members: other Details: mother Course Vital Signs: Vital signs: Vital Signs Temperature 98.1 F 12/24/22 21:29 Pulse Rate 72 12/25/22 00:00 Respiratory Rate 15 12/25/22 00:00 Blood Pressure 129/82 12/25/22 00:00 Pulse Oximetry 96 12/25/22 00:00 Oxygen Delivery Me thod 12/25/22 00:00 MDM - Chest Pain Medical Decision Making 57-year-old gentleman with history of fibrillation on anticoagulation, diabetes presenting to the emergency department due to chest pain. Patient reports that this feels different from prior episodes of chest pain. He is nontoxic in appearance, exam otherwise as above. Patient received aspirin prior to arrival. EKG notable for atrial fibrillation with controlled ventricular response, there is a right bundle branch block and right axis deviation. No STEMI. Labs notable for mild leukopenia and anemia compared to prior. Unremarkable metabolic panel. Initial troponin is within the normal range. BNP is mildly e levated. 2-hour delta troponin and COVID swab pending. Patient care handed off to Dr. Diaz pending completion of ED evaluation for disposition. Patient's 2-hour troponin here is unchanged he is chest pain-free here he is stable for discharge he is to follow-up with PCP and return if worsening. Lab Data 12/24/22 21:47 12/24/22 21:47 Radiology Impressions Chest X-Ray 12/24/22 21:50 IMPRESSION: Subtle haziness in the left lung base likely represents atelectasis. Left basilar pneumonitis cannot be entirely excluded. Laboratory Results WBC 3.5 10^3/uL (4.0-10.0) L 12/24/22 21:47 RBC 4.08 10^6/uL (4.1-5.3) L 12/24/22 21:47 Hgb 11.4 g/dL (11.7-16.6) L 12/24/22 21:47 Hct 36.4 % (42.0-52.0) L 12/24/22 21:47 MCV 89.2 fl (80-94) 12/24/22 21:47 MCH 27.9 pg (28.0-34.0) L 12/24/22 21:47 MCHC 31.3 g/dL (30.0-36.0) 12/24/22 21:47 RDW 14.2 % (12.1-15.1) 12/24/22 21:47 Plt Count 260 10^3/cmm (130-400) 12/24/22 21:47 MPV 9.5 fL (7.4-10.4) 12/24/22 21:47 Neut % (Auto) 36.6 % 12/24/22 21:47 Lymph % (Auto) 48.4 % 12/24/22 21:47 [place] % (Auto) 10.6 % 12/24/22 21:47 Eos % (Auto) 2.9 % 12/24/22 21:47 Baso % (Auto) 0.9 % 12/24/22 21:47 Neut # (Auto) 1.28 10^3/uL (1.8-7.7) L 12/24/22 21:47 Lymph # (Auto) 1.7 10^3/uL (0.8-4.8) 12/24/22 21:47 [place] # (Auto) 0.4 10^3/uL (0.2-0.9) 12/24/22 21:47 Eos # (Auto) 0.1 10^3/uL (0.0-0.8) 12/24/22 21:47 Baso # (Auto) 0.0 10^3/uL (0.0-0.1) 12/24/22 21:47 Nucleated RBC % (auto) 0 % 12/24/22 21:47 Nucleated RBCs # 0.0 /100WBC 12/24/22 21:47 Sodium 138 mmol/L (136-145) 12/24/22 21:47 Potassium 4.2 mmol/L (3.5-5.1) 12/24/22 21:47 Chloride 101 mmol/L (98-107) 12/24/22 21:47 Carbon Dioxide 27 mmol/L (22-29) 12/24/22 21:47 Anion Gap 14.2 (5-19) 12/24/22 21:47 BUN 14 mg/dL (6-20) 12/24/22 21:47 Creatinine 0.7 mg/dL (0.7-1.2) 12/24/22 21:47 GFR Calculation 115.4 mL/min (90-130) 12/24/22 21:47 Glucose 97 mg/dL (65-115) 12/24/22 21:47 Calculated Osmolality 286 mOsm/kg (285-295) 12/24/22 21:47 Calcium 8.6 mg/dL (8.5-10.5) 12/24/22 21:47 Total Bilirubin 0.2 mg/dL (0.15-1.2) 12/24/22 21:47 AST 20 U/L (0-40) 12/24/22 21:47 ALT 31 U/L (0-41) 12/24/22 21:47 Alkaline Phosphatase 62 U/L (40-130) 12/24/22 21:47 Troponin T Baseline 14 ng/L (0-15) 12/24/22 21:47 Troponin T 120 Minute 14.72 ng/L (0-15) 12/24/22 23:21 Delta Troponin T 0.72 ABS# (0-10) 12/24/22 23:21 NT-Pro-B Natriuret Pep 1147 pg/mL (0-125) H 12/24/22 21:47 Total Protein 6.7 g/dL (6.6-8.7) 12/24/22 21:47 Albumin 3.5 g/dL (3.5-5.2) 12/24/22 21:47 Globulin 3.2 g/dL (1.3-4.6) 12/24/22 21:47 Lipase 18 U/L (13-60) 12/24/22 21:47 Discharge Plan Discharge Patient Disposition: Home Clinical Impression: Chest pain, Leukopenia, Normocytic anemia, Elevated brain natriuretic peptide (BNP) level Condition: Stable Prescriptions: No Action aspirin [Adult Low Dose Aspirin] 81 mg tablet,delayed release (DR/EC) 81 mg PO QAM Eliquis 5 mg tablet 5 mg PO BID nitroglycerin [Nitrostat] 0.4 mg tablet, sublingual 0.4 mg SUBLINGUAL Q5M PRN (Reason: chest pains) Rx Instructions: do not exceed 3 doses per episode ibuprofen 800 mg tablet 800 mg PO TID PRN (Reason: Pain) Hold Instructions: Resume on 09/09/20. (DME) AFO to the right & Diabetic shoes with 3 pairs of inserts See Rx Instructions .Route .MEDSUPPLY Qty: 1 0RF Rx Instructions: As directed by SARA&O metformin 1,000 mg tablet 1,000 mg PO QAM sotalol 80 mg tablet 80 mg PO BID Qty: 180 3RF cyclobenzaprine 10 mg tablet 10 mg PO TID PRN (Reason: Muscle Pain) gabapentin 800 mg tablet 800 mg PO TID PRN (Reason: Pain) fentanyl 75 mcg/hr patch 72 hour 1 patch transdermal Q72H Movantik 25 mg Tablet 25 mg PO QAM Rx Instructions: must be taken on empty stomach; no food 1 hr after or 2-3 hrs before dose oxycodone 10 mg tablet 10 mg PO Q6H PRN (Reason: PAIN) 7 Days Qty: 28 0RF Discharge Orders: Discharge ED (Routine); Ordered 12/24/22 Ordered By: Chetan Diaz Referrals: Law,Rachael, [employer] MANUFACTURER [Primary Care Provider] - Discharge Diet: Usual diet Discharge Activity: Resume usual activity Patient Instructions: Chest Pain (ED), Opioid Safety, Pain Management Activity Restrictions/Additional Instructions: Thank you for visiting the emergency department. You were seen and divided for chest pain. The exact cause of your symptoms is unclear. As discussed you are moderate risk for major adverse cardiac events and choosing to have further evaluation in the outpatient setting. I will message case management for follow-up. I will order further outpatient testing. Please also follow-up with your primary care provider. Continue your medications as prescribed. Return to the emergency department for worsening or recurrent symptoms or anything else that you are concerned about and feel needs emergency department evaluation. Coding Level of Care Code ED Compensation And Benefits Analyst for [employer] Velez
--- NOTE | 2022-12-24 21:50 | ECG_ITS ---
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 Measurements Intervals [place] Rate: 70 P: 0 [place]: 0 QRS: 107 QRSD: 154 T: 39 QT: 453 QTc: 491 Interpretive Statements ATRIAL FIBRILLATION RIGHT AXIS DEVIATION [QRS AXIS > 100] RIGHT BUNDLE BRANCH BLOCK [120+ ms QRS DURATION, UPRIGHT V1, 40+ ms S IN I/aVL/V4/V5/V6] Compared to ECG 11/30/2022 06:58:01 Right-axis deviation now present Electronically Signed On 12-25-2022 15:54:10 CDT by Rob Herman M.D. [email or web address]
--- NOTE | 2022-12-24 21:50 | XRR_ITS ---
PROCEDURE INFORMATION: Exam: XR Chest Exam date and time: 12/24/2022 9:58 PM Age: 57 years old Clinical indication: Pain; Chest pressure; Additional info: Cp TECHNIQUE: Imaging protocol: Radiologic exam of the chest. Views: 1 view. COMPARISON: CR XR chest 1V portable [id number] 11/04/2022 8:46 PM FINDINGS: Lungs: Some subtle haziness seen in the left lung base possibly representing atelectasis. A left basilar pneumonitis cannot be entirely excluded. Pleural spaces: Unremarkable. No pleural effusion. No pneumothorax. Heart/Mediastinum: Unremarkable. No cardiomegaly. Bones/joints: Unremarkable. XR/XR chest 1V portable [id number] IMPRESSION: Subtle haziness in the left lung base likely represents atelectasis. Left basilar pneumonitis cannot be entirely excluded.
[2022-12-24 22:07] LABS: Basophils % 0.9 %; Eosinophils # 0.1 10^3/uL (0.0-0.8); Eosinophils % 2.9 %; Hematocrit 36.4 % (42.0-52.0); Hemoglobin 11.4 g/dL (11.7-16.6); Lymphocytes # 1.7 10^3/uL (0.8-4.8); Lymphocytes % 48.4 %; Mean Corpuscular HGB Conc 31.3 g/dL (30.0-36.0); Mean Corpuscular Hemoglobin 27.9 pg (28.0-34.0); Mean Corpuscular Volume 89.2 fl (80-94); Mean Platelet Volume 9.5 fL (7.4-10.4); Monocytes # 0.4 10^3/uL (0.2-0.9); Monocytes % 10.6 %; Neutrophils # 1.28 10^3/uL (1.8-7.7); Neutrophils % 36.6 %; Nucleated Red Blood Cells % 0 %; Platelet Count 260 10^3/cmm (130-400); Red Blood Count 4.08 10^6/uL (4.1-5.3); Red Cell Distribution Width 14.2 % (12.1-15.1); White Blood Count 3.5 10^3/uL (4.0-10.0)
[2022-12-24 22:28] LABS: Troponin(5th) Baseline 14 ng/L (0-15)
[2022-12-24 22:35] LABS: Alanine Aminotransferase 31 U/L (0-41); Albumin Level 3.5 g/dL (3.5-5.2); Alkaline Phosphatase 62 U/L (40-130); Anion Gap 14.2 (5-19); Aspartate Amino Transferase 20 U/L (0-40); Blood Urea Nitrogen 14 mg/dL (6-20); Calcium 8.6 mg/dL (8.5-10.5); Carbon Dioxide 27 mmol/L (22-29); Chloride 101 mmol/L (98-107); Globulin 3.2 g/dL (1.3-4.6); Glomerular Filtration Rate 115.4 mL/min (90-130); Glucose 97 mg/dL (65-115); Lipase 18 U/L (13-60); NT Pro B Type Natriuretic Pept 1147 pg/mL (0-125); Osmolality Calculated 286 mOsm/kg (285-295); Potassium 4.2 mmol/L (3.5-5.1); Sodium 138 mmol/L (136-145); Total Bilirubin 0.2 mg/dL (0.15-1.2); Total Protein 6.7 g/dL (6.6-8.7)
[2022-12-24] MEDS: acetaminophen 500 mg Tablet 1000 MG PO (23:20)
[2022-12-24 23:43] LABS: Troponin 5 2HR 14.72 ng/L (0-15)
[2022-12-24 23:50] LABS: Troponin 5 2HR Delta 0.72 ABS# (0-10)
[2022-12-25] VITALS: BP 129/82; PULSE 72; RESP 15; O2SAT 96
== END 2022-12-25 00:36 | disposition home or self-care (01) ==
PROVIDERS: Emergency Medicine; Emergency Provider Emergency Medicine; PCP Nurse Practitioner Family
DX: R07.9 Chest pain, unspecified (principal); D72.819 Decreased white blood cell count, unspecified; D64.9 Anemia, unspecified; R79.89 Other specified abnormal findings of blood chemistry; Z79.82 Long term (current) use of aspirin; Z79.01 Long term (current) use of anticoagulants; Z79.84 Long term (current) use of oral hypoglycemic drugs; Z87.891 Personal history of nicotine dependence; E11.9 Type 2 diabetes mellitus without complications
CPT/HCPCS: 71045; 80053; 83690; 83880; 84484; 85025; 93005; 99285

== ENCOUNTER → 2023-01-25 09:23 | Outpatient (BNVA) | payer MEDICARE, SELFPAY | PROVIDERS: PCP Nurse Practitioner Family; Visit Provider Thoracic Surgery (Cardiothoracic Vascular Surgery) | DX: I96 Gangrene, not elsewhere classified (principal); T25.232A Burn of second degree of left toe(s) (nail), initial encounter; X08.8XXA Exposure to other specified smoke, fire and flames, initial encounter | CPT/HCPCS: 11042; 99213 ==

== ENCOUNTER → 2023-01-29 08:08 | Outpatient (BNVA) | payer MEDICARE, SELFPAY | PROVIDERS: PCP Nurse Practitioner Family; Visit Provider Surgery | DX: I27.82 Chronic pulmonary embolism (principal); E66.9 Obesity, unspecified; I48.91 Unspecified atrial fibrillation; Z79.01 Long term (current) use of anticoagulants; E11.9 Type 2 diabetes mellitus without complications; Z87.891 Personal history of nicotine dependence; Z68.41 Body mass index [BMI] 40.0-44.9, adult; K21.9 Gastro-esophageal reflux disease without esophagitis; R10.13 Epigastric pain; R14.0 Abdominal distension (gaseous); Z80.0 Family history of malignant neoplasm of digestive organs; Z86.010 Personal history of colon polyps | CPT/HCPCS: 99203; 99213 ==

== ENCOUNTER 2023-02-03 06:00 | Day surgery (SDC) | payer MEDICARE, SELFPAY ==
[2023-02-01 13:50] VITALS: BMI 56.5
[2023-02-03 06:29] VITALS: BP 137/81; PULSE 85; RESP 17; TEMP 36.1; O2SAT 94
[2023-02-03] MEDS: sodium chloride 0.9% 1,000 ML 30 ML IV (06:39)
[2023-02-03 06:46] LABS: Glucose Point of Care 122 mg/dL (70-110)
--- NOTE | 2023-02-03 07:36 | ANES.PREANE2 ---
Pre-Anesthetic Assessment Height/Weight: Height 1.68 m Weight 158.757 kg Temp Pulse Resp BP Pulse Ox O2 Del Method 97.0 F L 85 17 137/81 94 Room Air 02/03/23 06:29 02/03/23 06:29 02/03/23 06:29 02/03/23 06:29 02/03/23 06:29 02/03/23 06:29 Operation Date: 02/03/23 07:45 Proposed Procedures p 79469 Colon [id number] EGD K21.9,R10.13, R14.00,Z80.00,z86.010(Not Applicable) - DO fredy Zavala Colonoscopy(Not Applicable) - Evan Jeffery DO Familial anesthetic complications: none Was Beta John taken within 24 hours: N/A Was Clonidine taken within 24 hours: N/A Last intake: Intake Last Liquid Date 02/02/23 Last Liquid Time 22:00 Last Solid Date 02/01/23 Last Solid Time 20:00 Social No alcohol and No tobacco Exam alert, oriented x 3 and clear to auscultation bilaterally irregular Airway Submandibular: within normal limits Cervical ROM: within normal limits Mallampati: Class II Dentition: false CV/HEM Atrial Fibrillation, Deep Vein Thrombosis (PE) and Hypertension GI Gastroesophageal Reflux Disease Metabolic Diabetes Mellitus and Morbid Obesity Musc/skel Lower Back Pain Neuropsych Neuropathy Anesthetic Plan ASA status: 3 Anesthesia: MAC Medications/Allergies Home Medications Medication Instructions Recorded Confirmed Last Taken Type apixaban 5 mg tablet (Eliquis) 5 mg PO BID 04/11/20 02/01/23 02/01/23 History aspirin 81 mg tablet,delayed 81 mg PO QAM 04/11/20 02/01/23 02/01/23 History release (Adult Low Dose Aspirin) nitroglycerin 0.4 mg sublingual 0.4 mg sublingual Q5M PRN chest 04/11/20 02/01/23 Unknown History tablet (Nitrostat) pains gabapentin 800 mg tablet 800 mg PO TID PRN Pain 03/04/22 02/01/23 02/01/23 History ibuprofen 800 mg tablet 800 mg PO TID PRN Pain 03/04/22 02/01/23 02/02/23 History AFO to the right & Diabetic shoes #1 ea 05/26/22 01/29/23 Unknown Rx with 3 pairs of inserts metformin 1,000 mg tablet 1,000 mg PO QAM 07/15/22 02/01/23 02/01/23 History naloxegol 25 mg tablet (Movantik) 25 mg PO QAM 09/09/22 02/01/23 02/02/23 History oxycodone 10 mg tablet 10 mg PO Q6H PRN PAIN 7 days #28 09/18/22 02/03/23 02/03/23 Rx tabs sotalol 80 mg tablet 80 mg PO BID #180 tabs 01/05/23 02/03/23 02/03/23 Rx pantoprazole 40 mg tablet,delayed 40 mg PO BID 6 weeks #84 tabs 01/29/23 02/01/23 02/02/23 Rx release (Protonix) ciprofloxacin HCl 500 mg tablet 500 mg PO DAILY 02/01/23 02/01/23 02/02/23 History Allergies Allergy/AdvReac Type Severity Reaction Status Date / Time No Known Allergies Allergy Verified 01/29/23 08:09 Current Medications Generic Name Dose Route Start Last Admin Trade Name Freq PRN Reason Stop Dose Admin Sodium Chloride 1,000 mls @ 30 mls/hr 02/03/23 06:15 02/03/23 06:39 Sodium Chloride 0.9% IV 02/04/23 06:14 30 mls/hr .Q24H JANES Administration PFSH Anesthesia Medical History Acute encephalopathy Atrial fibrillation Chronic anticoagulation Chronic low back pain Degenerative joint disease of right hip Diabetes DM type 2 (diabetes mellitus, type 2) Hypomagnesemia MRSA (methicillin resistant Staphylococcus aureus) infection Obesity Pulmonary embolism Wound infection Surgical History History of orthopedic surgery Bilateral lower extremity fractures 2004, hardware of right lower extremity and removal in 2016 S/P total right hip arthroplasty Family History Father Leukemia Social History Smoking and tobacco status: former smoker Alcohol intake: never Substance/Drug Use: former Lives independently: Yes Household members: other Details: mother Data Anesthesia Cardiac Studies: Echocardiogram 06/25/22 Sestamibi Stress Test (Cardiology) 04/28/21 Holter Monitor 11/19/21
--- NOTE | 2023-02-03 07:36 | W.PM.OPSUD ---
Surgery/Procedure H&P Update DATE OF PROCEDURE: February 03, 2023 DATE H&P PERFORMED: 01/29/23 H&P UPDATE INFORMATION: I have reviewed H&P completed within last 30 days, I have examined patient prior to procedure and No changes to prior documentation PLANNED PROCEDURE: Operation Date: 02/03/23 07:45 Proposed Procedures p 79250 Colon [id number] EGD K21.9,R10.13, R14.00,Z80.00,z86.010(Not Applicable) - DO fredy Zavala Colonoscopy(Not Applicable) - Evan Jeffery DO
[2023-02-03 08:05] VITALS: BP 115/90; PULSE 74; RESP 18; TEMP 36.4; O2SAT 99
[2023-02-03 08:10] VITALS: BP 118/79; PULSE 77; RESP 18; O2SAT 98
--- NOTE | 2023-02-03 17:31 | ANE.PACU2 ---
Inpatient post-anesthesia follow up: Airway intact: Yes Vital signs: Temperature 97.6 F Pulse Rate 77 Respiratory Rate 18 Blood Pressure 118/79 Pulse Oximetry 98 Oxygen Delivery Me thod Nasal Cannula Oxygen Flow Rate 4 Fraction of Inspir ed Oxygen Hydration adequate: Yes Nausea and vomiting: No Pain level: 2 Mental status: Baseline
== END 2023-02-03 08:40 | disposition home or self-care (01) ==
PROVIDERS: PCP Nurse Practitioner Family; Visit Provider Surgery
PROC: 0DJ08ZZ Inspection of Upper Intestinal Tract, Via Natural or Artificial Opening Endoscopic (ICD-10-PCS; CPT 43235; principal; 2023-02-03 07:45)
PROC: 0DJD8ZZ Inspection of Lower Intestinal Tract, Via Natural or Artificial Opening Endoscopic (ICD-10-PCS; CPT 45378; 2023-02-03 07:45)
DX: K21.9 Gastro-esophageal reflux disease without esophagitis (principal); Z86.010 Personal history of colon polyps; K29.50 Unspecified chronic gastritis without bleeding; K63.5 Polyp of colon; K57.30 Diverticulosis of large intestine without perforation or abscess without bleeding; I48.91 Unspecified atrial fibrillation; I10 Essential (primary) hypertension; Z86.718 Personal history of other venous thrombosis and embolism; Z86.711 Personal history of pulmonary embolism; E11.40 Type 2 diabetes mellitus with diabetic neuropathy, unspecified; E66.01 Morbid (severe) obesity due to excess calories; Z68.43 Body mass index [BMI] 50.0-59.9, adult; Z79.01 Long term (current) use of anticoagulants; Z79.82 Long term (current) use of aspirin; Z79.84 Long term (current) use of oral hypoglycemic drugs; Z79.891 Long term (current) use of opiate analgesic; Z87.891 Personal history of nicotine dependence; Z80.0 Family history of malignant neoplasm of digestive organs; R10.13 Epigastric pain; R14.0 Abdominal distension (gaseous)
CPT/HCPCS: 36416; 43239; 45385; 82962; 88305; 88342; J2704; J7030

== ENCOUNTER → 2023-02-05 13:11 | Outpatient (BNVA) | payer MEDICARE, SELFPAY | PROVIDERS: PCP Nurse Practitioner Family; Visit Provider Thoracic Surgery (Cardiothoracic Vascular Surgery) | DX: E11.621 Type 2 diabetes mellitus with foot ulcer (principal); I96 Gangrene, not elsewhere classified; L97.522 Non-pressure chronic ulcer of other part of left foot with fat layer exposed | CPT/HCPCS: 11042 ==

== ENCOUNTER → 2023-02-12 10:43 | Outpatient (BNVA) | payer MEDICARE, SELFPAY | PROVIDERS: PCP Nurse Practitioner Family; Visit Provider Thoracic Surgery (Cardiothoracic Vascular Surgery) | DX: I96 Gangrene, not elsewhere classified (principal); E11.621 Type 2 diabetes mellitus with foot ulcer; L97.522 Non-pressure chronic ulcer of other part of left foot with fat layer exposed | CPT/HCPCS: 97597 ==

== ENCOUNTER → 2023-02-18 16:24 | Outpatient (BNVA) | payer MEDICARE, SELFPAY | PROVIDERS: PCP Nurse Practitioner Family; Visit Provider Surgery | DX: R14.0 Abdominal distension (gaseous) (principal); Z86.010 Personal history of colon polyps; R10.9 Unspecified abdominal pain | CPT/HCPCS: 99212 ==

== ENCOUNTER → 2023-02-19 13:53 | Outpatient (BNVA) | payer MEDICARE, SELFPAY | PROVIDERS: PCP Nurse Practitioner Family; Visit Provider Thoracic Surgery (Cardiothoracic Vascular Surgery) | DX: I96 Gangrene, not elsewhere classified (principal); E11.621 Type 2 diabetes mellitus with foot ulcer; L97.522 Non-pressure chronic ulcer of other part of left foot with fat layer exposed | CPT/HCPCS: 97597 ==

== ENCOUNTER → 2023-02-26 14:29 | Outpatient (BNVA) | payer MEDICARE, SELFPAY | PROVIDERS: PCP Nurse Practitioner Family; Visit Provider Thoracic Surgery (Cardiothoracic Vascular Surgery) | DX: I96 Gangrene, not elsewhere classified (principal); E11.621 Type 2 diabetes mellitus with foot ulcer; L97.522 Non-pressure chronic ulcer of other part of left foot with fat layer exposed | CPT/HCPCS: 97597; A6210 ==

== ENCOUNTER → 2023-03-05 13:50 | Outpatient (BNVA) | payer MEDICARE, SELFPAY | PROVIDERS: PCP Nurse Practitioner Family; Visit Provider Thoracic Surgery (Cardiothoracic Vascular Surgery) | DX: E11.621 Type 2 diabetes mellitus with foot ulcer (principal); L97.522 Non-pressure chronic ulcer of other part of left foot with fat layer exposed | CPT/HCPCS: 97597; A6210 ==

== ENCOUNTER → 2023-03-12 13:33 | Outpatient (BNVA) | payer MEDICARE, SELFPAY | PROVIDERS: PCP Nurse Practitioner Family; Visit Provider Thoracic Surgery (Cardiothoracic Vascular Surgery) | DX: E11.52 Type 2 diabetes mellitus with diabetic peripheral angiopathy with gangrene (principal); L97.522 Non-pressure chronic ulcer of other part of left foot with fat layer exposed | CPT/HCPCS: 97597; A6210 ==

== ENCOUNTER → 2023-03-19 09:34 | Outpatient (BNVA) | payer MEDICARE, SELFPAY | PROVIDERS: PCP Nurse Practitioner Family; Visit Provider Thoracic Surgery (Cardiothoracic Vascular Surgery) | DX: E11.52 Type 2 diabetes mellitus with diabetic peripheral angiopathy with gangrene (principal); L97.522 Non-pressure chronic ulcer of other part of left foot with fat layer exposed | CPT/HCPCS: 97597; A6210 ==

== ENCOUNTER → 2023-03-26 08:45 | Outpatient (BNVA) | payer MEDICARE, SELFPAY | PROVIDERS: PCP Nurse Practitioner Family; Visit Provider Thoracic Surgery (Cardiothoracic Vascular Surgery) | DX: E11.52 Type 2 diabetes mellitus with diabetic peripheral angiopathy with gangrene (principal); L97.522 Non-pressure chronic ulcer of other part of left foot with fat layer exposed | CPT/HCPCS: 97597; A6210 ==

== ENCOUNTER 2023-03-30 19:19 | Emergency (ER) | payer MEDICARE, SELFPAY ==
[2023-03-30 19:22] VITALS: BP 156/91; PULSE 86; RESP 16; TEMP 36.8; O2SAT 96; BMI 42.5
--- NOTE | 2023-03-30 19:46 | ED_ITS ---
HPI - Extremity Problem General: Chief complaint: Extremity Injury, Lower Stated complaint: Rt Leg Infection Time Seen by Provider: 03/30/23 19:28 History of Present Illness: 57 yo male patient presents to ER with redness and swelling to right lower leg. Pt states he has a cut on the botto of his foot and the redness and swelling has gotten worse. Pt denies any fever. Pt denies any other complaints Pt is a diabetic. Review of Systems Skin/Breast: Reports: erythema and skin swelling PFSH ED PFSH: Medical History Acute encephalopathy Atrial fibrillation Chronic anticoagulation Chronic low back pain Degenerative joint disease of right hip Diabetes DM type 2 (diabetes mellitus, type 2) Hypomagnesemia MRSA (methicillin resistant Staphylococcus aureus) infection Obesity Pulmonary embolism Wound infection Surgical History History of orthopedic surgery Bilateral lower extremity fractures 2004, hardware of right lower extremity and removal in 2016 S/P total right hip arthroplasty Family History Father Leukemia Social History Smoking and tobacco status: former smoker Alcohol intake: never Substance/Drug Use: former Lives independently: Yes Household members: other Details: mother Physical Exam Const: COMMON NORMALS: no acute distress, average body habitus, patient orient ed x3, no limitations, healthy appearing, alert and well nourished Neck/C-Spine: COMMON NORMALS: full ROM, no lymphadenopathy and no JVD Resp: COMMON NORMALS: normal respiratory effort, No retractions, No use of accessory muscles, clear to auscultation bilaterally and percussion normal AUSCULTATION: clear to auscultation bilaterally PERCUSSION: percussion normal Cardio: COMMON NORMALS: no JVD, regular rate, regular rhythm, S1 normal heart sound present, S2 normal heart sound present, No gallops present (Cardio), No clicks present (Cardio), No murmurs present (Cardio), No rub (Cardio) and Peripheral pulses 2+ throughout RATE: regular rate RHYTHM: regular rhythm HEART SOUNDS: S1 normal heart sound present and S2 normal heart sound present PERIPHERAL PULSES: Peripheral pulses 2+ throughout Extremity: RIGHT LOWER EXTREMITY: Yes lower leg OTHER: Patient has erythema and swelling right lower ext. Pt denies any calf tenderness Neuro: COMMON NORMALS: patient oriented x3 SENSORIUM/ORIENTATION: Yes alert Skin: COMMON NORMALS: negative for no rashes or lesions noted GENERAL SKIN EXAM: rashes and/or lesions noted Course Vital Signs: Vital signs: Vital Signs Temperature 98.3 F 03/30/23 19:22 Pulse Rate 86 03/30/23 19:22 Respiratory Rate 16 03/30/23 19:22 Blood Pressure 156/91 03/30/23 19:22 Pulse Oximetry 96 03/30/23 19:22 Oxygen Delivery Me thod Room Air 03/30/23 19:22 MDM - Extremity (Nontraumatic) Medical Decision Making Patient is well appearing non toxic and in no acute distress. 57 yo male patient presents to ER with redness and swelling to right lower leg. Pt states he has a cut on the botto of his foot and the redness and swelling has gotten worse. Pt denies any fever. Pt denies any other complaints Pt is a diabetic. US negative for DVT. Pts findings are c/w cellulitis. Will start on antibiotics and have patient follow up with wound management tomorrow. Close return precautions discussed. Pt is NVI distally. Pt denies any chest pain or SOB and it afebrile Lab Data Radiology Impressions Venous Duplex 03/30/23 19:50 IMPRESSION: 1. No sonographic evidence of deep venous thrombosis. 2. Additional findings, as above. Discharge Plan Discharge Patient Disposition: Home Clinical Impression: Cellulitis Condition: Stable Prescriptions: New Cleocin HCl 300 mg capsule 300 mg PO Q6H 10 Days Qty: 40 0RF No Action aspirin [Adult Low Dose Aspirin] 81 mg tablet,delayed release (DR/EC) 81 mg PO QAM Eliquis 5 mg tablet 5 mg PO BID Hold Instructions: Resume on 02/05/23. nitroglycerin [Nitrostat] 0.4 mg tablet, sublingual 0.4 mg SUBLINGUAL Q5M PRN (Reason: chest pains) Rx Instructions: do not exceed 3 doses per episode ibuprofen 800 mg tablet 800 mg PO TID PRN (Reason: Pain) Hold Instructions: Resume on 02/05/23. (DME) AFO to the right & Diabetic shoes with 3 pairs of inserts See Rx Instructions .Route .MEDSUPPLY Qty: 1 0RF Rx Instructions: As directed by SARA&O metformin 1,000 mg tablet 1,000 mg PO QAM pantoprazole [Protonix] 40 mg tablet,delayed release (DR/EC) 40 mg PO BID 42 Days Qty: 84 1RF sotalol 80 mg tablet 80 mg PO BID Qty: 180 3RF potassium chloride 10 mEq tablet extended release 10 meq PO DAILY Qty: 90 1RF furosemide 20 mg tablet 20 mg PO DAILY Qty: 90 1RF gabapentin 800 mg tablet 800 mg PO TID PRN (Reason: Pain) ciprofloxacin HCl 500 mg tablet 500 mg PO DAILY Movantik 25 mg Tablet 25 mg PO QAM Rx Instructions: must be taken on empty stomach; no food 1 hr after or 2-3 hrs before dose oxycodone 10 mg tablet 10 mg PO Q6H PRN (Reason: PAIN) 7 Days Qty: 28 0RF Discharge Orders: Discharge ED (Routine); Ordered 03/30/23 Ordered By: Roberta Echavarria Referrals: Law,JUAN ALBERTO CanoP [Primary Care Provider] - Discharge Diet: Advance as tolerated Discharge Activity: Increase activity as tolerated Patient Instructions: Cellulitis, Opioid Safety, Pain Management Activity Restrictions/Additional Instructions: Please follow up with wound management tomorrow Please take meds as prescribed Please return to ER with any worsening of symptoms as discussed and provided on discharge instructions Coding Level of Care Code ED Superintendent Generating [employer] for Biju Velez
--- NOTE | 2023-03-30 19:50 | USR_ITS ---
PROCEDURE INFORMATION: Exam: US Duplex Right Lower Extremity Veins, Limited Exam date and time: 03/30/2023 8:23 PM Age: 57 years old Clinical indication: Edema, localized; Lower extremity, right; Patient HX: Patient wears a brace on the right calf due to foot drop ; Additional info: Possible dvt TECHNIQUE: Imaging protocol: Real-time duplex ultrasound of the right extremity with 2-D villegas scale, color Doppler flow and spectral waveform analysis including responses to compression and other maneuvers (when performed) with image documentation. Limited exam was focused on the right lower extremity veins. COMPARISON: US scrotum [id number] 11/09/2019 11:25 AM FINDINGS: Right deep veins: Unremarkable. The common femoral, femoral, proximal profunda femoral, popliteal, posterior tibial and peroneal veins are patent without thrombus. Normal Doppler waveforms. Normal compressibility and/or augmentation response. Right superficial veins: Unremarkable. Saphenofemoral junction is patent without thrombus. Soft tissues: Mild subcutaneous edema. Lymph nodes: Mildly prominent right inguinal lymph nodes, likely reactive. US/[place] [id number] IMPRESSION: 1. No sonographic evidence of deep venous thrombosis. 2. Additional findings, as above.
[2023-03-30] MEDS: clindamycin 150 mg Capsule 300 MG PO (20:16)
== END 2023-03-30 21:49 | disposition home or self-care (01) ==
PROVIDERS: Emergency Provider Registered Nurse; PCP Nurse Practitioner Family
DX: L03.115 Cellulitis of right lower limb (principal); Z79.01 Long term (current) use of anticoagulants; Z79.82 Long term (current) use of aspirin; Z79.84 Long term (current) use of oral hypoglycemic drugs; E11.9 Type 2 diabetes mellitus without complications; Z87.891 Personal history of nicotine dependence
CPT/HCPCS: 93971; 99284

== ENCOUNTER 2023-03-31 21:00 | Emergency (ER) | payer MEDICARE, SELFPAY ==
[2023-03-31 21:15] VITALS: BP 137/85; PULSE 83; RESP 20; TEMP 36.4; O2SAT 97; BMI 42.5
[2023-03-31 21:29] VITALS: BP 130/89; PULSE 85; RESP 18; O2SAT 95
--- NOTE | 2023-03-31 21:36 | XRR_ITS ---
PROCEDURE INFORMATION: Exam: XR Chest Exam date and time: 03/31/2023 9:49 PM Age: 57 years old Clinical indication: Pain; Chest pressure; Additional info: Chest pain TECHNIQUE: Imaging protocol: Radiologic exam of the chest. Views: 1 view. COMPARISON: CR (CHEST, ) 12/24/2022 9:58 PM FINDINGS: Tubes, catheters and devices: EKG monitoring leads overlie the thoracic wall. Lungs: There is no consolidation. Pleural spaces: No pleural effusion or pneumothorax. Heart/Mediastinum: The heart and mediastinum are normal in size. Bones/joints: Unremarkable. XR/XR chest 1V portable [id number] IMPRESSION: No acute findings.
--- NOTE | 2023-03-31 21:36 | ECG_ITS ---
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 Measurements Intervals [place] Rate: 78 P: 0 DC: 0 QRS: 94 QRSD: 157 T: 3 QT: 437 QTc: 500 Interpretive Statements ATRIAL FIBRILLATION RIGHT BUNDLE BRANCH BLOCK [120+ ms QRS DURATION, UPRIGHT V1, 40+ ms S IN I/aVL/V4/V5/V6] MODERATE T-WAVE ABNORMALITY, CONSIDER LATERAL ISCHEMIA [-0.1+ mV T-WAVE IN I/aVL/V5/V6] Compared to ECG 12/24/2022 21:43:47 T-wave abnormality now present Possible ischemia now present Right-axis deviation no longer present Electronically Signed On 04-01-2023 12:16:22 CDT by Rob Herman M.D. [email or web address]/NU/[id number] f
[2023-03-31 21:51] LABS: Basophils % 0.5 %; Eosinophils # 0.1 10^3/uL (0.0-0.8); Eosinophils % 1.6 %; Hematocrit 40.8 % (42.0-52.0); Hemoglobin 12.8 g/dL (11.7-16.6); Lymphocytes # 1.7 10^3/uL (0.8-4.8); Lymphocytes % 38.5 %; Mean Corpuscular HGB Conc 31.4 g/dL (30.0-36.0); Mean Corpuscular Hemoglobin 28.6 pg (28.0-34.0); Mean Corpuscular Volume 91.1 fl (80-94); Mean Platelet Volume 10.5 fL (7.4-10.4); Monocytes # 0.5 10^3/uL (0.2-0.9); Monocytes % 11.5 %; Neutrophils # 2.07 10^3/uL (1.8-7.7); Neutrophils % 47.4 %; Nucleated Red Blood Cells % 0 %; Platelet Count 239 10^3/cmm (130-400); Red Blood Count 4.48 10^6/uL (4.1-5.3); Red Cell Distribution Width 13.4 % (12.1-15.1); White Blood Count 4.4 10^3/uL (4.0-10.0)
[2023-03-31 22:12] LABS: Troponin(5th) Baseline 11 ng/L (0-15)
[2023-03-31 22:13] LABS: Alanine Aminotransferase 12 U/L (0-41); Alkaline Phosphatase 70 U/L (40-130); Anion Gap 14.4 (5-19); Aspartate Amino Transferase 11 U/L (0-40); Blood Urea Nitrogen 12 mg/dL (6-20); Calcium 8.9 mg/dL (8.5-10.5); Carbon Dioxide 27 mmol/L (22-29); Chloride 103 mmol/L (98-107); Globulin 2.6 g/dL (1.3-4.6); Glomerular Filtration Rate 86.4 mL/min (90-130); Glucose 191 mg/dL (65-115); Lipase 18 U/L (13-60); Osmolality Calculated 295 mOsm/kg (285-295); Potassium 4.4 mmol/L (3.5-5.1); Sodium 140 mmol/L (136-145); Total Bilirubin 0.2 mg/dL (0.15-1.2); Total Protein 6.6 g/dL (6.6-8.7)
--- NOTE | 2023-03-31 22:14 | W.ED.CHESTPA ---
HPI - Chest Pain General: Chief Complaint: Chest Pain Stated Complaint: CP Time Seen by Provider: 03/31/23 21:16 History of Present Illness: This patient is a 57 year old presenting with chest pain that feels like the start of a stacey horse. He notes that this started while he was at rest this evening. He has had similar pains in the past and says that he has come in and we told him everything was fine - but he gets worried when he gets the pain and decided to come in to get checked again. He has a history of a fib, has had stress tests in the past and has been told that they were normal. He doesn't think that he has ever had a heart attack. He says that he sees cardiology here and in [place] where he is seeing someone about the a fib. Per cardiology office note that I reviewed - he is being evaluated for an ablation by EP there. He also has a history of PE. He denies SOB. No nausea or lightheadedness. He was given nitro by EMS and he thinks it helped. He has nitro paste on his chest now and has a headache. He denies cough, fever, vomiting. He is on abixaban. PFS ED PFSH: Medical History Acute encephalopathy Atrial fibrillation Chronic anticoagulation Chronic low back pain Degenerative joint disease of right hip Diabetes DM type 2 (diabetes mellitus, type 2) Hypomagnesemia MRSA (methicillin resistant Staphylococcus aureus) infection Obesity Pulmonary embolism Wound infection Surgical History History of orthopedic surgery Bilateral lower extremity fractures 2004, hardware of right lower extremity and removal in 2016 S/P total right hip arthroplasty Family History Father Leukemia Social History Smoking and tobacco status: former smoker Alcohol intake: never Substance/Drug Use: former Lives independently: Yes Household members: other Details: mother Physical Exam Const: COMMON NORMALS: no acute distress, patient oriented x3, no limitations and alert GENERAL APPEARANCE: cooperative and comfortable HENMT: HEAD & SCALP: normal to inspection FACE & SINUS: normal facial exam Eye: GENERAL EYE: appearance normal, both eyes and all related structures Neck/C-Spine: COMMON NORMALS: supple, no meningeal signs and no JVD Chest: COMMONS NORMALS: normal inspection of the chest Resp: COMMON NORMALS: normal respiratory effort, No use of accessory muscles and clear to auscultation bilaterally AUSCULTATION: clear to auscultation bilaterally Cardio: COMMON NORMALS: no JVD, regular rate, regular rhythm and No murmurs present (Cardio) RATE: regular rate RHYTHM: regular rhythm GI: COMMON NORMALS: Normal to inspection, nondistended, normoactive bowel sounds present, Soft to palpation and non-tender INSPECTION: Yes normal to inspection AUSCULTATION: Yes normoactive bowel sounds PALPATION: Yes Soft to palpation Back/Pelvis: COMMON NORMALS: thoracic and lumbar spine normal to inspection Extremity: COMMON NORMALS: normal to inspection Neuro: COMMON NORMALS: patient oriented x3, moves all extremities, no focal motor deficits and no sensory deficits noted SENSORIUM/ORIENTATION: Yes alert MENINGEAL SIGNS: Yes no meningeal signs Psych: COMMON NORMALS: mental status grossly normal, cooperative and normal affect Skin: COMMON NORMALS: no rashes or lesions noted and turgor normal GENERAL SKIN EXAM: no rashes or lesions noted and turgor normal Course Vital Signs: Vital signs: Vital Signs Temperature 97.6 F 03/31/23 21:15 Pulse Rate 73 04/01/23 01:18 Respiratory Rate 18 04/01/23 01:18 Blood Pressure 120/83 04/01/23 01:18 Pulse Oximetry 95 04/01/23 01:18 Oxygen Delivery Me thod Room Air 03/31/23 23:12 MDM - Chest Pain Medical Decision Making Chest pain - history of a fib but no history of CAD. Last stress test was in 2020 and was unremarkable. Prior evaluations for similar pain with negative troponins. Today nitro may have helped - patient says he isn't sure. Nitro paste was removed due to his headache. History of PE - although symptoms do not seem typical for that. He is complaint with his apixaban. EKG, troponin. Given prior negative work ups and his outpatient cardiology work ups - I think that as long as his troponin remains negative he can go home for outpatient follow up. Lab Data 03/31/23 21:42 03/31/23 21:42 Radiology Impressions Chest X-Ray 03/31/23 21:36 IMPRESSION: No acute findings. Laboratory Results WBC 4.4 10^3/uL (4.0-10.0) 03/31/23 21:42 RBC 4.48 10^6/uL (4.1-5.3) 03/31/23 21:42 Hgb 12.8 g/dL (11.7-16.6) 03/31/23 21:42 Hct 40.8 % (42.0-52.0) L 03/31/23 21:42 MCV 91.1 fl (80-94) 03/31/23 21:42 MCH 28.6 pg (28.0-34.0) 03/31/23 21:42 MCHC 31.4 g/dL (30.0-36.0) 03/31/23 21:42 RDW 13.4 % (12.1-15.1) 03/31/23 21:42 Plt Count 239 10^3/cmm (130-400) 03/31/23 21:42 MPV 10.5 fL (7.4-10.4) H 03/31/23 21:42 Neut % (Auto) 47.4 % 03/31/23 21:42 Lymph % (Auto) 38.5 % 03/31/23 21:42 Tyrrell % (Auto) 11.5 % 03/31/23 21:42 Eos % (Auto) 1.6 % 03/31/23 21:42 Baso % (Auto) 0.5 % 03/31/23 21:42 Neut # (Auto) 2.07 10^3/uL (1.8-7.7) 03/31/23 21:42 Lymph # (Auto) 1.7 10^3/uL (0.8-4.8) 03/31/23 21:42 Tyrrell # (Auto) 0.5 10^3/uL (0.2-0.9) 03/31/23 21:42 Eos # (Auto) 0.1 10^3/uL (0.0-0.8) 03/31/23 21:42 Baso # (Auto) 0.0 10^3/uL (0.0-0.1) 03/31/23 21:42 Nucleated RBC % (auto) 0 % 03/31/23 21:42 Nucleated RBCs # 0.0 /100WBC 03/31/23 21:42 Sodium 140 mmol/L (136-145) 03/31/23 21:42 Potassium 4.4 mmol/L (3.5-5.1) 03/31/23 21:42 Chloride 103 mmol/L (98-107) 03/31/23 21:42 Carbon Dioxide 27 mmol/L (22-29) 03/31/23 21:42 Anion Gap 14.4 (5-19) 03/31/23 21:42 BUN 12 mg/dL (6-20) 03/31/23 21:42 Creatinine 0.9 mg/dL (0.7-1.2) 03/31/23 21:42 GFR Calculation 86.4 mL/min (90-130) L 03/31/23 21:42 Glucose 191 mg/dL (65-115) H 03/31/23 21:42 Calculated Osmolality 295 mOsm/kg (285-295) 03/31/23 21:42 Calcium 8.9 mg/dL (8.5-10.5) 03/31/23 21:42 Total Bilirubin 0.2 mg/dL (0.15-1.2) 03/31/23 21:42 AST 11 U/L (0-40) 03/31/23 21:42 ALT 12 U/L (0-41) 03/31/23 21:42 Alkaline Phosphatase 70 U/L (40-130) 03/31/23 21:42 Troponin T Baseline 11 ng/L (0-15) 03/31/23 21:42 Troponin T 120 Minute 12.30 ng/L (0-15) 03/31/23 23:57 Delta Troponin T 1.3 ABS# (0-10) 03/31/23 23:57 Total Protein 6.6 g/dL (6.6-8.7) 03/31/23 21:42 Albumin 4.0 g/dL (3.5-5.2) 03/31/23 21:42 Globulin 2.6 g/dL (1.3-4.6) 03/31/23 21:42 Lipase 18 U/L (13-60) 03/31/23 21:42 Discharge Plan Discharge Patient Disposition: Home Clinical Impression: Atrial fibrillation, Chest pain Condition: Stable Prescriptions: No Action aspirin [Adult Low Dose Aspirin] 81 mg tablet,delayed release (DR/EC) 81 mg PO QAM Eliquis 5 mg tablet 5 mg PO BID Hold Instructions: Resume on 02/05/23. nitroglycerin [Nitrostat] 0.4 mg tablet, sublingual 0.4 mg SUBLINGUAL Q5M PRN (Reason: chest pains) Rx Instructions: do not exceed 3 doses per episode ibuprofen 800 mg tablet 800 mg PO TID PRN (Reason: Pain) Hold Instructions: Resume on 02/05/23. (DME) AFO to the right & Diabetic shoes with 3 pairs of inserts See Rx Instructions .Route .MEDSUPPLY Qty: 1 0RF Rx Instructions: As directed by SARA&O metformin 1,000 mg tablet 1,000 mg PO QAM pantoprazole [Protonix] 40 mg tablet,delayed release (DR/EC) 40 mg PO BID 42 Days Qty: 84 1RF sotalol 80 mg tablet 80 mg PO BID Qty: 180 3RF potassium chloride 10 mEq tablet extended release 10 meq PO DAILY Qty: 90 1RF furosemide 20 mg tablet 20 mg PO DAILY Qty: 90 1RF gabapentin 800 mg tablet 800 mg PO TID PRN (Reason: Pain) ciprofloxacin HCl 500 mg tablet 500 mg PO DAILY Movantik 25 mg Tablet 25 mg PO QAM Rx Instructions: must be taken on empty stomach; no food 1 hr after or 2-3 hrs before dose oxycodone 10 mg tablet 10 mg PO Q6H PRN (Reason: PAIN) 7 Days Qty: 28 0RF Cleocin HCl 300 mg capsule 300 mg PO Q6H 10 Days Qty: 40 0RF Discharge Orders: Discharge ED (Routine); Ordered 04/01/23 Ordered By: Clay Saldana Referrals: Rachael Law FNP [Primary Care Provider] - Discharge Diet: Cardiac Discharge Activity: Increase activity as tolerated Patient Instructions: Chest Pain (ED) Activity Restrictions/Additional Instructions: Thank you for visiting the emergency department. You were seen and evaluated for chest pain. The exact cause of your symptoms is unclear however based on ED evaluation and prior cardiac evaluation does not appear to need hospitalization at this time. Please follow-up with your damage assessor and primary care provider. Return for anything that you are concerned about and feel needs emergency department evaluation. Coding Level of Care Code ED Associate Professor Of Library [employer] for Biju Velez
[2023-03-31] MEDS: acetaminophen 500 mg Tablet 1000 MG PO (22:27)
[2023-03-31 22:28] VITALS: BP 118/63; PULSE 74; RESP 18; O2SAT 95
[2023-03-31 23:12] VITALS: BP 106/63; PULSE 69; RESP 16; O2SAT 95
--- NOTE | 2023-03-31 23:12 | PC.NURSE ---
NITRO PASTE REMOVED AT 2130
--- NOTE | 2023-03-31 23:36 | ECG_ITS ---
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 Measurements Intervals [place] Rate: 76 P: 0 OR: 0 QRS: 98 QRSD: 155 T: -10 QT: 450 QTc: 507 Interpretive Statements ATRIAL FIBRILLATION RIGHT BUNDLE BRANCH BLOCK [120+ ms QRS DURATION, UPRIGHT V1, 40+ ms S IN I/aVL/V4/V5/V6] Compared to ECG 12/24/2022 21:43:47 Right-axis deviation no longer present Electronically Signed On 04-01-2023 12:22:51 CDT by Rob Herman M.D. [id number]
[2023-04-01 00:25] LABS: Troponin 5 2HR Delta 1.3 ABS# (0-10)
[2023-04-01 01:18] VITALS: BP 120/83; PULSE 73; RESP 18; O2SAT 95
== END 2023-04-01 01:20 | disposition home or self-care (01) ==
PROVIDERS: Emergency Medicine; Emergency Provider Emergency Medicine; PCP Nurse Practitioner Family
DX: R07.9 Chest pain, unspecified (principal); I48.91 Unspecified atrial fibrillation; Z79.01 Long term (current) use of anticoagulants; Z79.82 Long term (current) use of aspirin; Z79.84 Long term (current) use of oral hypoglycemic drugs; Z87.891 Personal history of nicotine dependence; E11.9 Type 2 diabetes mellitus without complications; Z86.711 Personal history of pulmonary embolism
CPT/HCPCS: 71045; 80053; 83690; 84484; 85025; 93005; 99283

== ENCOUNTER → 2023-04-02 09:01 | Outpatient (BNVA) | payer MEDICARE, MEDICAID, SELFPAY | PROVIDERS: PCP Nurse Practitioner Family; Visit Provider Thoracic Surgery (Cardiothoracic Vascular Surgery) | DX: E11.52 Type 2 diabetes mellitus with diabetic peripheral angiopathy with gangrene (principal); L97.522 Non-pressure chronic ulcer of other part of left foot with fat layer exposed | CPT/HCPCS: 97597 ==

== ENCOUNTER → 2023-04-16 08:39 | Outpatient (BNVA) | payer MEDICARE, MEDICAID, SELFPAY | PROVIDERS: PCP Nurse Practitioner Family; Visit Provider Thoracic Surgery (Cardiothoracic Vascular Surgery) | DX: E11.52 Type 2 diabetes mellitus with diabetic peripheral angiopathy with gangrene (principal); L97.522 Non-pressure chronic ulcer of other part of left foot with fat layer exposed | CPT/HCPCS: 99212 ==

== ENCOUNTER → 2023-04-23 09:00 | Outpatient (BNVA) | payer MEDICARE, MEDICAID, SELFPAY | PROVIDERS: PCP Nurse Practitioner Family; Visit Provider Thoracic Surgery (Cardiothoracic Vascular Surgery) | DX: Z09 Encounter for follow-up examination after completed treatment for conditions other than malignant neoplasm (principal) | CPT/HCPCS: 99212 ==

== ENCOUNTER 2023-05-04 06:05 | Outpatient (CLI) | payer MEDICARE, MEDICAID, SELFPAY ==
--- NOTE | 2023-05-04 06:30 | USR_ITS ---
PROCEDURE INFORMATION: Exam: US Abdomen, Limited; Right Upper Quadrant Exam date and time: 05/04/2023 6:20 AM Age: 58 years old Clinical indication: Abdominal pain; Generalized.No history of trauma or recent surgery is provided. TECHNIQUE: Imaging protocol: Real time ultrasound of the abdomen with image documentation. Limited exam focused on the right upper quadrant. COMPARISON: 1. US abdomen complete* [id number] 06/06/2018 8:[address] abdomen pelvis w con* [id number] 11/16/2022 3:00 PM FINDINGS: Liver: The liver measures 17.8 cm. The hepatic echotexture is heterogeneous. No contour abnormalities are appreciated. Gallbladder: No sonographic Meng's sign is currently available. The gallbladder appears patulous overall with some fold and trace sludge averaging. No definite wall thickening or pericholecystic fluid collections are currently appreciated. Biliary ducts: No biliary ductal dilatation or echogenic calculus is appreciated. The common bile duct measures 0.35 cm. Pancreas: The pancreas is largely obscured. Right kidney: The right kidney measures 12 x 6.3 x 5.9 cm. No echogenic obstructive calculus or hydronephrosis is appreciated. Bowel: There is some bowel gas and penetration artifact overall. Aorta: The proximal aorta measures 2.1 cm, mid and distal obscured. Adjacent IVC color Doppler flow is demonstrated. Portal venous: Some central portal color flow is demonstrated.. Intraperitoneal space: No free fluid is appreciated. Other findings: No other significant interval changes are appreciated. US/US gall bladder [id number] IMPRESSION: 1. There is some heterogeneous echogenicity of the liver overall.This can be seen with processes including steatosis as well as chronic hepatic changes. Consider hepatobiliary profile studies. 2. No free fluid collections are appreciated. 3. The gallbladder is patulous with some trace sludge appearance. Overall no focal wall thickening or pericholecystic fluid collections are currently appreciated.
== END 2023-05-04 06:06 | disposition home or self-care (01) ==
PROVIDERS: PCP Nurse Practitioner Family; Visit Provider Surgery
DX: R10.9 Unspecified abdominal pain (principal)
CPT/HCPCS: 76705

== ENCOUNTER → 2023-07-07 13:08 | Outpatient (BNVA) | payer MEDICARE, MEDICAID, SELFPAY | PROVIDERS: PCP Nurse Practitioner Family; Visit Provider Surgery | DX: K80.20 Calculus of gallbladder without cholecystitis without obstruction (principal) | CPT/HCPCS: 99213 ==

== ENCOUNTER 2023-07-19 07:48 | Day surgery (SDC) | payer MEDICARE, SELFPAY ==
[2023-07-19] VITALS (12 sets, daily range): BP systolic 102–143; BP diastolic 67–90; PULSE 63–85; RESP 12–20; TEMP 36.4–36.8; O2SAT 91–97; BMI 43.8
--- NOTE | 2023-07-19 07:50 | W.PM.OPSUD ---
Surgery/Procedure H&P Update DATE OF PROCEDURE: July 19, 2023 DATE H&P PERFORMED: 07/07/23 H&P UPDATE INFORMATION: I have reviewed H&P completed within last 30 days, I have examined patient prior to procedure and No changes to prior documentation PLANNED PROCEDURE: Operation Date: 07/19/23 09:45 Proposed Procedures p [id number] Laparoscopic Cholecystectomy(Not Applicable) - Evan Jeffery DO
[2023-07-19 08:21] LABS: Glucose Point of Care 127 mg/dL (70-110)
[2023-07-19] MEDS: sodium chloride 0.9% 1,000 ML 30 ML IV (08:30)
[2023-07-19 08:34] LABS: Basophils % 0.3 %; Eosinophils % 1.1 %; Hematocrit 43.9 % (37-53); Lymphocytes # 1.3 10^3/uL (0.8-4.8); Lymphocytes % 34.8 %; Mean Corpuscular HGB Conc 32.1 g/dL (30-55); Mean Corpuscular Hemoglobin 28.8 pg (27-33); Mean Corpuscular Volume 89.8 fl (82-101); Mean Platelet Volume 10.5 fL (7.4-10.4); Monocytes # 0.3 10^3/uL (0.2-0.9); Monocytes % 8.8 %; Neutrophils # 2.05 10^3/uL (1.8-7.7); Neutrophils % 54.7 %; Nucleated Red Blood Cells % 0 %; Platelet Count 210 10^3/cmm (157-399); Red Blood Count 4.89 10^6/uL (3.85-5.65); Red Cell Distribution Width 14.6 % (12.1-15.1); White Blood Count 3.74 10^3/uL (3.29-11.43)
[2023-07-19] MEDS: ceFAZolin 2,000 MG in sodium chloride 0.9% (plus) 50 ML 100 MG IV (08:34)
[2023-07-19] MEDS: ceFAZolin 1,000 MG in sodium chloride 0.9% (plus) 50 ML 100 MG IV (08:34)
[2023-07-19 09:02] LABS: Anion Gap 11.5 (5-19); Blood Urea Nitrogen 14 mg/dL (8-23); Carbon Dioxide 25 mmol/L (22-29); Chloride 108 mmol/L (98-107); Glomerular Filtration Rate 86.1 mL/min (90-130); Glucose 141 mg/dL (65-115); Osmolality Calculated 293 mOsm/kg (285-295); Potassium 4.5 mmol/L (3.5-5.1); Sodium 140 mmol/L (136-145)
[2023-07-19] MEDS: lidocaine-epi 2% 20 mL INJ INJECTION (09:25)
--- NOTE | 2023-07-19 09:31 | P.ANESASSM_ITS ---
Pre-Anesthetic Assessment Height/Weight: Height 1.93 m Weight 163.293 kg Temp Pulse Resp BP Pulse Ox O2 Del Method 97.6 F 68 18 143/82 97 Room Air 07/19/23 08:06 07/19/23 08:06 07/19/23 08:06 07/19/23 08:06 07/19/23 08:06 07/19/23 08:08 Operation Date: 07/19/23 09:45 Proposed Procedures p [id number] Laparoscopic Cholecystectomy(Not Applicable) - Evan Jeffery DO Familial anesthetic complications: none Was Beta John taken within 24 hours: Yes Was Clonidine taken within 24 hours: N/A Last intake: Intake Last Liquid Date 07/18/23 Last Liquid Time 21:00 Last Solid Date 07/18/23 Last Solid Time 22:00 Social No alcohol and No tobacco Exam alert, oriented x 3 and clear to auscultation bilaterally irregular Airway Submandibular: within normal limits Cervical ROM: within normal limits Mallampati: Class II Dentition: false CV/HEM Atrial Fibrillation, Arrythmia, Coronary Artery Disease and Hypertension Metabolic Morbid Obesity [facility] [place] Lower Back Pain and Osteoarthritis/DJD Neuropsych Neuropathy Anesthetic Plan ASA status: 3 Anesthesia: General Medications/Allergies Home Medications Medication Instructions Recorded Confirmed Last Taken Type apixaban 5 mg tablet (Eliquis) 5 mg PO BID 04/11/20 07/16/23 07/16/23 History aspirin 81 mg tablet,delayed 81 mg PO QAM 04/11/20 07/16/23 07/19/23 06:00 History release (Adult Low Dose Aspirin) nitroglycerin 0.4 mg sublingual 0.4 mg sublingual Q5M PRN chest 04/11/20 07/16/23 Unknown History tablet (Nitrostat) pains gabapentin 800 mg tablet 800 mg PO TID PRN Pain 03/04/22 07/16/23 07/18/23 History ibuprofen 800 mg tablet 800 mg PO TID PRN Pain 03/04/22 07/16/23 07/19/23 06:00 History AFO to the right & Diabetic shoes #1 ea 05/26/22 02/18/23 Unknown Rx with 3 pairs of inserts naloxegol 25 mg tablet (Movantik) 25 mg PO QAM 09/09/22 07/19/23 06/14/23 History oxycodone 10 mg tablet 10 mg PO Q6H PRN PAIN 7 days #28 09/18/22 07/16/23 07/19/23 06:00 Rx tabs furosemide 20 mg tablet 20 mg PO DAILY #90 tabs 02/23/23 07/16/23 Unknown Rx potassium chloride 10 mEq 10 meq PO DAILY #90 tabs 02/23/23 07/19/23 06/21/23 Rx tablet,extended release metoprolol tartrate 25 mg tablet 25 mg PO BID 07/07/23 07/16/23 07/19/23 06:00 History amiodarone 200 mg tablet 200 mg PO DAILY 07/16/23 07/16/23 07/19/23 06:00 History Allergies Allergy/AdvReac Type Severity Reaction Status Date / Time No Known Allergies Allergy Verified 07/07/23 13:17 Current Medications Generic Name Dose Route Start Last Admin Trade Name Freq PRN Reason Stop Dose Admin Sodium Chloride 1,000 mls @ 30 mls/hr 07/19/23 08:00 07/19/23 08:30 Sodium Chloride 0.9% IV 07/20/23 07:59 30 mls/hr .Q24H JANES Administration Lidocaine/Epinephrine 20 ml 07/19/23 09:25 07/19/23 09:25 Lidocaine-Epi 2% 20 Ml Inj INJECTION 07/19/23 09:26 4 ml ONCE ONE Administration PFSH Anesthesia Medical History Acute encephalopathy Atrial fibrillation Chronic anticoagulation Chronic low back pain Degenerative joint disease of right hip Diabetes DM type 2 (diabetes mellitus, type 2) Hypomagnesemia MRSA (methicillin resistant Staphylococcus aureus) infection Obesity Pulmonary embolism Wound infection Surgical History History of orthopedic surgery Bilateral lower extremity fractures 2005, hardware of right lower extremity and removal in 2016 S/P total right hip arthroplasty Family History Father Leukemia Social History Smoking and tobacco/nicotine status: former use of tobacco/nicotine Alcohol intake: never Substance/Drug Use: former Lives independently: Yes Household members: other Details: mother Data Anesthesia 07/19/23 08:20 07/19/23 08:20 Short CBC 10/23/23 Range/Units 08:20 WBC 3.74 (3.29-11.43) 10^3/uL Hgb 14.10 (11.27-16.99) g/dL Hct 43.9 (37-53) % MCV 89.8 (82-101) fl Plt Count 210 (157-399) 10^3/cmm Neut % (Auto) 54.7 % Neut # (Auto) 2.05 (1.8-7.7) 10^3/uL BMP 07/19/23 08:20 Sodium 140 Potassium 4.5 Chloride 108 H Carbon Dioxide 25 BUN 14 Creatinine 0.9 Glucose 141 H Calcium 9.0 Cardiac Studies: Echocardiogram 06/25/22 Sestamibi Stress Test (Cardiology) 04/28 Holter Monitor 11/19/21
--- NOTE | 2023-07-19 09:34 | P.OP_ITS ---
Operative Report Date of procedure: July 19, 2023 Pre-op diagnosis: Symptomatic cholelithiasis Post-op diagnosis: same Procedure done: Laparoscopic cholecystectomy Implants: Home Specimens removed/disposition: Gallbladder Surgeon: Evan Jeffery DO Anesthesia: General Estimated blood loss (mL): 5 Complications: None apparent Brief History: This very pleasant 58-year-old gentleman was diagnosed with symptomatic cholelithiasis. Laparoscopic cholecystectomy is indicated. The risk and benefits were explained and documented. Procedure: Patient was wheeled into the operative room and placed on the OR table in a supine position. Abdomen was inspected prepped and draped in usual sterile fashion. Time-out was performed and all present were in agreement. A 15 blade scalp was used to make a stab incision in the left upper quadrant and intra- abdominal insufflation was achieved using a Veress needle. After localizing the tissue incisions were made and a 5 millimeter trocar was placed into the umbilicus as well as 2 in the right upper quadrant. A 12 millimeter trocar was placed in the epigastrium. Gallbladder was grasped and elevated. The triangle of Calot was carefully dissected using blunt dissection and electrocautery until the triangle of Calot clearly identified. The cystic duct was clipped proximally and double clipped distally. The duct was then ligated proximally. The cystic artery was doubly clipped and ligated. The gallbladder was then removed from the liver bed using electrocautery. The gallbladder was removed from the abdomen using an Endo-Catch bag through the epigastric incision. The liver bed was inspected and no bleeding was seen. The abdomen was irrigated and suctioned. All ports removed. Skin was washed and dried. Incisions were closed with 4-0 Monocryl in a subcuticular interrupted fashion. Skin glue was applied. Patient tolerated the procedure well.
[2023-07-19] MEDS: fentaNYL 50 mcg/mL INJ 2mL IVP (09:59)
[2023-07-19] MEDS: HYDROcodone-acetaminophen 10-325 mg Tablet 1 TAB PO (10:36)
--- NOTE | 2023-07-19 11:33 | SUR.PHASEII ---
11:15 abdomen incisions site dry and intact.no bleeding noted.
--- NOTE | 2023-07-19 12:50 | ANE.PACU2 ---
Inpatient post-anesthesia follow up: Airway intact: Yes Vital signs: Temperature 98.1 F Pulse Rate 64 Respiratory Rate 16 Blood Pressure 118/69 Pulse Oximetry 94 Oxygen Delivery Me thod Room Air Oxygen Flow Rate Fraction of Inspir ed Oxygen Hydration adequate: Yes Nausea and vomiting: No Pain level: 3 Mental status: Baseline
== END 2023-07-19 11:20 | disposition home or self-care (01) ==
PROVIDERS: Anesthesiology; PCP Nurse Practitioner Family; Visit Provider Surgery
PROC: 0FT44ZZ Resection of Gallbladder, Percutaneous Endoscopic Approach (ICD-10-PCS; CPT 47562; principal; 2023-07-19 09:35)
DX: K80.10 Calculus of gallbladder with chronic cholecystitis without obstruction (principal); I48.91 Unspecified atrial fibrillation; I25.10 Atherosclerotic heart disease of native coronary artery without angina pectoris; I10 Essential (primary) hypertension; E66.01 Morbid (severe) obesity due to excess calories; Z68.41 Body mass index [BMI] 40.0-44.9, adult; Z79.82 Long term (current) use of aspirin; Z86.14 Personal history of Methicillin resistant Staphylococcus aureus infection; E11.40 Type 2 diabetes mellitus with diabetic neuropathy, unspecified; Z79.01 Long term (current) use of anticoagulants; Z87.891 Personal history of nicotine dependence
CPT/HCPCS: 47562; 36415; 36416; 80048; 82962; 85025; 88304; J0690; J1100; J1170; J2405; J2704; J2710; J3010; J3490; J7030

== ENCOUNTER → 2023-08-24 13:45 | Outpatient (BNVA) | payer MEDICARE, SELFPAY | PROVIDERS: PCP Nurse Practitioner Family; Visit Provider Surgery | DX: Z90.49 Acquired absence of other specified parts of digestive tract (principal); R10.13 Epigastric pain; Z98.890 Other specified postprocedural states | CPT/HCPCS: 99024 ==

== ENCOUNTER → 2023-09-14 10:19 | Outpatient (BNVA) | payer MEDICARE, SELFPAY | PROVIDERS: PCP Nurse Practitioner Family; Visit Provider Orthopaedic Surgery | DX: Z98.1 Arthrodesis status (principal); M48.062 Spinal stenosis, lumbar region with neurogenic claudication | CPT/HCPCS: 72100; 99214 ==

== ENCOUNTER 2023-09-24 11:51 | Outpatient (CLI) | payer MEDICARE, SELFPAY ==
--- NOTE | 2023-09-24 12:05 | USR_ITS ---
PROCEDURE INFORMATION: Exam: US Soft Tissue Head and Neck, Soft Tissue Exam date and time: 09/24/2023 12:13 PM Age: 58 years old Clinical indication: Mass, lump, or swelling in neck; Left; Additional info: Left neck mass/swelling, mass. Lump TECHNIQUE: Imaging protocol: Real-time ultrasound scan of the head and neck with image documentation. Exam focused on the soft tissue in the region of clinical concern. COMPARISON: CT head wo con* [id number] 11/14/2020 11:59 AM FINDINGS: Lymph nodes: No lymphadenopathy. Soft tissues: There is a circumscribed oval-shaped hypoechoic mass with smooth margins likely solid in nature situated on the left lateral neck posterior to the air and area of symptomatology. Mass measures 4.4 x 1.2 x 3.0 cm. Mass is difficult to further characterize. Lipoma is a consideration. US/US soft tissue head neck [id number] IMPRESSION: 4.4 x 1.2 x 3.0 cm circumscribed oval shaped solid mass posterior to the left ear difficult to further characterize and could be better assessed on CT or MRI examination of the neck.
--- NOTE | 2023-09-24 12:05 | USR_ITS ---
PROCEDURE INFORMATION: Exam: US Left Non-Vascular Joint or Other Extremity Structure Exam date and time: 09/24/2023 12:19 PM Age: 58 years old Clinical indication: Mass or lump; Arm, lower; Left; Additional info: Localized swelling, mass lump upper limb TECHNIQUE: Imaging protocol: Left US joint or other nonvascular extremity structure or structures. Real-time ultrasound with image documentation. Limited study. Exam focused on the upper extremity in the region of clinical interest. COMPARISON: US soft tissue head neck [id number] 09/24/2023 12:13 PM FINDINGS: Ultrasound targeted to the area of interest within the left upper arm was performed. There is a smoothly marginated oval-shaped heterogeneous, echogenic masslike density evident only on the sagittal images it appears to be interposed between muscle bundles and the humerus measuring 5.6 x 1.6 cm. It is unclear if this represents some confluent fatty tissue or discrete mass. There is no fluid collection or abscess apparent. There is no suspicious lymphadenopathy appreciated. US/US soft tissue/extremity [id number] IMPRESSION: Findings inconclusive for oval-shaped circumscribed soft tissue mass within the left upper arm that could be better assessed on MRI examination clinically warranted.
== END 2023-09-24 11:52 | disposition home or self-care (01) ==
LOC: RAD 11:52
PROVIDERS: PCP Nurse Practitioner Family; Visit Provider Nurse Practitioner Family
DX: R22.32 Localized swelling, mass and lump, left upper limb (principal); R22.1 Localized swelling, mass and lump, neck
CPT/HCPCS: 76536; 76882

== ENCOUNTER 2023-10-01 09:10 | Outpatient (CLI) | payer MEDICARE, SELFPAY ==
--- NOTE | 2023-10-01 09:20 | CT_ITS ---
WS: [id number] CT NECK WITHOUT CONTRAST HISTORY: LOCALIZED SWELLING,MASS, LUMP, NECK TECHNIQUE: Contiguous 2 mm axial images are performed through the neck with intravenous contrast. Sag ittal and coronal reformats are also submitted. All CT scans at [facility] use at least one o f these dose optimization techniques: automated exposure control; mA and/or kV adjustment per patient size (includes targeted exams where dose is matched to clinical indication); or iterative reconstruc tion. CONTRAST: CONTRAST: None DLP: 368.09 mGy.cm COMPARISON: Soft tissue ultrasound 09/24/2023 Marker is placed along the palpable mass which is just inferior to the left ear. This palpable mass c orresponds to a focal area of fat contained within the sternocleidomastoid muscle. Mass measures 2.1 x 1.8 cm and extends over a length of 4.0 cm. Low Hounsfield units suggesting lipoma. No soft tissue component otherwise. This study was performed without contrast. There is no adenopathy. Parotid gland s are fatty replaced but symmetric bilaterally. No stones are identified within the parotid or subman dibular ducts. No significant adenopathy. There are few small benign-appearing lymph nodes bilaterall y along the cervical chains. No abnormality at the tongue base or in the larynx on this unenhanced exam. Negative salivary and thy roid glands. Lung apices are clear. Visualized paranasal sinuses and mastoid air cells are normal. Lung apices are clear. IMPRESSION: 1. Palpable area along the LEFT neck corresponds to a benign-appearing lipoma within the sternocleido mastoid muscle measuring 2.1 x 1.8 x 4.0 cm. 2. No cervical chain adenopathy. No laryngeal mass.
== END 2023-10-01 09:11 | disposition home or self-care (01) ==
LOC: RAD 09:11
PROVIDERS: PCP Nurse Practitioner Family; Visit Provider Nurse Practitioner Family
DX: R22.1 Localized swelling, mass and lump, neck (principal)
CPT/HCPCS: 70490

== ENCOUNTER 2023-10-12 12:32 | Outpatient (CLI) | payer MEDICARE, SELFPAY ==
--- NOTE | 2023-10-12 12:39 | MM_ITS ---
WS: [id number] DIAGNOSTIC BILATERAL DIGITAL BREAST TOMOSYNTHESIS MAMMOGRAPHY WITH CAD LEFT breast ultrasound, limited HISTORY: LT BR MASS, male patient. COMPARISON: None available. TECHNIQUE: Bilateral craniocaudad, mediolateral oblique, and mediolateral views are submitted with to moslaureano and SM. Spot compression LEFT MLO. Computer aided detection utilized. Breast composition: The breasts are almost entirely fatty. No mass or calcifications identified. Ther e is no abnormality associated with the triangular marker in the LEFT breast. LEFT breast ultrasound, limited. Normal soft tissue corresponds to the palpable abnormality within the LEFT breast region. Similar fin dings on the RIGHT breast as performed for comparison purposes. IMPRESSION: MM/[place] [id number] BI-RADS: 1-Negative FOLLOW UP: See Report LACK OF RADIOGRAPHIC EVIDENCE OF MALIGNANCY SHOULD NOT DELAY BIOPSY IF A CLINIC ALLY SUSPICIOUS MASS IS PRESENT.
== END 2023-10-12 12:33 | disposition home or self-care (01) ==
LOC: RAD 12:32
PROVIDERS: PCP Nurse Practitioner Family; Visit Provider Nurse Practitioner Family
DX: N63.20 Unspecified lump in the left breast, unspecified quadrant (principal)
CPT/HCPCS: 76642; 77062; G0279

== ENCOUNTER → 2023-10-20 14:34 | Outpatient (BNVA) | payer MEDICARE, SELFPAY | PROVIDERS: PCP Nurse Practitioner Family; Visit Provider Surgery | DX: R14.0 Abdominal distension (gaseous) (principal); R22.9 Localized swelling, mass and lump, unspecified | CPT/HCPCS: 99214 ==

== ENCOUNTER 2023-10-26 12:36 | Outpatient (CLI) | payer MEDICARE, SELFPAY ==
--- NOTE | 2023-10-26 12:39 | CT_ITS ---
WS: [id number] CT LUMBAR MYELOGRAM TECHNIQUE: Contrast-enhanced CT of the lumbar spine with coronal and sagittal reformatted images. Julio C e images are limited due to body habitus and beam hardening artifact from hardware CLINICAL INFORMATION: lumbar COMPARISON: MRI 10/29/2021 DLP: 2223.[address] scans at [facility] use at least one of these dose optimization techniques: automated e xposure control; mA and/or kV adjustment per patient size (includes targeted exams where dose is matc hed to clinical indication); or iterative reconstruction. FINDINGS: Postoperative changes pedicle screw fixation with connecting rods is new compared to the prior MRI. P edicle screw fixation T12-S1 with bilateral sacroiliac fixation screws. Laminectomy defects L2-L5. Pe dicle screws and interconnecting rods appear intact. Sacroiliac fixation screws appear intact. Grade 1 anterolisthesis L5 on S1. Disc space narrowing worse at L1-2 and L5-S1. Pedicle screw lucency compatible with loosening at bilateral T12 and L1. L1-L2: Postoperative changes. Spinal canal has been decompressed. Mild bilateral foraminal narrowing. Pedicle screw fixation with laminectomy defects. Spinal canal is patent. Mild RIGHT bony foraminal n arrowing. Pedicle screw fixation with laminectomy defects. Mild bilateral bony foraminal narrowing. L2-L3: Disc osteophytic ridging. Spinal canal has been decompressed. Mild RIGHT and no significant LE FT foraminal narrowing. L3-L4: Postoperative changes laminectomy defects. RIGHT eccentric disc osteophytic ridging with mild bilateral foraminal narrowing L4-L5: Postoperative changes laminectomy defects. RIGHT eccentric disc osteophyte complex slightly im pinges the exiting L4 nerve root. LEFT foramen is patent. Spinal canal is patent. Moderate facet arth ropathy. L5-S1: Grade 1 anterolisthesis. Moderate bilateral bony foraminal narrowing. Spinal canal is patent. Visualized pelvic bony structures: Normal. Paravertebral soft tissues: Normal. IMPRESSION: Some images are limited due to extensive beam hardening artifact from hardware 1. Pedicle screw loosening bilateral T12 and L1 2. Pedicle screw fixation T12-S1 with bilateral sacroiliac fixation screws. Interconnecting rods and pedicle screws appear intact. 3. Laminectomy defects L2-L5. 4. Grade 1 anterolisthesis L5 on S1 with disc space narrowing. Disc space narrowing L1-2 with vacuum disc phenomenon. 5. No significant central canal stenosis. 6. Mild RIGHT L2-3 bony foraminal narrowing slightly impinges the exiting RIGHT L2 nerve root. 7. Mild bilateral L3-4 bony foraminal narrowing. 8. Mild RIGHT L4-5 foraminal narrowing due to eccentric disc osteophytic ridging. 9. Moderate bilateral L5-S1 bony foraminal narrowing.
--- NOTE | 2023-10-26 13:00 | IR_ITS ---
WS: [id number] MYELOGRAM LUMBAR SPINE Fluoroscopic guided lumbar myelogram CLINICAL INFORMATION: screws lose COMPARISON: None. TECHNIQUE: The procedure, including risks, benefits, and complications, were discussed with the patie nt who agreed to proceed. A timeout was performed to confirm correct patient, procedure, and site. Using sterile technique, the patient was prepped and draped in the usual sterile fashion. After admin istration of local anesthesia using 1% preservative-free lidocaine and using fluoroscopic guidance, a 22-gauge 5 inch spinal needle was advanced into the subarachnoid space at the L3 level. Subsequently 10 cc of Omnipaque 300 was administered into the thecal sac. The needle was removed and hemostasis w as achieved. Spot fluoroscopic images were obtained. FLUOROSCOPIC TIME: 1min [id number] # of spot films: 2 Spot fluoroscopic images demonstrate pedicle screw fixation T12-S1 with bilateral sacroiliac fixation screws. Advanced disc space narrowing throughout the lumbar spine. Anterior hypertrophic changes at L3. Mild lumbar curve convex RIGHT. Postoperative changes partially visualized RIGHT POLLO. Please see CT myelogram report for additional detail. IMPRESSION: 1. Uncomplicated lumbar myelogram. 2. Please see CT report for anatomic detail.
== END 2023-10-26 12:37 | disposition home or self-care (01) ==
LOC: RAD 12:36
PROVIDERS: PCP Nurse Practitioner Family; Visit Provider Orthopaedic Surgery
DX: M48.062 Spinal stenosis, lumbar region with neurogenic claudication (principal); M48.07 Spinal stenosis, lumbosacral region; T84.226A Displacement of internal fixation device of vertebrae, initial encounter; Y83.8 Other surgical procedures as the cause of abnormal reaction of the patient, or of later complication, without mention of misadventure at the time of the procedure; M96.1 Postlaminectomy syndrome, not elsewhere classified
CPT/HCPCS: 62304; 72132; Q9967

== ENCOUNTER 2023-11-02 09:39 | Day surgery (SDC) | payer MEDICARE, SELFPAY ==
[2023-11-02] VITALS (12 sets, daily range): BP systolic 104–152; BP diastolic 68–95; PULSE 65–85; RESP 10–20; TEMP 36.4–36.8; O2SAT 91–96; BMI 43.8
--- NOTE | 2023-11-02 10:21 | ANES.PREANE2 ---
Pre-Anesthetic Assessment Height/Weight: Height 1.93 m O2 Del Method Room Air 11/02/23 10:11 Operation Date: 11/02/23 12:20 Proposed Procedures p [id number] excision of subcutaneous masses of left neck, left forearm and back R22.9(Left) - Evan Jeffery DO Last intake: Intake Last Liquid Date 11/01/23 Last Liquid Time 22:00 Last Solid Date 11/01/23 Last Solid Time 22:00 Exam alert, oriented x 3 and clear to auscultation bilaterally Airway Submandibular: within normal limits Cervical ROM: within normal limits Mallampati: Class I Pulmonary Sleep Apnea CV/HEM Atrial Fibrillation GI None reported Metabolic Diabetes Mellitus and Morbid Obesity Anesthetic Plan ASA status: 3 Anesthesia: MAC Medications/Allergies Home Medications Medication Instructions Recorded Confirmed Last Taken Type apixaban 5 mg tablet (Eliquis) 5 mg PO BID 04/11/20 11/01/23 10/31/23 History aspirin 81 mg tablet,delayed 81 mg PO QAM 04/11/20 11/01/23 11/02/23 History release (Adult Low Dose Aspirin) nitroglycerin 0.4 mg sublingual 0.4 mg sublingual Q5M PRN chest 04/11/20 11/01/23 Unknown History tablet (Nitrostat) pains gabapentin 800 mg tablet 800 mg PO TID PRN Pain 03/04/22 11/01/23 11/01/23 History ibuprofen 800 mg tablet 800 mg PO TID PRN Pain 03/04/22 11/01/23 07/19/23 06:00 History AFO to the right & Diabetic shoes #1 ea 05/26/22 10/20/23 Unknown Rx with 3 pairs of inserts naloxegol 25 mg tablet (Movantik) 25 mg PO QAM 09/09/22 11/01/23 06/14/23 History oxycodone 10 mg tablet 10 mg PO Q6H PRN PAIN 7 days #28 09/18/22 11/01/23 11/01/23 Rx tabs metoprolol tartrate 25 mg tablet 25 mg PO BID 07/07/23 11/01/23 11/02/23 History amiodarone 200 mg tablet 200 mg PO DAILY 07/16/23 11/01/23 11/02/23 History docusate sodium 100 mg capsule 100 mg PO BID #14 caps 07/19/23 11/01/23 Unknown Rx (DOK) pantoprazole 40 mg tablet,delayed 40 mg PO BID 6 weeks #84 tabs 08/31/23 11/01/23 11/01/23 Rx release (Protonix) Allergies Allergy/AdvReac Type Severity Reaction Status Date / Time No Known Allergies Allergy Verified 11/01/23 08:56 [facility] Anesthesia Medical History Diabetes Degenerative joint disease of right hip Obesity Hypomagnesemia Acute encephalopathy MRSA (methicillin resistant Staphylococcus aureus) infection Chronic low back pain Wound infection DM type 2 (diabetes mellitus, type 2) Chronic anticoagulation Pulmonary embolism Atrial fibrillation Surgical History S/P total right hip arthroplasty History of orthopedic surgery Bilateral lower extremity fractures 2004, hardware of right lower extremity and removal in 2015 Family History Father Leukemia Social History Smoking and tobacco/nicotine status: former use of tobacco/nicotine Alcohol intake: never Substance/Drug Use: former Lives independently: Yes Household members: other Details: mother Data Anesthesia Cardiac Studies: Echocardiogram 06/25/22 Sestamibi Stress Test (Cardiology) 04/28/21 Holter Monitor 11/19/21
[2023-11-02] MEDS: sodium chloride 0.9% 1,000 ML 30 ML IV (10:28)
[2023-11-02] MEDS: midazolam 1 mg/mL INJ 2 mL 2 MG IVP (10:30)
--- NOTE | 2023-11-02 11:05 | W.PM.OPSUD ---
Surgery/Procedure H&P Update DATE OF PROCEDURE: November 02, 2023 DATE H&P PERFORMED: 10/20/23 H&P UPDATE INFORMATION: I have reviewed H&P completed within last 30 days, I have examined patient prior to procedure and No changes to prior documentation PLANNED PROCEDURE: Operation Date: 11/02/23 12:20 Proposed Procedures p [id number] excision of subcutaneous masses of left neck, left forearm and back R22.9(Left) - Evan Jeffery DO
[2023-11-02] MEDS: ceFAZolin 3,000 MG in sodium chloride 0.9% (100 ml) 100 ML 200 MG IV (11:32)
[2023-11-02] MEDS: lidocaine-epi 2% PF 1:200,000 20 mL SDV INJECTION (12:02)
[2023-11-02] MEDS: lidocaine-epi 1% 20 mL INJ INJECTION (12:02)
--- NOTE | 2023-11-02 14:05 | PM.OP ---
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 Excision was indicated. The risks and benefits were explained and documented. Procedure: Patient was wheeled operative room and remained on the hospital bed and in the supine position. General endotracheal intubation was achieved by department anesthesia. A timeout was performed. All present were in agreement. The left forearm was inspected prepped and draped in usual sterile fashion. 2% lidocaine with epinephrine was used to anesthetize the area over the subcutaneous mass. A 5 cm transverse incision was made using a 10 blade scalpel. Dissection was carried down through the fascia with electrocautery. A lobulated and fatty mass was identified and resected using electrocautery. This was 4 cm in greatest diameter. The underlying brachial radialis was hypertrophied but no other discrete mass was identified. Hemostasis was controlled with electrocautery. Dermis was approximated using 3-0 Vicryl in interrupted fashion. The skin was washed and dried. Dermabond was applied. Patient was then placed into the right lateral decubitus position. The left neck was inspected prepped and draped in usual sterile fashion. 2% lidocaine was used to anesthetize the area over the subcutaneous mass. A 15 blade scalpel was then used to make a 3 cm incision over the mass. Dissection was carried down through the fascia using electrocautery. The platysma was identified and opened sharply with electrocautery and cut mode. There was a very large posterior auricular nerve immediately underneath the platysma which was partially transected. Out of an abundance of caution, a single stitch of 4-0 Nurolon in a simple fashion to reapproximate the partial transection. The nerve was then carefully moved out of the way and a lobulated fatty mass was identified, measuring 1.5 cm in greatest diameter. This was taken out in its entirety. Hemostasis was achieved with electrocautery. Platysma and dermis were approximated using 3-0 Vicryl in an interrupted fashion. Dermabond was applied. Attention was then brought to the back. Just left of the L4-L5, there was a large subcutaneous mass. 2% lidocaine with epinephrine was used to anesthetize the skin over the mass. A 7 cm transverse incision was made over the mass. Dissection was carried down with electrocautery through the fascia. A large yellow lobulated fatty tumor was identified. All surrounding alveolar tissue was ligated using electrocautery. The mass was taken out whole. Mass measured 7 cm in greatest diameter. Electrocautery was used to create hemostasis. Donaldo was then placed into the wound bed. Dermis was approximated with 3-0 Vicryl in an interrupted fashion. The skin was closed using 2-0 nylon in a simple interrupted fashion. Sterile bandage was applied. Patient tolerated procedure well Postoperatively the patient was inspected and he had no sensory or motor deficits related to his posterior auricular nerve that could be identified.
--- NOTE | 2023-11-02 14:17 | ECG_ITS ---
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 Measurements Intervals [place] Rate: 73 P: 0 MS: 0 QRS: 269 QRSD: 166 T: -5 QT: 454 QTc: 504 Interpretive Statements ATRIAL FIBRILLATION INDETERMINATE AXIS RIGHT BUNDLE BRANCH BLOCK [120+ ms QRS DURATION, UPRIGHT V1, 40+ ms S IN I/aVL/V4/V5/V6] Compared to ECG 03/31/2023 23:40:59 Indeterminate axis now present Electronically Signed On 11-02-2023 16:43:17 SECURITY TECH by Rob Herman M.D. [email or web address]
--- NOTE | 2023-11-02 14:37 | PC.NURSE ---
1415 - anesthesia to bay to verify heart rhythm - EMMA Springer verified pt in afib and that is baseline - pt also verified as well - 1425 - RT at bedside to perform EKG - Per this nurse EKG - results given to EMMA Springer - no new orders notified - pt moved to Phase 2 with denial of shortness of breath or chest pain
[2023-11-02] MEDS: morphine 4 mg/mL SDV 1 mL IVP (14:47)
--- NOTE | 2023-11-02 15:14 | ANE.PACU2 ---
Inpatient post-anesthesia follow up: Vital signs: Temperature 98.3 F Pulse Rate 72 Respiratory Rate 16 Blood Pressure 152/82 Pulse Oximetry 94 Oxygen Delivery Me thod Room Air Oxygen Flow Rate 6 Fraction of Inspir ed Oxygen Hydration adequate: Yes Nausea and vomiting: No Pain level: 1 Additional Comments: no complications noted
== END 2023-11-02 15:20 | disposition home or self-care (01) ==
PROVIDERS: PCP Nurse Practitioner Family; Visit Provider Surgery
PROC: (CPT 11404; principal; 2023-11-02 12:10)
DX: D17.0 Benign lipomatous neoplasm of skin and subcutaneous tissue of head, face and neck (principal); D17.22 Benign lipomatous neoplasm of skin and subcutaneous tissue of left arm; D17.1 Benign lipomatous neoplasm of skin and subcutaneous tissue of trunk; G47.30 Sleep apnea, unspecified; I48.91 Unspecified atrial fibrillation; E11.9 Type 2 diabetes mellitus without complications; E66.01 Morbid (severe) obesity due to excess calories; Z68.41 Body mass index [BMI] 40.0-44.9, adult; Z79.82 Long term (current) use of aspirin; E66.9 Obesity, unspecified; Z86.14 Personal history of Methicillin resistant Staphylococcus aureus infection; Z87.891 Personal history of nicotine dependence
CPT/HCPCS: 11404; 11406; 11422; 12032; 88304; 93005; J0330; J0690; J1100; J1170; J2250; J2270; J2371; J2405; J2704; J3010; J3490; J7030

== ENCOUNTER 2023-11-11 11:45 | Outpatient (CLI) | payer MEDICARE, SELFPAY ==
--- NOTE | 2023-11-11 11:49 | CT_ITS ---
WS: [id number] LDCT LUNG CANCER SCREENING HISTORY: NICOTINE DEPENDENCE,CIGARETTES TECHNIQUE: Axial imaging performed from the apices to 1 cm below the costophrenic angles. Coronal and sagittal reformats are submitted with axial MIP series. All CT scans at [facility] use at least one of these dose optimization techniques: automated exposure control; mA and/or kV adjustment per patient size (includes targeted exams where dose is matched to clinical indication); or iterativ e reconstruction. DLP: 326.87 mGy.cm DIvol: Mean CTDIvol: 7.20 (mGy) COMPARISON: None available. Diagnostic quality: 11/14/2020 Lungs: No pulmonary mass or nodule. No endobronchial lesion. No groundglass attenuation. Heart: Normal size heart with no pericardial effusion.. Other findings: Minimal calcified plaque in the thoracic aorta. Hepatic steatosis. No adrenal mass. P rior cholecystectomy. Thoracic spondylosis. IMPRESSION: CT/CT lung screening [id number] LUNG-RADS: 1-Negative FOLLOW UP: 12 Month: Continue annual screening with LDCT OTHER FINDINGS (S MODIFIER): None.
== END 2023-11-11 11:46 | disposition home or self-care (01) ==
LOC: RAD 11:46
PROVIDERS: PCP Nurse Practitioner Family; Visit Provider Nurse Practitioner Family
DX: Z12.2 Encounter for screening for malignant neoplasm of respiratory organs (principal); F17.210 Nicotine dependence, cigarettes, uncomplicated
CPT/HCPCS: 71271

== ENCOUNTER → 2023-11-15 09:23 | Outpatient (BNVA) | payer MEDICARE, SELFPAY | PROVIDERS: PCP Nurse Practitioner Family; Visit Provider Surgery | DX: R22.32 Localized swelling, mass and lump, left upper limb | CPT/HCPCS: 99214 ==

== ENCOUNTER → 2023-12-07 13:48 | Outpatient (BNVA) | payer MEDICARE, SELFPAY | PROVIDERS: PCP Nurse Practitioner Family; Visit Provider Orthopaedic Surgery | DX: Z98.1 Arthrodesis status (principal) | CPT/HCPCS: 99214 ==

== ENCOUNTER → 2025-01-30 12:52 | Outpatient (BNVA) | payer MEDICARE, SELFPAY | PROVIDERS: PCP Nurse Practitioner Family; Visit Provider Orthopaedic Surgery | DX: Z98.1 Arthrodesis status (principal) | CPT/HCPCS: 72110; 99213 ==